=== PATIENT | female | born 1930 | race African-American/Black ===

== ENCOUNTER 2016-06-09 15:23 | Inpatient (IN) | payer MEDICARE, OTHER ==
[~2016-06-09] VITALS: Ht 162.6 cm; Wt 86.2 kg
[~2016-06-09 15:23] MED LIST: ADVAIR 250-501 EACH INH; ALBUTEROL SULF8.5 GM INH; AMITIZA8 MCG PO; ATORVASTATIN CA40 MG; CARAFATE1 G1 ORAL; CEPACOL SORETH1 EACH ORO; CIPRO500 MG PO; CLOPIDOGREL75 MG ORAL; COZAAR50 MG PO; DEXILANT60 MG PO; HYDROCHLOROTHIA25 MG PO; LOSARTAN-HCTZ1 EAC2 ORAL; MELOXICAM15 MG PO; PREDNISONE20 MG ORAL; PROTONIX40 MG ORAL; ROBITUSSIN DM5 ML PO; TYLENOL325 MG ORAL; ULTRAM50 MG PO; VICODIN 5-5001 EACH PO; ZITHROMAX250 MG ORAL
[2016-06-09] MEDS ORDERED: TRAMADOL HCL50 MG ORAL (15:40)
[2016-06-09] MEDS ORDERED: DEXILANT60 MG ORAL (15:40)
[2016-06-09] MEDS ORDERED: VENTOLIN HFA18 GM INH (15:40)
[2016-06-09 16:12] VITALS: BP 103/64
--- NOTE | 2016-06-09 16:29 | Emergency Room Report ---
History of Present Illness General Chief Complaint: Generalized Weakness Source: Patient, Medical Record Present Illness HPI 85YOF walk-in with 2 weeks of "weakness." Endorses chronic pain to bilateral hips, knees, legs. Intermittent sharp shooting/spasm pain to lower extremities. patient states weakness is so bad, she has trouble ambulating with cane. Denies chest pain, SOB, abd pain, febver/chills, urinary complaints. Hasnt been able to see PMD because he is "out of town." Denies recent falls/trauma. EMR indicates history of arthritis, seen on xrays of knees done last year. Allergies: Coded Allergies: No Known Allergies (Unverified , 02/20/12) Patient History Past Medical History: other - see my HPI Past Surgical History: none Pertinent Family History: none Social History: Reports: alcohol use, drug use, smoking Now: No Immunizations: UTD Reviewed Nursing Documentation: PMH: Agreed, PSxH: Agreed Nursing Documentation-PMH Hx Cardiac Problems: No Hx Hypertension: Yes Hx Pacemaker: No Hx Asthma: Yes Hx COPD: No Hx Diabetes: No Hx Cancer: No Hx Gastrointestinal Problems: Yes Hx Dialysis: No Hx Neurological Problems: Yes 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 Hx Seizures: No Hx Tremors: No Hx Dizziness: Yes - after taking Blood Pressure medication Hx Syncope: No Hx Headaches: Yes Hx Neurologic Surgery: No Hx Brain Shunt: No Review of Systems All Other Systems: negative except mentioned in HPI Physical Exam Vital Signs Date Time Temp Pulse Resp B/P Pulse Ox O2 Delivery O2 Flow Rate FiO2 06/09/16 15:32 98.8 94 16 87/59 97 Room Air Sp02 EP Interpretation: reviewed, normal, other - initial triage BP was in error General Appearance: normal inspection, well appearing, no apparent distress, alert, GCS 15, non-toxic Head: normocephalic, atraumatic Eyes: bilateral eye EOMI, bilateral eye PERRL ENT: normal ENT inspection, hearing grossly normal, normal voice Neck: normal inspection, full range of motion, supple, no bony tend Respiratory: normal inspection, lungs clear, normal breath sounds, no respiratory distress, no retraction, no wheezing Cardiovascular #1: regular rate, rhythm, no edema Gastrointestinal: normal inspection, normal bowel sounds, non tender, soft, no guarding, no hernia Genitourinary: no CVA tenderness Musculoskeletal: normal inspection, back normal, no calf tenderness, pelvis stable, Rose Mary's Sign negative, other - Bilateral lower extremities: generalized ttp, especially over bilateral hips, knees, ankles. No obvious sign of infection or trauma. ROM intact. Neurologic: normal inspection, alert, oriented x3, responsive, radiology specialist III-XII nml as tested, motor strength/tone normal, speech normal Psychiatric: normal inspection, judgement/insight normal, mood/affect normal Skin: normal inspection, normal color, no rash, warm/dry, palpation normal Lymphatic: normal inspection Medical Decision Making Medicare Attestation I Erendira Jiang MD hereby attest that the medical record entry for date of service, 02/07/16 accurately reflects signatures/notations that I made in my capacity as MD when I treated/diagnosed the above listed Medicare beneficiary. I attest that this information is true, accurate and complete to the best of my knowledge. I understand that any falsification, omission, or concealment of material fact may subject me to administrative, civil, or criminal liability. This patient warrants hospital admission for extreme of age and has a condition that cannot be treated as outpatient. Diagnostic Impression: Primary Impression: Episode of generalized weakness Additional Impressions: Arthritis Cannot walk ALMA (acute kidney injury) Dehydration CKD (chronic kidney disease) Qualified Codes: N18.9 - Chronic kidney disease, unspecified UTI (urinary tract infection) Qualified Codes: N30.01 - Acute cystitis with hematuria ER Course 85 YOF with generalized weakness for 2 weeks VSS. Afebrile. No focal neuro deficits to suggest CVA Atraumatic No focal joint pain to suggest joint infection or septic joint or cellulitis UA: grossly infected Labs: ALMA on CKD. Weakness - Multifactorial - UTI, ALMA on CKD likely from dehydration/pre-renal. patietn endorses not drinking "any water at all, ever." gentle hydration IV started in ED - Rocephin given. Urine Cx pending. Patient not septic so blood Cx not sent. Improved lower extremity pain with gabapentin/Robaxin. Recommend continuing these meds PRN on floor. Endorsed to Dr Olmos for med/surg admission at 6pm EKG Diagnostic Results Rate: normal Rhythm: NSR ST Segments: other - RBBB Rhythm Strip Diag. Results EP Interpretation: yes Rate: 76 Rhythm: NSR, no PVC's, no ectopy Chest X-Ray Diagnostic Results EP Interpretation: Yes Findings: no consolidation, no effusion, no pneumothorax, no acute cardiopulmonary disease Number of Views: 1 Last Vital Signs Date Time Temp Pulse Resp B/P Pulse Ox O2 Delivery O2 Flow Rate FiO2 06/09/16 16:12 78 16 103/64 98 Room Air 06/09/16 15:32 98.8 Status: improved Disposition: ADMITTED INPATIENT Condition: Serious Referrals: NON PHYSICIAN (PCP) ERENDIRA JIANG M.D. Jun 09, 2016 16:29
[2016-06-09] MEDS ORDERED: Methocarbamol 750mg tab ORAL ONE (17:00)
[2016-06-09 17:24] LABS: BASOPHILS % (AUTO) 1.8 % (0.0-2.0); EOSINOPHILS % (AUTO) 7.5 % (0.0-3.0); LYMPHOCYTES % (AUTO) 36.9 % (20.0-45.0); MEAN CORPUSCULAR HEMOGLOBIN 25.1 PG (27.0-31.0); MEAN CORPUSCULAR HGB CONC 30.6 G/DL (32.0-36.0); MEAN CORPUSCULAR VOLUME 82 FL (80-99); MONOCYTES % (AUTO) 8.2 % (1.0-10.0); NEUTROPHILS % (AUTO) 45.7 % (45.0-75.0); PLATELET COUNT 266 K/UL (150-450); RED CELL DISTRIBUTION WIDTH 14.3 % (11.6-14.8); WHITE BLOOD COUNT 6.8 K/UL (4.8-10.8)
[2016-06-09 17:26] VITALS: BP 113/75
[2016-06-09 17:26] LABS: ALANINE AMINOTRANSFERASE 11 U/L (3-33); ALBUMIN/GLOBULIN RATIO 1.1 (1.0-2.7); ANION GAP 20 (5-15); ASPARTATE AMINO TRANSFERASE 17 U/L (5-40); CALCIUM 9.4 mg/dL (8.6-10.2); CARBON DIOXIDE 24 mEQ/L (20-30); CHLORIDE 97 mEQ/L (98-107); CREATININE 2.4 mg/dL (0.5-0.9); HEMOLYSIS 4; POTASSIUM 3.5 mEQ/L (3.4-4.9); SODIUM 141 mEQ/L (135-145); TOTAL PROTEIN 6.9 g/dL (6.6-8.7); TROPONIN I < 0.30 ng/mL (<=0.30)
[2016-06-09 17:30] LABS: KETONES,URINE NEGATIVE (NEGATIVE); LEUKOCYTE ESTERASE ,URINE 1+ (NEGATIVE); NITRITE,URINE NEGATIVE (NEGATIVE); PH,URINE 6 (4.5-8.0); PROTEIN,URINE NEGATIVE (NEGATIVE); UROBILINOGEN,URINE NORMAL MG/DL (0.0-1.0)
[2016-06-09 17:37] LABS: CKMB 2.1 ng/mL (< 3.8)
[2016-06-09 17:47] LABS: APPEARANCE,URINE SLIGHTLY CLOUDY
[2016-06-09 17:49] LABS: BACTERIA,URINE MANY /HPF; RBC,URINE 15-20 /HPF (0 - 2); SQUAMOUS EPITHELIAL CELL,UR FEW /LPF (NONE/OCC); WBC,URINE 20-30 /HPF (0 - 2)
[2016-06-09] MEDS ORDERED: cefTRIAXone 1 GM in NS 55 ML IVPB ONE (18:00)
[2016-06-09] MEDS ORDERED: Morphine Sulfate 2mg/ml Inj IVP PRN (20:30)
[2016-06-09] MEDS ORDERED: DuoNeb 0.5-3(2.5)mg/3ml neb HHN PRN (20:30)
[2016-06-09] MEDS ORDERED: Nitroglycerin Subl 0.4mg tab (Bottle Of 25) SL PRN (20:30)
[2016-06-09] MEDS: Heparin 5000 units/ml inj SUBQ SCH (21:04)
[2016-06-09] MEDS ORDERED: Cefepime HCl 2 GM in NS 110 ML IVPB ONE (23:00)
[2016-06-09] MEDS ORDERED: Vancomycin 1 GM in D5W 275 ML IVPB SCH (23:30)
[2016-06-10] VITALS: BP 103/61
[2016-06-10 04:00] VITALS: BP 104/52
[2016-06-10 07:12] VITALS: BP 119/48
[2016-06-10 07:39] LABS: BASOPHILS % (AUTO) 1.5 % (0.0-2.0); EOSINOPHILS % (AUTO) 13.4 % (0.0-3.0); LYMPHOCYTES % (AUTO) 14.6 % (20.0-45.0); MEAN CORPUSCULAR HEMOGLOBIN 25.4 PG (27.0-31.0); MEAN CORPUSCULAR HGB CONC 30.5 G/DL (32.0-36.0); MEAN CORPUSCULAR VOLUME 83 FL (80-99); MONOCYTES % (AUTO) 11.1 % (1.0-10.0); NEUTROPHILS % (AUTO) 59.4 % (45.0-75.0); PLATELET COUNT 249 K/UL (150-450); RED BLOOD COUNT 4.36 M/UL (4.20-5.40); RED CELL DISTRIBUTION WIDTH 14.5 % (11.6-14.8); WHITE BLOOD COUNT 5.1 K/UL (4.8-10.8)
[2016-06-10 08:09] LABS: ALANINE AMINOTRANSFERASE 10 U/L (3-33); ALBUMIN/GLOBULIN RATIO 1.1 (1.0-2.7); ANION GAP 14 (5-15); ASPARTATE AMINO TRANSFERASE 15 U/L (5-40); CALCIUM 8.9 mg/dL (8.6-10.2); CARBON DIOXIDE 26 mEQ/L (20-30); CHLORIDE 101 mEQ/L (98-107); CREATININE 2.1 mg/dL (0.5-0.9); HEMOLYSIS 1; POTASSIUM 3.5 mEQ/L (3.4-4.9); SODIUM 141 mEQ/L (135-145); TOTAL PROTEIN 6.3 g/dL (6.6-8.7)
[2016-06-10] MEDS: Miralax 17gm pkt ORAL PRN (08:50)
[2016-06-10] MEDS: Heparin 5000 units/ml inj SUBQ SCH ×2 (08:51→20:44)
--- NOTE | 2016-06-10 10:28 | Diagnostic Imaging Report ---
Indication: Chest pain Technique: XRAY CHEST 1 V Comparison: 09/16/13 Findings: Cardiac silhouette is prominent. There is no consolidation or pleural effusion. Osseous structures demonstrate no acute abnormality. Impression: No acute cardiopulmonary disease. Cardiomegaly.
--- NOTE | 2016-06-10 10:32 | Consultation ---
Consult Note Consult Note ID Dic # [id number] DOMINIK MCBRIDE M.D. Jun 10, 2016 10:32
[2016-06-10 12:00] VITALS: BP 100/48
--- NOTE | 2016-06-10 14:49 | History and Physical ---
History of Present Illness General Date patient seen: Jun 10, 2016 Reason for Hospitalization: Generalized Weakness Present Illness HPI 85 year old with htn, cva?, DVt, walk-in with 2 weeks of weakness and dizziness , chronic pain to bilateral hips, knees, legs. Intermittent sharp shooting/ spasm pain to lower extremities She has trouble ambulating with cane. Denies chest pain, SOB, abd pain, febver/chills, urinary complaints. she was diagnosed to have UTI and possibly sepsis and admitted for further work up. Allergies: Coded Allergies: No Known Allergies (Unverified , 02/20/12) Medication History Scheduled Albuterol Sulfate (Ventolin Hfa), 1 PUFF INH EVERY 6 HOURS, (Reported) Clopidogrel* (Clopidogrel*), 75 MG ORAL DAILY, (Reported) Dexlansoprazole (Dexilant), 60 MG ORAL DAILY, (Reported) Losartan/Hydrochlorothiazide (Losartan-Hctz 50-12.5 Mg Tab), 1 TAB ORAL DAILY, ( Reported) Scheduled PRN Acetaminophen (Tylenol), 650 MG ORAL Q6H PRN for For Pain Tramadol Hcl* (Ultram*), 50 MG ORAL Q6H PRN for For Pain, (Reported) Patient History Healthcare decision maker Resuscitation status Full Code Advanced Directive on File Past Medical/Surgical History Past Medical/Surgical History: (1) Arthritis (2) CKD (chronic kidney disease) (3) Cardiomegaly Review of Systems All Other Systems: negative except mentioned in HPI Physical Exam General Appearance: WD/WN Lines, tubes and drains: peripheral, central line HEENT: normocephalic, atraumatic Neck: non-tender, normal alignment Respiratory/Chest: chest wall non-tender, lungs clear Cardiovascular/Chest: normal peripheral pulses, normal rate Abdomen: normal bowel sounds, non tender Genitourinary/Rectal: normal genital exam, normal rectal exam Last 24 Hour Vital Signs Date Time Temp Pulse Resp B/P Pulse Ox O2 Delivery O2 Flow Rate FiO2 06/10/16 07:12 97.5 69 16 119/48 96 Room Air 06/10/16 04:00 96.1 66 20 104/52 97 Room Air 06/10/16 00:00 97.3 65 20 103/61 93 Room Air 06/09/16 19:41 75 19 125/65 97 Room Air 4/7/17 17:26 79 16 113/75 99 Room Air 06/09/16 16:12 78 16 103/64 98 Room Air 06/09/16 15:32 98.8 94 16 87/59 97 Room Air Intake and Output 06/09/16 06/10/16 19:00 07:00 Intake Total 55 ml 574.57 ml Balance 55 ml 574.57 ml IV Total 55 ml 574.57 ml # Voids 1 1 Laboratory Tests Test 06/09/16 16:52 06/10/16 05:40 White Blood Count 6.8 K/UL (4.8-10.8) 5.1 K/UL (4.8-10.8) Red Blood Count 4.60 M/UL (4.20-5.40) 4.36 M/UL (4.20-5.40) Hemoglobin 11.6 G/DL (12.0-16.0) L 11.1 G/DL (12.0-16.0) L Hematocrit 37.8 % (37.0-47.0) 36.3 % (37.0-47.0) L Mean Corpuscular Volume 82 FL (80-99) 83 FL (80-99) Mean Corpuscular Hemoglobin 25.1 PG (27.0-31.0) L 25.4 PG (27.0-31.0) L Mean Corpuscular Hemoglobin Concent 30.6 G/DL (32.0-36.0) L 30.5 G/DL (32.0-36.0) L Red Cell Distribution Width 14.3 % (11.6-14.8) 14.5 % (11.6-14.8) Platelet Count 266 K/UL (150-450) 249 K/UL (150-450) Mean Platelet Volume 7.0 FL (6.5-10.1) 7.0 FL (6.5-10.1) Neutrophils (%) (Auto) 45.7 % (45.0-75.0) 59.4 % (45.0-75.0) Lymphocytes (%) (Auto) 36.9 % (20.0-45.0) 14.6 % (20.0-45.0) L Monocytes (%) (Auto) 8.2 % (1.0-10.0) 11.1 % (1.0-10.0) H Eosinophils (%) (Auto) 7.5 % (0.0-3.0) H 13.4 % (0.0-3.0) H Basophils (%) (Auto) 1.8 % (0.0-2.0) 1.5 % (0.0-2.0) Urine Color Pale yellow Urine Appearance Slightly cloudy Urine pH 6 (4.5-8.0) Urine Specific [place] 1.005 (1.005-1.035) Urine Protein Negative (NEGATIVE) Urine Glucose (UA) Negative (NEGATIVE) Urine Ketones Negative (NEGATIVE) Urine Occult Blood 2+ (NEGATIVE) H Urine Nitrite Negative (NEGATIVE) Urine Bilirubin Negative (NEGATIVE) Urine Urobilinogen Normal MG/DL (0.0-1.0) Urine Leukocyte Esterase 1+ (NEGATIVE) H Urine RBC 15-20 /HPF (0 - 2) H Urine WBC 20-30 /HPF (0 - 2) H Urine Squamous Epithelial Cells Few /LPF (NONE/OCC) Urine Bacteria Many /HPF (NONE) H Sodium Level 141 mEQ/L (135-145) 141 mEQ/L (135-145) Potassium Level 3.5 mEQ/L (3.4-4.9) 3.5 mEQ/L (3.4-4.9) Chloride Level 97 mEQ/L (98-107) L 101 mEQ/L (98-107) Carbon Dioxide Level 24 mEQ/L (20-30) 26 mEQ/L (20-30) Anion Gap 20 (5-15) H 14 (5-15) Blood Urea Nitrogen 25 mg/dL (7-23) H 26 mg/dL (7-23) H Creatinine 2.4 mg/dL (0.5-0.9) H 2.1 mg/dL (0.5-0.9) H Estimat Glomerular Filtration Rate mL/min (>60) mL/min (>60) Glucose Level 91 mg/dL (74-106) 91 mg/dL (74-106) Calcium Level 9.4 mg/dL (8.6-10.2) 8.9 mg/dL (8.6-10.2) Total Bilirubin 0.3 mg/dL (0.0-1.2) 0.3 mg/dL (0.0-1.2) Aspartate Amino Transf (AST/SGOT) 17 U/L (5-40) 15 U/L (5-40) Alanine Aminotransferase (ALT/SGPT) 11 U/L (3-33) 10 U/L (3-33) Alkaline Phosphatase 57 U/L (35-104) 53 U/L (35-104) Total Creatine Kinase 78 U/L (26-140) Creatine Kinase MB 2.1 ng/mL (< 3.8) Creatine Kinase MB Relative Index 2.6 Troponin I < 0.30 ng/mL (<=0.30) Total Protein 6.9 g/dL (6.6-8.7) 6.3 g/dL (6.6-8.7) L Albumin 3.7 g/dL (3.5-5.2) 3.3 g/dL (3.5-5.2) L Globulin 3.2 g/dL 3.0 g/dL Albumin/Globulin Ratio 1.1 (1.0-2.7) 1.1 (1.0-2.7) Microbiology Date/Time Source Procedure Growth Status 06/09/16 16:52 Urine,Clean Catch Urine Culture - Preliminary NO GROWTH Resulted Height (Feet): 5 Height (Inches): 4.00 Weight (Pounds): 190 Medications Current Medications Medications (Trade) Dose Ordered Sig/Lamonte Route PRN Reason Start Time Stop Time Status Last Admin Dose Admin Acetaminophen (Tylenol) 650 mg Q4H PRN ORAL fever 06/09/16 20:30 07/09/16 20:29 Albuterol/ Ipratropium 3 ml 3 ml Q4H PRN HHN Shortness of Breath 06/09/16 20:30 06/14/16 20:29 Cefepime HCl/ Sodium Chloride (Maxipime/Sodium Chloride) 110 ml @ 220 mls/hr Q24H IVPB 06/10/16 21:00 06/17/16 20:59 Heparin Sodium (Porcine) (Heparin 5000 units/ml) 5,000 units EVERY 12 HOURS SUBQ 06/09/16 21:00 07/09/16 20:59 06/10/16 08:51 Morphine Sulfate (Morphine Sulfate) 2 mg Q4H PRN IVP Moderate Pain (Pain Scale 4-6) 06/09/16 20:30 06/16/16 20:29 Nitroglycerin (Ntg) 0.4 mg Q5MIN X 3 DOSES PRN SL Prn Chest Pain 06/09/16 20:30 07/09/16 20:29 Ondansetron HCl (Zofran) 4 mg Q6H PRN IVP Nausea & Vomiting 06/09/16 20:30 07/09/16 20:29 Polyethylene Glycol (Miralax) 17 gm DAILYPRN PRN ORAL Constipation 06/09/16 20:30 07/09/16 20:29 06/10/16 08:50 Sodium Chloride (Sodium Chloride 1000ml bag) 1,000 ml @ 50 mls/hr Q20H IVLG 06/09/16 21:00 07/09/16 20:59 06/09/16 21:01 Temazepam (Restoril) 15 mg HSPRN PRN ORAL Insomnia 06/09/16 20:30 06/16/16 20:29 Assessment/Plan Problem List: (1) UTI (urinary tract infection) ICD Codes: N39.0 - Urinary tract infection, site not specified SNOMED: 39449991 Qualifiers: (2) Episode of generalized weakness ICD Codes: R53.1 - Weakness SNOMED: 89997450 (3) Cardiomegaly ICD Codes: I51.7 - Cardiomegaly SNOMED: 2409958 (4) Hypertension ICD Codes: I10 - Hypertension SNOMED: 85060287 Assessment/Plan urine cultures IV antibiotics check cultures pt/ot neuro evaluation for dizziness echo to evaluate cardiomegally AMANDA BAH Jun 10, 2016 14:49
[2016-06-10 15:56] VITALS: BP 93/51
[2016-06-10 17:11] LABS: APPEARANCE,URINE CLEAR; KETONES,URINE NEGATIVE (NEGATIVE); LEUKOCYTE ESTERASE ,URINE 2+ (NEGATIVE); NITRITE,URINE NEGATIVE (NEGATIVE); PH,URINE 5 (4.5-8.0); PROTEIN,URINE NEGATIVE (NEGATIVE); UROBILINOGEN,URINE NORMAL MG/DL (0.0-1.0)
--- NOTE | 2016-06-10 17:17 | Consultation ---
DATE OF CONSULTATION: INFECTIOUS DISEASE CONSULT CONSULTING PHYSICIAN: Bert Weller M.D. REQUESTING PHYSICIAN: Saran Olmos M.D. REASON FOR CONSULTATION: Evaluation of the patient for possible sepsis. HISTORY OF PRESENT ILLNESS: The patient is an 85-year-old female with multiple medical problems, who came to the hospital due to general weakness . She is complaining of the weakness in the lower extremity and her back, however, she does not have any back pain or lower extremity pain. Infectious Disease consultation has been requested for evaluation of the patient for possible sepsis. PAST MEDICAL HISTORY: 1. History of CVA. 2. History of DVT of the right lower extremity. 3. History of dizziness. 4. History of headaches. 5. History of cardiomyopathy. 6. Hypertension. 7. . 8. Obesity. 9. History of chronic constipation. 10. Anemia. ALLERGIES: No known drug allergies. SOCIAL HISTORY: The patient lives at home. FAMILY HISTORY: Noncontributory. REVIEW OF SYSTEMS: The patient is a poor historian. Much of the information is gathered as mentioned above.HEENT: No change in vision or hearing. Pulmonary: No cough or shortness of breath. Cardiovascular: No history of palpitations. Gastrointestinal/Abdomen: As mentioned above. Genitourinary: No dysuria. PHYSICAL EXAMINATION: VITAL SIGNS: Temperature 97.4 degrees, blood pressure 119/48, pulse 86, and respiratory rate 18. HEENT: Mild pale conjunctivae. No icterus. NECK: No lymphadenopathy. CHEST: Course breathing sounds. HEART: S1 and S2. ABDOMEN: Soft and nontender. EXTREMITIES: No cyanosis. NEUROLOGIC: Awake. LABORATORY DATA: White blood cells 5.1, hemoglobin 11, and platelets 249,000. UA, 20 to 30 white blood cells and 15 to 20 red blood cells. BUN 26 and creatinine 2.1. Liver function tests are unremarkable. Chest x-ray is pending. ASSESSMENT: The patient is an 85-year-old female, who came to the hospital with generalized weakness. The patient's urinalysis showed pyuria and the urinary tract infection as contributing factor is the possibility. PLAN: 1. We will continue the patient on IV cefepime, discontinue IV vancomycin. 2. Monitor CBC. 3. Monitor BMP. 4. Monitor cultures (blood and urine). 5. Monitor vital signs. 6. Based on the patient's clinical course and laboratories, we will do further recommendations. Thank you, Dr. Olmos, for allowing me to participate in the care of this patient. I will follow the patient with you during this hospitalization. Bert Weller M.D. DR: KHURRAM JOB#: [id number] CC:
[2016-06-10 17:39] LABS: BACTERIA,URINE FEW /HPF; RBC,URINE 0-2 /HPF (0 - 2); SQUAMOUS EPITHELIAL CELL,UR FEW /LPF (NONE/OCC)
[2016-06-10 19:00] VITALS: BP 121/78
[2016-06-10] MEDS: Cefepime HCl 1 GM in NS 110 ML IVPB SCH (20:43)
[2016-06-11 00:16] VITALS: BP 119/60
[2016-06-11 04:00] VITALS: BP 115/61
[2016-06-11 07:46] LABS: ALANINE AMINOTRANSFERASE 12 U/L (3-33); ALBUMIN/GLOBULIN RATIO 1.1 (1.0-2.7); ANION GAP 14 (5-15); ASPARTATE AMINO TRANSFERASE 21 U/L (5-40); CALCIUM 8.9 mg/dL (8.6-10.2); CARBON DIOXIDE 25 mEQ/L (20-30); CHLORIDE 104 mEQ/L (98-107); CREATININE 1.6 mg/dL (0.5-0.9); HEMOLYSIS 2; PHOSPHORUS 2.6 mg/dL (2.5-4.8); POTASSIUM 3.7 mEQ/L (3.4-4.9); SODIUM 143 mEQ/L (135-145); TOTAL PROTEIN 5.9 g/dL (6.6-8.7); URIC ACID 8.2 mg/dL (3.0-7.5)
[2016-06-11 08:08] VITALS: BP 121/72
[2016-06-11] MEDS: Miralax 17gm pkt ORAL PRN (08:12)
[2016-06-11] MEDS: Heparin 5000 units/ml inj SUBQ SCH ×2 (08:13→20:34)
[2016-06-11] MEDS ORDERED: Tubing IV Secondary IV ONE (08:39)
[2016-06-11 09:10] LABS: CORTISOL LC 5.7 ug/dL (.)
--- NOTE | 2016-06-11 09:38 | Infectious Diseases Prog Note ---
Assessment/Plan Assessment/Plan A; Sepsis Osteoarthritis of knees HPN Acute renal failure P; continue Cefepime Subjective ROS Limited/Unobtainable: No Constitutional: Reports: no symptoms HEENT: Reports: no symptoms Respiratory: Reports: dry cough Cardiovascular: Reports: no symptoms Gastrointestinal/Abdominal: Reports: no symptoms Genitourinary: Reports: no symptoms Musculoskeletal: Reports: other - in knees, pain Allergies: Coded Allergies: No Known Allergies (Unverified , 02/20/12) Objective Vital Signs Last 24 Hour Vital Signs Date Time Temp Pulse Resp B/P Pulse Ox O2 Delivery O2 Flow Rate FiO2 06/11/16 08:08 97.9 67 19 121/72 98 Room Air 06/11/16 04:00 97.9 68 18 115/61 95 Room Air 06/11/16 00:16 97.0 70 16 119/60 96 Room Air 06/10/16 19:05 85 18 Room Air 06/10/16 19:00 98.2 76 20 121/78 98 Room Air 06/10/16 15:56 98.2 70 20 93/51 97 Room Air 06/10/16 12:00 98.2 71 15 100/48 96 Room Air Height (Feet): 5 Height (Inches): 4.00 Weight (Pounds): 190 General Appearance: no acute distress HEENT: mucous membranes moist Respiratory/Chest: chest wall non-tender Cardiovascular: normal rate Abdomen: soft, non tender Extremities: no edema, other - arthritic changes of knee, small left knee effusion Microbiology Date/Time Source Procedure Growth Status 06/09/16 16:52 Urine,Clean Catch Urine Culture - Preliminary NO GROWTH Resulted Laboratory Tests Test 06/10/16 11:20 06/10/16 16:00 06/11/16 04:30 Plasma/Serum Osmolality Pending Pending Free Triiodothyronine Pending Pending Cortisol 5.7 ug/dL (.) Pending Urine Color Pale yellow Urine Appearance Clear Urine pH 5 (4.5-8.0) Urine Specific [place] 1.015 (1.005-1.035) Urine Protein Negative (NEGATIVE) Urine Glucose (UA) Negative (NEGATIVE) Urine Ketones Negative (NEGATIVE) Urine Occult Blood Negative (NEGATIVE) Urine Nitrite Negative (NEGATIVE) Urine Bilirubin Negative (NEGATIVE) Urine Urobilinogen Normal MG/DL (0.0-1.0) Urine Leukocyte Esterase 2+ (NEGATIVE) H Urine RBC 0-2 /HPF (0 - 2) Urine WBC 5-10 /HPF (0 - 2) H Urine Squamous Epithelial Cells Few /LPF (NONE/OCC) Urine Bacteria Few /HPF (NONE) Urine Eosinophils None seen Urine Osmolality Pending Urine Random Sodium 116 mmol/L Urine Random Chloride 105 mmol/L Urine Potassium Timed 33 mmol/L Sodium Level 143 mEQ/L (135-145) Potassium Level 3.7 mEQ/L (3.4-4.9) Chloride Level 104 mEQ/L (98-107) Carbon Dioxide Level 25 mEQ/L (20-30) Anion Gap 14 (5-15) Blood Urea Nitrogen 22 mg/dL (7-23) Creatinine 1.6 mg/dL (0.5-0.9) H Estimat Glomerular Filtration Rate mL/min (>60) Glucose Level 94 mg/dL (74-106) Uric Acid 8.2 mg/dL (3.0-7.5) H Calcium Level 8.9 mg/dL (8.6-10.2) Phosphorus Level 2.6 mg/dL (2.5-4.8) Magnesium Level 2.0 mg/dL (1.7-2.5) Total Bilirubin 0.2 mg/dL (0.0-1.2) Aspartate Amino Transf (AST/SGOT) 21 U/L (5-40) Alanine Aminotransferase (ALT/SGPT) 12 U/L (3-33) Alkaline Phosphatase 53 U/L (35-104) Total Creatine Kinase 66 U/L (26-140) Total Protein 5.9 g/dL (6.6-8.7) L Albumin 3.2 g/dL (3.5-5.2) L Globulin 2.7 g/dL Albumin/Globulin Ratio 1.1 (1.0-2.7) Thyroid Stimulating Hormone (TSH) 1.050 uIU/mL (0.300-4.500) Free Thyroxine 0.90 ng/dL (0.86-1.85) Current Medications Medications (Trade) Dose Ordered Sig/Lamonte Route PRN Reason Start Time Stop Time Status Last Admin Dose Admin Acetaminophen (Tylenol) 650 mg Q4H PRN ORAL fever 06/09/16 20:30 07/09/16 20:29 Albuterol/ Ipratropium 3 ml 3 ml Q4H PRN HHN Shortness of Breath 06/09/16 20:30 06/14/16 20:29 Cefepime HCl/ Sodium Chloride (Maxipime/Sodium Chloride) 110 ml @ 220 mls/hr Q24H IVPB 06/10/16 21:00 06/17/16 20:59 06/10/16 20:43 Heparin Sodium (Porcine) (Heparin 5000 units/ml) 5,000 units EVERY 12 HOURS SUBQ 06/09/16 21:00 07/09/16 20:59 06/11/16 08:13 Morphine Sulfate (Morphine Sulfate) 2 mg Q4H PRN IVP Moderate Pain (Pain Scale 4-6) 06/09/16 20:30 06/16/16 20:29 Nitroglycerin (Ntg) 0.4 mg Q5MIN X 3 DOSES PRN SL Prn Chest Pain 06/09/16 20:30 07/09/16 20:29 Ondansetron HCl (Zofran) 4 mg Q6H PRN IVP Nausea & Vomiting 06/09/16 20:30 07/09/16 20:29 Polyethylene Glycol (Miralax) 17 gm DAILYPRN PRN ORAL Constipation 06/09/16 20:30 07/09/16 20:29 06/11/16 08:12 Sodium Chloride (Sodium Chloride 1000ml bag) 1,000 ml @ 50 mls/hr Q20H IVLG 06/09/16 21:00 07/09/16 20:59 06/10/16 17:36 Temazepam (Restoril) 15 mg HSPRN PRN ORAL Insomnia 06/09/16 20:30 06/16/16 20:29 JAUN ECHEVARRIA Jun 11, 2016 09:38
[2016-06-11 11:10] LABS: FREE TRIIODOTHYRONINE 2.5 pg/mL (2.0-4.4)
[2016-06-11 12:18] VITALS: BP 132/68
[2016-06-11] MEDS ORDERED: Promethazine/Codeine 5ml UD ORAL PRN (14:30)
[2016-06-11 16:14] VITALS: BP 135/80
[2016-06-11 19:00] VITALS: BP 113/58
--- NOTE | 2016-06-11 19:10 | Pulmonology Progress Note ---
Assessment/Plan Problems: (1) UTI (urinary tract infection) (2) Episode of generalized weakness (3) Cardiomegaly (4) Hypertension Assessment/Plan improving pt/ot f.u c/s of the urine dc planning in am depending on PT recommendations Subjective ROS Limited/Unobtainable: No Interval Events: doing better Allergies: Coded Allergies: No Known Allergies (Unverified , 02/20/12) Objective Last 24 Hour Vital Signs Date Time Temp Pulse Resp B/P Pulse Ox O2 Delivery O2 Flow Rate FiO2 06/11/16 16:14 97.5 69 19 135/80 98 Room Air 06/11/16 12:18 97.7 67 19 132/68 97 Room Air 06/11/16 08:08 97.9 67 19 121/72 98 Room Air 06/11/16 06:40 73 20 Room Air 06/11/16 04:00 97.9 68 18 115/61 95 Room Air 06/11/16 00:16 97.0 70 16 119/60 96 Room Air Intake and Output 06/10/16 06/11/16 19:00 07:00 Intake Total 1400 ml 880 ml Output Total 400 ml Balance 1000 ml 880 ml Intake Oral 900 ml 240 ml IV Total 500 ml 640 ml Output Urine Total 400 ml # Voids 1 6 # Bowel Movements 2 HEENT: normocephalic, atraumatic Respiratory/Chest: chest wall non-tender, lungs clear Breasts: no masses Cardiovascular: normal rate Abdomen: normal bowel sounds, no organomegaly Skin: no lesions Microbiology Date/Time Source Procedure Growth Status 06/09/16 16:52 Urine,Clean Catch Urine Culture - Preliminary Mixed Urogenital Contaminants Resulted Laboratory Tests 06/11/16 04:30: Sodium Level 143, Potassium Level 3.7, Chloride Level 104, Carbon Dioxide Level 25, Anion Gap 14, Blood Urea Nitrogen 22, Creatinine 1.6H, Estimat Glomerular Filtration Rate , Glucose Level 94, Plasma/Serum Osmolality [Pending], Uric Acid 8.2H, Calcium Level 8.9, Phosphorus Level 2.6, Magnesium Level 2.0, Total Bilirubin 0.2, Aspartate Amino Transf (AST/SGOT) 21, Alanine Aminotransferase ( ALT/SGPT) 12, Alkaline Phosphatase 53, Total Creatine Kinase 66, Total Protein 5.9L, Albumin 3.2L, Globulin 2.7, Albumin/Globulin Ratio 1.1, Thyroid Stimulating Hormone (TSH) 1.050, Free Thyroxine 0.90, Free Triiodothyronine [ Pending], Cortisol [Pending] Current Medications Medications (Trade) Dose Ordered Sig/Lamonte Route PRN Reason Start Time Stop Time Status Last Admin Dose Admin Acetaminophen (Tylenol) 650 mg Q4H PRN ORAL fever 06/09/16 20:30 07/09/16 20:29 06/11/16 14:35 Albuterol/ Ipratropium 3 ml 3 ml Q4H PRN HHN Shortness of Breath 06/09/16 20:30 06/14/16 20:29 Cefepime HCl/ Sodium Chloride (Maxipime/Sodium Chloride) 110 ml @ 220 mls/hr Q24H IVPB 06/10/16 21:00 06/17/16 20:59 06/10/16 20:43 Heparin Sodium (Porcine) (Heparin 5000 units/ml) 5,000 units EVERY 12 HOURS SUBQ 06/09/16 21:00 07/09/16 20:59 06/11/16 08:13 Morphine Sulfate (Morphine Sulfate) 2 mg Q4H PRN IVP Moderate Pain (Pain Scale 4-6) 06/09/16 20:30 06/16/16 20:29 Nitroglycerin (Ntg) 0.4 mg Q5MIN X 3 DOSES PRN SL Prn Chest Pain 06/09/16 20:30 07/09/16 20:29 Ondansetron HCl (Zofran) 4 mg Q6H PRN IVP Nausea & Vomiting 06/09/16 20:30 07/09/16 20:29 Polyethylene Glycol (Miralax) 17 gm DAILYPRN PRN ORAL Constipation 06/09/16 20:30 07/09/16 20:29 06/11/16 08:12 Promethazine HCl/ Codeine (Phenergan with Codeine) 5 ml Q4H PRN ORAL For Cough 06/11/16 14:30 07/11/16 14:29 06/11/16 14:34 Sodium Chloride (Sodium Chloride 1000ml bag) 1,000 ml @ 50 mls/hr Q20H IVLG 06/09/16 21:00 07/09/16 20:59 06/11/16 12:53 Temazepam (Restoril) 15 mg HSPRN PRN ORAL Insomnia 06/09/16 20:30 06/16/16 20:29 AMANDA BAH Jun 11, 2016 19:10
[2016-06-11] MEDS: Cefepime HCl 1 GM in NS 110 ML IVPB SCH (20:33)
[2016-06-12] VITALS: BP 141/82
--- NOTE | 2016-06-12 02:08 | Consultation ---
DATE OF CONSULTATION: CONSULTING PHYSICIAN: Stephanie Garcia M.D. ATTENDING PHYSICIAN: Saran Olmos M.D. REASON FOR CONSULTATION: Bilateral inframammary fold rash. HISTORY OF PRESENT ILLNESS: This is an 85-year-old woman who presented to the emergency room on 06/10/2016, with generalized weakness and was diagnosed to have a urinary tract infection possible sepsis. The patient has been an inpatient and had been undergoing treatment, however, she complains of sweating and irritation in the inframammary fold and also underneath her pannus. PAST MEDICAL HISTORY: Hypertension, history of DVT, chronic pain and urinary tract infections. Other past medical history arthritis, chronic kidney disease, and cardiomegaly. MEDICATIONS: Current medications are Phenergan, cefepime, heparin, albuterol, Zestril, Zosyn, MiraLax, and nitroglycerine p.r.n. ALLERGIES: No known drug allergies. PERSONAL HISTORY/SOCIAL HISTORY: The patient does not smoke or drink or use drugs. REVIEW OF SYSTEMS: No other active medical issues than reported above PHYSICAL EXAMINATION: GENERAL: The patient is alert and oriented, in no acute distress. LUNGS: Clear to auscultation bilaterally. CARDIOVASCULAR: Regular rate and rhythm. HEENT: PERRL. EOMI. NECK: No lymphadenopathy. ABDOMEN: Her abdomen is slightly distended by the soft and nontender. Her bilateral inframammary fold, she does have some redness, but no open wound. She does not appear to have any active fungal infection. In her pannus she also had some sweating and moisture, but no rash in the pannus. ASSESSMENT AND PLAN: The patient with a history of multiple chronic medical problems with excess skin and with bilateral proptosis and excess pannus, which creates sweating and increased moisture. The patient currently places powder in these areas for any irritation. Recommend using anticungal l powder or zinc oxide antifungal TID and PRN instead of of regular dessicating powder. Please keep the area clean and dry. Stephanie Garcia M.D. DR: Ricky JOB#: [id number] CC: KAMERON
[2016-06-12 04:00] VITALS: BP 128/80
[2016-06-12 08:13] VITALS: BP 120/70
[2016-06-12] MEDS ORDERED: NS 550ML IV ONE (08:35)
--- NOTE | 2016-06-12 09:11 | Infectious Diseases Prog Note ---
Assessment/Plan Assessment/Plan A: The patient is an 85-year-old female Doubt UTI or sepsis , at this time UCx : mixed GNR : contaminant hx of weakness in the lower extremity and her back History of CVA History of DVT of the right lower extremity History of dizziness History of headaches Cardiomyopathy HTN Obesity History of chronic constipation Anemia PLAN: DC IV cefepime d# 3 and monitor pt off of AB Rx Monitor CBC Monitor BMP. Monitor cultures (blood). Monitor vital signs Subjective Constitutional: Denies: anorexia, chills, drenching sweats, fatigue, fever, no symptoms, other Allergies: Coded Allergies: No Known Allergies (Unverified , 02/20/12) Objective Vital Signs Last 24 Hour Vital Signs Date Time Temp Pulse Resp B/P Pulse Ox O2 Delivery O2 Flow Rate FiO2 06/12/16 08:13 98.1 72 18 120/70 100 06/12/16 04:00 96.3 69 18 128/80 96 Room Air 06/12/16 00:00 97.5 67 18 141/82 97 06/11/16 20:12 63 20 Room Air 06/11/16 19:00 97.3 73 18 113/58 Room Air 06/11/16 16:14 97.5 69 19 135/80 98 Room Air 06/11/16 12:18 97.7 67 19 132/68 97 Room Air Height (Feet): 5 Height (Inches): 4.00 Weight (Pounds): 190 HEENT: atraumatic Respiratory/Chest: normal breath sounds Cardiovascular: normal peripheral pulses Abdomen: no organomegaly Microbiology Date/Time Source Procedure Growth Status 06/10/16 11:15 Blood Blood Culture - Preliminary NO GROWTH AFTER 24 HOURS Resulted 06/10/16 11:15 Blood Blood Culture - Preliminary NO GROWTH AFTER 24 HOURS Resulted 06/09/16 16:52 Urine,Clean Catch Urine Culture - Preliminary Mixed Urogenital Contaminants Resulted Current Medications Medications (Trade) Dose Ordered Sig/Lamonte Route PRN Reason Start Time Stop Time Status Last Admin Dose Admin Acetaminophen (Tylenol) 650 mg Q4H PRN ORAL fever 06/09/16 20:30 07/09/16 20:29 06/11/16 14:35 Albuterol/ Ipratropium 3 ml 3 ml Q4H PRN HHN Shortness of Breath 06/09/16 20:30 06/14/16 20:29 Cefepime HCl/ Sodium Chloride (Maxipime/Sodium Chloride) 110 ml @ 220 mls/hr Q24H IVPB 06/10/16 21:00 06/17/16 20:59 06/11/16 20:33 Heparin Sodium (Porcine) (Heparin 5000 units/ml) 5,000 units EVERY 12 HOURS SUBQ 06/09/16 21:00 07/09/16 20:59 06/11/16 20:34 Morphine Sulfate (Morphine Sulfate) 2 mg Q4H PRN IVP Moderate Pain (Pain Scale 4-6) 06/09/16 20:30 06/16/16 20:29 Nitroglycerin (Ntg) 0.4 mg Q5MIN X 3 DOSES PRN SL Prn Chest Pain 06/09/16 20:30 07/09/16 20:29 Ondansetron HCl (Zofran) 4 mg Q6H PRN IVP Nausea & Vomiting 06/09/16 20:30 07/09/16 20:29 Polyethylene Glycol (Miralax) 17 gm DAILYPRN PRN ORAL Constipation 06/09/16 20:30 07/09/16 20:29 06/11/16 08:12 Promethazine HCl/ Codeine (Phenergan with Codeine) 5 ml Q4H PRN ORAL For Cough 06/11/16 14:30 07/11/16 14:29 06/11/16 14:34 Sodium Chloride (Sodium Chloride 1000ml bag) 1,000 ml @ 50 mls/hr Q20H IVLG 06/09/16 21:00 07/09/16 20:59 06/11/16 12:53 Temazepam (Restoril) 15 mg HSPRN PRN ORAL Insomnia 06/09/16 20:30 06/16/16 20:29 DOMINIK MCBRIDE M.D. Jun 12, 2016 09:11
[2016-06-12] MEDS: Heparin 5000 units/ml inj SUBQ SCH (10:52)
[2016-06-12 12:15] VITALS: BP 139/64
--- NOTE | 2016-06-12 15:27 | Pulmonology Progress Note ---
Assessment/Plan Problems: (1) UTI (urinary tract infection) (2) Episode of generalized weakness (3) Cardiomegaly (4) Hypertension Assessment/Plan improving pt/ot f.u c/s of the urine dc planning home with home health finished abx course Subjective ROS Limited/Unobtainable: No Interval Events: doing better Allergies: Coded Allergies: No Known Allergies (Unverified , 02/20/12) Objective Last 24 Hour Vital Signs Date Time Temp Pulse Resp B/P Pulse Ox O2 Delivery O2 Flow Rate FiO2 06/12/16 12:15 99.3 66 18 139/64 98 Room Air 06/12/16 08:13 98.1 72 18 120/70 100 06/12/16 06:30 65 16 Room Air 21 06/12/16 04:00 96.3 69 18 128/80 96 Room Air 06/12/16 00:00 97.5 67 18 141/82 97 06/11/16 20:12 63 20 Room Air 06/11/16 19:00 97.3 73 18 113/58 Room Air 06/11/16 16:14 97.5 69 19 135/80 98 Room Air Intake and Output 06/11/16 06/12/16 19:00 07:00 Intake Total 1315 ml 1165 ml Balance 1315 ml 1165 ml Intake Oral 690 ml 480 ml IV Total 625 ml 685 ml # Voids 4 2 # Bowel Movements 2 1 General Appearance: WD/WN HEENT: normocephalic, atraumatic Respiratory/Chest: chest wall non-tender, lungs clear Breasts: no masses Cardiovascular: normal peripheral pulses, normal rate, regular rhythm Abdomen: normal bowel sounds, soft, non tender Genitourinary: normal external genitalia Neurologic/Psychiatric: 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 manager II-XII grossly normal, no motor/sensory deficits Lymphatic: no neck adenopathy Musculoskeletal: normal muscle bulk Microbiology Date/Time Source Procedure Growth Status 06/10/16 11:15 Blood Blood Culture - Preliminary NO GROWTH AFTER 24 HOURS Resulted 06/10/16 11:15 Blood Blood Culture - Preliminary NO GROWTH AFTER 24 HOURS Resulted 06/09/16 16:52 Urine,Clean Catch Urine Culture - Final Mixed Urogenital Contaminants Complete Current Medications Medications (Trade) Dose Ordered Sig/Lamonte Route PRN Reason Start Time Stop Time Status Last Admin Dose Admin Acetaminophen (Tylenol) 650 mg Q4H PRN ORAL fever 06/09/16 20:30 07/09/16 20:29 06/11/16 14:35 Albuterol/ Ipratropium (DuoNeb 0.5-3(2.5)mg/3ml) 3 ml Q4H PRN HHN Shortness of Breath 06/09/16 20:30 06/14/16 20:29 Heparin Sodium (Porcine) (Heparin 5000 units/ml) 5,000 units EVERY 12 HOURS SUBQ 06/09/16 21:00 07/09/16 20:59 06/12/16 10:52 Morphine Sulfate (Morphine Sulfate) 2 mg Q4H PRN IVP Moderate Pain (Pain Scale 4-6) 06/09/16 20:30 06/16/16 20:29 Nitroglycerin (Ntg) 0.4 mg Q5MIN X 3 DOSES PRN SL Prn Chest Pain 06/09/16 20:30 07/09/16 20:29 Ondansetron HCl (Zofran) 4 mg Q6H PRN IVP Nausea & Vomiting 06/09/16 20:30 07/09/16 20:29 Polyethylene Glycol (Miralax) 17 gm DAILYPRN PRN ORAL Constipation 06/09/16 20:30 07/09/16 20:29 06/11/16 08:12 Promethazine HCl/ Codeine (Phenergan with Codeine) 5 ml Q4H PRN ORAL For Cough 06/11/16 14:30 07/11/16 14:29 06/11/16 14:34 Sodium Chloride (Sodium Chloride 1000ml bag) 1,000 ml @ 50 mls/hr Q20H IVLG 06/09/16 21:00 07/09/16 20:59 06/12/16 10:50 Temazepam (Restoril) 15 mg HSPRN PRN ORAL Insomnia 06/09/16 20:30 06/16/16 20:29 AMANDA BAH Jun 12, 2016 15:27
[2016-06-12 16:01] VITALS: BP 133/82
[2016-06-13 02:14] LABS: FREE TRIIODOTHYRONINE 2.6 pg/mL (2.0-4.4)
[2016-06-13 06:10] LABS: CORTISOL LC 10.3 ug/dL (.)
--- NOTE | 2016-06-13 12:47 | Discharge Summary ---
Discharge Summary Hospital Course Date of Admission Jun 09, 2016 at 16:38 Date of Discharge Jun 12, 2016 at 18:05 Admitting Diagnosis WEAKNESS HPI Aura Castro is a 85 year old female who was admitted on Jun 09, 2016 at 16:38 for Weakness Hospital Course dc summary #[id number] Discharge Medications Continued Medications: Acetaminophen (Tylenol) 325 Mg Tablet 650 MG ORAL Q6H PRN for For Pain, #30 TAB 0 Refills Albuterol Sulfate (Ventolin Hfa) 18 Gm Hfa.aer.ad 1 PUFF INH EVERY 6 HOURS, #18 GM 0 Refills Dexlansoprazole (Dexilant) 60 Mg Cap.drTeresitabp 60 MG ORAL DAILY, CAP Losartan/Hydrochlorothiazide (Losartan-Hctz 50-12.5 Mg Tab) 1 Each Tablet 1 TAB ORAL DAILY, TAB 0 Refills Tramadol Hcl* (Ultram*) 50 Mg Tablet 50 MG ORAL Q6H PRN for For Pain, #30 TAB 0 Refills Discharge Condition Upon Discharge: stable Discharge Disposition Patient was discharged to Home with Home Health Services Discharge Diagnoses: Discharge Instructions Discharge Instructions Special Instructions I have been assigned to complete a D/C Summary on this account. I was not involved in the patient management Angélica Blanc NP (Vanchtein) Jun 13, 2016 12:47
--- NOTE | 2016-06-14 02:08 | Discharge Summary 2 SIG ---
DATE OF ADMISSION: 06/09/2016 DATE OF DISCHARGE: 06/12/2016 HISTORY OF PRESENT ILLNESS: 85-year-old female presented to emergency room with complaint of generalized weakness. She reported chronic pain in bilateral hips, knee, and legs. The patient reported difficulties with ambulating ; at baseline using a cane for ambulation. She denied chest pain, shortness of breath, and palpitations. She denied fevers and chills. She denied abdominal pain or urinary complaints. She was not able to see her primary medical doctor because he was out of town. She denied recent falls or trauma. Workup in the emergency room revealed no fever, no leukocytosis. Urinalysis was positive for urinary tract infection with +1 leukocyte esterase, 20 to 3o WBC and many bacteria. BUN -26 and creatinine - 2.1. The patient stated she was not drinking enough water for some time. While in the emergency room, the patient started on gentle hydration. Urine was sent for culture. The patient started on Rocephin. The patient was also medicated with Neurontin and Robaxin for pain. EKG showed normal sinus rhythm. Heart rate 76. Chest x-ray revealed no acute cardiopulmonary disease. The patient admitted for further management. ADMITTING DIAGNOSES: 1. Episodes of generalized weakness. 2. Urinary tract infection. 3. Acute kidney injury on chronic kidney disease. 4. Dehydration. 5. Hypertension. HOSPITAL STAY: The patient admitted to the hospital. The patient started on gentle hydration and on empiric antibiotics. Urine culture revealed mixed urogenital contaminant. Blood culture were negative. Infectious disease doctor, who was involved in care of this patient recommended to discontinue antibiotics and observe the patient off antibiotics. The patient remained afebrile. No leukocytosis. Renal parameters improved with gentle IV hydration. Creatinine down to 1.6. Pain management provided. Blood pressure was managed with current regimen and was stable. Fall precaution maintained. The patient was working with physical and occupational therapists. Bowel regimen instituted. DVT prophylaxis provided. Thyroid panel was stable. Liver function tests were stable. Hemoglobin and hematocrit remained in the baseline, no trend down. Prior to discharge, hemoglobin- 11.1 and hematocrit -36.3. The patient was stable for discharge home and follow up with home health for PT/OT. DISCHARGE DIAGNOSES: 1. Episodes of generalized weakness likely multifactorial secondary to dehydration, history of chronic arthritis as well as the urinary tract infection. 2. Acute kidney injury on chronic kidney disease. 3. Dehydration. 4. Hypertension. 5. History of deep venous thrombosis right lower extremity. 6. History of cerebrovascular accident. 7. Obesity. 8. Anemia. 19. Chronic constipation. DISCHARGE MEDICATIONS: See medication reconciliation list. The patient status post antibiotic treatment. Currently off antibiotics. DISCHARGE INSTRUCTIONS: Follow up with the primary medical doctor next week. Home health to follow up for PT and OT services. Saran Olmos M.D. I have been assigned to dictate discharge summary on this account and I was not involved in the patient's management. Angélica LeesInterfaith Medical CenterRuth N.PTeresita DR: Iker JOB#: [id number] CC: KAMERON
--- NOTE | 2016-06-14 08:42 | Cardiology Report ---
APPROVED REPORT EXAM: Two-dimensional and M-mode echocardiogram with Doppler and color Doppler. INDICATION Left ventricular function M-Mode DIMENSIONS IVSd1.0 (0.7-1.1cm)Left Atrium (MM)5.8 (1.6-4.0cm) LVDd4.5 (3.5-5.6cm)Aortic Root3.0 (2.0-3.7cm) PWd1.1 (0.7-1.1cm)Aortic Cusp Exc.2.0 (1.5-2.0cm) LVDs2.9 (2.5-4.0cm) PWs1.2 cm Technically difficult study due to poor acoustic windows. Normal left ventricular chamber size, systolic function and wall motion. Left ventricular ejection fraction estimated to be 60-65%. No evidence of left ventricular hypertrophy. Anterior pericardial effusion. Right cardiac chamber sizes are within normal limits. Mild left atrial enlargement by 2D. Focal aortic valve sclerosis with adequate cusp excursion Thickened mitral valve leaflets with normal excursion. Mitral annulus and aortic root calcification. Pulmonic valve not well visualized. Normal tricuspid valve structure. IVC is normal in size with physiologic collapse. A color flow and spectral Doppler study was performed and revealed: No aortic regurgitation. No mitral regurgitation. Left ventricular diastolic dysfunction grade 1. Mild tricuspid regurgitation. Tricuspid systolic velocities suggests peak right ventricular systolic pressure of 31 mmHg
--- NOTE | 2016-06-14 16:18 | Cardiology Report ---
APPROVED REPORT EKG Measurement Heart [id number] Normal sinus rhythm Right bundle branch block Left anterior fascicular block Bifascicular block Cannot rule out Inferior infarct (masked by fascicular block?), age undetermined Abnormal ECG
== END 2016-06-12 18:05 | disposition home health service (06) | DRG 690 ==
LOC: ENRESERVDT → ENRESERVTM → EMR 16:00 → 4E 16:38 → EDBEDREQ 17:06 → 4E 19:12
DX: N39.0 Urinary tract infection, site not specified (principal); N17.9 Acute kidney failure, unspecified; E86.0 Dehydration; M19.90 Unspecified osteoarthritis, unspecified site; I51.7 Cardiomegaly; I12.9 Hypertensive chronic kidney disease with stage 1 through stage 4 chronic kidney disease, or unspecified chronic kidney disease; N18.9 Chronic kidney disease, unspecified; Z86.718 Personal history of other venous thrombosis and embolism; Z86.73 Personal history of transient ischemic attack (TIA), and cerebral infarction without residual deficits; E66.9 Obesity, unspecified; K59.00 Constipation, unspecified
CPT/HCPCS: 36415; 71010; 80053; 81001; 81003; 82436; 82533; 82550; 82553; 83735; 83930; 83935; 84100; 84133; 84300; 84439; 84443; 84481; 84484; 84550; 85025; 87040; 87086; 89050; 93005; 93306; 94664

== ENCOUNTER 2017-04-11 11:42 | Inpatient (IN) | payer MEDICARE, OTHER ==
[~2017-04-11] VITALS: Ht 160 cm; Wt 68.0 kg
[~2017-04-11 11:42] MED LIST changes: +DEXILANT60 MG ORAL; +TRAMADOL HCL50 MG ORAL; +VENTOLIN HFA18 GM INH
[2017-04-11 11:47] VITALS: BP 93/63
[2017-04-11] MEDS ORDERED: NS 250 ML IVPB ONE (12:15)
[2017-04-11 12:31] LABS: BASOPHILS % (AUTO) 1.7 % (0.0-2.0); EOSINOPHILS % (AUTO) 3.4 % (0.0-3.0); HEMATOCRIT 37.3 % (37.0-47.0); HEMOGLOBIN 11.5 G/DL (12.0-16.0); LYMPHOCYTES % (AUTO) 34.4 % (20.0-45.0); MEAN CORPUSCULAR VOLUME 81 FL (80-99); MONOCYTES % (AUTO) 6.7 % (1.0-10.0); NEUTROPHILS % (AUTO) 53.8 % (45.0-75.0); PLATELET COUNT 317 K/UL (150-450); RED BLOOD COUNT 4.59 M/UL (4.20-5.40); RED CELL DISTRIBUTION WIDTH 12.6 % (11.6-14.8)
[2017-04-11 12:52] LABS: ANION GAP 13 mmol/L (5-15); BLOOD UREA NITROGEN 29 mg/dL (7-18); CARBON DIOXIDE 22 MMOL/L (21-32); CHLORIDE 102 MMOL/L (98-107); CREATININE 2.5 MG/DL (0.55-1.30); POTASSIUM 3.4 MMOL/L (3.5-5.1); SODIUM 137 MMOL/L (136-145)
[2017-04-11 13:05] LABS: ALANINE AMINOTRANSFERASE 13 U/L (12-78); ALBUMIN/GLOBULIN RATIO 0.7 (1.0-2.7); ALKALINE PHOSPHATASE 68 U/L (46-116); ASPARTATE AMINO TRANSFERASE 15 U/L (15-37); BILIRUBIN,TOTAL 0.3 MG/DL (0.2-1.0); CREATINE KINASE 53 U/L (26-308)
--- NOTE | 2017-04-11 13:30 | Emergency Room Report ---
History of Present Illness General Chief Complaint: Dizziness Source: Patient, Family Member, EMS Present Illness HPI Patient presents with several days in increased generalized weakness that has been going on for at least 2 weeks. States she has had dizziness with changing positions (not vertigo). No chest pain, palpitations. Possibly with some swelling of extrem. No calf pain, hemoptysis. On hypertensive med with diuretic. No dysuria. Appetite has been good. Some orthopnea. No fevers, nausea, vomiting. No dysuria. No diarrhea. Occasional constipation. Chronic joint pain without change. H/O DVT in past. Allergies: Coded Allergies: No Known Allergies (Unverified , 02/20/12) Patient History Past Medical History: see triage record Social History: Denies: smoking, alcohol use, drug use Social History Narrative SNF Reviewed Nursing Documentation: PMH: Agreed, PSxH: Agreed Nursing Documentation-PMH Hx Cardiac Problems: No Hx Hypertension: Yes Hx Pacemaker: No Hx Asthma: Yes Hx COPD: No Hx Diabetes: No Hx Cancer: No Hx Gastrointestinal Problems: Yes Hx Dialysis: No Hx Neurological Problems: Yes 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 Hx Seizures: No Hx Tremors: No Hx Dizziness: Yes - after taking Blood Pressure medication Hx Syncope: No Hx Headaches: Yes Hx Neurologic Surgery: No Hx Brain Shunt: No Review of Systems All Other Systems: negative except mentioned in HPI Physical Exam Vital Signs Date Time Temp Pulse Resp B/P (MAP) Pulse Ox O2 Delivery O2 Flow Rate FiO2 04/11/17 11:47 98.1 80 20 93/63 99 Room Air Sp02 EP Interpretation: reviewed, normal General Appearance: well appearing, no apparent distress, GCS 15 Head: normocephalic, atraumatic Eyes: bilateral eye normal inspection, bilateral eye PERRL ENT: moist mucus membranes Neck: supple Respiratory: lungs clear, normal breath sounds Cardiovascular #1: regular rate, rhythm, edema Cardiovascular #2: 2+ radial (R) Gastrointestinal: normal inspection, normal bowel sounds, non tender, no mass, non-distended, overweight Musculoskeletal: back normal, gait/station normal, normal range of motion Neurologic: alert, oriented x3, motor strength/tone normal, DTRs symmetric, sensory intact, cerebellar normal Psychiatric: mood/affect normal Skin: normal inspection, warm/dry Medical Decision Making Diagnostic Impression: Primary Impression: Hypotension (arterial) Qualified Codes: I95.9 - Hypotension, unspecified Additional Impression: Renal failure Qualified Codes: N17.9 - Acute kidney failure, unspecified; N18.3 - Chronic kidney disease, stage 3 (moderate) ER Course Patient presents with weakness and dizziness with standing or sitting and hypotension. DDx: AMI, volume depletion, occult infection, medication excess, renal failure, CHF amongst others. Evaluation with EKG, labs, CXR and labs. Treatment with gentle hydration even though some total body sodium excess. EKG without injury. CXR with some increased cor. Labs with renal insufficiency. Improved with treatment. No evidence of infectious source (minimal pyuria). Need to exclude myocardial damage, cardiac evaluation and follow renal function. Admit telemetry Dr. Olmos. Laboratory Tests Test 04/11/17 12:15 04/11/17 16:30 White Blood Count 7.0 K/UL (4.8-10.8) Red Blood Count 4.59 M/UL (4.20-5.40) Hemoglobin 11.5 G/DL (12.0-16.0) L Hematocrit 37.3 % (37.0-47.0) Mean Corpuscular Volume 81 FL (80-99) Mean Corpuscular Hemoglobin 25.1 PG (27.0-31.0) L Mean Corpuscular Hemoglobin Concent 30.9 G/DL (32.0-36.0) L Red Cell Distribution Width 12.6 % (11.6-14.8) Platelet Count 317 K/UL (150-450) Mean Platelet Volume 7.6 FL (6.5-10.1) Neutrophils (%) (Auto) 53.8 % (45.0-75.0) Lymphocytes (%) (Auto) 34.4 % (20.0-45.0) Monocytes (%) (Auto) 6.7 % (1.0-10.0) Eosinophils (%) (Auto) 3.4 % (0.0-3.0) H Basophils (%) (Auto) 1.7 % (0.0-2.0) Prothrombin Time 10.6 SEC (9.30-11.50) Prothrombin Time INR 1.0 (0.9-1.1) PTT 27 SEC (23-33) Sodium Level 137 MMOL/L (136-145) Potassium Level 3.4 MMOL/L (3.5-5.1) L Chloride Level 102 MMOL/L (98-107) Carbon Dioxide Level 22 MMOL/L (21-32) Anion Gap 13 mmol/L (5-15) Blood Urea Nitrogen 29 mg/dL (7-18) H Creatinine 2.5 MG/DL (0.55-1.30) H Estimate Glomerular Filtration Rate mL/min (>60) Glucose Level 106 MG/DL (74-106) Lactic Acid Level 1.90 mmol/L (0.66-2.22) Calcium Level 9.0 MG/DL (8.5-10.1) Magnesium Level 1.8 MG/DL (1.8-2.4) Total Bilirubin 0.3 MG/DL (0.2-1.0) Aspartate Amino Transferase (AST) 15 U/L (15-37) Alanine Aminotransferase (ALT) 13 U/L (12-78) Alkaline Phosphatase 68 U/L (46-116) Total Creatine Kinase 53 U/L (26-308) Troponin I 0.019 ng/mL (0.000-0.056) Pro-B-Type Natriuretic Peptide 486 pg/mL (0-125) H Total Protein 7.1 G/DL (6.4-8.2) Albumin 3.0 G/DL (3.4-5.0) L Globulin 4.1 g/dL Albumin/Globulin Ratio 0.7 (1.0-2.7) L Lipase 142 U/L (73-393) Thyroid Stimulating Hormone (TSH) 2.096 uiU/mL (0.358-3.740) Urine Color Pale yellow Urine Appearance Clear Urine pH 5 (4.5-8.0) Urine Specific [place] 1.015 (1.005-1.035) Urine Protein Negative (NEGATIVE) Urine Glucose (UA) Negative (NEGATIVE) Urine Ketones Negative (NEGATIVE) Urine Occult Blood Negative (NEGATIVE) Urine Nitrite Negative (NEGATIVE) Urine Bilirubin Negative (NEGATIVE) Urine Urobilinogen Normal MG/DL (0.0-1.0) Urine Leukocyte Esterase 3+ (NEGATIVE) H Urine RBC 0-2 /HPF (0 - 2) Urine WBC 5-10 /HPF (0 - 2) H Urine Squamous Epithelial Cells Few /LPF (NONE/OCC) Urine Bacteria Few /HPF (NONE) Urine Opiates Screen Negative (NEGATIVE) Urine Barbiturates Screen Negative (NEGATIVE) Phencyclidine (PCP) Screen Negative (NEGATIVE) Urine Amphetamines Screen Negative (NEGATIVE) Urine Benzodiazepines Screen Negative (NEGATIVE) Urine Cocaine Screen Negative (NEGATIVE) Urine Marijuana (THC) Screen Negative (NEGATIVE) EKG Diagnostic Results Rate: normal Rhythm: NSR ST Segments: no acute changes - RBBB LAD Rhythm Strip Diag. Results EP Interpretation: yes Rhythm: NSR, no PVC's, no ectopy Chest X-Ray Diagnostic Results Chest X-Ray Diagnostic Results : Chest X-Ray Ordered: Yes # of Views/Limited/Complete: 1 View Indication: Other EP Interpretation: Yes Interpretation: no consolidation, no effusion, no pneumothorax Impression: Other Electronically Signed by: Electronically signed by Fausto Combs MD Last Vital Signs Date Time Temp Pulse Resp B/P (MAP) Pulse Ox O2 Delivery O2 Flow Rate FiO2 04/11/17 11:47 98.1 80 20 93/63 99 Room Air Status: improved Disposition: ADMITTED INPATIENT Condition: Serious Referrals: NON PHYSICIAN (PCP) Fausto Combs M.D. Apr 11, 2017 13:30
[2017-04-11] MEDS ORDERED: FAMOTIDINE40 MG ORAL (13:46)
[2017-04-11] MEDS ORDERED: MONTELUKAST SOD10 MG ORAL (13:46)
[2017-04-11 14:19] VITALS: BP 121/61
[2017-04-11 15:00] VITALS: BP 96/54
[2017-04-11] MEDS ORDERED: Miralax 17gm pkt ORAL PRN (15:15)
[2017-04-11] MEDS ORDERED: LORazepam Inj 2mg/ml 1ml IV PRN (15:15)
[2017-04-11] MEDS ORDERED: Morphine Sulfate 2mg/ml Inj IVP PRN (15:15)
[2017-04-11] MEDS ORDERED: Mylanta II UD 30ml ORAL PRN (15:15)
[2017-04-11] MEDS ORDERED: traMADol 50mg tab ORAL PRN (15:15)
--- NOTE | 2017-04-11 15:44 | Diagnostic Imaging Report ---
Indication: Cough Technique: One view of the chest Comparison: June 09, 2016 Findings: The lungs and pleural spaces are clear. The heart is enlarged. The aorta is tortuous and ectatic. Findings are unchanged Impression: Cardiomegaly. No acute process
[2017-04-11 16:00] VITALS: BP 101/58
--- NOTE | 2017-04-11 16:44 | Cardiology Report ---
APPROVED REPORT EXAM: Two-dimensional and M-mode echocardiogram with Doppler and color Doppler. INDICATION Left Ventricular Function M-Mode DIMENSIONS IVSd2.3 (0.7-1.1cm)Left Atrium (MM)4.6 (1.6-4.0cm) LVDd3.7 (3.5-5.6cm)Aortic Root3.4 (2.0-3.7cm) PWd1.4 (0.7-1.1cm)Aortic Cusp Exc.1.8 (1.5-2.0cm) LVDs3.3 (2.5-4.0cm) PWs1.4 cm Technically difficult study due to poor parasternal acoustical windows. Study quality precludes accurate assessment of regional wall motion. Normal left ventricular chamber size, systolic function . Left ventricular ejection fraction estimated to be 55 %. Moderate left ventricular hypertrophy. Small pericardial effusion. Mild left atrial enlargement. Right cardiac chamber sizes are within normal limits. Mild focal aortic valve sclerosis with adequate cusp excursion. Mildly thickened mitral valve leaflets with normal excursion. Mildly mitral annulus and aortic root calcification. Pulmonic valve not well visualized. Normal tricuspid valve structure. IVC is normal in size with physiological collapse. A color flow and spectral Doppler study was performed and revealed: No aortic insufficiency. Trace mitral regurgitation. Mitral diastolic velocities suggest mild left ventricular diastolic dysfunction (Grade I). Mild tricuspid regurgitation. Tricuspid systolic velocities suggests peak right ventricular systolic pressure of 24 mmHg. No pulmonic regurgitation present.
--- NOTE | 2017-04-11 17:42 | History and Physical ---
History of Present Illness General Date patient seen: Apr 11, 2017 Reason for Hospitalization: Dizziness Present Illness HPI 86 year old female with hx of HTN, presented to ER with several days of increased generalized weakness that has been going on for at least 2 weeks. She has had dizziness with changing positions (not vertigo). No chest pain, palpitations. she has been On hypertensive med with diuretics. No dysuria. Appetite has been good. Some orthopnea. No fevers, nausea, vomiting. No dysuria. No diarrhea. Occasional constipation. Pt's systolic BP was in 70s and she is admitted to telemetry for further work up. Allergies: Coded Allergies: No Known Allergies (Unverified , 02/20/12) Medication History Scheduled Albuterol Sulfate (Ventolin Hfa), 1 PUFF INH EVERY 6 HOURS, (Reported) Clopidogrel* (Clopidogrel*), 75 MG ORAL DAILY, (Reported) Dexlansoprazole (Dexilant), 60 MG ORAL DAILY, (Reported) Famotidine (Famotidine), 40 MG ORAL DAILY, (Reported) Losartan/Hydrochlorothiazide (Losartan-Hctz 50-12.5 Mg Tab), 1 TAB ORAL DAILY, ( Reported) Montelukast Sodium* (Montelukast Sodium*), 10 MG ORAL DAILY, (Reported) Scheduled PRN Acetaminophen (Tylenol), 650 MG ORAL Q6H PRN for For Pain Tramadol Hcl* (Ultram*), 50 MG ORAL Q6H PRN for For Pain, (Reported) Patient History Healthcare decision maker Resuscitation status Full Code Advanced Directive on File No Past Medical/Surgical History Past Medical/Surgical History: (1) Cardiomegaly (2) Arthralgia of knee, right Review of Systems Constitutional: Reports: malaise Physical Exam General Appearance: WD/WN Lines, tubes and drains: peripheral HEENT: normocephalic, atraumatic Neck: non-tender, normal alignment Respiratory/Chest: chest wall non-tender, lungs clear Breasts: no masses Cardiovascular/Chest: normal peripheral pulses Abdomen: normal bowel sounds Genitourinary/Rectal: normal genital exam, normal rectal exam Last 24 Hour Vital Signs Date Time Temp Pulse Resp B/P (MAP) Pulse Ox O2 Delivery O2 Flow Rate FiO2 04/11/17 16:00 98.2 78 20 101/58 99 Room Air 04/11/17 15:00 98.2 87 20 96/54 99 Room Air 04/11/17 14:47 68 17 111/76 99 Room Air 04/11/17 14:19 98.3 67 18 121/61 99 Room Air 04/11/17 11:47 98.1 80 20 93/63 99 Room Air 04/11/17 11:47 98.1 80 20 93/63 99 Room Air Laboratory Tests Test 04/11/17 12:15 White Blood Count 7.0 K/UL (4.8-10.8) Red Blood Count 4.59 M/UL (4.20-5.40) Hemoglobin 11.5 G/DL (12.0-16.0) L Hematocrit 37.3 % (37.0-47.0) Mean Corpuscular Volume 81 FL (80-99) Mean Corpuscular Hemoglobin 25.1 PG (27.0-31.0) L Mean Corpuscular Hemoglobin Concent 30.9 G/DL (32.0-36.0) L Red Cell Distribution Width 12.6 % (11.6-14.8) Platelet Count 317 K/UL (150-450) Mean Platelet Volume 7.6 FL (6.5-10.1) Neutrophils (%) (Auto) 53.8 % (45.0-75.0) Lymphocytes (%) (Auto) 34.4 % (20.0-45.0) Monocytes (%) (Auto) 6.7 % (1.0-10.0) Eosinophils (%) (Auto) 3.4 % (0.0-3.0) H Basophils (%) (Auto) 1.7 % (0.0-2.0) Prothrombin Time 10.6 SEC (9.30-11.50) Prothromb Time International Ratio 1.0 (0.9-1.1) Activated Partial Thromboplast Time 27 SEC (23-33) Sodium Level 137 MMOL/L (136-145) Potassium Level 3.4 MMOL/L (3.5-5.1) L Chloride Level 102 MMOL/L (98-107) Carbon Dioxide Level 22 MMOL/L (21-32) Anion Gap 13 mmol/L (5-15) Blood Urea Nitrogen 29 mg/dL (7-18) H Creatinine 2.5 MG/DL (0.55-1.30) H Estimat Glomerular Filtration Rate mL/min (>60) Glucose Level 106 MG/DL (74-106) Lactic Acid Level 1.90 mmol/L (0.66-2.22) Calcium Level 9.0 MG/DL (8.5-10.1) Magnesium Level 1.8 MG/DL (1.8-2.4) Total Bilirubin 0.3 MG/DL (0.2-1.0) Aspartate Amino Transf (AST/SGOT) 15 U/L (15-37) Alanine Aminotransferase (ALT/SGPT) 13 U/L (12-78) Alkaline Phosphatase 68 U/L (46-116) Total Creatine Kinase 53 U/L (26-308) Troponin I 0.019 ng/mL (0.000-0.056) Pro-B-Type Natriuretic Peptide 486 pg/mL (0-125) H Total Protein 7.1 G/DL (6.4-8.2) Albumin 3.0 G/DL (3.4-5.0) L Globulin 4.1 g/dL Albumin/Globulin Ratio 0.7 (1.0-2.7) L Lipase 142 U/L (73-393) Thyroid Stimulating Hormone (TSH) 2.096 uiU/mL (0.358-3.740) Height (Feet): 5 Height (Inches): 3.00 Weight (Pounds): 150 Medications Current Medications Medications (Trade) Dose Ordered Sig/Lamonte Route PRN Reason Start Time Stop Time Status Last Admin Dose Admin Acetaminophen (Tylenol) 650 mg Q4H PRN ORAL Mild Pain/Temp > 100.5 04/11/17 15:15 05/11/17 15:14 Al Hydroxide/Mg Hydroxide (Mylanta II) 30 ml Q6H PRN ORAL dyspepsia 04/11/17 15:15 05/11/17 15:14 Dextrose (Dextrose 50%) STAT PRN IV Hypoglycemia 04/11/17 15:15 05/11/17 15:14 Dextrose/ Electrolytes 1,000 ml @ 50 mls/hr Q20H IV 04/11/17 16:30 05/11/17 16:29 04/11/17 16:42 Lorazepam (Ativan 2mg/ml 1ml) 0.5 mg Q4H PRN IV For Anxiety 04/11/17 15:15 04/18/17 15:14 Morphine Sulfate (Morphine Sulfate) 1 mg Q4H PRN IVP Severe Pain (Pain Scale 7-10) 04/11/17 15:15 04/18/17 15:14 Ondansetron HCl (Zofran) 4 mg Q6H PRN IVP Nausea & Vomiting 04/11/17 15:15 05/11/17 15:14 Polyethylene Glycol (Miralax) 17 gm HSPRN PRN ORAL Constipation 04/11/17 15:15 05/11/17 15:14 Tramadol HCl (Ultram) 50 mg Q6H PRN ORAL Moderate Pain (Pain Scale 4-6) 04/11/17 15:15 04/18/17 15:14 Zolpidem Tartrate (Ambien) 5 mg HSPRN PRN ORAL Insomnia 04/11/17 15:15 04/18/17 15:14 Assessment/Plan Problem List: (1) Hypotension (arterial) ICD Codes: I95.9 - Hypotension, unspecified SNOMED: 95155383 Qualifiers: Qualified Codes: I95.9 - Hypotension, unspecified (2) ATN (acute tubular necrosis) ICD Codes: N17.0 - Acute kidney failure with tubular necrosis SNOMED: 93615957 (3) Renal failure ICD Codes: N19 - Unspecified kidney failure SNOMED: 47239295 Qualifiers: Qualified Codes: N17.9 - Acute kidney failure, unspecified; N18.3 - Chronic kidney disease, stage 3 (moderate) Assessment/Plan telemetry monitoring IV fluids renal w/u echo cariology to see renal US hold all antihypertensive meds. AMANDA BAH Apr 11, 2017 17:42
[2017-04-11 18:15] LABS: APPEARANCE,URINE CLEAR; BILIRUBIN, URINE NEGATIVE (NEGATIVE); COLOR,URINE PALE YELLOW; GLUCOSE, URINE (UA) NEGATIVE (NEGATIVE); KETONES,URINE NEGATIVE (NEGATIVE); LEUKOCYTE ESTERASE ,URINE 3+ (NEGATIVE); NITRITE,URINE NEGATIVE (NEGATIVE); PH,URINE 5 (4.5-8.0); PROTEIN,URINE NEGATIVE (NEGATIVE); UROBILINOGEN,URINE NORMAL MG/DL (0.0-1.0)
[2017-04-11 20:00] VITALS: BP 105/64
--- NOTE | 2017-04-11 20:30 | Cardiology Progress Note ---
Assessment/Plan Assessment/Plan hs of htn recent hypotension renal failure obesity asthma has had poor po intake not take bp med unless lelvateed so p has been low for few month trevin need cortisol level check echo normal lv fucntion trop neg will repeat but no cp ekg sineu rbbb contineu iv hydration Subjective Cardiovascular: Denies: chest pain Respiratory: Reports: shortness of breath - chronci due to astham , Denies: orthopnea, sputum Gastrointestinal/Abdominal: Denies: abdominal pain Genitourinary: Denies: burning Objective Last 24 Hour Vital Signs Date Time Temp Pulse Resp B/P (MAP) Pulse Ox O2 Delivery O2 Flow Rate FiO2 04/11/17 16:00 98.2 78 20 101/58 99 Room Air 04/11/17 16:00 71 04/11/17 15:00 98.2 87 20 96/54 99 Room Air 04/11/17 14:47 68 17 111/76 99 Room Air 04/11/17 14:19 98.3 67 18 121/61 99 Room Air 04/11/17 11:47 98.1 80 20 93/63 99 Room Air 04/11/17 11:47 98.1 80 20 93/63 99 Room Air General Appearance: no apparent distress, alert, obese Cardiovascular: normal rate, regular rhythm Respiratory/Chest: lungs clear, normal breath sounds Abdomen: normal bowel sounds, non tender, soft Extremities: no swelling Laboratory Tests Test 04/11/17 12:15 04/11/17 16:30 White Blood Count 7.0 K/UL (4.8-10.8) Red Blood Count 4.59 M/UL (4.20-5.40) Hemoglobin 11.5 G/DL (12.0-16.0) L Hematocrit 37.3 % (37.0-47.0) Mean Corpuscular Volume 81 FL (80-99) Mean Corpuscular Hemoglobin 25.1 PG (27.0-31.0) L Mean Corpuscular Hemoglobin Concent 30.9 G/DL (32.0-36.0) L Red Cell Distribution Width 12.6 % (11.6-14.8) Platelet Count 317 K/UL (150-450) Mean Platelet Volume 7.6 FL (6.5-10.1) Neutrophils (%) (Auto) 53.8 % (45.0-75.0) Lymphocytes (%) (Auto) 34.4 % (20.0-45.0) Monocytes (%) (Auto) 6.7 % (1.0-10.0) Eosinophils (%) (Auto) 3.4 % (0.0-3.0) H Basophils (%) (Auto) 1.7 % (0.0-2.0) Prothrombin Time 10.6 SEC (9.30-11.50) Prothromb Time International Ratio 1.0 (0.9-1.1) Activated Partial Thromboplast Time 27 SEC (23-33) Sodium Level 137 MMOL/L (136-145) Potassium Level 3.4 MMOL/L (3.5-5.1) L Chloride Level 102 MMOL/L (98-107) Carbon Dioxide Level 22 MMOL/L (21-32) Anion Gap 13 mmol/L (5-15) Blood Urea Nitrogen 29 mg/dL (7-18) H Creatinine 2.5 MG/DL (0.55-1.30) H Estimat Glomerular Filtration Rate mL/min (>60) Glucose Level 106 MG/DL (74-106) Lactic Acid Level 1.90 mmol/L (0.66-2.22) Calcium Level 9.0 MG/DL (8.5-10.1) Magnesium Level 1.8 MG/DL (1.8-2.4) Total Bilirubin 0.3 MG/DL (0.2-1.0) Aspartate Amino Transf (AST/SGOT) 15 U/L (15-37) Alanine Aminotransferase (ALT/SGPT) 13 U/L (12-78) Alkaline Phosphatase 68 U/L (46-116) Total Creatine Kinase 53 U/L (26-308) Troponin I 0.019 ng/mL (0.000-0.056) Pro-B-Type Natriuretic Peptide 486 pg/mL (0-125) H Total Protein 7.1 G/DL (6.4-8.2) Albumin 3.0 G/DL (3.4-5.0) L Globulin 4.1 g/dL Albumin/Globulin Ratio 0.7 (1.0-2.7) L Lipase 142 U/L (73-393) Thyroid Stimulating Hormone (TSH) 2.096 uiU/mL (0.358-3.740) Urine Color Pale yellow Urine Appearance Clear Urine pH 5 (4.5-8.0) Urine Specific [place] 1.015 (1.005-1.035) Urine Protein Negative (NEGATIVE) Urine Glucose (UA) Negative (NEGATIVE) Urine Ketones Negative (NEGATIVE) Urine Occult Blood Negative (NEGATIVE) Urine Nitrite Negative (NEGATIVE) Urine Bilirubin Negative (NEGATIVE) Urine Urobilinogen Normal MG/DL (0.0-1.0) Urine Leukocyte Esterase 3+ (NEGATIVE) H Urine RBC 0-2 /HPF (0 - 2) Urine WBC 5-10 /HPF (0 - 2) H Urine Squamous Epithelial Cells Few /LPF (NONE/OCC) Urine Bacteria Few /HPF (NONE) Urine Opiates Screen Negative (NEGATIVE) Urine Barbiturates Screen Negative (NEGATIVE) Phencyclidine (PCP) Screen Negative (NEGATIVE) Urine Amphetamines Screen Negative (NEGATIVE) Urine Benzodiazepines Screen Negative (NEGATIVE) Urine Cocaine Screen Negative (NEGATIVE) Urine Marijuana (THC) Screen Negative (NEGATIVE) RUKHSANA MCCOY Apr 11, 2017 20:30
[2017-04-11] MEDS: Zolpidem 5mg tab ORAL PRN (23:02)
[2017-04-12] VITALS: BP 138/70
[2017-04-12 04:00] VITALS: BP_SYST 104; BP_SYST 79; BP_SYST 85; BP_DIAS 50; BP_DIAS 55; BP_DIAS 56
[2017-04-12 05:03] LABS: BASOPHILS % (AUTO) 1.4 % (0.0-2.0); EOSINOPHILS % (AUTO) 2.9 % (0.0-3.0); HEMATOCRIT 32.2 % (37.0-47.0); HEMOGLOBIN 10.8 G/DL (12.0-16.0); LYMPHOCYTES % (AUTO) 33.5 % (20.0-45.0); MEAN CORPUSCULAR VOLUME 80 FL (80-99); MONOCYTES % (AUTO) 8.4 % (1.0-10.0); NEUTROPHILS % (AUTO) 53.8 % (45.0-75.0); PLATELET COUNT 273 K/UL (150-450); RED BLOOD COUNT 4.01 M/UL (4.20-5.40); RED CELL DISTRIBUTION WIDTH 12.9 % (11.6-14.8)
[2017-04-12 05:10] LABS: ALANINE AMINOTRANSFERASE 12 U/L (12-78); ALBUMIN 2.7 G/DL (3.4-5.0); ALBUMIN/GLOBULIN RATIO 0.8 (1.0-2.7); ALKALINE PHOSPHATASE 61 U/L (46-116); ANION GAP 9 mmol/L (5-15); ASPARTATE AMINO TRANSFERASE 10 U/L (15-37); BILIRUBIN,TOTAL 0.4 MG/DL (0.2-1.0); BLOOD UREA NITROGEN 33 mg/dL (7-18); CALCIUM 8.9 MG/DL (8.5-10.1); CARBON DIOXIDE 25 MMOL/L (21-32); CHLORIDE 105 MMOL/L (98-107); CHOLESTEROL 169 MG/DL (< 200); CREATININE 2.1 MG/DL (0.55-1.30); HDL CHOLESTEROL 66 MG/DL (40-60); POTASSIUM 3.4 MMOL/L (3.5-5.1); SODIUM 139 MMOL/L (136-145); TRIGLYCERIDES 56 MG/DL (30-150)
[2017-04-12 05:35] LABS: CREATINE KINASE 40 U/L (26-308)
[2017-04-12 08:00] VITALS: BP 94/52
[2017-04-12 12:00] VITALS: BP 126/54
--- NOTE | 2017-04-12 12:20 | Diagnostic Imaging Report ---
Indication: Abnormal kidney function Technique: Multiplanar grayscale and color Doppler imaging of the kidneys Comparison: 09/17/2013 Findings: Limited evaluation due to patient's body habitus. Right kidney measures 8.2 cm in length. Normal parenchymal thickness and echogenicity is noted. A simple appearing left renal cyst measures up to 6.4 cm in diameter (previously 5.2 cm. No evidence of hydronephrosis bilaterally. Simple appearing cystic lesions are noted within the liver. Bladder is grossly unremarkable in appearance. Post void residual bladder volume of 135 mL. Impression: Limited exam due to patient's body habitus. Simple appearing left renal cyst, slightly increased in size compared to the prior exam. No definite evidence of hydronephrosis bilaterally. Simple appearing hepatic cysts. Post void residual bladder volume of the 135 mL.
[2017-04-12 15:58] VITALS: BP 94/55
--- NOTE | 2017-04-12 16:15 | Pulmonology Progress Note ---
Assessment/Plan Problems: (1) Hypotension (arterial) (2) ATN (acute tubular necrosis) (3) Renal failure Assessment/Plan all noted renal US and Echo reviewed Cortisol level pending renal parameters are stable Renal and endo evaluation for hypotension Subjective ROS Limited/Unobtainable: No Interval Events: feeling better Constitutional: Reports: no symptoms HEENT: Repors: no symptoms Respiratory: Reports: no symptoms Allergies: Coded Allergies: No Known Allergies (Unverified , 02/20/12) Objective Last 24 Hour Vital Signs Date Time Temp Pulse Resp B/P (MAP) Pulse Ox O2 Delivery O2 Flow Rate FiO2 04/12/17 12:00 77 04/12/17 12:00 98.1 66 18 126/54 99 Room Air 04/12/17 09:00 66 73 76 04/12/17 08:00 70 04/12/17 08:00 98.2 70 18 94/52 98 Room Air 04/12/17 04:00 98.0 76 23 79/56 98 Room Air 04/12/17 04:00 67 04/12/17 04:00 98.0 76 23 85/50 98 Room Air 04/12/17 04:00 98.0 76 23 104/55 98 Room Air 04/12/17 00:00 70 04/12/17 00:00 97.9 72 20 138/70 95 Room Air 04/12/17 00:00 72 04/11/17 20:00 97.7 74 20 105/64 97 Room Air Intake and Output 04/11/17 04/12/17 19:00 07:00 Intake Total 667 ml 600 ml Balance 667 ml 600 ml Intake Oral 300 ml IV Total 367 ml 600 ml # Voids 1 1 Objective General Appearance: WD/WN Lines, tubes and drains: peripheral HEENT: normocephalic, atraumatic Neck: non-tender, normal alignment Respiratory/Chest: chest wall non-tender, lungs clear Breasts: no masses Cardiovascular/Chest: normal peripheral pulses Abdomen: normal bowel sounds Genitourinary/Rectal: normal genital exam, normal rectal exam Laboratory Tests 04/11/17 16:30: Urine Color Pale yellow, Urine Appearance Clear, Urine pH 5, Urine Specific [place] 1.015, Urine Protein Negative, Urine Glucose (UA) Negative, Urine Ketones Negative, Urine Occult Blood Negative, Urine Nitrite Negative, Urine Bilirubin Negative, Urine Urobilinogen Normal, Urine Leukocyte Esterase 3+H, Urine RBC 0-2, Urine WBC 5-10H, Urine Squamous Epithelial Cells Few, Urine Bacteria Few, Urine Opiates Screen Negative, Urine Barbiturates Screen Negative , Phencyclidine (PCP) Screen Negative, Urine Amphetamines Screen Negative, Urine Benzodiazepines Screen Negative, Urine Cocaine Screen Negative, Urine Marijuana (THC) Screen Negative 04/12/17 03:35: White Blood Count 7.0, Red Blood Count 4.01L, Hemoglobin 10.8L, Hematocrit 32.2L , Mean Corpuscular Volume 80, Mean Corpuscular Hemoglobin 26.9L, Mean Corpuscular Hemoglobin Concent 33.5, Red Cell Distribution Width 12.9, Platelet Count 273, Mean Platelet Volume 7.4, Neutrophils (%) (Auto) 53.8, Lymphocytes (% ) (Auto) 33.5, Monocytes (%) (Auto) 8.4, Eosinophils (%) (Auto) 2.9, Basophils ( %) (Auto) 1.4, Sodium Level 139, Potassium Level 3.4L, Chloride Level 105, Carbon Dioxide Level 25, Anion Gap 9, Blood Urea Nitrogen 33H, Creatinine 2.1H, Estimat Glomerular Filtration Rate , Glucose Level 92, Calcium Level 8.9, Total Bilirubin 0.4, Aspartate Amino Transf (AST/SGOT) 10L, Alanine Aminotransferase ( ALT/SGPT) 12, Alkaline Phosphatase 61, Troponin I 0.020, Total Protein 6.3L, Albumin 2.7L, Globulin 3.6, Albumin/Globulin Ratio 0.8L, Triglycerides Level 56 , Cholesterol Level 169, LDL Cholesterol 101H, HDL Cholesterol 66H, Cholesterol/ HDL Ratio 2.6L, Thyroid Stimulating Hormone (TSH) 1.532, Cortisol AM Sample [ Pending] 04/12/17 05:12: Uric Acid 8.3H, Total Creatine Kinase 40 Current Medications Medications (Trade) Dose Ordered Sig/Lamonte Route PRN Reason Start Time Stop Time Status Last Admin Dose Admin Acetaminophen (Tylenol) 650 mg Q4H PRN ORAL Mild Pain/Temp > 100.5 04/11/17 15:15 05/11/17 15:14 04/12/17 08:05 Al Hydroxide/Mg Hydroxide (Mylanta II) 30 ml Q6H PRN ORAL dyspepsia 04/11/17 15:15 05/11/17 15:14 Dextrose (Dextrose 50%) STAT PRN IV Hypoglycemia 04/11/17 15:15 05/11/17 15:14 Dextrose/ Electrolytes 1,000 ml @ 50 mls/hr Q20H IV 04/11/17 16:30 05/11/17 16:29 04/12/17 11:49 Lorazepam (Ativan 2mg/ml 1ml) 0.5 mg Q4H PRN IV For Anxiety 04/11/17 15:15 04/18/17 15:14 Morphine Sulfate (Morphine Sulfate) 1 mg Q4H PRN IVP Severe Pain (Pain Scale 7-10) 04/11/17 15:15 04/18/17 15:14 Ondansetron HCl (Zofran) 4 mg Q6H PRN IVP Nausea & Vomiting 04/11/17 15:15 05/11/17 15:14 Polyethylene Glycol (Miralax) 17 gm HSPRN PRN ORAL Constipation 04/11/17 15:15 05/11/17 15:14 04/11/17 21:08 Tramadol HCl (Ultram) 50 mg Q6H PRN ORAL Moderate Pain (Pain Scale 4-6) 04/11/17 15:15 04/18/17 15:14 04/11/17 21:08 Zolpidem Tartrate (Ambien) 5 mg HSPRN PRN ORAL Insomnia 04/11/17 15:15 04/18/17 15:14 04/11/17 23:02 AAMNDA BAH Apr 12, 2017 16:15
--- NOTE | 2017-04-12 18:01 | Cardiology Report ---
APPROVED REPORT EKG Measurement Heart [id number] DC 160P [id number] Normal sinus rhythm Left axis deviation Right bundle branch block Abnormal ECG
--- NOTE | 2017-04-12 19:50 | Cardiology Progress Note ---
Assessment/Plan Assessment/Plan hs of htn recent hypotension renal failure obesity asthma remain orthostatic despite ivf ? volume related vs autonomic dysfunction cortisol pending ivf , anette alonzo midodrine if not better by tomorrow [id number] Objective Last 24 Hour Vital Signs Date Time Temp Pulse Resp B/P (MAP) Pulse Ox O2 Delivery O2 Flow Rate FiO2 04/12/17 16:32 71 88 89 04/12/17 15:58 98.1 62 18 94/55 98 Room Air 04/12/17 12:00 77 04/12/17 12:00 98.1 66 18 126/54 99 Room Air 04/12/17 09:00 66 73 76 04/12/17 08:00 70 04/12/17 08:00 98.2 70 18 94/52 98 Room Air 04/12/17 04:00 98.0 76 23 79/56 98 Room Air 04/12/17 04:00 67 04/12/17 04:00 98.0 76 23 85/50 98 Room Air 04/12/17 04:00 98.0 76 23 104/55 98 Room Air 04/12/17 00:00 70 04/12/17 00:00 97.9 72 20 138/70 95 Room Air 04/12/17 00:00 72 04/11/17 20:00 97.7 74 20 105/64 97 Room Air Intake and Output 04/11/17 04/12/17 19:00 07:00 Intake Total 667 ml 600 ml Balance 667 ml 600 ml Intake Oral 300 ml IV Total 367 ml 600 ml # Voids 1 1 Laboratory Tests Test 04/12/17 03:35 04/12/17 05:12 White Blood Count 7.0 K/UL (4.8-10.8) Red Blood Count 4.01 M/UL (4.20-5.40) L Hemoglobin 10.8 G/DL (12.0-16.0) L Hematocrit 32.2 % (37.0-47.0) L Mean Corpuscular Volume 80 FL (80-99) Mean Corpuscular Hemoglobin 26.9 PG (27.0-31.0) L Mean Corpuscular Hemoglobin Concent 33.5 G/DL (32.0-36.0) Red Cell Distribution Width 12.9 % (11.6-14.8) Platelet Count 273 K/UL (150-450) Mean Platelet Volume 7.4 FL (6.5-10.1) Neutrophils (%) (Auto) 53.8 % (45.0-75.0) Lymphocytes (%) (Auto) 33.5 % (20.0-45.0) Monocytes (%) (Auto) 8.4 % (1.0-10.0) Eosinophils (%) (Auto) 2.9 % (0.0-3.0) Basophils (%) (Auto) 1.4 % (0.0-2.0) Sodium Level 139 MMOL/L (136-145) Potassium Level 3.4 MMOL/L (3.5-5.1) L Chloride Level 105 MMOL/L (98-107) Carbon Dioxide Level 25 MMOL/L (21-32) Anion Gap 9 mmol/L (5-15) Blood Urea Nitrogen 33 mg/dL (7-18) H Creatinine 2.1 MG/DL (0.55-1.30) H Estimat Glomerular Filtration Rate mL/min (>60) Glucose Level 92 MG/DL (74-106) Calcium Level 8.9 MG/DL (8.5-10.1) Total Bilirubin 0.4 MG/DL (0.2-1.0) Aspartate Amino Transf (AST/SGOT) 10 U/L (15-37) L Alanine Aminotransferase (ALT/SGPT) 12 U/L (12-78) Alkaline Phosphatase 61 U/L (46-116) Troponin I 0.020 ng/mL (0.000-0.056) Total Protein 6.3 G/DL (6.4-8.2) L Albumin 2.7 G/DL (3.4-5.0) L Globulin 3.6 g/dL Albumin/Globulin Ratio 0.8 (1.0-2.7) L Triglycerides Level 56 MG/DL (30-150) Cholesterol Level 169 MG/DL (< 200) LDL Cholesterol 101 mg/dL (<100) H HDL Cholesterol 66 MG/DL (40-60) H Cholesterol/HDL Ratio 2.6 (3.3-4.4) L Thyroid Stimulating Hormone (TSH) 1.532 uiU/mL (0.358-3.740) Cortisol AM Sample Pending Uric Acid 8.3 MG/DL (2.6-7.2) H Total Creatine Kinase 40 U/L (26-308) RUKHSANA MCCOY Apr 12, 2017 19:50
[2017-04-12 20:00] VITALS: BP 125/71
[2017-04-12] MEDS: Zolpidem 5mg tab ORAL PRN (21:32)
--- NOTE | 2017-04-12 23:00 | Consultation ---
DATE OF CONSULTATION: 04/12/2017 CARDIOLOGY CONSULTATION CONSULTING PHYSICIAN: Srinivas Masterson M.D. REFERRING PHYSICIAN: Saran Olmos M.D. REASON FOR EVALUATION: Hypertension. HISTORY OF PRESENT ILLNESS: This is an 86-year-old female with history of hypertension although she indicates that for the past few months, her blood pressure has been low and she has been hesitant to take the medications and she takes them only as-needed basis. Nevertheless, she presented to the hospital emergency room at [facility] because of feeling generalized weakness, bruising, and dizzy, but she has hard time describing the sensation. She was admitted to the hospital and therefore this consultation was requested because of low blood pressure. The patient denies any chest pain or pressure. No palpitations. No PND. No orthopnea. She does have a history of shortness of breath because of her asthma she says. No palpitations. PAST MEDICAL HISTORY: Positive for history of generalized weakness previously. No heart attack. No diabetes. She does have high blood pressure as mentioned. She has had history of stroke previously. She has had a history of peptic ulcer disease. No kidney problems, liver problems, thyroid problems, anemia, or arthritis. Her chart indicates that she has had prior admissions here and she was previously discharged with a diagnosis of generalized weakness, urinary tract infection, kidney problems, acute on chronic dehydration, and history of hypertension. She has a history of deep venous thrombosis according to the chart. The patient herself denies it and she has a history of obesity, chronic constipation, and anemia. ALLERGIES: She denies any allergies to medications. SOCIAL HISTORY: She does not smoke. Does not drink. She lives at home. Her son lives with her. REVIEW OF SYSTEMS: GASTROINTESTINAL: She denies. GENITOURINARY: She denies. PULMONARY: She has occasional wheezing. CONSTITUTIONAL: She denies. NEUROLOGIC: Possibly spinning sensation. No paralysis or weakness. PHYSICAL EXAMINATION: GENERAL: Shows to be obese female, in no respiratory distress. VITAL SIGNS: Her orthostatic vitals that were performed today blood pressure in laying position reportedly 126/54 and in standing position 91/51, and most recently her blood pressure is 94/55. HEENT: Unremarkable. NECK: Supple. No jugular venous distention. No abdominojugular reflux noted. LUNGS: Appear to be clear to auscultation and percussion. CARDIAC: Regular rate and rhythm. No heaves, thrills, gallops, or rubs are noted. ABDOMEN: Soft and nontender. Positive bowel sounds. EXTREMITIES: There is no clubbing or cyanosis nor is there any edema. NEUROLOGICAL: She is awake, alert, and responsive and does not appear to be in any kind of distress. LABORATORY DATA: White count of 7, hemoglobin 10.8, and a platelet count of 273,000. Sodium is 139, potassium 3.4, chloride 105, bicarb 25, BUN of 32, creatinine 2.1, and creatinine is down from 2.5. Uric acid of 8. Calcium is 8.9. Troponin normal. AST and ALT are normal. Albumin of 2.7. Total cholesterol 169 with a LDL of 101 and HDL of 66. TSH of 1.52. Coags, INR 1.0 and a PTT of 27. Urinalysis shows 5 to 10 wbc's. Tox screen was negative. Chest x-ray was read as cardiomegaly. No acute processes. She had an echocardiogram that was interpreted with ejection fraction of 55%, technically difficult study. IVC was normal in size. Venous duplex shows no evidence of deep venous thrombosis and renal ultrasound shows a simple appearing left renal cyst and no hydronephrosis. Telemetry shows normal sinus rhythm. Right bundle-branch conduction defect noted on the EKG and secondary ST-segment changes. ASSESSMENT AND PLAN: Dizziness. The patient has a hard time describing the dizziness, but she is somewhat orthostatic. She is getting intravenous fluids. I have ordered a serum cortisol level, which is still pending at this time. She is receiving intravenous fluids. Despite the fact that she has orthostatic hypotension despite the intravenous fluid, it may be possible that she does have autonomic dysfunction. She will be continued on intravenous fluids. Albumin would be administered. She will be monitored and AGUSTIN hose stockings will be applied. Srinivas Masterson M.D. DR: MARITZA JOB#: [id number] CC:
[2017-04-13] VITALS: BP 119/64
[2017-04-13 04:00] VITALS: BP 110/68
[2017-04-13 08:00] VITALS: BP 141/71
[2017-04-13 12:00] VITALS: BP 153/93
--- NOTE | 2017-04-13 12:38 | Consultation ---
Consult Note Consult Note asked to eval for renal failure- Patient presents with several days in increased generalized weakness that has been going on for at least 2 weeks. States she has had dizziness with changing positions (not vertigo). No chest pain, palpitations. Possibly with some swelling of extrem. No calf pain, hemoptysis. On hypertensive med with diuretic. No dysuria. Appetite has been good. Some orthopnea. No fevers, nausea, vomiting. No dysuria. No diarrhea. Occasional constipation. Chronic joint pain without change. H/O DVT in past. Hx Hypertension: Yes Hx Asthma: Yes Hx Neurological Problems: Yes 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 Hx Dizziness: Yes - after taking Blood Pressure medication Hx Headaches: Yes patient interviewed , examined- data reviewed- discussed with service trainer/Plan Renal failure likely acute on chronic factors involved: Low BP and Dehydration other: Asthma HTN Anemia Plan: Slow Hydrate- Avoid Nephrotoxics- Keep BP over 100-110 syst Anemia dao monitor renal parameters KEEGAN BUTCHER Apr 13, 2017 12:38
--- NOTE | 2017-04-13 14:44 | Pulmonology Progress Note ---
Assessment/Plan Problems: (1) Hypotension (arterial) (2) ATN (acute tubular necrosis) (3) Renal failure Assessment/Plan all noted renal US and Echo reviewed Cortisol level pending renal parameters are stable BP better dc home avoid diuretics Subjective ROS Limited/Unobtainable: No Constitutional: Reports: no symptoms HEENT: Repors: no symptoms Allergies: Coded Allergies: No Known Allergies (Unverified , 02/20/12) Objective Last 24 Hour Vital Signs Date Time Temp Pulse Resp B/P (MAP) Pulse Ox O2 Delivery O2 Flow Rate FiO2 04/13/17 12:00 69 04/13/17 12:00 97.2 68 19 153/93 97 Room Air 04/13/17 08:00 63 04/13/17 08:00 97.6 70 20 141/71 98 Room Air 04/13/17 04:00 67 04/13/17 04:00 96.6 20 110/68 97 Room Air 04/13/17 00:00 73 04/13/17 00:00 97.7 18 119/64 96 Room Air 04/12/17 20:00 98.1 71 18 125/71 95 Room Air 04/12/17 20:00 77 04/12/17 16:32 71 88 89 04/12/17 16:00 70 04/12/17 15:58 98.1 62 18 94/55 98 Room Air Intake and Output 04/12/17 04/13/17 19:00 07:00 Intake Total 1313 ml 640 ml Output Total 400 ml Balance 1313 ml 240 ml Intake Oral 730 ml IV Total 583 ml 640 ml Output Urine Total 400 ml # Voids 3 1 Objective General Appearance: WD/WN Lines, tubes and drains: peripheral HEENT: normocephalic, atraumatic Neck: non-tender, normal alignment Respiratory/Chest: chest wall non-tender, lungs clear Breasts: no masses Cardiovascular/Chest: normal peripheral pulses Abdomen: normal bowel sounds Genitourinary/Rectal: normal genital exam, normal rectal exam Laboratory Tests 04/13/17 13:20: C-Reactive Protein, Quantitative 1.6H Current Medications Medications (Trade) Dose Ordered Sig/Lamonte Route PRN Reason Start Time Stop Time Status Last Admin Dose Admin Acetaminophen (Tylenol) 650 mg Q4H PRN ORAL Mild Pain/Temp > 100.5 04/11/17 15:15 3/9/18 15:14 04/12/17 20:07 Clopidogrel Bisulfate (Plavix) 75 mg DAILY ORAL 04/13/17 13:45 05/13/17 13:44 04/13/17 14:02 Dextrose (Dextrose 50%) STAT PRN IV Hypoglycemia 04/11/17 15:15 05/11/17 15:14 Dextrose/ Electrolytes 1,000 ml @ 50 mls/hr Q20H IV 04/11/17 16:30 05/11/17 16:29 04/13/17 04:12 Lansoprazole (Prevacid) 30 mg DAILY ORAL 04/13/17 13:45 05/13/17 13:44 04/13/17 14:02 Lorazepam (Ativan 2mg/ml 1ml) 0.5 mg Q4H PRN IV For Anxiety 04/11/17 15:15 04/18/17 15:14 Morphine Sulfate (Morphine Sulfate) 1 mg Q4H PRN IVP Severe Pain (Pain Scale 7-10) 04/11/17 15:15 04/18/17 15:14 Ondansetron HCl (Zofran) 4 mg Q6H PRN IVP Nausea & Vomiting 04/11/17 15:15 05/11/17 15:14 Polyethylene Glycol (Miralax) 17 gm HSPRN PRN ORAL Constipation 04/11/17 15:15 05/11/17 15:14 04/11/17 21:08 Tramadol HCl (Ultram) 50 mg Q6H PRN ORAL Moderate Pain (Pain Scale 4-6) 04/11/17 15:15 04/18/17 15:14 04/11/17 21:08 Zolpidem Tartrate (Ambien) 5 mg HSPRN PRN ORAL Insomnia 04/11/17 15:15 04/18/17 15:14 04/12/17 21:32 AMANDA BAH Apr 13, 2017 14:44
--- NOTE | 2017-04-16 10:47 | Discharge Summary ---
Discharge Summary Hospital Course Date of Admission Apr 11, 2017 at 12:47 Date of Discharge Apr 13, 2017 at 16:10 Admitting Diagnosis hypotension HPI Aura Castro is a 86 year old female who was admitted on Apr 11, 2017 at 12:47 for Hypotension Hospital Course dc summary #[id number] Discharge Medications Continued Medications: Acetaminophen (Tylenol) 325 Mg Tablet 650 MG ORAL Q6H PRN for For Pain, #30 TAB 0 Refills Clopidogrel* (Clopidogrel*) 75 Mg Tablet 75 MG ORAL DAILY, TAB Famotidine (Famotidine) 40 Mg Tablet 40 MG ORAL DAILY, #60 TAB 0 Refills Tramadol Hcl* (Ultram*) 50 Mg Tablet 50 MG ORAL Q6H PRN for For Pain, #30 TAB 0 Refills Discharge Condition Upon Discharge: stable Discharge Disposition Patient was discharged home with services Discharge Diagnoses: Discharge Instructions Discharge Instructions Special Instructions I have been assigned to complete a D/C Summary on this account. I was not involved in the patient management Angélica Blanc NP ([facility]) Apr 16, 2017 10:47
--- NOTE | 2017-04-17 00:30 | Discharge Summary 2 SIG ---
DATE OF ADMISSION: 04/11/2017 DATE OF DISCHARGE: 04/13/2017 REASON FOR ADMISSION: 86 years old female presented to emergency room with several days of increased generalized weakness and dizziness with changing position, but not vertigo. She denied chest pain or palpitations. No cough pain. No hemoptysis. The patient had a past medical history significant of hypertension, asthma, and DVT right lower extremity. No dysuria. Fair appetite. Workup in the emergency room revealed stable vital signs except blood pressure, which was 93/63. On laboratory workup, the patient had evidence of renal failure with BUN of 29 and creatinine of 2.5. Urine toxicology screen was negative. Lactic acid was within normal limits -1.9. Glucose -106. EKG showed right bundle-branch block with left axis deviation. No acute ischemic changes. Urinalysis with no evidence of UTI. Troponin negative. Chest x-ray revealed cardiomegaly, but no acute process otherwise. The patient was admitted to telemetry floor with diagnoses of hypotension and acute renal failure, possible acute tubular necrosis. HOSPITAL COURSE: The patient was admitted. Cardiology and Nephrology consults were requested. The patient was slowly hydrated. Renal parameters and electrolytes were closely monitored. Electrolytes replaced as needed. Nephrotoxics were avoided. Blood pressure was kept in the range of 100 to 120. Hemoglobin and hematocrit were closely monitored, remained on the baseline. Creatinine down from 2.5 to 2.1. Renal ultrasound revealed no evidence of hydronephrosis and showed normal echogenicity of bilateral kidneys. Postvoid residual was 135. According to switch house operator, the patient likely had acute on chronic renal failure, which slowly improved with hydration. Dining Service Inspector closely followed the patient. No evidence of arrhythmia on telemetry. Troponin x2 were negative. Echocardiogram revealed preserved ejection fraction of 55%, right ventricular systolic pressure of 24, and evidence of moderate left ventricular hypertrophy. The patient was positive for orthostatic vital signs changes. The patient was on IV fluids as mentioned above. The patient continued to be positive for few days. Blood pressure initially continued not to be responding well to IV fluids, and the patient showed orthostatic vital signs changes concerning with volume related versus autonomic dysfunction. Venous duplex of bilateral lower extremities was negative. All antihypertensive medications were held. Dining Service Inspector was considering midodrine if blood pressure not improved. However, blood pressure subsequently improved. No changes in orthostatic vital signs. IV fluids were discontinued. Pulse oximetry was stable on room air. Pulmonary toilet was on the board as needed. Respiratory status remained stable. Hemoglobin and hematocrit were closely monitored. The patient apparently remained on the baseline. Recommend anemia workup as outpatient. The patient was stable for discharge home. Blood pressure was stable. The patient to follow up with the primary care provider for further antihypertensive regimen setup, at this point hold all antihypertensive medications with close monitoring of renal parameters. FINAL DIAGNOSES: 1. Hypotension (with positive orthostatic vital signs likely secondary to dehydration), resolved. 2. Acute on chronic renal failure. 3. Possible acute tubular necrosis. 4. Asthma. 5. Anemia. DISCHARGE MEDICATIONS: See medication reconciliation list. DISCHARGE INSTRUCTIONS: The patient discharged home. Follow up with the primary care provider in a couple of days to check blood pressure and and need to restart antihypertensive medication regimen. At this time, hold all antihypertensive medications. Saran Olmos M.D. I have been assigned to dictate discharge summary on this account and I was not involved in the patient's management. Angélica Blanc ([facility]) N.PTeresita DR: Yvan JOB#: [id number] CC: KAMERON
--- NOTE | 2017-04-17 13:15 | Diagnostic Imaging Report ---
APPROVED REPORT CPT Code: 77918 Present Symptoms Comments: R/O DVT BILATERAL: Imaging reveals a patent deep venous system bilaterally. There is no evidence of thrombus within the femoral, popliteal or tibial segments. The greater saphenous veins are also within normal limits. Doppler indicates normal spontaneous flow within these segments.
== END 2017-04-13 16:10 | disposition home or self-care (01) | DRG 314 ==
LOC: EMR 12:15 → 2E 12:47 → EDBEDREQ 13:13
DX: I95.9 Hypotension, unspecified (principal); N17.0 Acute kidney failure with tubular necrosis; Z86.718 Personal history of other venous thrombosis and embolism; J45.909 Unspecified asthma, uncomplicated; E66.9 Obesity, unspecified; I12.9 Hypertensive chronic kidney disease with stage 1 through stage 4 chronic kidney disease, or unspecified chronic kidney disease; N18.3 Chronic kidney disease, stage 3 (moderate); I45.10 Unspecified right bundle-branch block; E86.0 Dehydration; D64.9 Anemia, unspecified
CPT/HCPCS: 36415; 71045; 76775; 80053; 80061; 80307; 81003; 82533; 82550; 83605; 83690; 83735; 83880; 84443; 84484; 84550; 85025; 85610; 85730; 86140; 86850; 86900; 86901; 93005; 93306; 93970; 99284

== ENCOUNTER 2017-07-12 11:49 | Emergency (ER) | payer MEDICARE, OTHER ==
[~2017-07-12] VITALS: Ht 162.6 cm; Wt 88.5 kg
[~2017-07-12 11:49] MED LIST changes: +FAMOTIDINE40 MG ORAL; +MONTELUKAST SOD10 MG ORAL
[2017-07-12] MEDS: Aspirin Baby 81mg ORAL ONE ×2 (12:15→12:35)
[2017-07-12 12:40] VITALS: BP 108/55
[2017-07-12 12:45] LABS: BASOPHILS % (AUTO) 1.6 % (0.0-2.0); EOSINOPHILS % (AUTO) 6.6 % (0.0-3.0); HEMOGLOBIN 10.4 G/DL (12.0-16.0); LYMPHOCYTES % (AUTO) 27.7 % (20.0-45.0); MEAN CORPUSCULAR VOLUME 81 FL (80-99); MONOCYTES % (AUTO) 5.9 % (1.0-10.0); NEUTROPHILS % (AUTO) 58.2 % (45.0-75.0); PLATELET COUNT 238 K/UL (150-450); RED BLOOD COUNT 4.19 M/UL (4.20-5.40); RED CELL DISTRIBUTION WIDTH 13.7 % (11.6-14.8); WHITE BLOOD COUNT 5.9 K/UL (4.8-10.8)
[2017-07-12] MEDS ORDERED: Lidocaine 2% Visc 15ml soln ORAL ONE (12:45)
[2017-07-12 12:54] LABS: ANION GAP 8 mmol/L (5-15); BLOOD UREA NITROGEN 24 mg/dL (7-18); CALCIUM 8.9 MG/DL (8.5-10.1); CARBON DIOXIDE 30 MMOL/L (21-32); CHLORIDE 107 MMOL/L (98-107); CREATININE 1.9 MG/DL (0.55-1.30); POTASSIUM 3.8 MMOL/L (3.5-5.1); SODIUM 144 MMOL/L (136-145)
--- NOTE | 2017-07-12 13:03 | Diagnostic Imaging Report ---
Indication: Dyspnea Comparison: 04/11/2017 A single view chest radiograph was obtained. Findings: Cardiac size is increased. The aorta is ectatic. Lungs are clear and hypoinflated. Bones are osteopenic. IMPRESSION: No acute disease.
[2017-07-12 13:08] LABS: ALANINE AMINOTRANSFERASE 16 U/L (12-78); ALBUMIN 3.1 G/DL (3.4-5.0); ALBUMIN/GLOBULIN RATIO 0.7 (1.0-2.7); ALKALINE PHOSPHATASE 81 U/L (46-116); ASPARTATE AMINO TRANSFERASE 19 U/L (15-37); BILIRUBIN,TOTAL 0.3 MG/DL (0.2-1.0); CKMB 0.5 NG/ML (0.0-3.6); CREATINE KINASE 56 U/L (26-308)
[2017-07-12 13:31] VITALS: BP 126/56
--- NOTE | 2017-07-12 14:42 | Emergency Room Report ---
History of Present Illness General Chief Complaint: Chest Pain Source: Patient Present Illness HPI This patient complains of epigastric pain and right upper quadrant pain. She states that at times it radiates into her middle chest. She states she first noticed symptoms yesterday evening. She states that the symptoms have been ongoing overnight more worse when she laid down in bed. She denies trauma or recent illness. She denies cough or congestion. She has fever or chills. She denies nausea or vomiting. She denies dysuria or hematuria. She has no other complaints. Allergies: Coded Allergies: No Known Allergies (Unverified , 02/20/12) Patient History Past Medical History: see triage record, HTN, asthma Social History: Denies: smoking, alcohol use, drug use Reviewed Nursing Documentation: PMH: Agreed; PSxH: Agreed Nursing Documentation-PMH Past Medical History: No History, Except For Hx Cardiac Problems: No Hx Hypertension: Yes Hx Pacemaker: No Hx Asthma: Yes Hx COPD: No Hx Diabetes: No Hx Cancer: No Hx Gastrointestinal Problems: Yes Hx Dialysis: No Hx Neurological Problems: Yes 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 Hx Seizures: No Hx Tremors: No Hx Dizziness: Yes - after taking Blood Pressure medication Hx Syncope: No Hx Headaches: Yes Hx Neurologic Surgery: No Hx Brain Shunt: No Review of Systems All Other Systems: negative except mentioned in HPI Physical Exam Vital Signs Date Time Temp Pulse Resp B/P (MAP) Pulse Ox O2 Delivery O2 Flow Rate FiO2 07/12/17 11:55 98.1 74 22 108/69 95 Room Air 98.1 Sp02 EP Interpretation: reviewed, normal General Appearance: no apparent distress, alert, GCS 15, non-toxic Head: normocephalic, atraumatic Eyes: bilateral eye normal inspection, bilateral eye PERRL ENT: hearing grossly normal, normal pharynx, no angioedema, normal voice Neck: full range of motion, supple/symm/no masses Respiratory: chest non-tender, lungs clear, normal breath sounds, no respiratory distress, no retraction, no accessory muscle use, speaking full sentences Cardiovascular #1: regular rate, rhythm, no edema Gastrointestinal: normal bowel sounds, soft, non-distended, no guarding, no rebound, tenderness - TTP in Epigastrium and RUQ. Rectal: deferred Musculoskeletal: back normal, gait/station normal, normal range of motion, non- tender Neurologic: alert, oriented x3, responsive, motor strength/tone normal, sensory intact, speech normal Psychiatric: judgement/insight normal, memory normal, mood/affect normal, no suicidal/homicidal ideation Skin: normal color, no rash, warm/dry, well hydrated Medical Decision Making Diagnostic Impression: Primary Impression: Cholelithiasis Additional Impressions: Gastritis Pancreatic mass ER Course This patient presents with epigastric pain and right upper quadrant abdominal pain. The patient has a history of gastritis and underwent upper endoscopy recently was found to have peptic ulcer disease. She states that she is not on any proton pump inhibitor or any other type of gastritis treatment. I am unsure whether this is because she is out of this medication wasn't prescribed to her. Regardless, the patient has significant improvement in symptoms with GI cocktail. She was given IV Pepcid. She also underwent right upper quadrant ultrasound and was found to have cholelithiasis without evidence of cholecystitis. She has chronic anemia that is baseline for her. The patient underwent CT of the abdomen and pelvis and there was no acute findings, however she was found to have a pancreatic cyst versus mass. This could be inflammatory versus neoplastic according to the radiologist. I educated the patient that she should be admitted for further evaluation and she declined adamantly stating that she is going home. I did print out the report of the CT scan so that she can take it to her primary care physician for further follow- up. The patient is 86 years old and I am unsure whether she would be willing or a candidate for further workup/treatment of this. Regardless, the patient adamantly declines admission to the hospital this time.. The patient significant relief in her symptoms. I did offer admission for this patient, however she declined, stating that she would like to try treatment as an outpatient as she would like to be home for Mother's Day this weekend. I did educate the patient that she may have to return for recurrence of symptoms. I also educated her that she should comply with Gastritis treatment for concern that she could develop bleeding ulcers and UGI bleed or perforation. She was educated on the S/S of cholecystitis. She is given very close return precautions and f/u instructions. Laboratory Tests Test 07/12/17 12:30 White Blood Count 5.9 K/UL (4.8-10.8) Red Blood Count 4.19 M/UL (4.20-5.40) L Hemoglobin 10.4 G/DL (12.0-16.0) L Hematocrit 34.0 % (37.0-47.0) L Mean Corpuscular Volume 81 FL (80-99) Mean Corpuscular Hemoglobin 24.7 PG (27.0-31.0) L Mean Corpuscular Hemoglobin Concent 30.5 G/DL (32.0-36.0) L Red Cell Distribution Width 13.7 % (11.6-14.8) Platelet Count 238 K/UL (150-450) Mean Platelet Volume 8.6 FL (6.5-10.1) Neutrophils (%) (Auto) 58.2 % (45.0-75.0) Lymphocytes (%) (Auto) 27.7 % (20.0-45.0) Monocytes (%) (Auto) 5.9 % (1.0-10.0) Eosinophils (%) (Auto) 6.6 % (0.0-3.0) H Basophils (%) (Auto) 1.6 % (0.0-2.0) Sodium Level 144 MMOL/L (136-145) Potassium Level 3.8 MMOL/L (3.5-5.1) Chloride Level 107 MMOL/L (98-107) Carbon Dioxide Level 30 MMOL/L (21-32) Anion Gap 8 mmol/L (5-15) Blood Urea Nitrogen 24 mg/dL (7-18) H Creatinine 1.9 MG/DL (0.55-1.30) H Estimate Glomerular Filtration Rate mL/min (>60) Glucose Level 98 MG/DL (74-106) Calcium Level 8.9 MG/DL (8.5-10.1) Total Bilirubin 0.3 MG/DL (0.2-1.0) Aspartate Amino Transferase (AST) 19 U/L (15-37) Alanine Aminotransferase (ALT) 16 U/L (12-78) Alkaline Phosphatase 81 U/L (46-116) Total Creatine Kinase 56 U/L (26-308) Creatine Kinase MB 0.5 NG/ML (0.0-3.6) Creatine Kinase MB Relative Index 0.8 Troponin I 0.000 ng/mL (0.000-0.056) Total Protein 7.3 G/DL (6.4-8.2) Albumin 3.1 G/DL (3.4-5.0) L Globulin 4.2 g/dL Albumin/Globulin Ratio 0.7 (1.0-2.7) L EKG Diagnostic Results Rate: normal Rhythm: NSR ST Segments: no acute changes Other Impression First degree AV block. Left axis deviation. Right bundle branch. Chest X-Ray Diagnostic Results Chest X-Ray Diagnostic Results : Chest X-Ray Ordered: Yes # of Views/Limited/Complete: 1 View Indication: Other EP Interpretation: No Interpretation: no consolidation, no effusion, no pneumothorax, no acute cardiopulmonary disease Impression: No acute disease Electronically Signed by: Ryan CT/MRI/US Diagnostic Results CT/MRI/US Diagnostic Results : Imaging Test Ordered: CT abd/pelvis Impression Multiple incidental findings. See official report. Last Vital Signs Date Time Temp Pulse Resp B/P (MAP) Pulse Ox O2 Delivery O2 Flow Rate FiO2 07/12/17 13:31 98.1 60 14 126/56 99 Room Air 98.1 Status: improved Disposition: HOME, SELF-CARE Condition: Improved Referrals: NON PHYSICIAN (PCP) DARIUS NOYOLA D.O. July 12, 2017 14:42
--- NOTE | 2017-07-12 15:13 | Diagnostic Imaging Report ---
Indication: Abdominal pain Technique: Continuous helical transaxial imaging of the abdomen and pelvis was obtained from the lung bases to the pubic symphysis. No intravenous contrast was administered. Coronal 2-D reformats were also obtained. Automatic Exposure Control was utilized. Total Dose length Product (DLP): 956.[address] Dose Index Volume (CTDIvol): 19.28 mGy Comparison: none Findings: There are multiple liver cysts of varying size. The heart is enlarged. There is trace pericardial fluid present. The aorta is calcified and tortuous. There is a small hiatal hernia. Gallstones are present. There is a 7 cm left renal cyst. There is a prominent cystic appearing mass 3 cm in the area of the head of the pancreas. No adrenal mass seen. No hydronephrosis or renal stones seen. Appendix is normal. Uterus is absent. No evidence of free fluid, free air or bowel obstruction. There is narrowing of vacuum intervertebral discs and accompanying endplate osteophyte formation within the visualized lower thoracic spine and to some extent the lumbar spine. Hypertrophied facet joints also demonstrated. IMPRESSION: Cholelithiasis. Small pericardial effusion. 3 cm cyst in the area of the pancreatic head. Inflammatory versus neoplastic. Probably incidental, possibly IPMN and requires further evaluation with nonemergent gadolinium-enhanced MRI. Atherosclerotic disease Innumerable liver cysts. Left renal cyst. Hiatal hernia. Degenerative changes of the lower thoracic spine. Status post hysterectomy. Normal appendix. The CT scanner at [facility] is accredited by the [employer] and the scans are performed using dose optimization techniques as appropriate to a performed exam including Automatic Exposure control.
--- NOTE | 2017-07-12 15:37 | Diagnostic Imaging Report ---
Indication:Abdominal pain Technique: Grayscale and duplex Doppler imaging of the abdomen performed. Comparison: CT today Findings: Multiple hepatic cysts and a left renal cysts are noted on the examination. Multiple gallstones are present. Sonographic Malhotra's is negative. No biliary ductal dilatation is appreciated. Portal vein is patent by Doppler examination. No ascites appreciated. Spleen is normal size. CBD measures 6 mm. IMPRESSION: Multiple hepatic cysts. Left renal cysts. Cholelithiasis. Please refer to the CT report
[2017-07-12 17:05] VITALS: BP 140/83
== END 2017-07-12 17:02 | disposition home or self-care (01) ==
LOC: EMR 12:31
DX: K80.20 Calculus of gallbladder without cholecystitis without obstruction (principal); K29.70 Gastritis, unspecified, without bleeding; K86.2 Cyst of pancreas; I10 Essential (primary) hypertension; J45.909 Unspecified asthma, uncomplicated; K76.89 Other specified diseases of liver; N28.1 Cyst of kidney, acquired; K44.9 Diaphragmatic hernia without obstruction or gangrene; Z90.710 Acquired absence of both cervix and uterus
CPT/HCPCS: 36415; 71045; 74176; 76700; 80053; 82550; 82553; 84484; 85025; 93005; 99284; S0028

== ENCOUNTER 2017-08-08 18:44 | Emergency (ER) | payer MEDICARE, OTHER ==
[~2017-08-08] VITALS: Ht 162.6 cm; Wt 88.5 kg
[2017-08-08] MEDS ORDERED: Norco 5mg/325mg tab ORAL ONE (19:30)
--- NOTE | 2017-08-08 19:39 | Emergency Room Report ---
History of Present Illness General Chief Complaint: Pain Source: Patient, Medical Record Present Illness HPI Patient presents emergency department today complaining of knee pain. Patient has had knee pain for the last 3 weeks. It's worse with movement. She denies any recent trauma neck pain chest pain shortness breath or any other injuries. Symptoms noted to be moderate. Patient denies any hip pain. She walks with a cane. I mentioned to the patient the possibility of having knee surgery. Patient states that she is too old for any surgical intervention. Symptoms noted to be moderate.No other modifying factors. No other associated signs and symptoms. No other complaints were noted. Allergies: Coded Allergies: No Known Allergies (Unverified , 02/20/12) Patient History Past Medical History: HTN, asthma, other - DVT Social History: Denies: smoking, alcohol use, drug use Reviewed Nursing Documentation: PMH: Agreed; PSxH: Agreed Nursing Documentation-PM Past Medical History: No History, Except For Hx Cardiac Problems: No Hx Hypertension: Yes Hx Pacemaker: No Hx Asthma: Yes Hx COPD: No Hx Diabetes: No Hx Cancer: No Hx Gastrointestinal Problems: Yes Hx Dialysis: No Hx Neurological Problems: Yes 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 Hx Seizures: No Hx Tremors: No Hx Dizziness: Yes - after taking Blood Pressure medication Hx Syncope: No Hx Headaches: Yes Hx Neurologic Surgery: No Hx Brain Shunt: No Review of Systems All Other Systems: negative except mentioned in HPI Physical Exam Vital Signs Date Time Temp Pulse Resp B/P (MAP) Pulse Ox O2 Delivery O2 Flow Rate FiO2 08/08/17 18:50 98.5 73 18 152/101 95 Room Air 98.4 Sp02 EP Interpretation: reviewed, normal General Appearance: normal inspection, well appearing, no apparent distress, alert Head: atraumatic Eyes: bilateral eye normal inspection ENT: normal ENT inspection, hearing grossly normal, normal voice Neck: normal inspection, full range of motion, supple, no bony tend Respiratory: normal inspection, lungs clear, normal breath sounds, no respiratory distress, no retraction, no wheezing Cardiovascular #1: regular rate, rhythm, no edema Gastrointestinal: normal inspection, normal bowel sounds, non tender, soft, no guarding, no hernia Genitourinary: no CVA tenderness Musculoskeletal: tender - Mild tenderness, bilateral knee Neurologic: normal inspection, alert, responsive, speech normal Psychiatric: normal inspection, judgement/insight normal, mood/affect normal Skin: normal inspection, normal color, no rash Medical Decision Making Diagnostic Impression: Primary Impression: Osteoarthritis Additional Impression: Knee joint pain ER Course Patient presents emergency department today complaining pain. Differential considerations include fracture dislocation versus strain. Given patient's presentation I felt x-rays were indicated. X-rays were negative for fracture but significant osteoarthritis. Given patient's presentation and her advanced age I felt that conservative management is best. Patient's vies follow primary care physician and return the ER for any worsening symptoms and as needed.Patient is advised to follow up with primary doctor in 2-3 days and return the emergency room for any worsening symptoms and as needed. Other X-Ray Diagnostic Results Other X-Ray Diagnostic Results #1: X-Ray ordered: Left knee x-ray # of Views/Limited Vs Complete: 3 View Indication: Pain EP Interpretation: Yes Interpretation: no dislocation, no soft tissue swelling, no fractures Impression: No acute disease Electronically Signed by: Electronically signed by Rigo Goldsmith MD Other X-Ray Diagnostic Results #2: X-Ray ordered: Right knee ray # of Views/Limited Vs Complete: 3 View Indication: Pain EP Interpretation: Yes Interpretation: no dislocation, no soft tissue swelling, no fractures Impression: No acute disease Electronically Signed by: Electronically signed by Rigo Goldsmith MD Last Vital Signs Date Time Temp Pulse Resp B/P (MAP) Pulse Ox O2 Delivery O2 Flow Rate FiO2 08/08/17 18:50 98.5 73 18 152/101 95 Room Air 98.4 Status: improved Disposition: HOME, SELF-CARE Condition: Stable Scripts Hydrocodone Bit/Acetaminophen 5-325* (NORCO 5-325*) 1 Each Tablet 1 TAB ORAL Q6H PRN for For Pain, #10 TAB 0 Refills Prov: Rigo Goldsmith MD 08/08/17 Referrals: NOT CHOSEN IPA/,REFERRING (PCP) Rigo Goldsmith MD Aug 08, 2017 19:39
[2017-08-08] MEDS ORDERED: NORCO 5-325 TA1 EACH ORAL (20:19)
[2017-08-08 20:34] VITALS: BP 152/101
--- NOTE | 2017-08-09 10:54 | Diagnostic Imaging Report ---
Indication: Pain, status post fall Technique: 3 views of the right knee Comparison: None Findings: There is mild degenerative narrowing of the medial joint compartment as well as medial osteophytes. There is suggestion of chondrocalcinosis of the medial and lateral menisci. There is questionably a small suprapatellar effusion. No acute fractures. No dislocations. Bones appear demineralized. Small peripheral opacity in the medial mid shaft femur most likely represents an old ossified fibrous cortical defect Impression: Possible small effusion. No acute bony trauma Degenerative changes, as described Questionable small joint effusion
--- NOTE | 2017-08-09 10:54 | Diagnostic Imaging Report ---
Indication: Pain, status post fall Technique: 3 views of the left knee Comparison: None Findings: There is degenerative joint space narrowing and proliferative changes of the medial and lateral joint compartments. There is also evidence of patellofemoral degenerative change. No definite suprapatellar effusion. No acute fractures. No dislocations. The bones appear demineralized Impression: Degenerative changes, as described. No acute bony trauma
== END 2017-08-08 20:35 | disposition home or self-care (01) ==
LOC: EMR 19:34
DX: M17.0 Bilateral primary osteoarthritis of knee (principal); I10 Essential (primary) hypertension; J45.909 Unspecified asthma, uncomplicated; Z86.718 Personal history of other venous thrombosis and embolism
CPT/HCPCS: 99284

== ENCOUNTER 2017-10-22 17:59 | Inpatient (IN) | payer MEDICARE, OTHER ==
[~2017-10-22] VITALS: Ht 160 cm; Wt 88.0 kg
[~2017-10-22 17:59] MED LIST changes: +NORCO 5-325 TA1 EACH ORAL
[2017-10-22 18:40] VITALS: BP 126/80
--- NOTE | 2017-10-22 18:42 | Emergency Room Report ---
History of Present Illness General Chief Complaint: General Complaint Source: Patient, Medical Record Present Illness HPI Patient is 86-year-old female presented after increased central chest pain. Patient was having bilateral pain which had been present for approximately 3 days. The patient reports having generalized pain. She denies recent trauma. She reports having worsening of pain with movements. She denies any fever. She reports an additional itchiness. She denies any shortness of breath. Patient states she normally ambulatory with a walker.Patient reports having prior history of hypertension. She denies any prior cardiac history. 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 Hx Seizures: No Hx Tremors: No Hx Dizziness: Yes - after taking Blood Pressure medication Hx Syncope: No Hx Headaches: Yes Hx Neurologic Surgery: No Hx Brain Shunt: No Review of Systems All Other Systems: negative except mentioned in HPI Physical Exam Vital Signs Date Time Temp Pulse Resp B/P (MAP) Pulse Ox O2 Delivery O2 Flow Rate FiO2 10/22/17 18:00 98.6 74 18 126/80 97 Room Air 98.6 Sp02 EP Interpretation: reviewed, normal General Appearance: normal inspection, well appearing, no apparent distress, alert, non-toxic Head: normocephalic, atraumatic ENT: normal ENT inspection, hearing grossly normal, normal voice Neck: normal inspection, full range of motion, supple, no bony tend Respiratory: normal inspection, lungs clear, normal breath sounds, no respiratory distress, no retraction, no wheezing Cardiovascular #1: regular rate, rhythm, no edema Gastrointestinal: normal inspection, normal bowel sounds, non tender, soft, no guarding, no hernia Genitourinary: no CVA tenderness Musculoskeletal: normal inspection, back normal, normal range of motion Neurologic: normal inspection, alert, responsive, speech normal Psychiatric: normal inspection, judgement/insight normal, mood/affect normal Skin: normal inspection, normal color, no rash Medical Decision Making Diagnostic Impression: Primary Impression: Chest pain Additional Impression: Chest pain of uncertain etiology ER Course Patient presented for chest pain. Differential diagnosis included but was not limited to acute coronary syndrome, pulmonary embolism, pneumonia, aortic dissection, shingles, pneumothorax, aortic dissection, esophageal rupture, pericarditis. Because of complexity of patient's case laboratory testing and imaging studies were ordered.Patient was given IV fluids as well as pain medications. Chest x-ray one view interpreted by me showed cardiomegaly without evident infiltrate or pneumothorax.Dr. Olmos was contacted for inpatient management due to complexity of medical condition. Labs Test 10/22/17 18:50 White Blood Count 6.3 K/UL (4.8-10.8) Red Blood Count 4.27 M/UL (4.20-5.40) Hemoglobin 10.8 G/DL (12.0-16.0) Hematocrit 35.1 % (37.0-47.0) Mean Corpuscular Volume 82 FL (80-99) Mean Corpuscular Hemoglobin 25.4 PG (27.0-31.0) Mean Corpuscular Hemoglobin Concent 30.9 G/DL (32.0-36.0) Red Cell Distribution Width 13.4 % (11.6-14.8) Platelet Count 227 K/UL (150-450) Mean Platelet Volume 7.0 FL (6.5-10.1) Neutrophils (%) (Auto) 50.3 % (45.0-75.0) Lymphocytes (%) (Auto) 30.2 % (20.0-45.0) Monocytes (%) (Auto) 8.6 % (1.0-10.0) Eosinophils (%) (Auto) 9.2 % (0.0-3.0) Basophils (%) (Auto) 1.7 % (0.0-2.0) Prothrombin Time 10.5 SEC (9.30-11.50) Prothromb Time International Ratio 1.0 (0.9-1.1) Activated Partial Thromboplast Time 26 SEC (23-33) Sodium Level 143 MMOL/L (136-145) Potassium Level 3.6 MMOL/L (3.5-5.1) Chloride Level 108 MMOL/L (98-107) Carbon Dioxide Level 24 MMOL/L (21-32) Anion Gap 11 mmol/L (5-15) Blood Urea Nitrogen 29 mg/dL (7-18) Creatinine 2.1 MG/DL (0.55-1.30) Estimat Glomerular Filtration Rate mL/min (>60) Glucose Level 96 MG/DL (74-106) Calcium Level 9.4 MG/DL (8.5-10.1) Total Bilirubin 0.3 MG/DL (0.2-1.0) Aspartate Amino Transf (AST/SGOT) 16 U/L (15-37) Alanine Aminotransferase (ALT/SGPT) 16 U/L (12-78) Alkaline Phosphatase 69 U/L (46-116) Total Creatine Kinase 79 U/L (26-308) Creatine Kinase MB 1.5 NG/ML (0.0-3.6) Creatine Kinase MB Relative Index 1.8 Troponin I 0.000 ng/mL (0.000-0.056) Pro-B-Type Natriuretic Peptide 293 pg/mL (0-125) Total Protein 7.5 G/DL (6.4-8.2) Albumin 3.1 G/DL (3.4-5.0) Globulin 4.4 g/dL Albumin/Globulin Ratio 0.7 (1.0-2.7) Lipase 135 U/L (73-393) EKG Diagnostic Results Rate: normal - 72 Rhythm: NSR ST Segments: other - Rbbb Last Vital Signs Date Time Temp Pulse Resp B/P (MAP) Pulse Ox O2 Delivery O2 Flow Rate FiO2 10/22/17 18:00 98.6 74 18 126/80 97 Room Air 98.6 Status: unchanged Disposition: ADMITTED INPATIENT Condition: Serious Travis Valencia MD Oct 22, 2017 18:42
[2017-10-22 19:40] LABS: BASOPHILS % (AUTO) 1.7 % (0.0-2.0); EOSINOPHILS % (AUTO) 9.2 % (0.0-3.0); HEMATOCRIT 35.1 % (37.0-47.0); HEMOGLOBIN 10.8 G/DL (12.0-16.0); LYMPHOCYTES % (AUTO) 30.2 % (20.0-45.0); MEAN CORPUSCULAR VOLUME 82 FL (80-99); MONOCYTES % (AUTO) 8.6 % (1.0-10.0); NEUTROPHILS % (AUTO) 50.3 % (45.0-75.0); PLATELET COUNT 227 K/UL (150-450); RED BLOOD COUNT 4.27 M/UL (4.20-5.40); RED CELL DISTRIBUTION WIDTH 13.4 % (11.6-14.8); WHITE BLOOD COUNT 6.3 K/UL (4.8-10.8)
[2017-10-22] MEDS ORDERED: Sodium Chloride 500ML 500 ML IV ONE (19:45)
[2017-10-22 20:04] LABS: ANION GAP 11 mmol/L (5-15); BLOOD UREA NITROGEN 29 mg/dL (7-18); CALCIUM 9.4 MG/DL (8.5-10.1); CARBON DIOXIDE 24 MMOL/L (21-32); CHLORIDE 108 MMOL/L (98-107); CREATININE 2.1 MG/DL (0.55-1.30); POTASSIUM 3.6 MMOL/L (3.5-5.1); SODIUM 143 MMOL/L (136-145)
[2017-10-22 20:20] LABS: ALANINE AMINOTRANSFERASE 16 U/L (12-78); ALBUMIN 3.1 G/DL (3.4-5.0); ALBUMIN/GLOBULIN RATIO 0.7 (1.0-2.7); ALKALINE PHOSPHATASE 69 U/L (46-116); ASPARTATE AMINO TRANSFERASE 16 U/L (15-37); BILIRUBIN,TOTAL 0.3 MG/DL (0.2-1.0); CKMB 1.5 NG/ML (0.0-3.6); CREATINE KINASE 79 U/L (26-308)
[2017-10-22] MEDS ORDERED: PROAIR HFA8.5 GM INH (20:32)
[2017-10-22] MEDS ORDERED: SYMBICORT 1601 PUFFS INH (20:35)
[2017-10-22] MEDS ORDERED: ADVAIR 250-501 EACH INH (20:35)
[2017-10-22] MEDS ORDERED: SYMBICORT2 PUFF1 INH (20:35)
[2017-10-22] MEDS ORDERED: TRUSOPT10 ML BOTH EYES (20:38)
[2017-10-22] MEDS ORDERED: LUMIGAN2.5 ML BOTH EYES (20:38)
[2017-10-22] MEDS ORDERED: COMBIGAN EYE DRO5 ML OP (20:38)
[2017-10-22 21:25] VITALS: BP 136/66
[2017-10-22 21:30] VITALS: BP 159/86
[2017-10-23] VITALS (7 sets, daily range): BP systolic 121–162; BP diastolic 70–84
[2017-10-23] MEDS ORDERED: Miralax 17gm pkt ORAL PRN (06:45)
[2017-10-23] MEDS ORDERED: Morphine Sulfate 2mg/ml Inj(IV/IM USE ONLY) IVP PRN (06:45)
[2017-10-23] MEDS ORDERED: Nitroglycerin Subl 0.4mg tab SL PRN (06:45)
[2017-10-23] MEDS ORDERED: Albuterol/Ipratropium 3ml neb HHN PRN (06:45)
[2017-10-23] MEDS ORDERED: dilTIAZem HCl 25mg/5ml Inj IV PRN (06:45)
[2017-10-23] MEDS ORDERED: Ketorolac 30mg Inj IV PRN (06:45)
[2017-10-23] MEDS ORDERED: Enalaprilat 2.5mg/2ml Inj IV PRN (06:45)
[2017-10-23] MEDS ORDERED: Aspirin Baby 81mg ORAL SCH (09:00)
[2017-10-23] MEDS: Dorzolamide 2% 10ml Btl BOTH EYES SCH ×2 (09:14→17:47)
[2017-10-23] MEDS: Heparin 5000 units/ml inj SUBQ SCH ×2 (09:16→21:13)
--- NOTE | 2017-10-23 09:52 | Diagnostic Imaging Report ---
Indication: Shortness of breath Technique: One view of the chest Comparison: 07/12/2017 Findings: The heart is enlarged. Lungs pleural spaces are clear. The aorta is tortuous and ectatic. No significant interim change Impression: Cardiomegaly. No acute process
--- NOTE | 2017-10-23 11:20 | History and Physical ---
History of Present Illness General Date patient seen: Oct 23, 2017 Reason for Hospitalization: General Complaint Present Illness HPI 86-year-old female with hx of HTN, Asthma, renal insufficiency presented to ER with CC of chest pain, present for approximately 3 days. The patient reports having generalized pain. She denies recent trauma. She reports having worsening of pain with movements. She reports an additional itchiness. Pt had a recent hospitalization because of hypotension. Pt is admitted to telemetry for further management. Allergies: Coded Allergies: No Known Allergies (Unverified , 02/20/12) Medication History Scheduled Bimatoprost (Lumigan), 1 DROP BOTH EYES DAILY, (Reported) Brimonidine Tartrate/Timolol (Combigan Eye Drops), 5 ML OP BID, (Reported) Budesonide/Formoterol Fumarate (Symbicort 160-4.5 Mcg Inhaler), 2 PUFFS INH BID, (Reported) Dorzolamide Hcl* (Trusopt*), 1 DROP BOTH EYES BID, (Reported) Fluticasone/Salmeterol (Advair 250-50 Diskus), 1 PUFF INH EVERY 12 HOURS, ( Reported) Losartan/Hydrochlorothiazide (Losartan-Hctz 50-12.5 Mg Tab), 1 TAB ORAL DAILY, ( Reported) Scheduled PRN Acetaminophen (Tylenol), 650 MG ORAL Q6H PRN for For Pain Albuterol Sulfate* (Proair Hfa*), 2 PUFFS INH BID PRN for Shortness of Breath, ( Reported) Tramadol Hcl* (Ultram*), 50 MG ORAL Q6H PRN for For Pain, (Reported) Discontinued Medications Clopidogrel* (Clopidogrel*), 75 MG ORAL DAILY, (Reported) Discontinued Reason: Therapy completed Dexlansoprazole (Dexilant), 60 MG ORAL DAILY, (Reported) Discontinued Reason: Therapy completed Famotidine (Famotidine), 40 MG ORAL DAILY, (Reported) Discontinued Reason: Therapy completed Hydrocodone Bit/Acetaminophen 5-325* ([place] 5-325*), 1 TAB ORAL Q6H PRN for For Pain Discontinued Reason: Pt stopped taking med Montelukast Sodium* (Montelukast Sodium*), 10 MG ORAL DAILY, (Reported) Discontinued Reason: Pt stopped taking med Patient History Healthcare decision maker Resuscitation status Full Code Advanced Directive on File Past Medical/Surgical History Past Medical/Surgical History: (1) Osteoarthritis (2) Hypertension (3) Cardiomegaly Review of Systems All Other Systems: negative except mentioned in HPI Physical Exam General Appearance: WD/WN Lines, tubes and drains: peripheral HEENT: normocephalic Neck: non-tender, normal alignment Respiratory/Chest: chest wall non-tender, lungs clear Cardiovascular/Chest: normal peripheral pulses, normal rate Abdomen: normal bowel sounds, non tender Genitourinary/Rectal: normal genital exam Extremities: normal range of motion Skin Exam: normal pigmentation 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 Last 24 Hour Vital Signs Date Time Temp Pulse Resp B/P (MAP) Pulse Ox O2 Delivery O2 Flow Rate FiO2 10/23/17 09:00 Room Air 10/23/17 08:00 97.9 68 18 138/81 (100) 100 97.9 10/23/17 08:00 74 10/23/17 04:00 64 10/23/17 04:00 97.9 65 16 121/76 (91) 98 97.9 10/23/17 00:00 98.1 68 16 162/79 (106) 98 98.1 10/23/17 00:00 71 10/22/17 21:30 Room Air 10/22/17 21:30 97.6 68 16 159/86 (110) 98 97.6 10/22/17 21:25 98.6 64 16 136/66 99 Room Air 98.6 10/22/17 21:25 98.6 64 16 136/66 99 Room Air 209.5 10/22/17 18:40 98.6 74 18 126/80 97 Room Air 98.6 10/22/17 18:00 98.6 74 18 126/80 97 Room Air 98.6 Intake and Output 10/22/17 10/23/17 19:00 07:00 Intake Total 0 ml 150 ml Balance 0 ml 150 ml Intake Oral 0 ml 150 ml # Voids 1 Laboratory Tests Test 10/22/17 18:50 10/23/17 06:50 White Blood Count 6.3 K/UL (4.8-10.8) Red Blood Count 4.27 M/UL (4.20-5.40) Hemoglobin 10.8 G/DL (12.0-16.0) L Hematocrit 35.1 % (37.0-47.0) L Mean Corpuscular Volume 82 FL (80-99) Mean Corpuscular Hemoglobin 25.4 PG (27.0-31.0) L Mean Corpuscular Hemoglobin Concent 30.9 G/DL (32.0-36.0) L Red Cell Distribution Width 13.4 % (11.6-14.8) Platelet Count 227 K/UL (150-450) Mean Platelet Volume 7.0 FL (6.5-10.1) Neutrophils (%) (Auto) 50.3 % (45.0-75.0) Lymphocytes (%) (Auto) 30.2 % (20.0-45.0) Monocytes (%) (Auto) 8.6 % (1.0-10.0) Eosinophils (%) (Auto) 9.2 % (0.0-3.0) H Basophils (%) (Auto) 1.7 % (0.0-2.0) Prothrombin Time 10.5 SEC (9.30-11.50) Prothromb Time International Ratio 1.0 (0.9-1.1) Activated Partial Thromboplast Time 26 SEC (23-33) Sodium Level 143 MMOL/L (136-145) Potassium Level 3.6 MMOL/L (3.5-5.1) Chloride Level 108 MMOL/L (98-107) H Carbon Dioxide Level 24 MMOL/L (21-32) Anion Gap 11 mmol/L (5-15) Blood Urea Nitrogen 29 mg/dL (7-18) H Creatinine 2.1 MG/DL (0.55-1.30) H Estimat Glomerular Filtration Rate mL/min (>60) Glucose Level 96 MG/DL (74-106) Calcium Level 9.4 MG/DL (8.5-10.1) Total Bilirubin 0.3 MG/DL (0.2-1.0) Aspartate Amino Transf (AST/SGOT) 16 U/L (15-37) Alanine Aminotransferase (ALT/SGPT) 16 U/L (12-78) Alkaline Phosphatase 69 U/L (46-116) Total Creatine Kinase 79 U/L (26-308) Creatine Kinase MB 1.5 NG/ML (0.0-3.6) Creatine Kinase MB Relative Index 1.8 Troponin I 0.000 ng/mL (0.000-0.056) 0.004 ng/mL (0.000-0.056) Pro-B-Type Natriuretic Peptide 293 pg/mL (0-125) H Total Protein 7.5 G/DL (6.4-8.2) Albumin 3.1 G/DL (3.4-5.0) L Globulin 4.4 g/dL Albumin/Globulin Ratio 0.7 (1.0-2.7) L Lipase 135 U/L (73-393) Height (Feet): 5 Height (Inches): 3.00 Weight (Pounds): 185 Medications Current Medications Medications (Trade) Dose Ordered Sig/Lamonte Route PRN Reason Start Time Stop Time Status Last Admin Dose Admin Acetaminophen (Tylenol) 650 mg Q4H PRN ORAL T>100.5 10/23/17 06:45 11/22/17 06:44 Albuterol/ Ipratropium (Albuterol/ Ipratropium) 3 ml Q4H PRN HHN Shortness of Breath 10/23/17 06:45 10/28/17 06:44 Aspirin (ASA) 162 mg DAILY ORAL 10/23/17 09:00 11/22/17 08:59 10/23/17 09:14 Diltiazem HCl (Cardizem) 10 mg EVERY HOUR PRN IV heart rate more than 120 BPM 10/23/17 06:45 11/22/17 06:44 Docusate Sodium (Colace) 100 mg THREE TIMES A DAY ORAL 10/23/17 13:00 11/22/17 12:59 Dorzolamide HCl (Trusopt) 1 drop BID BOTH EYES 10/23/17 09:00 11/22/17 08:59 10/23/17 09:14 Enalaprilat (Vasotec) 2.5 mg Q4H PRN IV sbp more than 160mmHg 10/23/17 06:45 11/22/17 06:44 Heparin Sodium (Porcine) (Heparin 5000 units/ml) 5,000 units EVERY 12 HOURS SUBQ 10/23/17 09:00 11/22/17 08:59 10/23/17 09:16 Mineral Oil (Fleet's Mineral Oil Enema) 133 ml EVERY OTHER DAY RECTAL 10/25/17 09:00 11/24/17 08:59 UNV Morphine Sulfate (Morphine Sulfate) 2 mg Q4H PRN IVP severe Pain (Pain Scale 7-10) 10/23/17 06:45 10/30/17 06:44 Nitroglycerin (Ntg) 0.4 mg Q5MIN X 3 DOSES PRN SL Prn Chest Pain 10/23/17 06:45 11/22/17 06:44 Ondansetron HCl (Zofran) 4 mg Q6H PRN IVP Nausea & Vomiting 10/23/17 06:45 11/22/17 06:44 Polyethylene Glycol (Miralax) 17 gm BEDTIME ORAL 10/23/17 21:00 11/22/17 20:59 UNV Polyethylene Glycol (Miralax) 17 gm DAILYPRN PRN ORAL Constipation 10/23/17 06:45 11/22/17 06:44 Sennosides (Senokot) 8.6 tab DAILY ORAL 10/24/17 09:00 11/23/17 08:59 UNV Temazepam (Restoril) 15 mg HSPRN PRN ORAL Insomnia 10/23/17 21:00 10/30/17 20:59 Assessment/Plan Problem List: (1) ACS (acute coronary syndrome) ICD Codes: I24.9 - Acute ischemic heart disease, unspecified SNOMED: 854047150 (2) ATN (acute tubular necrosis) ICD Codes: N17.0 - Acute kidney failure with tubular necrosis SNOMED: 16174048 (3) Hypertension ICD Codes: I10 - Hypertension SNOMED: 86153028 (4) Anemia ICD Codes: D64.9 - Anemia SNOMED: 798783651 Assessment/Plan serial ekg, troponin echo cardiology evaluation symptomatic treatment anemia w/u including OB, ferritin etc renal studies avoid nephrotoxic agents monitor BP avoid polypharmacy. Saran Olmos MD Oct 23, 2017 11:20
[2017-10-23 11:43] LABS: CREATINE KINASE 59 U/L (26-308)
[2017-10-23] MEDS: Docusate 100mg cap ORAL SCH ×2 (12:39→17:46)
--- NOTE | 2017-10-23 13:40 | Consultation ---
History of Present Illness General Date patient seen: Oct 23, 2017 Time patient seen: 13:35 Chief Complaint: General Complaint Present Illness HPI 86 year old female presents to ED c/o chest pain 2x days ago. Patient states when pain is occurring it radiates back and forth from right to left side. Troponin negative x3, chest x ray clear with cardiomegaly. BP elevated on admission 150s. Creatinine elevated. She has a history of HTN, asthma, CKD, anemia. Currently denies pain. Allergies: Coded Allergies: No Known Allergies (Unverified , 02/20/12) Medication History Scheduled Bimatoprost (Lumigan), 1 DROP BOTH EYES DAILY, (Reported) Brimonidine Tartrate/Timolol (Combigan Eye Drops), 5 ML OP BID, (Reported) Budesonide/Formoterol Fumarate (Symbicort 160-4.5 Mcg Inhaler), 2 PUFFS INH BID, (Reported) Dorzolamide Hcl* (Trusopt*), 1 DROP BOTH EYES BID, (Reported) Fluticasone/Salmeterol (Advair 250-50 Diskus), 1 PUFF INH EVERY 12 HOURS, ( Reported) Losartan/Hydrochlorothiazide (Losartan-Hctz 50-12.5 Mg Tab), 1 TAB ORAL DAILY, ( Reported) Scheduled PRN Acetaminophen (Tylenol), 650 MG ORAL Q6H PRN for For Pain Albuterol Sulfate* (Proair Hfa*), 2 PUFFS INH BID PRN for Shortness of Breath, ( Reported) Tramadol Hcl* (Ultram*), 50 MG ORAL Q6H PRN for For Pain, (Reported) Discontinued Medications Clopidogrel* (Clopidogrel*), 75 MG ORAL DAILY, (Reported) Discontinued Reason: Therapy completed Dexlansoprazole (Dexilant), 60 MG ORAL DAILY, (Reported) Discontinued Reason: Therapy completed Famotidine (Famotidine), 40 MG ORAL DAILY, (Reported) Discontinued Reason: Therapy completed Hydrocodone Bit/Acetaminophen 5-325* ([place] 5-325*), 1 TAB ORAL Q6H PRN for For Pain Discontinued Reason: Pt stopped taking med Montelukast Sodium* (Montelukast Sodium*), 10 MG ORAL DAILY, (Reported) Discontinued Reason: Pt stopped taking med Patient History Healthcare decision maker Resuscitation status Full Code Advanced Directive on File Review of Systems Constitutional: Reports: no symptoms ENT: Reports: no symptoms Respiratory: Reports: no symptoms, shortness of breath Cardiovascular: Reports: chest pain Gastrointestinal: Reports: no symptoms Genitourinary: Reports: no symptoms Musculoskeletal: Reports: no symptoms Skin: Reports: no symptoms Psychiatric: Reports: no symptoms Neurological: Reports: no symptoms Endocrine: Reports: no symptoms Hematologic/Lymphatic: Reports: no symptoms Physical Exam General Appearance: no apparent distress, alert Lines, tubes and drains: peripheral HEENT: normocephalic, atraumatic Neck: non-tender, normal alignment Respiratory/Chest: chest wall non-tender, lungs clear Cardiovascular/Chest: normal peripheral pulses, normal rate, regular rhythm Abdomen: normal bowel sounds, non tender Extremities: normal range of motion, non-tender Skin Exam: normal pigmentation 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 Last 24 Hour Vital Signs Date Time Temp Pulse Resp B/P (MAP) Pulse Ox O2 Delivery O2 Flow Rate FiO2 10/23/17 11:25 65 10/23/17 09:00 Room Air 10/23/17 08:00 97.9 68 18 138/81 (100) 100 97.9 10/23/17 08:00 74 10/23/17 04:00 64 10/23/17 04:00 97.9 65 16 121/76 (91) 98 97.9 10/23/17 00:00 98.1 68 16 162/79 (106) 98 98.1 10/23/17 00:00 71 10/22/17 21:30 Room Air 10/22/17 21:30 97.6 68 16 159/86 (110) 98 97.6 10/22/17 21:25 98.6 64 16 136/66 99 Room Air 98.6 10/22/17 21:25 98.6 64 16 136/66 99 Room Air 209.5 10/22/17 18:40 98.6 74 18 126/80 97 Room Air 98.6 10/22/17 18:00 98.6 74 18 126/80 97 Room Air 98.6 Intake and Output 10/22/17 10/23/17 18:59 06:59 Intake Total 0 ml 150 ml Balance 0 ml 150 ml Intake Oral 0 ml 150 ml # Voids 1 Laboratory Tests Test 10/22/17 18:50 10/23/17 06:50 10/23/17 11:55 White Blood Count 6.3 K/UL (4.8-10.8) Red Blood Count 4.27 M/UL (4.20-5.40) Hemoglobin 10.8 G/DL (12.0-16.0) L Hematocrit 35.1 % (37.0-47.0) L Mean Corpuscular Volume 82 FL (80-99) Mean Corpuscular Hemoglobin 25.4 PG (27.0-31.0) L Mean Corpuscular Hemoglobin Concent 30.9 G/DL (32.0-36.0) L Red Cell Distribution Width 13.4 % (11.6-14.8) Platelet Count 227 K/UL (150-450) Mean Platelet Volume 7.0 FL (6.5-10.1) Neutrophils (%) (Auto) 50.3 % (45.0-75.0) Lymphocytes (%) (Auto) 30.2 % (20.0-45.0) Monocytes (%) (Auto) 8.6 % (1.0-10.0) Eosinophils (%) (Auto) 9.2 % (0.0-3.0) H Basophils (%) (Auto) 1.7 % (0.0-2.0) Prothrombin Time 10.5 SEC (9.30-11.50) Prothromb Time International Ratio 1.0 (0.9-1.1) Activated Partial Thromboplast Time 26 SEC (23-33) Sodium Level 143 MMOL/L (136-145) Potassium Level 3.6 MMOL/L (3.5-5.1) Chloride Level 108 MMOL/L (98-107) H Carbon Dioxide Level 24 MMOL/L (21-32) Anion Gap 11 mmol/L (5-15) Blood Urea Nitrogen 29 mg/dL (7-18) H Creatinine 2.1 MG/DL (0.55-1.30) H Estimat Glomerular Filtration Rate mL/min (>60) Glucose Level 96 MG/DL (74-106) Calcium Level 9.4 MG/DL (8.5-10.1) Total Bilirubin 0.3 MG/DL (0.2-1.0) Aspartate Amino Transf (AST/SGOT) 16 U/L (15-37) Alanine Aminotransferase (ALT/SGPT) 16 U/L (12-78) Alkaline Phosphatase 69 U/L (46-116) Total Creatine Kinase 79 U/L (26-308) 59 U/L (26-308) Creatine Kinase MB 1.5 NG/ML (0.0-3.6) Creatine Kinase MB Relative Index 1.8 Troponin I 0.000 ng/mL (0.000-0.056) 0.004 ng/mL (0.000-0.056) 0.004 ng/mL (0.000-0.056) Pro-B-Type Natriuretic Peptide 293 pg/mL (0-125) H Total Protein 7.5 G/DL (6.4-8.2) Albumin 3.1 G/DL (3.4-5.0) L Globulin 4.4 g/dL Albumin/Globulin Ratio 0.7 (1.0-2.7) L Lipase 135 U/L (73-393) Uric Acid 8.2 MG/DL (2.6-7.2) H Height (Feet): 5 Height (Inches): 3.00 Weight (Pounds): 185 Medications Current Medications Medications (Trade) Dose Ordered Sig/Lamonte Route PRN Reason Start Time Stop Time Status Last Admin Dose Admin Acetaminophen (Tylenol) 650 mg Q4H PRN ORAL T>100.5 10/23/17 06:45 11/22/17 06:44 Albuterol/ Ipratropium (Albuterol/ Ipratropium) 3 ml Q4H PRN HHN Shortness of Breath 10/23/17 06:45 10/28/17 06:44 Aspirin (ASA) 162 mg DAILY ORAL 10/23/17 09:00 11/22/17 08:59 10/23/17 09:14 Diltiazem HCl (Cardizem) 10 mg EVERY HOUR PRN IV heart rate more than 120 BPM 10/23/17 06:45 11/22/17 06:44 Docusate Sodium (Colace) 100 mg THREE TIMES A DAY ORAL 10/23/17 13:00 11/22/17 12:59 10/23/17 12:39 Dorzolamide HCl (Trusopt) 1 drop BID BOTH EYES 10/23/17 09:00 11/22/17 08:59 10/23/17 09:14 Enalaprilat (Vasotec) 2.5 mg Q4H PRN IV sbp more than 160mmHg 10/23/17 06:45 11/22/17 06:44 Heparin Sodium (Porcine) (Heparin 5000 units/ml) 5,000 units EVERY 12 HOURS SUBQ 10/23/17 09:00 11/22/17 08:59 10/23/17 09:16 Mineral Oil (Fleet's Mineral Oil Enema) 133 ml EVERY OTHER DAY RECTAL 10/25/17 09:00 11/24/17 08:59 Morphine Sulfate (Morphine Sulfate) 2 mg Q4H PRN IVP severe Pain (Pain Scale 7-10) 10/23/17 06:45 10/30/17 06:44 Nitroglycerin (Ntg) 0.4 mg Q5MIN X 3 DOSES PRN SL Prn Chest Pain 10/23/17 06:45 11/22/17 06:44 Ondansetron HCl (Zofran) 4 mg Q6H PRN IVP Nausea & Vomiting 10/23/17 06:45 11/22/17 06:44 Polyethylene Glycol (Miralax) 17 gm BEDTIME ORAL 10/23/17 21:00 11/22/17 20:59 Sennosides (Senokot) 1 tab DAILY ORAL 10/24/17 09:00 11/23/17 08:59 Temazepam (Restoril) 15 mg HSPRN PRN ORAL Insomnia 10/23/17 21:00 10/30/17 20:59 Assessment/Plan Status: stable Assessment/Plan Assessment (1) ACS (acute coronary syndrome) (2) ATN (acute tubular necrosis) (3) Hypertension (4) Anemia (5) Asthma Plan: EKG: NSR, Troponin negative x3 Check ESR/CRP to evaluate for pericarditis/costochondritis TTE to evaluate wall motion Defer cardiac cath at this time due to ALMA/CKD Aspirin Continue blood pressure medications Check lipid panel Physical therapy Nitro prn chest pain Iron studies/B12/Folate NO indication for transfusion Fausto Rubi M.D. Oct 23, 2017 13:40
--- NOTE | 2017-10-23 15:40 | Cardiology Report ---
APPROVED REPORT EXAM: Two-dimensional and M-mode echocardiogram with Doppler and color Doppler. INDICATION Chest Pain M-Mode DIMENSIONS IVSd2.2 (0.7-1.1cm)Left Atrium (MM)4.9 (1.6-4.0cm) LVDd4.3 (3.5-5.6cm)Aortic Root3.3 (2.0-3.7cm) PWd1.2 (0.7-1.1cm)Aortic Cusp Exc.2.2 (1.5-2.0cm) LVDs3.0 (2.5-4.0cm) PWs1.2 cm Technically difficult study due to poor acoustical windows. Normal left ventricular chamber size, systolic function and wall motion to extent visualized. Left ventricular ejection fraction estimated to be 55-60 %. Study quality precludes accurate assessment of regional wall motion. Moderate left ventricular hypertrophy by 2-D. Moderate circumferential pericardial effusion. Mild bi-atrial enlargement.The right atrium is not well seen, however there is no diastolic RV collapse to suggest tamponad physiology Right ventricular chamber size is within normal limits. Focal aortic valve sclerosis with adequate cusp excursion. Thickened mitral valve leaflets with normal excursion. Mitral annulus and aortic root calcification. Pulmonic valve not well visualized. Normal tricuspid valve structure. IVC is not well seen on provided images A color flow and spectral Doppler study was performed and revealed: Trace aortic regurgitation. Trace mitral regurgitation. Mitral diastolic velocities suggest reduced left ventricular relaxation c/w mild LV diastolic dysfunction (Grade I). Trace to mild tricuspid regurgitation. Tricuspid systolic velocities suggests peak right ventricular systolic pressure of 31 mmHg. There is no respiratory variation more than 25% across MV. There is respiratory variation more than 50% across TV.
[2017-10-23 16:41] LABS: APPEARANCE,URINE CLEAR; BILIRUBIN, URINE NEGATIVE (NEGATIVE); COLOR,URINE PALE YELLOW; GLUCOSE, URINE (UA) NEGATIVE (NEGATIVE); KETONES,URINE NEGATIVE (NEGATIVE); LEUKOCYTE ESTERASE ,URINE 3+ (NEGATIVE); NITRITE,URINE NEGATIVE (NEGATIVE); PH,URINE 5 (4.5-8.0); PROTEIN,URINE 1+ (NEGATIVE); UROBILINOGEN,URINE NORMAL MG/DL (0.0-1.0)
--- NOTE | 2017-10-23 18:40 | Consultation ---
History of Present Illness General Chief Complaint: General Complaint Present Illness HPI 86-year-old female presented after increased central chest pain. Patient was having bilateral pain which had been present for approximately 3 days. the pt has poor appetite and low energy. the pt has some anxiety. Allergies: Coded Allergies: No Known Allergies (Unverified , 02/20/12) Medication History Scheduled Bimatoprost (Lumigan), 1 DROP BOTH EYES DAILY, (Reported) Brimonidine Tartrate/Timolol (Combigan Eye Drops), 5 ML OP BID, (Reported) Budesonide/Formoterol Fumarate (Symbicort 160-4.5 Mcg Inhaler), 2 PUFFS INH BID, (Reported) Dorzolamide Hcl* (Trusopt*), 1 DROP BOTH EYES BID, (Reported) Fluticasone/Salmeterol (Advair 250-50 Diskus), 1 PUFF INH EVERY 12 HOURS, ( Reported) Losartan/Hydrochlorothiazide (Losartan-Hctz 50-12.5 Mg Tab), 1 TAB ORAL DAILY, ( Reported) Scheduled PRN Acetaminophen (Tylenol), 650 MG ORAL Q6H PRN for For Pain Albuterol Sulfate* (Proair Hfa*), 2 PUFFS INH BID PRN for Shortness of Breath, ( Reported) Tramadol Hcl* (Ultram*), 50 MG ORAL Q6H PRN for For Pain, (Reported) Discontinued Medications Clopidogrel* (Clopidogrel*), 75 MG ORAL DAILY, (Reported) Discontinued Reason: Therapy completed Dexlansoprazole (Dexilant), 60 MG ORAL DAILY, (Reported) Discontinued Reason: Therapy completed Famotidine (Famotidine), 40 MG ORAL DAILY, (Reported) Discontinued Reason: Therapy completed Hydrocodone Bit/Acetaminophen 5-325* ([place] 5-325*), 1 TAB ORAL Q6H PRN for For Pain Discontinued Reason: Pt stopped taking med Montelukast Sodium* (Montelukast Sodium*), 10 MG ORAL DAILY, (Reported) Discontinued Reason: Pt stopped taking med Patient History Limited by: medical condition History Provided By: Patient, Medical Record, PMD Healthcare decision maker Resuscitation status Full Code Advanced Directive on File Past Medical/Surgical History Past Medical/Surgical History: (1) Dysphagia (2) Colon polyp (3) bronchitis (4) Arthralgia of knee, right (5) Knee joint pain (6) Chest pain (7) Chest pain of uncertain etiology (8) Cardiomegaly (9) Osteoarthritis (10) Hypertension (11) ATN (acute tubular necrosis) (12) ACS (acute coronary syndrome) (13) Anemia Review of Systems Psychiatric: Reports: see HPI, prior hx, anxiety, emotional problems Physical Exam General Appearance: no apparent distress, alert Neurologic: oriented x 3, responsive, depressed affect Last 24 Hour Vital Signs Date Time Temp Pulse Resp B/P (MAP) Pulse Ox O2 Delivery O2 Flow Rate FiO2 10/23/17 17:36 98.0 68 18 138/82 (100) 100 98.0 10/23/17 16:00 64 10/23/17 16:00 98.0 68 18 138/82 (100) 100 98.0 10/23/17 12:00 97.3 68 20 132/70 (90) 100 97.3 10/23/17 11:25 65 10/23/17 09:00 Room Air 10/23/17 08:00 97.9 68 18 138/81 (100) 100 97.9 10/23/17 08:00 74 10/23/17 04:00 64 10/23/17 04:00 97.9 65 16 121/76 (91) 98 97.9 10/23/17 00:00 98.1 68 16 162/79 (106) 98 98.1 10/23/17 00:00 71 10/22/17 21:30 Room Air 10/22/17 21:30 97.6 68 16 159/86 (110) 98 97.6 10/22/17 21:25 98.6 64 16 136/66 99 Room Air 98.6 10/22/17 21:25 98.6 64 16 136/66 99 Room Air 209.5 Intake and Output 10/22/17 10/23/17 19:00 07:00 Intake Total 0 ml 150 ml Balance 0 ml 150 ml Intake Oral 0 ml 150 ml # Voids 1 Laboratory Tests Test 10/22/17 18:50 10/23/17 06:50 10/23/17 11:55 10/23/17 14:00 White Blood Count 6.3 K/UL (4.8-10.8) Red Blood Count 4.27 M/UL (4.20-5.40) Hemoglobin 10.8 G/DL (12.0-16.0) L Hematocrit 35.1 % (37.0-47.0) L Mean Corpuscular Volume 82 FL (80-99) Mean Corpuscular Hemoglobin 25.4 PG (27.0-31.0) L Mean Corpuscular Hemoglobin Concent 30.9 G/DL (32.0-36.0) L Red Cell Distribution Width 13.4 % (11.6-14.8) Platelet Count 227 K/UL (150-450) Mean Platelet Volume 7.0 FL (6.5-10.1) Neutrophils (%) (Auto) 50.3 % (45.0-75.0) Lymphocytes (%) (Auto) 30.2 % (20.0-45.0) Monocytes (%) (Auto) 8.6 % (1.0-10.0) Eosinophils (%) (Auto) 9.2 % (0.0-3.0) H Basophils (%) (Auto) 1.7 % (0.0-2.0) Prothrombin Time 10.5 SEC (9.30-11.50) Prothromb Time International Ratio 1.0 (0.9-1.1) Activated Partial Thromboplast Time 26 SEC (23-33) Sodium Level 143 MMOL/L (136-145) Potassium Level 3.6 MMOL/L (3.5-5.1) Chloride Level 108 MMOL/L (98-107) H Carbon Dioxide Level 24 MMOL/L (21-32) Anion Gap 11 mmol/L (5-15) Blood Urea Nitrogen 29 mg/dL (7-18) H Creatinine 2.1 MG/DL (0.55-1.30) H Estimat Glomerular Filtration Rate mL/min (>60) Glucose Level 96 MG/DL (74-106) Calcium Level 9.4 MG/DL (8.5-10.1) Total Bilirubin 0.3 MG/DL (0.2-1.0) Aspartate Amino Transf (AST/SGOT) 16 U/L (15-37) Alanine Aminotransferase (ALT/SGPT) 16 U/L (12-78) Alkaline Phosphatase 69 U/L (46-116) Total Creatine Kinase 79 U/L (26-308) 59 U/L (26-308) Creatine Kinase MB 1.5 NG/ML (0.0-3.6) Creatine Kinase MB Relative Index 1.8 Troponin I 0.000 ng/mL (0.000-0.056) 0.004 ng/mL (0.000-0.056) 0.004 ng/mL (0.000-0.056) Pro-B-Type Natriuretic Peptide 293 pg/mL (0-125) H Total Protein 7.5 G/DL (6.4-8.2) Albumin 3.1 G/DL (3.4-5.0) L Globulin 4.4 g/dL Albumin/Globulin Ratio 0.7 (1.0-2.7) L Lipase 135 U/L (73-393) Uric Acid 8.2 MG/DL (2.6-7.2) H Urine Color Pale yellow Urine Appearance Clear Urine pH 5 (4.5-8.0) Urine Specific [place] 1.020 (1.005-1.035) Urine Protein 1+ (NEGATIVE) H Urine Glucose (UA) Negative (NEGATIVE) Urine Ketones Negative (NEGATIVE) Urine Occult Blood Negative (NEGATIVE) Urine Nitrite Negative (NEGATIVE) Urine Bilirubin Negative (NEGATIVE) Urine Urobilinogen Normal MG/DL (0.0-1.0) Urine Leukocyte Esterase 3+ (NEGATIVE) H Urine RBC 0-2 /HPF (0 - 2) Urine WBC 5-10 /HPF (0 - 2) H Urine Squamous Epithelial Cells Few /LPF (NONE/OCC) Urine Bacteria Few /HPF (NONE) Urine Eosinophils None seen (NONE SEEN) Urine Potassium Timed 40 mmol/L (12-62) Test 10/23/17 18:05 Troponin I Pending Height (Feet): 5 Height (Inches): 3.00 Weight (Pounds): 185 Medications Current Medications Medications (Trade) Dose Ordered Sig/Lamonte Route PRN Reason Start Time Stop Time Status Last Admin Dose Admin Acetaminophen (Tylenol) 650 mg Q4H PRN ORAL T>100.5 10/23/17 06:45 11/22/17 06:44 10/23/17 17:47 Albuterol/ Ipratropium (Albuterol/ Ipratropium) 3 ml Q4H PRN HHN Shortness of Breath 10/23/17 06:45 10/28/17 06:44 Aspirin (ASA) 162 mg DAILY ORAL 10/23/17 09:00 11/22/17 08:59 10/23/17 09:14 Diltiazem HCl (Cardizem) 10 mg EVERY HOUR PRN IV heart rate more than 120 BPM 10/23/17 06:45 11/22/17 06:44 Docusate Sodium (Colace) 100 mg THREE TIMES A DAY ORAL 10/23/17 13:00 11/22/17 12:59 10/23/17 17:46 Dorzolamide HCl (Trusopt) 1 drop BID BOTH EYES 10/23/17 09:00 11/22/17 08:59 10/23/17 17:47 Enalaprilat (Vasotec) 2.5 mg Q4H PRN IV sbp more than 160mmHg 10/23/17 06:45 11/22/17 06:44 Heparin Sodium (Porcine) (Heparin 5000 units/ml) 5,000 units EVERY 12 HOURS SUBQ 10/23/17 09:00 11/22/17 08:59 10/23/17 09:16 Mineral Oil (Fleet's Mineral Oil Enema) 133 ml EVERY OTHER DAY RECTAL 10/25/17 09:00 11/24/17 08:59 Morphine Sulfate (Morphine Sulfate) 2 mg Q4H PRN IVP severe Pain (Pain Scale 7-10) 10/23/17 06:45 10/30/17 06:44 Nitroglycerin (Ntg) 0.4 mg Q5MIN X 3 DOSES PRN SL Prn Chest Pain 10/23/17 06:45 11/22/17 06:44 Ondansetron HCl (Zofran) 4 mg Q6H PRN IVP Nausea & Vomiting 10/23/17 06:45 11/22/17 06:44 Polyethylene Glycol (Miralax) 17 gm BEDTIME ORAL 10/23/17 21:00 11/22/17 20:59 Sennosides (Senokot) 1 tab DAILY ORAL 10/24/17 09:00 11/23/17 08:59 Temazepam (Restoril) 15 mg HSPRN PRN ORAL Insomnia 10/23/17 21:00 10/30/17 20:59 Assessment/Plan Status: stable Assessment/Plan Anxiety d/o failure to thrive -Ativan 1mg po qhs -provided ro/st -the pt has capacity to make decisions Farhadi,Pantea MD Oct 23, 2017 18:40
[2017-10-23] MEDS ORDERED: Miralax 17gm pkt ORAL SCH (21:00)
[2017-10-24] VITALS: BP 131/83
[2017-10-24 04:00] VITALS: BP 111/65
[2017-10-24] MEDS ORDERED: Morphine Sulfate 2mg/ml Inj(IV/IM USE ONLY) IVP PRN (05:41)
[2017-10-24] MEDS ORDERED: Enalaprilat 2.5mg/2ml Inj IV PRN (05:45)
[2017-10-24] MEDS ORDERED: Albuterol/Ipratropium 3ml neb HHN PRN (05:45)
[2017-10-24] MEDS ORDERED: Nitroglycerin Subl 0.4mg tab SL PRN (05:46)
[2017-10-24] MEDS ORDERED: dilTIAZem HCl 25mg/5ml Inj IV PRN (06:00)
[2017-10-24 06:45] LABS: BASOPHILS % (AUTO) 1.5 % (0.0-2.0); EOSINOPHILS % (AUTO) 12.1 % (0.0-3.0); HEMATOCRIT 31.1 % (37.0-47.0); HEMOGLOBIN 9.7 G/DL (12.0-16.0); LYMPHOCYTES % (AUTO) 30.5 % (20.0-45.0); MEAN CORPUSCULAR VOLUME 80 FL (80-99); MONOCYTES % (AUTO) 9.1 % (1.0-10.0); NEUTROPHILS % (AUTO) 46.8 % (45.0-75.0); PLATELET COUNT 210 K/UL (150-450); RED BLOOD COUNT 3.87 M/UL (4.20-5.40); RED CELL DISTRIBUTION WIDTH 13.4 % (11.6-14.8); WHITE BLOOD COUNT 4.9 K/UL (4.8-10.8)
[2017-10-24 07:20] LABS: CHOLESTEROL 152 MG/DL (< 200); HDL CHOLESTEROL 68 MG/DL (40-60); TRIGLYCERIDES 32 MG/DL (30-150)
[2017-10-24 08:04] LABS: % IRON SATURATION 19 % (15-50); IRON 36 ug/dL (50-175); TOTAL IRON BINDING CAPACITY 187 ug/dL (250-450)
[2017-10-24 08:11] VITALS: BP 143/77
[2017-10-24 08:16] LABS: LACTATE DEHYDROGENASE 210 U/L (81-234)
[2017-10-24] MEDS ORDERED: Dorzolamide 2% 10ml Btl BOTH EYES SCH (09:00)
[2017-10-24] MEDS ORDERED: Heparin 5000 units/ml inj SUBQ SCH (09:00)
[2017-10-24] MEDS ORDERED: Sennosides 8.6mg ORAL SCH ×2 (09:00)
[2017-10-24] MEDS ORDERED: Aspirin Baby 81mg ORAL SCH (09:00)
[2017-10-24] MEDS: Docusate 100mg cap ORAL SCH ×2 (09:04→13:00)
[2017-10-24] MEDS ORDERED: LORazepam 1mg tab ORAL PRN (10:30)
--- NOTE | 2017-10-24 10:36 | General Progress Note ---
Assessment/Plan Status: stable, progressing Assessment/Plan Anxiety d/o failure to thrive -Ativan 1mg po qhs -provided ro/st Subjective Date patient seen: Oct 24, 2017 Neurologic/Psychiatric: Reports: anxiety, emotional problems Allergies: Coded Allergies: No Known Allergies (Unverified , 02/20/12) Subjective the pt is not endorsing Objective Last 24 Hour Vital Signs Date Time Temp Pulse Resp B/P (MAP) Pulse Ox O2 Delivery O2 Flow Rate FiO2 10/24/17 09:55 87 18 Room Air 21 10/24/17 08:11 98.2 63 20 143/77 (99) 98 98.2 10/24/17 08:00 67 10/24/17 04:00 98.2 70 20 111/65 (80) 98 98.2 10/24/17 04:00 Room Air 10/24/17 04:00 66 10/24/17 00:00 97.6 66 19 131/83 (99) 100 97.6 10/24/17 00:00 Room Air 10/24/17 00:00 64 10/23/17 21:11 160/84 10/23/17 21:00 Room Air 10/23/17 20:00 97.9 73 20 160/84 (109) 99 97.9 10/23/17 20:00 70 10/23/17 17:36 98.0 68 18 138/82 (100) 100 98.0 10/23/17 16:00 64 10/23/17 16:00 98.0 68 18 138/82 (100) 100 98.0 10/23/17 12:00 97.3 68 20 132/70 (90) 100 97.3 10/23/17 11:25 65 Intake and Output 10/23/17 10/24/17 19:00 07:00 Intake Total 480 ml 150 ml Balance 480 ml 150 ml Intake Oral 480 ml 150 ml # Voids 2 2 Laboratory Tests 10/23/17 11:55: Troponin I 0.004 10/23/17 14:00: Urine Color Pale yellow, Urine Appearance Clear, Urine pH 5, Urine Specific [place] 1.020, Urine Protein 1+H, Urine Glucose (UA) Negative, Urine Ketones Negative, Urine Occult Blood Negative, Urine Nitrite Negative, Urine Bilirubin Negative, Urine Urobilinogen Normal, Urine Leukocyte Esterase 3+H, Urine RBC 0-2 , Urine WBC 5-10H, Urine Squamous Epithelial Cells Few, Urine Bacteria Few, Urine Eosinophils None seen, Urine Potassium Timed 40 10/23/17 18:05: Troponin I 0.001 10/24/17 01:30: Troponin I 0.000 10/24/17 06:15: White Blood Count 4.9, Red Blood Count 3.87L, Hemoglobin 9.7L, Hematocrit 31.1L , Mean Corpuscular Volume 80, Mean Corpuscular Hemoglobin 25.1L, Mean Corpuscular Hemoglobin Concent 31.3L, Red Cell Distribution Width 13.4, Platelet Count 210, Mean Platelet Volume 6.6, Neutrophils (%) (Auto) 46.8, Lymphocytes (%) (Auto) 30.5, Monocytes (%) (Auto) 9.1, Eosinophils (%) (Auto) 12.1H, Basophils (%) (Auto) 1.5, Differential Total Cells Counted 100, Neutrophils % (Manual) 45, Lymphocytes % (Manual) 33, Monocytes % (Manual) 9, Eosinophils % (Manual) 12H, Basophils % (Manual) 1, Band Neutrophils 0, Platelet Estimate Adequate, Platelet Morphology Normal, Hypochromasia 2+, Anisocytosis 1+, Erythrocyte Sedimentation Rate 49H, Reticulocyte Count 1.6, Prothrombin Time 10.1, Prothromb Time International Ratio 1.0, Activated Partial Thromboplast Time 27, Iron Level 36L, Total Iron Binding Capacity 187L, Percent Iron Saturation 19, Unsaturated Iron Binding 151, Lactate Dehydrogenase 210, Troponin I 0.004, C-Reactive Protein, Quantitative 2.0H, Triglycerides Level 32, Cholesterol Level 152, LDL Cholesterol 82, HDL Cholesterol 68H, Cholesterol/HDL Ratio 2.2L, Carcinoembryonic Antigen [Pending], Vitamin B12 Level 1355H, Folate 15.5, Thyroid Stimulating Hormone (TSH) 0.828 Height (Feet): 5 Height (Inches): 3.00 Weight (Pounds): 194 Nemesio Segal MD Oct 24, 2017 10:36
--- NOTE | 2017-10-24 11:16 | Pulmonology Progress Note ---
Assessment/Plan Problems: (1) ACS (acute coronary syndrome) (2) ATN (acute tubular necrosis) (3) Hypertension (4) Anemia Assessment/Plan f/u cardiology recommendations BP is controlled renal function stable symptomatic treatment. pt/ot dc planning Subjective ROS Limited/Unobtainable: No Constitutional: Reports: no symptoms HEENT: Repors: no symptoms Respiratory: Reports: no symptoms Allergies: Coded Allergies: No Known Allergies (Unverified , 02/20/12) Objective Last 24 Hour Vital Signs Date Time Temp Pulse Resp B/P (MAP) Pulse Ox O2 Delivery O2 Flow Rate FiO2 10/24/17 09:55 87 18 Room Air 21 10/24/17 09:00 Room Air 10/24/17 08:11 98.2 63 20 143/77 (99) 98 98.2 10/24/17 08:00 67 10/24/17 04:00 98.2 70 20 111/65 (80) 98 98.2 10/24/17 04:00 Room Air 10/24/17 04:00 66 10/24/17 00:00 97.6 66 19 131/83 (99) 100 97.6 10/24/17 00:00 Room Air 10/24/17 00:00 64 10/23/17 21:11 160/84 10/23/17 21:00 Room Air 10/23/17 20:00 97.9 73 20 160/84 (109) 99 97.9 10/23/17 20:00 70 10/23/17 17:36 98.0 68 18 138/82 (100) 100 98.0 10/23/17 16:00 64 10/23/17 16:00 98.0 68 18 138/82 (100) 100 98.0 10/23/17 12:00 97.3 68 20 132/70 (90) 100 97.3 10/23/17 11:25 65 Intake and Output 10/23/17 10/24/17 19:00 07:00 Intake Total 480 ml 150 ml Balance 480 ml 150 ml Intake Oral 480 ml 150 ml # Voids 2 2 General Appearance: WD/WN HEENT: normocephalic, atraumatic Respiratory/Chest: chest wall non-tender, lungs clear Breasts: no masses Cardiovascular: normal peripheral pulses Abdomen: normal bowel sounds, soft, non tender Genitourinary: normal external genitalia Extremities: no cyanosis Skin: no rash Neurologic/Psychiatric: community nurse II-XII grossly normal Lymphatic: no neck adenopathy Microbiology Date/Time Source Procedure Growth Status 10/22/17 18:45 Blood Blood Culture - Preliminary NO GROWTH AFTER 24 HOURS Resulted 10/22/17 18:35 Blood Blood Culture - Preliminary NO GROWTH AFTER 24 HOURS Resulted Laboratory Tests 10/23/17 11:55: Troponin I 0.004 10/23/17 14:00: Urine Color Pale yellow, Urine Appearance Clear, Urine pH 5, Urine Specific [place] 1.020, Urine Protein 1+H, Urine Glucose (UA) Negative, Urine Ketones Negative, Urine Occult Blood Negative, Urine Nitrite Negative, Urine Bilirubin Negative, Urine Urobilinogen Normal, Urine Leukocyte Esterase 3+H, Urine RBC 0-2 , Urine WBC 5-10H, Urine Squamous Epithelial Cells Few, Urine Bacteria Few, Urine Eosinophils None seen, Urine Potassium Timed 40 10/23/17 18:05: Troponin I 0.001 10/24/17 01:30: Troponin I 0.000 10/24/17 06:15: White Blood Count 4.9, Red Blood Count 3.87L, Hemoglobin 9.7L, Hematocrit 31.1L , Mean Corpuscular Volume 80, Mean Corpuscular Hemoglobin 25.1L, Mean Corpuscular Hemoglobin Concent 31.3L, Red Cell Distribution Width 13.4, Platelet Count 210, Mean Platelet Volume 6.6, Neutrophils (%) (Auto) 46.8, Lymphocytes (%) (Auto) 30.5, Monocytes (%) (Auto) 9.1, Eosinophils (%) (Auto) 12.1H, Basophils (%) (Auto) 1.5, Differential Total Cells Counted 100, Neutrophils % (Manual) 45, Lymphocytes % (Manual) 33, Monocytes % (Manual) 9, Eosinophils % (Manual) 12H, Basophils % (Manual) 1, Band Neutrophils 0, Platelet Estimate Adequate, Platelet Morphology Normal, Hypochromasia 2+, Anisocytosis 1+, Erythrocyte Sedimentation Rate 49H, Reticulocyte Count 1.6, Prothrombin Time 10.1, Prothromb Time International Ratio 1.0, Activated Partial Thromboplast Time 27, Iron Level 36L, Total Iron Binding Capacity 187L, Percent Iron Saturation 19, Unsaturated Iron Binding 151, Lactate Dehydrogenase 210, Troponin I 0.004, C-Reactive Protein, Quantitative 2.0H, Triglycerides Level 32, Cholesterol Level 152, LDL Cholesterol 82, HDL Cholesterol 68H, Cholesterol/HDL Ratio 2.2L, Carcinoembryonic Antigen [Pending], Vitamin B12 Level 1355H, Folate 15.5, Thyroid Stimulating Hormone (TSH) 0.828 Current Medications Medications (Trade) Dose Ordered Sig/Lamonte Route PRN Reason Start Time Stop Time Status Last Admin Dose Admin Acetaminophen (Tylenol) 650 mg Q4H PRN ORAL T>100.5 10/24/17 05:41 11/22/17 05:40 10/24/17 09:04 Albuterol/ Ipratropium (Albuterol/ Ipratropium) 3 ml Q4H PRN HHN Shortness of Breath 10/24/17 05:45 10/28/17 05:44 Aspirin (ASA) 162 mg DAILY ORAL 10/24/17 09:00 11/22/17 08:59 10/24/17 09:03 Diltiazem HCl (Cardizem) 10 mg Q1H PRN IV heart rate more than 120 BPM 10/24/17 06:00 11/23/17 05:59 Docusate Sodium (Colace) 100 mg THREE TIMES A DAY ORAL 10/24/17 09:00 11/22/17 12:59 10/24/17 09:04 Dorzolamide HCl (Trusopt) 1 drop BID BOTH EYES 10/24/17 09:00 11/22/17 08:59 10/24/17 09:05 Enalaprilat (Vasotec) 2.5 mg Q4H PRN IV sbp more than 160mmHg 10/24/17 05:45 11/22/17 05:44 Heparin Sodium (Porcine) (Heparin 5000 units/ml) 5,000 units EVERY 12 HOURS SUBQ 10/24/17 09:00 11/22/17 08:59 10/24/17 09:06 Lorazepam (Ativan) 1 mg Q6H PRN ORAL For Anxiety 10/24/17 10:30 10/31/17 10:29 Mineral Oil (Fleet's Mineral Oil Enema) 133 ml EVERY OTHER DAY RECTAL 10/25/17 09:00 11/24/17 08:59 Morphine Sulfate (Morphine Sulfate) 2 mg Q4H PRN IVP severe Pain (Pain Scale 7-10) 10/24/17 05:41 10/30/17 05:40 Nitroglycerin (Ntg) 0.4 mg Q5MIN X 3 DOSES PRN SL Prn Chest Pain 10/24/17 05:46 11/22/17 05:45 Ondansetron HCl (Zofran) 4 mg Q6H PRN IVP Nausea & Vomiting 10/24/17 05:47 11/22/17 05:46 Polyethylene Glycol (Miralax) 17 gm BEDTIME ORAL 10/24/17 21:00 11/22/17 20:59 Sennosides (Senokot) 1 tab DAILY ORAL 10/24/17 09:00 11/23/17 08:59 10/24/17 09:04 Temazepam (Restoril) 15 mg HSPRN PRN ORAL Insomnia 10/24/17 05:40 10/30/17 05:39 Saran Olmos MD Oct 24, 2017 11:16
[2017-10-24 12:03] VITALS: BP 124/75
[2017-10-24] MEDS ORDERED: Miralax 17gm pkt ORAL SCH (21:00)
[2017-10-25] MEDS ORDERED: Fleet's Mineral Oil Enema RECTAL SCH ×2 (09:00)
--- NOTE | 2017-10-25 12:34 | Discharge Summary ---
Discharge Summary Discharge Summary _ DATE OF ADMISSION: 10/22/2017 DATE OF DISCHARGE: 10/24/2017 CONSULTANTS: Dr. Nemesio Rubi BRIEF HOSPITAL COURSE: Patient is an 86-year-old female, with history of hypertension, asthma, renal insufficiency, presented to ER with complaints of chest pain, present for approximately 3 days. She also reported having generalized pain. She denied any recent trauma. She complained of pain that is worsened with movement. She also reported generalized itchiness. She denied shortness of breath, denied fever. On evaluation at ED, vital signs were stable. Blood work showed elevated creatinine to 2.1, BUN 29. Hemoglobin was 10 and hematocrit was 35. Initial troponin was negative. EKG was in normal sinus rhythm with right bundle branch block. Chest x-ray showed cardiomegaly without any evident pneumothorax or infiltrate. Due to her underlying risk factors, patient was admitted to telemetry for evaluation of acute coronary syndrome and ATN. She underwent cardiac evaluation. Cardiac enzymes were monitored. She was given aspirin and nitroglycerin prn chest pain. She underwent echocardiogram that showed ejection fraction of 55-60%. She was noted to have anemia. Hemoglobin was stable, no indication for transfusion. Patient has poor appetite and low energy. She has anxiety disorder and was given Ativan 1 mg daily at bedtime. Patient was assessed to lack the capacity to make medical decisions. Troponins were negative. Blood pressure controlled. She was eventually cleared for discharge home. FINAL DIAGNOSES: Acute coronary syndrome Acute tubular necrosis Hypertension Anemia Asthma Anxiety disorder DISPOSITION: Patient was discharged home. DISCHARGE MEDICATIONS: Refer to Discharge Medication List. DISCHARGE INSTRUCTIONS: Follow up with PCP in a week. I have been assigned to dictate discharge summary on this account, and I was not involved in the patient's management. Leyda Houston NP Oct 25, 2017 12:34
== END 2017-10-24 15:30 | disposition home or self-care (01) | DRG 311 ==
LOC: EMR 18:45 → 2W 20:00 → EDBEDREQ 20:33 → 2E 10-24 05:16
DX: I24.9 Acute ischemic heart disease, unspecified (principal); N17.0 Acute kidney failure with tubular necrosis; I10 Essential (primary) hypertension; D64.9 Anemia, unspecified; J45.909 Unspecified asthma, uncomplicated; F41.9 Anxiety disorder, unspecified; M19.90 Unspecified osteoarthritis, unspecified site; I45.10 Unspecified right bundle-branch block
CPT/HCPCS: 36415; 71045; 80053; 80061; 81001; 82378; 82550; 82553; 82607; 82746; 82962; 83540; 83550; 83615; 83690; 83880; 84133; 84443; 84484; 84550; 85007; 85025; 85044; 85060; 85610; 85651; 85730; 86140; 87040; 89050; 93005; 93306; 94664; 99285

== ENCOUNTER 2018-03-17 12:47 | Inpatient (IN) | payer MEDICARE, OTHER ==
[~2018-03-17] VITALS: Ht 157.5 cm; Wt 82.6 kg
[~2018-03-17 12:47] MED LIST changes: +COMBIGAN EYE DRO5 ML OP; +LUMIGAN2.5 ML BOTH EYES; +PROAIR HFA8.5 GM INH; +SYMBICORT 1601 PUFFS INH; +SYMBICORT2 PUFF1 INH; +TRUSOPT10 ML BOTH EYES
--- NOTE | 2018-03-17 13:01 | NUR ---
ED Nurse Note: Pt came from home w/ complaints of SOB x 1 month. It was exacerbated today. Hx of asthma. A + O x4. Ambulatory, Skin warm to touch. Wheezing heard upon inspiratory. No edema noted. No complaints of pain.
--- NOTE | 2018-03-17 13:11 | Emergency Room Report ---
History of Present Illness General Chief Complaint: Dyspnea/Respdistress Source: Patient Present Illness HPI Patient presents with complaints of shortness of breath worsening over the past several days patient reports that for the past 4 weeks she has started to feel More short of breath with any exertion now also laying down she feels worse Patient has a complex medical history including Asthma hypertension and heart disease denies any fevers denies any Chest pain denies any pleurisy denies any recent travel Denies any swelling in her legs Allergies: Coded Allergies: No Known Allergies (Unverified , 02/20/12) Patient History Past Medical History: see triage record Pertinent Family History: none Reviewed Nursing Documentation: PMH: Agreed; PSxH: Agreed Nursing Documentation-PMH Hx Cardiac Problems: No Hx Hypertension: Yes Hx Pacemaker: No Hx Asthma: Yes Hx COPD: No Hx Diabetes: No Hx Cancer: No Hx Gastrointestinal Problems: Yes Hx Dialysis: No Hx Neurological Problems: Yes 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 Hx Seizures: No Hx Tremors: No Hx Dizziness: Yes - after taking Blood Pressure medication Hx Syncope: No Hx Headaches: Yes Hx Neurologic Surgery: No Hx Brain Shunt: No Review of Systems All Other Systems: negative except mentioned in HPI Physical Exam Vital Signs Date Time Temp Pulse Resp B/P (MAP) Pulse Ox O2 Delivery O2 Flow Rate FiO2 03/17/18 13:01 98.2 79 23 128/71 96 Room Air Sp02 EP Interpretation: reviewed, normal General Appearance: mild distress - Tachypneic Head: normocephalic, atraumatic Eyes: bilateral eye PERRL, bilateral eye EOMI ENT: hearing grossly normal, other - A dentureless Neck: supple Respiratory: no retraction, no accessory muscle use, crackles - Laterally Cardiovascular #1: regular rate, rhythm, no edema Gastrointestinal: non tender, soft Musculoskeletal: normal inspection Neurologic: alert, oriented x3 Skin: normal color Lymphatic: no adenopathy Medical Decision Making Diagnostic Impression: Primary Impression: Dyspnea ER Course Patient is a fairly complex patient with multiple differential to consideration including but not limited to cardiac cardiopulmonary and vascular emergencies Breathing treatment is also initiated given the patient's history and exam Patient appears tachypneic otherwise saturating well And improving with acute intervention Initial troponin negative patient continues to improve and admitted for further care Labs Test 03/17/18 13:10 White Blood Count 8.3 K/UL (4.8-10.8) Red Blood Count 4.37 M/UL (4.20-5.40) Hemoglobin 11.1 G/DL (12.0-16.0) Hematocrit 35.8 % (37.0-47.0) Mean Corpuscular Volume 82 FL (80-99) Mean Corpuscular Hemoglobin 25.4 PG (27.0-31.0) Mean Corpuscular Hemoglobin Concent 31.1 G/DL (32.0-36.0) Red Cell Distribution Width 13.7 % (11.6-14.8) Platelet Count 248 K/UL (150-450) Mean Platelet Volume 6.5 FL (6.5-10.1) Neutrophils (%) (Auto) 58.9 % (45.0-75.0) Lymphocytes (%) (Auto) 29.7 % (20.0-45.0) Monocytes (%) (Auto) 7.5 % (1.0-10.0) Eosinophils (%) (Auto) 2.6 % (0.0-3.0) Basophils (%) (Auto) 1.3 % (0.0-2.0) Sodium Level 141 MMOL/L (136-145) Potassium Level 3.5 MMOL/L (3.5-5.1) Chloride Level 106 MMOL/L (98-107) Carbon Dioxide Level 23 MMOL/L (21-32) Anion Gap 12 mmol/L (5-15) Blood Urea Nitrogen 31 mg/dL (7-18) Creatinine 2.3 MG/DL (0.55-1.30) Estimat Glomerular Filtration Rate mL/min (>60) Glucose Level 88 MG/DL (74-106) Calcium Level 9.1 MG/DL (8.5-10.1) Rhythm Strip Diag. Results EP Interpretation: yes Rate: 88 Rhythm: NSR, no PVC's, no ectopy Chest X-Ray Diagnostic Results Chest X-Ray Diagnostic Results : Chest X-Ray Ordered: Yes # of Views/Limited/Complete: 1 View Indication: Chest Pain EP Interpretation: Yes Interpretation: no consolidation, no effusion, no pneumothorax Impression: No acute disease Electronically Signed by: Krista Christie DO Last Vital Signs Date Time Temp Pulse Resp B/P (MAP) Pulse Ox O2 Delivery O2 Flow Rate FiO2 03/17/18 13:01 98.2 79 23 128/71 96 Room Air Status: improved Disposition: ADMITTED INPATIENT Condition: Serious Krista Christie DO Mar 17, 2018 13:11
[2018-03-17] MEDS ORDERED: Albuterol ud Inhalation HHN ONE (13:15)
[2018-03-17 13:18] VITALS: BP 128/71
--- NOTE | 2018-03-17 13:18 | NUR ---
ED Nurse Note: RT at the bedside to give breathing tx.
[2018-03-17 13:40] LABS: ANION GAP 12 mmol/L (5-15); BLOOD UREA NITROGEN 31 mg/dL (7-18); CALCIUM 9.1 MG/DL (8.5-10.1); CARBON DIOXIDE 23 MMOL/L (21-32); CHLORIDE 106 MMOL/L (98-107); CREATININE 2.3 MG/DL (0.55-1.30); POTASSIUM 3.5 MMOL/L (3.5-5.1); SODIUM 141 MMOL/L (136-145)
--- NOTE | 2018-03-17 13:42 | NUR ---
ED Nurse Note: Spoke to Ishmael from radiology to notify him of Xray order for pt. Awaiting arrival.
[2018-03-17 13:47] LABS: BASOPHILS % (AUTO) 1.3 % (0.0-2.0); EOSINOPHILS % (AUTO) 2.6 % (0.0-3.0); HEMATOCRIT 35.8 % (37.0-47.0); HEMOGLOBIN 11.1 G/DL (12.0-16.0); LYMPHOCYTES % (AUTO) 29.7 % (20.0-45.0); MEAN CORPUSCULAR VOLUME 82 FL (80-99); MONOCYTES % (AUTO) 7.5 % (1.0-10.0); NEUTROPHILS % (AUTO) 58.9 % (45.0-75.0); PLATELET COUNT 248 K/UL (150-450); RED BLOOD COUNT 4.37 M/UL (4.20-5.40); RED CELL DISTRIBUTION WIDTH 13.7 % (11.6-14.8); WHITE BLOOD COUNT 8.3 K/UL (4.8-10.8)
--- NOTE | 2018-03-17 13:48 | NUR ---
ED Nurse Note: Xray at the bedside.
--- NOTE | 2018-03-17 13:50 | NUR ---
ED Nurse Note: Pt tried going to the restroom once, unable to provide urine at the time.
[2018-03-17 14:03] LABS: ALBUMIN 3.2 G/DL (3.4-5.0); ALBUMIN/GLOBULIN RATIO 0.8 (1.0-2.7); ALKALINE PHOSPHATASE 95 U/L (46-116); ASPARTATE AMINO TRANSFERASE 13 U/L (15-37); BILIRUBIN,TOTAL 0.3 MG/DL (0.2-1.0); CKMB 0.8 NG/ML (0.0-3.6); CREATINE KINASE 48 U/L (26-308)
[2018-03-17 14:12] LABS: ALANINE AMINOTRANSFERASE 15 U/L (12-78)
--- NOTE | 2018-03-17 14:48 | NUR ---
ED Nurse Note: Urine has been collected and sent to lab.
[2018-03-17 14:55] LABS: APPEARANCE,URINE CLEAR; BILIRUBIN, URINE NEGATIVE (NEGATIVE); COLOR,URINE PALE YELLOW; GLUCOSE, URINE (UA) NEGATIVE (NEGATIVE); KETONES,URINE NEGATIVE (NEGATIVE); LEUKOCYTE ESTERASE ,URINE 3+ (NEGATIVE); NITRITE,URINE NEGATIVE (NEGATIVE); PH,URINE 6 (4.5-8.0); PROTEIN,URINE NEGATIVE (NEGATIVE); UROBILINOGEN,URINE NORMAL MG/DL (0.0-1.0)
[2018-03-17 15:08] VITALS: BP 123/67
--- NOTE | 2018-03-17 15:53 | NUR ---
ED Nurse Note: Gave telephone report to GABRIELA Guadalupe. Bed unavailable and waiting for admission packet.
--- NOTE | 2018-03-17 16:15 | NUR ---
ED Nurse Note: Admission packet received. RN unavailable.
--- NOTE | 2018-03-17 16:52 | NUR ---
ED Nurse Note: Pt transferred up to unit. No acute distress or pain noted. Was received by CHRISSY.
[2018-03-17] MEDS ORDERED: Albuterol/Ipratropium 3ml neb HHN PRN (17:15)
[2018-03-17] MEDS ORDERED: Miralax 17gm pkt ORAL PRN (17:15)
--- NOTE | 2018-03-17 19:40 | NUR ---
HAND-OFF: Report given to Carol Mathew RN. Patient in supine position, talking on cell phone, in no apparent distress, headache treated with tylenol, no 0/10, patient asking for breathing treatment, on room air, saturating at 100 percent, bed in lowest position, call light within reach, cane in bed, bedside commode at bedside.
--- NOTE | 2018-03-17 19:45 | NUR ---
NURSE NOTES: Received pt from GABRIELA Guadalupe. Pt awake, alert, and talkative.Bed in lowest position. Call light within reach. Will continue to monitor.
[2018-03-17 20:00] VITALS: BP 141/68
[2018-03-17] MEDS: Heparin 5000 units/ml inj SUBQ SCH (22:16)
[2018-03-18] VITALS: BP 109/74
[2018-03-18 04:00] VITALS: BP 120/74
--- NOTE | 2018-03-18 07:08 | NUR ---
NURSE NOTES: Patient in supine position, awake and alert x 4, no c/o pain, no SOB, cane at bedside, bed in lowest position, call light within reach, bedside commode at bedside.
[2018-03-18 08:00] VITALS: BP 134/70
[2018-03-18 08:14] LABS: BASOPHILS % (AUTO) 0.9 % (0.0-2.0); HEMATOCRIT 32.5 % (37.0-47.0); HEMOGLOBIN 10.3 G/DL (12.0-16.0); LYMPHOCYTES % (AUTO) 28.8 % (20.0-45.0); MEAN CORPUSCULAR VOLUME 81 FL (80-99); MONOCYTES % (AUTO) 8.5 % (1.0-10.0); NEUTROPHILS % (AUTO) 58.9 % (45.0-75.0); PLATELET COUNT 246 K/UL (150-450); RED BLOOD COUNT 4.04 M/UL (4.20-5.40); RED CELL DISTRIBUTION WIDTH 13.6 % (11.6-14.8); WHITE BLOOD COUNT 7.1 K/UL (4.8-10.8)
[2018-03-18] MEDS: Heparin 5000 units/ml inj SUBQ SCH ×2 (08:38→20:19)
[2018-03-18 09:09] LABS: ALBUMIN 2.8 G/DL (3.4-5.0); ANION GAP 11 mmol/L (5-15); BLOOD UREA NITROGEN 33 mg/dL (7-18); CALCIUM 9.1 MG/DL (8.5-10.1); CARBON DIOXIDE 25 MMOL/L (21-32); CHLORIDE 105 MMOL/L (98-107); CREATININE 2.1 MG/DL (0.55-1.30); PHOSPHORUS 3.5 MG/DL (2.5-4.9); POTASSIUM 3.2 MMOL/L (3.5-5.1); SODIUM 141 MMOL/L (136-145)
--- NOTE | 2018-03-18 10:53 | NUR ---
RADIOLOGY DEPT CHEST X-RAY DONE.-P.DYE
--- NOTE | 2018-03-18 12:39 | Diagnostic Imaging Report ---
Indication: Dyspnea Comparison: 10/22/2017 A single view chest radiograph was obtained. Findings: No definite infiltrate or pulmonary vascular congestion identified. The heart is enlarged. The aorta is mildly enlarged consistent with atherosclerotic vascular disease. The bones are osteopenic. Impression: No acute disease
[2018-03-18 12:41] VITALS: BP 119/72
--- NOTE | 2018-03-18 12:47 | Diagnostic Imaging Report ---
Indication: Dyspnea Comparison: 03/17/2018 A single view chest radiograph was obtained. Findings: No definite infiltrate or pulmonary vascular congestion identified. The heart is enlarged. The aorta is mildly enlarged consistent with atherosclerotic vascular disease. The bones are osteopenic. Impression: No acute disease
--- NOTE | 2018-03-18 14:58 | History and Physical ---
History of Present Illness General Date patient seen: Mar 17, 2018 Reason for Hospitalization: Dyspnea/Respdistress Present Illness HPI 87 year old female with hx of HTN, cardiomyopathy, COOPDpresented to ER with complaints of shortness of breath worsening over the past several days patient reports that for the past 4 weeks she has started to feel More short of breath with any exertion now also laying down she feels worse. She is admitted to telemetry for further work up. Allergies: Coded Allergies: No Known Allergies (Unverified , 02/20/12) Medication History Scheduled Bimatoprost (Lumigan), 1 DROP BOTH EYES DAILY, (Reported) Brimonidine Tartrate/Timolol (Combigan Eye Drops), 5 ML OP BID, (Reported) Budesonide/Formoterol Fumarate (Symbicort 160-4.5 Mcg Inhaler), 2 PUFFS INH BID, (Reported) Dorzolamide Hcl* (Trusopt*), 1 DROP BOTH EYES BID, (Reported) Fluticasone/Salmeterol (Advair 250-50 Diskus), 1 PUFF INH EVERY 12 HOURS, ( Reported) Losartan/Hydrochlorothiazide (Losartan-Hctz 50-12.5 Mg Tab), 1 TAB ORAL DAILY, ( Reported) Scheduled PRN Acetaminophen (Tylenol), 650 MG ORAL Q6H PRN for For Pain Albuterol Sulfate* (Proair Hfa*), 2 PUFFS INH BID PRN for Shortness of Breath, ( Reported) Tramadol Hcl* (Ultram*), 50 MG ORAL Q6H PRN for For Pain, (Reported) Patient History Healthcare decision maker Resuscitation status Full Code Advanced Directive on File Past Medical/Surgical History Past Medical/Surgical History: (1) Hypertension (2) Cardiomegaly Review of Systems All Other Systems: negative except mentioned in HPI Physical Exam General Appearance: WD/WN, no apparent distress Lines, tubes and drains: peripheral HEENT: normocephalic, atraumatic Neck: non-tender, normal inspection Respiratory/Chest: chest wall non-tender, normal breath sounds Breasts: no masses Cardiovascular/Chest: normal peripheral pulses Abdomen: normal bowel sounds Genitourinary/Rectal: normal genital exam Extremities: normal range of motion Last 24 Hour Vital Signs Date Time Temp Pulse Resp B/P (MAP) Pulse Ox O2 Delivery O2 Flow Rate FiO2 03/18/18 12:41 97.4 79 18 119/72 (88) 100 03/18/18 12:00 78 03/18/18 09:00 Room Air 03/18/18 08:00 76 03/18/18 08:00 97.9 77 18 134/70 (91) 99 03/18/18 07:40 77 18 Room Air 21 03/18/18 04:00 97.4 82 18 120/74 (89) 98 03/18/18 04:00 76 03/18/18 00:00 76 03/18/18 00:00 98.1 74 17 109/74 (86) 98 03/17/18 21:00 Room Air 03/17/18 20:00 74 03/17/18 20:00 98.3 75 17 141/68 (92) 99 03/17/18 19:52 21 03/17/18 19:52 79 18 98 Room Air 21 03/17/18 19:37 73 16 97 Room Air 21 03/17/18 18:43 80 03/17/18 17:55 Room Air 03/17/18 16:51 97.5 81 22 118/93 100 Room Air 03/17/18 15:08 97.7 76 20 123/67 100 Room Air Intake and Output 03/17/18 03/18/18 19:00 07:00 Intake Total 240 ml Output Total 0 ml Balance 0 ml 240 ml Other 240 ml Output Urine Total 0 ml # Voids 5 2 # Bowel Movements 1 Laboratory Tests Test 03/18/18 07:08 White Blood Count 7.1 K/UL (4.8-10.8) Red Blood Count 4.04 M/UL (4.20-5.40) L Hemoglobin 10.3 G/DL (12.0-16.0) L Hematocrit 32.5 % (37.0-47.0) L Mean Corpuscular Volume 81 FL (80-99) Mean Corpuscular Hemoglobin 25.6 PG (27.0-31.0) L Mean Corpuscular Hemoglobin Concent 31.8 G/DL (32.0-36.0) L Red Cell Distribution Width 13.6 % (11.6-14.8) Platelet Count 246 K/UL (150-450) Mean Platelet Volume 7.2 FL (6.5-10.1) Neutrophils (%) (Auto) 58.9 % (45.0-75.0) Lymphocytes (%) (Auto) 28.8 % (20.0-45.0) Monocytes (%) (Auto) 8.5 % (1.0-10.0) Eosinophils (%) (Auto) 3.0 % (0.0-3.0) Basophils (%) (Auto) 0.9 % (0.0-2.0) Sodium Level 141 MMOL/L (136-145) Potassium Level 3.2 MMOL/L (3.5-5.1) L Chloride Level 105 MMOL/L (98-107) Carbon Dioxide Level 25 MMOL/L (21-32) Anion Gap 11 mmol/L (5-15) Blood Urea Nitrogen 33 mg/dL (7-18) H Creatinine 2.1 MG/DL (0.55-1.30) H Estimat Glomerular Filtration Rate mL/min (>60) Glucose Level 86 MG/DL (74-106) Calcium Level 9.1 MG/DL (8.5-10.1) Phosphorus Level 3.5 MG/DL (2.5-4.9) Troponin I 0.012 ng/mL (0.000-0.056) Albumin 2.8 G/DL (3.4-5.0) L Height (Feet): 5 Height (Inches): 2.00 Weight (Pounds): 182 Medications Current Medications Medications (Trade) Dose Ordered Sig/Lamonte Route PRN Reason Start Time Stop Time Status Last Admin Dose Admin Acetaminophen (Tylenol) 650 mg Q4H PRN ORAL Mild Pain/Temp > 100.5 03/17/18 17:35 04/16/18 17:34 Albuterol/ Ipratropium (Albuterol/ Ipratropium) 3 ml Q4H PRN HHN Shortness of Breath 03/17/18 17:15 03/22/18 17:14 03/17/18 19:37 Dextrose (Dextrose 50%) 25 ml Q30M PRN IV Hypoglycemia 03/17/18 17:15 04/16/18 17:14 Dextrose (Dextrose 50%) 50 ml Q30MIN PRN IV Hypoglycemia 03/17/18 17:15 04/16/18 17:14 Furosemide (Lasix) 40 mg EVERY 8 HOURS IV 03/17/18 22:00 04/16/18 21:59 03/18/18 14:44 Heparin Sodium (Porcine) (Heparin 5000 units/ml) 5,000 units EVERY 12 HOURS SUBQ 03/17/18 21:00 04/16/18 20:59 03/18/18 08:38 Ondansetron HCl (Zofran) 4 mg Q6H PRN IVP Nausea & Vomiting 03/17/18 17:15 04/16/18 17:14 Polyethylene Glycol (Miralax) 17 gm DAILYPRN PRN ORAL Constipation 03/17/18 17:15 04/16/18 17:14 03/18/18 08:43 Temazepam (Restoril) 15 mg HSPRN PRN ORAL Insomnia 03/17/18 17:15 03/24/18 17:14 Assessment/Plan Problem List: (1) Acute respiratory failure ICD Codes: J96.00 - Acute respiratory failure, unspecified whether with hypoxia or hypercapnia SNOMED: 35973729 (2) COPD (chronic obstructive pulmonary disease) ICD Codes: J44.9 - Chronic obstructive pulmonary disease, unspecified SNOMED: 04769868 (3) Morbid obesity ICD Codes: E66.01 - Morbid (severe) obesity due to excess calories SNOMED: 031873503 (4) Cardiomegaly ICD Codes: I51.7 - Cardiomegaly SNOMED: 2392757 (5) Hypertension ICD Codes: I10 - Hypertension SNOMED: 53897143 Assessment/Plan respiratory treatment CXR is clear antitussives echo venous doppler of legs as screening for PE. symptomatic treatment Saran Olmos MD Mar 18, 2018 14:58
--- NOTE | 2018-03-18 15:01 | Pulmonology Progress Note ---
Assessment/Plan Problems: (1) Acute respiratory failure (2) COPD (chronic obstructive pulmonary disease) (3) Morbid obesity (4) Cardiomegaly (5) Hypertension Assessment/Plan much better dc lasix cariology consult pending Dyspnea is most likely multifactorial cxr reviewed dvt prophylaxis Subjective ROS Limited/Unobtainable: No Constitutional: Reports: no symptoms HEENT: Repors: no symptoms Respiratory: Reports: no symptoms Allergies: Coded Allergies: No Known Allergies (Unverified , 02/20/12) Objective Last 24 Hour Vital Signs Date Time Temp Pulse Resp B/P (MAP) Pulse Ox O2 Delivery O2 Flow Rate FiO2 03/18/18 12:41 97.4 79 18 119/72 (88) 100 03/18/18 12:00 78 03/18/18 09:00 Room Air 03/18/18 08:00 76 03/18/18 08:00 97.9 77 18 134/70 (91) 99 03/18/18 07:40 77 18 Room Air 21 03/18/18 04:00 97.4 82 18 120/74 (89) 98 03/18/18 04:00 76 03/18/18 00:00 76 03/18/18 00:00 98.1 74 17 109/74 (86) 98 03/17/18 21:00 Room Air 03/17/18 20:00 74 03/17/18 20:00 98.3 75 17 141/68 (92) 99 03/17/18 19:52 21 03/17/18 19:52 79 18 98 Room Air 21 03/17/18 19:37 73 16 97 Room Air 21 03/17/18 18:43 80 03/17/18 17:55 Room Air 03/17/18 16:51 97.5 81 22 118/93 100 Room Air 03/17/18 15:08 97.7 76 20 123/67 100 Room Air Intake and Output 03/17/18 03/18/18 19:00 07:00 Intake Total 240 ml Output Total 0 ml Balance 0 ml 240 ml Other 240 ml Output Urine Total 0 ml # Voids 5 2 # Bowel Movements 1 General Appearance: WD/WN HEENT: normocephalic, atraumatic Respiratory/Chest: chest wall non-tender, lungs clear, normal breath sounds Cardiovascular: normal peripheral pulses, normal rate Abdomen: normal bowel sounds, no organomegaly Genitourinary: normal external genitalia Extremities: no cyanosis Skin: no rash Microbiology Date/Time Source Procedure Growth Status 03/17/18 13:10 Nasal Nares Influenza Types A,B Antigen (ASHLEE) - Final Complete Laboratory Tests 03/18/18 07:08: White Blood Count 7.1, Red Blood Count 4.04L, Hemoglobin 10.3L, Hematocrit 32.5L , Mean Corpuscular Volume 81, Mean Corpuscular Hemoglobin 25.6L, Mean Corpuscular Hemoglobin Concent 31.8L, Red Cell Distribution Width 13.6, Platelet Count 246, Mean Platelet Volume 7.2, Neutrophils (%) (Auto) 58.9, Lymphocytes (%) (Auto) 28.8, Monocytes (%) (Auto) 8.5, Eosinophils (%) (Auto) 3.0, Basophils (%) (Auto) 0.9, Sodium Level 141, Potassium Level 3.2L, Chloride Level 105, Carbon Dioxide Level 25, Anion Gap 11, Blood Urea Nitrogen 33H, Creatinine 2.1H, Estimat Glomerular Filtration Rate , Glucose Level 86, Calcium Level 9.1, Phosphorus Level 3.5, Troponin I 0.012, Albumin 2.8L Current Medications Medications (Trade) Dose Ordered Sig/Lamonte Route PRN Reason Start Time Stop Time Status Last Admin Dose Admin Acetaminophen (Tylenol) 650 mg Q4H PRN ORAL Mild Pain/Temp > 100.5 03/17/18 17:35 04/16/18 17:34 Albuterol/ Ipratropium (Albuterol/ Ipratropium) 3 ml Q4H PRN HHN Shortness of Breath 03/17/18 17:15 03/22/18 17:14 03/17/18 19:37 Dextrose (Dextrose 50%) 25 ml Q30M PRN IV Hypoglycemia 03/17/18 17:15 04/16/18 17:14 Dextrose (Dextrose 50%) 50 ml Q30MIN PRN IV Hypoglycemia 03/17/18 17:15 04/16/18 17:14 Furosemide (Lasix) 40 mg EVERY 8 HOURS IV 03/17/18 22:00 04/16/18 21:59 03/18/18 14:44 Heparin Sodium (Porcine) (Heparin 5000 units/ml) 5,000 units EVERY 12 HOURS SUBQ 03/17/18 21:00 04/16/18 20:59 03/18/18 08:38 Ondansetron HCl (Zofran) 4 mg Q6H PRN IVP Nausea & Vomiting 03/17/18 17:15 04/16/18 17:14 Polyethylene Glycol (Miralax) 17 gm DAILYPRN PRN ORAL Constipation 03/17/18 17:15 04/16/18 17:14 03/18/18 08:43 Temazepam (Restoril) 15 mg HSPRN PRN ORAL Insomnia 03/17/18 17:15 03/24/18 17:14 Saran Olmos MD Mar 18, 2018 15:01
[2018-03-18 16:00] VITALS: BP 112/66
--- NOTE | 2018-03-18 17:15 | NUR ---
CASE MANAGEMENT:REVIEW FROM HOME CC: SOB X4 WEEKS. NOW WORSE...WHEEZING NOTED IN ER PMH: ASTHMA. RT LEG DVT SI:ACUTE RESPIRATORY FAILURE. COPD CMPY. HTN 98.3 79 23 128/71 96% ON RA BUN+31 CR+2.3 IS: IV LASIX ASA PO ALBUTEROL HHN : TO TELEMETRY IS: DUONEB HHN Q4HRS PRN TYLENOL PO Q4 PRN HEPARIN SQ Q12 IV LASIX Q8HR
--- NOTE | 2018-03-18 17:30 | NUR ---
INTERQUAL CRITERIA NOT MET MD NOTIFIED....REQUESTED DISCHARGE
[2018-03-18] MEDS: Dorzolamide 2% 10ml Btl BOTH EYES SCH (18:36)
--- NOTE | 2018-03-18 19:54 | NUR ---
HAND-OFF: Report given to Jakob White RN. Patient in supine position, watching television, awake and alert, bed in lowest position, call light within reach, no cl/o pain, no SOB, in no apparent distress, cane in bed, bedside commode at bedside.
--- NOTE | 2018-03-18 19:55 | NUR ---
NURSE NOTES: Received report from GABRIELA Guadalupe. Patient is in bed resting with no signs of acute distress. Respiration even and non labored on room air. No SOB noted. Vitals signs stable. Bed in lowest position. Call light within reach. Will continue to monitor.
[2018-03-18 20:00] VITALS: BP 116/76
[2018-03-19] VITALS: BP 121/64
[2018-03-19 04:00] VITALS: BP 108/62
[2018-03-19 08:35] VITALS: BP 110/77
[2018-03-19] MEDS ORDERED: Hyzaar 12.5mg/50mg tab ORAL SCH (09:00)
[2018-03-19] MEDS: Dorzolamide 2% 10ml Btl BOTH EYES SCH (09:19)
[2018-03-19] MEDS: Heparin 5000 units/ml inj SUBQ SCH (09:20)
--- NOTE | 2018-03-19 11:42 | Pulmonology Progress Note ---
Assessment/Plan Problems: (1) Acute respiratory failure (2) COPD (chronic obstructive pulmonary disease) (3) Morbid obesity (4) Cardiomegaly (5) Hypertension Assessment/Plan much better dc lasix cariology consult pending Dyspnea is most likely multifactorial cxr reviewed dvt prophylaxis Subjective ROS Limited/Unobtainable: No Interval Events: wants to go home, no complains, no SOB Allergies: Coded Allergies: No Known Allergies (Unverified , 02/20/12) Objective Last 24 Hour Vital Signs Date Time Temp Pulse Resp B/P (MAP) Pulse Ox O2 Delivery O2 Flow Rate FiO2 03/19/18 09:00 110/77 03/19/18 08:35 98.6 85 18 110/77 (88) 95 03/19/18 08:35 75 03/19/18 04:00 71 03/19/18 04:00 98.2 72 18 108/62 (77) 97 03/19/18 00:00 79 03/19/18 00:00 97.9 74 17 121/64 (83) 99 03/18/18 22:39 70 18 Room Air 21 03/18/18 21:00 Room Air 03/18/18 20:00 98.9 80 17 116/76 (89) 100 03/18/18 20:00 81 03/18/18 16:00 98.6 81 18 112/66 (81) 100 03/18/18 16:00 79 03/18/18 12:41 97.4 79 18 119/72 (88) 100 03/18/18 12:00 78 Intake and Output 03/18/18 03/19/18 19:00 07:00 Intake Total 680 ml Output Total 800 ml Balance -120 ml Intake Oral 680 ml Output Urine Total 800 ml # Voids 2 # Bowel Movements 1 1 General Appearance: WD/WN HEENT: normocephalic, atraumatic Respiratory/Chest: chest wall non-tender, lungs clear Breasts: no masses Cardiovascular: normal rate Abdomen: normal bowel sounds, soft, non tender Genitourinary: normal external genitalia Skin: no rash, no lesions Microbiology Date/Time Source Procedure Growth Status 03/17/18 13:10 Blood Blood Culture - Preliminary NO GROWTH AFTER 24 HOURS Resulted 03/17/18 12:50 Blood Blood Culture - Preliminary NO GROWTH AFTER 24 HOURS Resulted 03/17/18 13:10 Nasal Nares Influenza Types A,B Antigen (ASHLEE) - Final Complete Laboratory Tests 03/19/18 06:15: Troponin I 0.018 Current Medications Medications (Trade) Dose Ordered Sig/Lamonte Route PRN Reason Start Time Stop Time Status Last Admin Dose Admin Acetaminophen (Tylenol) 650 mg Q4H PRN ORAL Mild Pain/Temp > 100.5 03/17/18 17:35 04/16/18 17:34 03/18/18 19:57 Albuterol/ Ipratropium (Albuterol/ Ipratropium) 3 ml Q4H PRN HHN Shortness of Breath 03/17/18 17:15 03/22/18 17:14 03/17/18 19:37 Dextrose (Dextrose 50%) 25 ml Q30M PRN IV Hypoglycemia 03/17/18 17:15 04/16/18 17:14 Dextrose (Dextrose 50%) 50 ml Q30MIN PRN IV Hypoglycemia 03/17/18 17:15 04/16/18 17:14 Dorzolamide HCl (Trusopt) 1 drop BID BOTH EYES 03/18/18 18:00 04/17/18 17:59 03/19/18 09:19 HCTZ/Losartan Potassium (Hyzaar 50-12.5) 1 tab DAILY ORAL 03/19/18 09:00 04/18/18 08:59 Heparin Sodium (Porcine) (Heparin 5000 units/ml) 5,000 units EVERY 12 HOURS SUBQ 03/17/18 21:00 04/16/18 20:59 03/19/18 09:20 Ondansetron HCl (Zofran) 4 mg Q6H PRN IVP Nausea & Vomiting 03/17/18 17:15 04/16/18 17:14 Polyethylene Glycol (Miralax) 17 gm DAILYPRN PRN ORAL Constipation 03/17/18 17:15 04/16/18 17:14 03/18/18 08:43 Temazepam (Restoril) 15 mg HSPRN PRN ORAL Insomnia 03/17/18 17:15 03/24/18 17:14 03/18/18 20:18 Saran Olmos MD Mar 19, 2018 11:42
[2018-03-19 12:00] VITALS: BP 124/66
--- NOTE | 2018-03-19 14:08 | Cardiology Progress Note ---
Assessment/Plan Assessment/Plan [id number] will check echo and bnpno sx to suggest acs nor chf will follow thank you Objective Last 24 Hour Vital Signs Date Time Temp Pulse Resp B/P (MAP) Pulse Ox O2 Delivery O2 Flow Rate FiO2 03/19/18 12:00 98.5 79 18 124/66 (85) 96 03/19/18 11:43 Room Air 03/19/18 09:00 110/77 03/19/18 08:35 98.6 85 18 110/77 (88) 95 03/19/18 08:35 75 03/19/18 04:00 71 03/19/18 04:00 98.2 72 18 108/62 (77) 97 03/19/18 00:00 79 03/19/18 00:00 97.9 74 17 121/64 (83) 99 03/18/18 22:39 70 18 Room Air 21 03/18/18 21:00 Room Air 03/18/18 20:00 98.9 80 17 116/76 (89) 100 03/18/18 20:00 81 03/18/18 16:00 98.6 81 18 112/66 (81) 100 03/18/18 16:00 79 Intake and Output 03/18/18 03/19/18 19:00 07:00 Intake Total 680 ml Output Total 800 ml Balance -120 ml Intake Oral 680 ml Output Urine Total 800 ml # Voids 2 # Bowel Movements 1 1 Laboratory Tests Test 03/19/18 06:15 Troponin I 0.018 ng/mL (0.000-0.056) Microbiology Date/Time Source Procedure Growth Status 03/17/18 13:10 Blood Blood Culture - Preliminary NO GROWTH AFTER 24 HOURS Resulted 03/17/18 12:50 Blood Blood Culture - Preliminary NO GROWTH AFTER 24 HOURS Resulted 03/17/18 13:10 Nasal Nares Influenza Types A,B Antigen (ASHLEE) - Final Complete Srinivas Masterson MD Mar 19, 2018 14:08
[2018-03-19 16:00] VITALS: BP 113/68
--- NOTE | 2018-03-19 16:30 | NUR ---
NURSE NOTES: patient is being discharged, escorted by her son. patient was on a wheelchair, ID band removed, IV removed without complication, telebox removed returned to nursing station, patient in her own clothes, all belongings given to the patient, patient signed the belonging list. discharge instructions/papers given , patient verbalized understanding.
--- NOTE | 2018-03-19 21:00 | Consultation ---
DATE OF CONSULTATION: 03/19/2018 CARDIOLOGY CONSULTATION: CONSULTING PHYSICIAN: Srinivas Masterson M.D. REFERRING PHYSICIAN: Saran Olmos M.D. REASON FOR REFERRAL: Shortness of breath. HISTORY OF PRESENT ILLNESS: This is an elderly female who presented to the hospital from convalescent facility because of shortness of breath. The patient apparently has had shortness of breath for a long time, but it has been really got worse for the past few weeks and worsened yesterday. She does not really have any PND although she uses two pillows. She has exertional dyspnea. She does not have any pain, pressure, tightness, or heaviness in her chest when she is active. There is dizziness and lightheadedness at times when she stands up. There are no palpitations. 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 She has a history of irritable bowel syndrome, hypertension, constipation, gastroesophageal reflux disease. The patient was told that she has a history of renal insufficiency as well. ALLERGIES: She has no known drug allergies. SOCIAL HISTORY: She does not smoke or drink alcoholic beverages. No drug use. REVIEW OF SYSTEMS: GASTROINTESTINAL: She denies. GENITOURINARY: She denies. PULMONARY: She has shortness of breath and she not completely wheezing. CONSTITUTIONAL: No fevers, chills, or night sweats. NEUROLOGIC: She has some problems with balance occasionally. PHYSICAL EXAMINATION: GENERAL: Shows to be an elderly female, overweight in no apparent respiratory distress. NECK: Supple. No jugular venous distention. LUNGS: Clear to auscultation and percussion. CARDIAC: S1 is normal. S2 is normal. Regular rate and rhythm. No heaves, thrills, gallops, or rubs noted. ABDOMEN: Soft, nontender. Positive bowel sounds. EXTREMITIES: There is no clubbing, cyanosis, nor is there any edema. NEUROLOGIC: She is awake, alert, and responsive. LABORATORY AND DIAGNOSTIC DATA: White count 7.1, hemoglobin 10.3, and platelet count 246. Sodium is 141, potassium 3.2, chloride 105, bicarb 25, BUN 32, creatinine 2.1, and glucose 86. Two sets of cardiac enzymes of yesterday and today are both negative. Her albumin is down to 2.8. Urinalysis is fairly unremarkable except for 3+ leukocyte esterase, 2 to 4 WBC. Her influenza A and B were negative. Blood cultures were negative after 24 hours so far. She does have an x-ray of her chest that was performed 03/17/2018 and 03/18/2018 that showed no significant issues. No vascular congestion being documented. Her blood tests did not include a BNP. EKG sinus rhythm, right bundle-branch conduction defect, and no real acute ST-T wave abnormalities of any significant degree. ASSESSMENT AND PLAN: 1. Dyspnea with history of wheezing possibly asthma. 2. History of irritable bowel syndrome. 3. History of hypertension, the patient indicates she has not been taking medication because her blood pressure has been. 4. History of gastroesophageal reflux disease, as mentioned. Dr. Olmos, this patient was seen in cardiac consultation. She does not show any signs or symptoms of congestive heart failure. Chest x-ray is fairly unremarkable. She believes that the shortness of breath may be related to her "asthma." I will order a natriuretic peptide assay and an echocardiogram to evaluate left ventricular systolic function although I suspect if those are negative, I will probably not pursue any further. Srinivas Masterson M.D. DR: RITA JOB#: [id number] CC:
--- NOTE | 2018-03-19 21:02 | Consultation ---
History of Present Illness General Date patient seen: Mar 17, 2018 Chief Complaint: Dyspnea/Respdistress Present Illness HPI 87 year old female with hx of HTN, cardiomyopathy, COPD, and anxiety do presented to ER with complaints of shortness of breath. the pt pw weakness and anxiety, insomnia. the pt is not endorsing depressive or manic sxs. no si/hi Allergies: Coded Allergies: No Known Allergies (Unverified , 02/20/12) Medication History Scheduled Bimatoprost (Lumigan), 1 DROP BOTH EYES DAILY, (Reported) Brimonidine Tartrate/Timolol (Combigan Eye Drops), 5 ML OP BID, (Reported) Budesonide/Formoterol Fumarate (Symbicort 160-4.5 Mcg Inhaler), 2 PUFFS INH BID, (Reported) Dorzolamide Hcl* (Trusopt*), 1 DROP BOTH EYES BID, (Reported) Fluticasone/Salmeterol (Advair 250-50 Diskus), 1 PUFF INH EVERY 12 HOURS, ( Reported) Losartan/Hydrochlorothiazide (Losartan-Hctz 50-12.5 Mg Tab), 1 TAB ORAL DAILY, ( Reported) Scheduled PRN Acetaminophen (Tylenol), 650 MG ORAL Q6H PRN for For Pain Albuterol Sulfate* (Proair Hfa*), 2 PUFFS INH BID PRN for Shortness of Breath, ( Reported) Tramadol Hcl* (Ultram*), 50 MG ORAL Q6H PRN for For Pain, (Reported) Patient History History Provided By: Patient, Medical Record, PMD Healthcare decision maker Resuscitation status Full Code Advanced Directive on File Past Medical/Surgical History Past Medical/Surgical History: (1) COPD (chronic obstructive pulmonary disease) (2) Acute respiratory failure (3) Morbid obesity (4) Cardiomegaly (5) Osteoarthritis (6) Hypertension (7) ATN (acute tubular necrosis) (8) ACS (acute coronary syndrome) (9) Anemia (10) Colon polyp (11) Knee joint pain Review of Systems Psychiatric: Reports: prior hx, anxiety, emotional problems Physical Exam General Appearance: alert, moderate distress Neurologic: depressed affect Last 24 Hour Vital Signs Date Time Temp Pulse Resp B/P (MAP) Pulse Ox O2 Delivery O2 Flow Rate FiO2 03/19/18 16:00 98.4 86 18 113/68 (83) 96 03/19/18 16:00 84 03/19/18 12:00 76 03/19/18 12:00 98.5 79 18 124/66 (85) 96 03/19/18 11:43 Room Air 03/19/18 09:00 110/77 03/19/18 08:35 98.6 85 18 110/77 (88) 95 03/19/18 08:35 75 03/19/18 04:00 71 03/19/18 04:00 98.2 72 18 108/62 (77) 97 03/19/18 00:00 79 03/19/18 00:00 97.9 74 17 121/64 (83) 99 03/18/18 22:39 70 18 Room Air 21 03/18/18 21:00 Room Air Intake and Output 03/18/18 03/19/18 19:00 07:00 Intake Total 680 ml Output Total 800 ml Balance -120 ml Intake Oral 680 ml Output Urine Total 800 ml # Voids 2 # Bowel Movements 1 1 Laboratory Tests Test 03/19/18 06:15 Troponin I 0.018 ng/mL (0.000-0.056) Height (Feet): 5 Height (Inches): 2.00 Weight (Pounds): 182 Assessment/Plan Problem List: (1) anxiety disorder Assessment/Plan Ativan prn provided ro/Nemesio Lang MD Mar 19, 2018 21:02
--- NOTE | 2018-03-19 21:02 | General Progress Note ---
Assessment/Plan Problem List: (1) anxiety disorder Status: stable, progressing Assessment/Plan Ativan prn provided ro/st Subjective Neurologic/Psychiatric: Reports: anxiety, emotional problems Allergies: Coded Allergies: No Known Allergies (Unverified , 02/20/12) Objective Last 24 Hour Vital Signs Date Time Temp Pulse Resp B/P (MAP) Pulse Ox O2 Delivery O2 Flow Rate FiO2 03/19/18 16:00 98.4 86 18 113/68 (83) 96 03/19/18 16:00 84 03/19/18 12:00 76 03/19/18 12:00 98.5 79 18 124/66 (85) 96 03/19/18 11:43 Room Air 03/19/18 09:00 110/77 03/19/18 08:35 98.6 85 18 110/77 (88) 95 03/19/18 08:35 75 03/19/18 04:00 71 03/19/18 04:00 98.2 72 18 108/62 (77) 97 03/19/18 00:00 79 03/19/18 00:00 97.9 74 17 121/64 (83) 99 03/18/18 22:39 70 18 Room Air 21 Intake and Output 03/18/18 03/19/18 19:00 07:00 Intake Total 680 ml Output Total 800 ml Balance -120 ml Intake Oral 680 ml Output Urine Total 800 ml # Voids 2 # Bowel Movements 1 1 Laboratory Tests 03/19/18 06:15: Troponin I 0.018 Height (Feet): 5 Height (Inches): 2.00 Weight (Pounds): 182 General Appearance: alert, moderate distress Nemesio Segal MD Mar 19, 2018 21:02
--- NOTE | 2018-03-19 21:02 | Cardiology Report ---
APPROVED REPORT EXAM: Two-dimensional and M-mode echocardiogram with Doppler and color Doppler. INDICATION LV FUNCTION M-Mode DIMENSIONS IVSd1.2 (0.7-1.1cm)Left Atrium (MM)4.4 (1.6-4.0cm) LVDd4.4 (3.5-5.6cm)Aortic Root3.9 (2.0-3.7cm) PWd0.9 (0.7-1.1cm)Aortic Cusp Exc.1.6 (1.5-2.0cm) IVSs1.3 cm LVDs3.1 (2.5-4.0cm) PWs2.1 cm Technically difficult study due to poor acoustical windows . Normal left ventricular chamber size, systolic function and wall motion to extent visualized. Left ventricular ejection fraction estimated to be 60-65%. Mild left ventricular hypertrophy by2-D. Anterior Echo-free space, may be due to pericardial fat or effusion. All other cardiac chamber sizes are within normal limits. Mild aortic valve sclerosis with adequate cusp excursion. Mildly thickened mitral valve leaflets with normal excursion. Mild mitral annulus and aortic root calcification. Valvular study not well visualized . Pulmonic valve not well visualized. IVC at normal size with physiologic collapse. A color flow and spectral Doppler study was performed and revealed: No aortic regurgitation. Mitral diastolic velocities suggest reduced left ventricular relaxation c/w mild LV diastolic dysfunction (Grade I ). Mild mitral regurgitation. Trace tricuspid regurgitation. Tricuspid systolic velocities suggests peak right ventricular systolic pressure of 22 mmHg
--- NOTE | 2018-03-20 11:35 | Discharge Summary ---
Discharge Summary Discharge Summary _ DATE OF ADMISSION: 03/17/2018 DATE OF DISCHARGE: 03/19/2018 DISCHARGED BY: Dr. Olmos REASON FOR ADMISSION: 87 years old female with past medical history of hypertension, asthma/COPD, presented to emergency department with complaints of shortness of breath , worsening over the past several days. Laboratory workup revealed no leukocytosis, hemoglobin 11.1 hematocrit 35.8. Stable electrolytes. BUN 21 creatinine 2.3. Troponin negative. EKG revealed normal sinus rhythm , right bundle branch block , no acute ischemic changes. Chest x-ray revealed no acute cardiopulmonary pathology. Urinalysis revealed +3 leukocyte esterase , but no pyuria and bacteria. Patient was admitted for further management. CONSULTANTS: electrician elevator maintenance Dr. Masterson psychiatrist [facility] COURSE: Patient admitted to telemetry floor. Serial troponin negative. EKG with right bundle branch, but no acute ischemic changes. Patient was ruled out for acute OR. Cardiology closely followed. Echocardiogram revealed preserved ejection fraction 60-65% with mild left ventricular hypertrophy. No evidence of wall motion abnormality. Grade 1 diastolic dysfunction. Right ventricular systolic pressure of 22. Venous of bilateral lower extremity was negative for evidence of acute DVT. DVT prophylaxis provided. Per electrician elevator maintenance , dyspnea with wheezing probably due to asthma. No need for diuresis in this setting, no evidence of heart failure exacerbation. Patient provided with bronchodilator treatment . Supplemental oxygen provided as needed to keep pulse oximetry above 92%. Blood pressure was managed with combination of hydrochlorothiazide and losartan. Antiplatelet therapy with aspirin continued. GI prophylaxis provided. Bowel regimen instituted. Patient clinically stabilized. Prior to discharge pulse oximetry stable on room air , patient afebrile ,no leukocytosis. Influenza screen test and blood cultures were negative. Auto Mechanic Supervisor recommended no further cardiac workup. Psychiatrist evaluated patient and diagnosed her with anxiety disorder. Reality orientation supportive therapy provided. Anxiolytics provided as needed. Patient clinically stabilized and was ready for discharge home. FINAL DIAGNOSES: Acute respiratory failure -resolved Dyspnea with wheezing, probably due to asthma COPD/asthma Morbid obesity Hypertension Cardiomegaly Anxiety disorder GERD DISCHARGE MEDICATIONS: See Medication Reconciliation list. DISCHARGE INSTRUCTIONS: Patient was discharged home Follow up with primary care provider in one week. I have been assigned to dictate discharge summary for this account. I was not involved in the patient's management. Angélica Blanc NP Mar 20, 2018 11:35
--- NOTE | 2018-03-21 19:56 | Cardiology Report ---
APPROVED REPORT EKG Measurement Heart [id number] Normal sinus rhythm Left axis deviation Right bundle branch block Abnormal ECG
== END 2018-03-19 16:30 | disposition home or self-care (01) | DRG 189 ==
LOC: EMR 13:41 → 2E 13:50 → EDBEDREQ 15:49
DX: J96.00 Acute respiratory failure, unspecified whether with hypoxia or hypercapnia (principal); J44.9 Chronic obstructive pulmonary disease, unspecified; I10 Essential (primary) hypertension; I51.7 Cardiomegaly; E66.01 Morbid (severe) obesity due to excess calories; Z68.33 Body mass index [BMI] 33.0-33.9, adult; I45.10 Unspecified right bundle-branch block; F41.9 Anxiety disorder, unspecified; K21.9 Gastro-esophageal reflux disease without esophagitis; G47.00 Insomnia, unspecified
CPT/HCPCS: 36415; 71045; 80048; 80053; 80069; 81003; 82550; 82553; 83605; 83690; 84484; 85025; 86710; 87040; 93005; 93306; 93970; 94640; 94664; 96374; 99285; J7620

== ENCOUNTER 2018-05-08 13:03 | Inpatient (IN) | payer MEDICARE, OTHER ==
[~2018-05-08] VITALS: Ht 157.5 cm; Wt 68.6 kg
[2018-05-08 13:10] VITALS: BP 157/73
[2018-05-08] MEDS: Albuterol ud Inhalation HHN SCH ×3 (13:30→14:00)
[2018-05-08] MEDS: Ipratropium 0.02% Inh Soln 2.5ml UD HHN SCH ×3 (13:30→14:00)
--- NOTE | 2018-05-08 13:30 | NUR ---
ED Nurse Note: PAtient walked into ED c/o bilateral leg swelling, patient rates her pain a 10/10. patient has no idea when this started, patient is alert and oriented x4, ambulatory with a steady gait, VSS
--- NOTE | 2018-05-08 14:02 | Diagnostic Imaging Report ---
Indication: Shortness of breath Technique: One view of the chest Comparison: 03/18/2018 Findings: Patient is rotated to the right. The heart is enlarged. The aorta is tortuous and ectatic. No significant interim change. Impression: Cardiomegaly. No acute process
[2018-05-08 14:06] LABS: ANION GAP 12 mmol/L (5-15); BLOOD UREA NITROGEN 17 mg/dL (7-18); CALCIUM 9.3 MG/DL (8.5-10.1); CARBON DIOXIDE 24 MMOL/L (21-32); CHLORIDE 107 MMOL/L (98-107); CREATININE 1.7 MG/DL (0.55-1.30); POTASSIUM 3.3 MMOL/L (3.5-5.1); SODIUM 143 MMOL/L (136-145)
[2018-05-08 14:11] LABS: BASOPHILS % (AUTO) 1.1 % (0.0-2.0); EOSINOPHILS % (AUTO) 2.8 % (0.0-3.0); HEMATOCRIT 30.8 % (37.0-47.0); HEMOGLOBIN 9.7 G/DL (12.0-16.0); LYMPHOCYTES % (AUTO) 18.8 % (20.0-45.0); MEAN CORPUSCULAR VOLUME 80 FL (80-99); MONOCYTES % (AUTO) 6.5 % (1.0-10.0); NEUTROPHILS % (AUTO) 70.7 % (45.0-75.0); PLATELET COUNT 246 K/UL (150-450); RED BLOOD COUNT 3.88 M/UL (4.20-5.40); RED CELL DISTRIBUTION WIDTH 13.3 % (11.6-14.8); WHITE BLOOD COUNT 7.4 K/UL (4.8-10.8)
[2018-05-08 14:19] LABS: ALANINE AMINOTRANSFERASE 14 U/L (12-78); ALBUMIN 2.8 G/DL (3.4-5.0); ALBUMIN/GLOBULIN RATIO 0.6 (1.0-2.7); ALKALINE PHOSPHATASE 68 U/L (46-116); ASPARTATE AMINO TRANSFERASE 15 U/L (15-37); BILIRUBIN,TOTAL 0.3 MG/DL (0.2-1.0); CKMB 1.1 NG/ML (0.0-3.6); CREATINE KINASE 80 U/L (26-308)
--- NOTE | 2018-05-08 14:30 | NUR ---
Vanessa clements in [facility] - 05/08/18 at 2015 by REJI ED Note: Gave report to Ali
--- NOTE | 2018-05-08 14:35 | Diagnostic Imaging Report ---
Indication: Left leg edema and pain Technique: Grayscale and duplex images of the bilateral lower extremity veins Comparison: none Findings: On the left, grayscale duplex images demonstrate thrombus within the popliteal vein and upstream femoral vein. There is also involvement of the calf veins, including the anterior tibial and posterior tibial veins. This results in diminished or absent Doppler flow and noncompressibility. Thrombus is hypoechoic, indicating acuity On the right, grayscale duplex images demonstrate no evidence of intraluminal thrombus. Normal phasic Doppler waveforms, normal augmentation response. No evidence of valvular insufficiency. Normal compressibility. Impression: Positive for left lower extremity acute deep venous thrombosis, involving the popliteal vein, calf veins, and upstream femoral vein Dr. Valencia notified at the time of interpretation
--- NOTE | 2018-05-08 15:02 | Emergency Room Report ---
History of Present Illness General Chief Complaint: Edema Source: Patient, Medical Record Present Illness HPI 87-year-old female presents ED for evaluation. Complaining of pain and swelling to the both legs for the last few days. Left worse than right. Denies chest pain or shortness of breath. Notes cough and congestion. States she has history of asthma. Denies fevers or chills. Denies sick contacts or recent travel. No other aggravating relieving factors. Denies any other associated symptoms Allergies: Coded Allergies: No Known Allergies (Unverified , 02/20/12) Patient History Past Medical History: HTN, asthma, CVA/TIA Past Surgical History: none Pertinent Family History: none Social History: Denies: smoking, alcohol use, drug use Now: No Immunizations: UTD Reviewed Nursing Documentation: PMH: Agreed; PSxH: Agreed Nursing Documentation-PMH Past Medical History: No History, Except For Hx Cardiac Problems: No Hx Hypertension: Yes Hx Pacemaker: No Hx Asthma: Yes Hx COPD: No Hx Diabetes: No Hx Cancer: No Hx Gastrointestinal Problems: Yes Hx Dialysis: No Hx Neurological Problems: Yes Hx Cerebrovascular Accident: Yes - Stroke without residual Hx Seizures: No Hx Tremors: No Hx Dizziness: Yes - after taking Blood Pressure medication Hx Syncope: No Hx Headaches: Yes Hx Neurologic Surgery: No Hx Brain Shunt: No Review of Systems All Other Systems: negative except mentioned in HPI Physical Exam Vital Signs Date Time Temp Pulse Resp B/P (MAP) Pulse Ox O2 Delivery O2 Flow Rate FiO2 05/08/18 13:08 99.3 81 18 188/85 98 Room Air 05/08/18 13:30 21 Sp02 EP Interpretation: reviewed, normal General Appearance: no apparent distress, alert, GCS 15, non-toxic Head: normocephalic, atraumatic Eyes: bilateral eye normal inspection, bilateral eye PERRL ENT: hearing grossly normal, normal pharynx, no angioedema, normal voice Neck: full range of motion, supple/symm/no masses Respiratory: chest non-tender, speaking full sentences, wheezing Cardiovascular #1: regular rate, rhythm, no edema Cardiovascular #2: 2+ carotid (R), 2+ carotid (L), 2+ radial (R), 2+ radial (L) , 2+ dorsalis pedis (R), 2+ dorsalis pedis (L) Gastrointestinal: normal bowel sounds, non tender, soft, non-distended, no guarding, no rebound Rectal: deferred Genitourinary: normal inspection, no CVA tenderness Musculoskeletal: back normal, gait/station normal, normal range of motion, swelling - LLE Neurologic: alert, oriented x3, responsive, motor strength/tone normal, sensory intact, speech normal Psychiatric: judgement/insight normal, memory normal, mood/affect normal, no suicidal/homicidal ideation Reflexes: 3+ bicep (R), 3+ bicep (L), 3+ tricep (R), 3+ tricep (L), 3+ knee (R) , 3+ knee (L) Skin: normal color, no rash, warm/dry, well hydrated Lymphatic: no adenopathy Medical Decision Making Diagnostic Impression: Primary Impression: COPD (chronic obstructive pulmonary disease) Qualified Codes: J44.9 - Chronic obstructive pulmonary disease, unspecified Additional Impression: DVT (deep venous thrombosis) Qualified Codes: I82.402 - Acute embolism and thrombosis of unspecified deep veins of left lower extremity ER Course Hospital Course 87-year-old male presents ED with left leg pain and swelling. also complaining of cough and congestion Differential diagnoses include: DVT, cellulitis, COPD, asthma Clinical course Patient placed on stretcher after initial history and physical I ordered labs, EKG, CXR, nebs and DVT ultrasound. Labs reviewed- no leukocytosis, hb/hct stable, Cr 1.7, coags ok EKG - NSR, no acute ischemic changes interpreted by me CXR - no acute consolidation given antibiotics. coags ordered. heparin started. patient denies chest pain. given elevated creatinine unable to order CTA at this time. vitals stable. no respiratory distress patient will be admitted to Dr Olmos's service I. I feel this is a highly complex case requiring extensive working including EKG/Rhythm strip, Xray/CT/US, Blood/urine lab work, repeat exams while in ED, and administration of strong opiates/narcotics for pain control, admission to hospital or close patient follow up. Diagnosis - DVT, COPD admitted to telemetry in serious condition Labs Test 05/08/18 13:25 White Blood Count 7.4 K/UL (4.8-10.8) Red Blood Count 3.88 M/UL (4.20-5.40) Hemoglobin 9.7 G/DL (12.0-16.0) Hematocrit 30.8 % (37.0-47.0) Mean Corpuscular Volume 80 FL (80-99) Mean Corpuscular Hemoglobin 25.1 PG (27.0-31.0) Mean Corpuscular Hemoglobin Concent 31.5 G/DL (32.0-36.0) Red Cell Distribution Width 13.3 % (11.6-14.8) Platelet Count 246 K/UL (150-450) Mean Platelet Volume 7.2 FL (6.5-10.1) Neutrophils (%) (Auto) 70.7 % (45.0-75.0) Lymphocytes (%) (Auto) 18.8 % (20.0-45.0) Monocytes (%) (Auto) 6.5 % (1.0-10.0) Eosinophils (%) (Auto) 2.8 % (0.0-3.0) Basophils (%) (Auto) 1.1 % (0.0-2.0) Prothrombin Time 10.9 SEC (9.30-11.50) Prothromb Time International Ratio 1.0 (0.9-1.1) Activated Partial Thromboplast Time 31 SEC (23-33) Sodium Level 143 MMOL/L (136-145) Potassium Level 3.3 MMOL/L (3.5-5.1) Chloride Level 107 MMOL/L (98-107) Carbon Dioxide Level 24 MMOL/L (21-32) Anion Gap 12 mmol/L (5-15) Blood Urea Nitrogen 17 mg/dL (7-18) Creatinine 1.7 MG/DL (0.55-1.30) Estimat Glomerular Filtration Rate mL/min (>60) Glucose Level 111 MG/DL (74-106) Calcium Level 9.3 MG/DL (8.5-10.1) Total Bilirubin 0.3 MG/DL (0.2-1.0) Aspartate Amino Transf (AST/SGOT) 15 U/L (15-37) Alanine Aminotransferase (ALT/SGPT) 14 U/L (12-78) Alkaline Phosphatase 68 U/L (46-116) Total Creatine Kinase 80 U/L (26-308) Creatine Kinase MB 1.1 NG/ML (0.0-3.6) Creatine Kinase MB Relative Index 1.3 Troponin I 0.009 ng/mL (0.000-0.056) Pro-B-Type Natriuretic Peptide 1376 pg/mL (0-125) Total Protein 7.3 G/DL (6.4-8.2) Albumin 2.8 G/DL (3.4-5.0) Globulin 4.5 g/dL Albumin/Globulin Ratio 0.6 (1.0-2.7) EKG Diagnostic Results Rate: normal Rhythm: NSR ST Segments: no acute changes ASA given to the pt in ED: No Rhythm Strip Diag. Results EP Interpretation: yes Rhythm: NSR, no PVC's, no ectopy Chest X-Ray Diagnostic Results Chest X-Ray Diagnostic Results : Chest X-Ray Ordered: Yes # of Views/Limited/Complete: 1 View Indication: Shortness of Breath EP Interpretation: Yes Interpretation: no consolidation, no effusion, no pneumothorax, no acute cardiopulmonary disease, other - cardiomegaly Impression: No acute disease Electronically Signed by: Electronically signed by Isaiah Fernandes MD CT/MRI/US Diagnostic Results CT/MRI/US Diagnostic Results : Imaging Test Ordered: Venous Duplex Impression DVT popliteal, calf, upstream femoral veins on left. Last Vital Signs Date Time Temp Pulse Resp B/P (MAP) Pulse Ox O2 Delivery O2 Flow Rate FiO2 05/08/18 13:50 21 05/08/18 13:30 79 18 99 Room Air 05/08/18 13:10 99.3 157/73 Status: improved Disposition: ADMITTED INPATIENT Condition: Serious Referrals: NON PHYSICIAN (PCP) Isaiah Fernandes MD May 08, 2018 15:02
[2018-05-08] MEDS ORDERED: Heparin 25,000u/D5W 500ml 500 ML IV SCH ×4 (15:15→23:15)
[2018-05-08 15:44] VITALS: BP 149/78
[2018-05-08] MEDS ORDERED: Mylanta II UD 30ml ORAL PRN (16:30)
[2018-05-08] MEDS ORDERED: Morphine Sulfate 2mg/ml Inj(IV/IM USE ONLY) IVP PRN (16:30)
[2018-05-08] MEDS ORDERED: LORazepam Inj 2mg/ml 1ml IV PRN (16:30)
--- NOTE | 2018-05-08 16:30 | NUR ---
ED Nurse Note: Gave report to Krista
[2018-05-08 16:55] VITALS: BP 162/92
--- NOTE | 2018-05-08 16:55 | NUR ---
NURSE NOTES:RECEIVED PT VIA GURNEY ESCORTED BY JUAN F CELIS DISTILLING DEPARTMENT SUPERVISOR OF ED.PT ADMITTED WITH DX OF COPD AND DVT OF LT LOWER LEG.LT CALF 2+ EDEMA ELEVATED WITH A PILLOW TO PROVIDE COMFORT AND TO DECRESE SWELLING.PT CAME WITH HEPARIN DRIP FROM ED INFUSING WELL 24.494 CC/HRS CONNECTED TO H.L ON RT AC.H.L G# 18 ON LT AC INTACT.FULL ASSESSED SKIN INTACT.DR BAH PLACED ADMISSION ORDERS.ALL NEW ORDERS NOTED AND CARRIED OUT.WILL CONT TO MONITOR.
--- NOTE | 2018-05-08 18:49 | History & Physical ---
History and Physical History & Physicial Dictated for Int Med-Dr Chan no. [id number] Fred Lyman MD May 08, 2018 18:49
[2018-05-08] MEDS ORDERED: Xarelto 10mg tab ORAL SCH (19:00)
--- NOTE | 2018-05-08 19:05 | NUR ---
HAND-OFF: Report given to .JOÃO OCHOA.
--- NOTE | 2018-05-08 19:10 | NUR ---
NURSE NOTES: Received report from Kasie Magallon RN. Patient in bed AAO X4 with HOB elevated at semi fowlers. Kept clean, dry, and comfortable in bed with no complaints of acute pain at this time. IV line intact and patent. Continent and is able to ask for bedpan. Placed on continuos cardiac monitoring per protocol. Safety precaution in place; siderails x3 up, call light within reach, bed in lowest position, breaks and alarm on at all times. 02 sat at 96-97% on RA with no S/S of respiratory distress. Will continue plan of care and monitor for any changes noted.
[2018-05-08 20:00] VITALS: BP 165/99
--- NOTE | 2018-05-08 20:10 | NUR ---
NURSE NOTES: Received call from Pharmacy ([facility]), regarding clarification order for Xarelto for DVT, to clarify order with MD Esmer. d/t creatinine clearance. Will call and await further orders
--- NOTE | 2018-05-08 20:12 | Cardiology Progress Note ---
Assessment/Plan Assessment/Plan dvt hs of htn renal failure obesity asthma Subjective Subjective AST MEDICAL HISTORY: Positive for history of generalized weakness previously. No heart attack. No diabetes. She does have high blood pressure as mentioned. She has had history of stroke previously. She has had a history of peptic ulcer disease. No kidney problems, liver problems, thyroid problems, anemia, or arthritis. Her chart indicates that she has had prior admissions here and she was previously discharged with a diagnosis of generalized weakness, urinary tract infection, kidney problems, acute on chronic dehydration, and history of hypertension. She has a history of deep venous thrombosis according to the chart. The patient herself denies it and she has a history of obesity, chronic constipation, and anemia. ALLERGIES: She denies any allergies to medications. SOCIAL HISTORY: She does not smoke. Does not drink. She lives at home. Her son lives with her. REVIEW OF SYSTEMS: GASTROINTESTINAL: She denies. GENITOURINARY: She denies. PULMONARY: She has occasional wheezing. CONSTITUTIONAL: She denies. NEUROLOGIC: Possibly spinning sensation. No paralysis or weakness. Objective Last 24 Hour Vital Signs Date Time Temp Pulse Resp B/P (MAP) Pulse Ox O2 Delivery O2 Flow Rate FiO2 05/08/18 16:55 78 05/08/18 16:55 100.4 85 20 162/92 (115) 98 05/08/18 16:55 Room Air 05/08/18 15:44 99.5 78 18 149/78 99 Room Air 05/08/18 13:50 21 05/08/18 13:30 21 05/08/18 13:30 79 18 99 Room Air 21 05/08/18 13:30 79 18 Room Air 21 05/08/18 13:10 81 18 Room Air 05/08/18 13:10 99.3 78 18 157/73 98 Room Air 05/08/18 13:08 99.3 81 18 188/85 98 Room Air Laboratory Tests Test 05/08/18 13:25 White Blood Count 7.4 K/UL (4.8-10.8) Red Blood Count 3.88 M/UL (4.20-5.40) L Hemoglobin 9.7 G/DL (12.0-16.0) L Hematocrit 30.8 % (37.0-47.0) L Mean Corpuscular Volume 80 FL (80-99) Mean Corpuscular Hemoglobin 25.1 PG (27.0-31.0) L Mean Corpuscular Hemoglobin Concent 31.5 G/DL (32.0-36.0) L Red Cell Distribution Width 13.3 % (11.6-14.8) Platelet Count 246 K/UL (150-450) Mean Platelet Volume 7.2 FL (6.5-10.1) Neutrophils (%) (Auto) 70.7 % (45.0-75.0) Lymphocytes (%) (Auto) 18.8 % (20.0-45.0) L Monocytes (%) (Auto) 6.5 % (1.0-10.0) Eosinophils (%) (Auto) 2.8 % (0.0-3.0) Basophils (%) (Auto) 1.1 % (0.0-2.0) Prothrombin Time 10.9 SEC (9.30-11.50) Prothromb Time International Ratio 1.0 (0.9-1.1) Activated Partial Thromboplast Time 31 SEC (23-33) Sodium Level 143 MMOL/L (136-145) Potassium Level 3.3 MMOL/L (3.5-5.1) L Chloride Level 107 MMOL/L (98-107) Carbon Dioxide Level 24 MMOL/L (21-32) Anion Gap 12 mmol/L (5-15) Blood Urea Nitrogen 17 mg/dL (7-18) Creatinine 1.7 MG/DL (0.55-1.30) H Estimat Glomerular Filtration Rate mL/min (>60) Glucose Level 111 MG/DL (74-106) H Calcium Level 9.3 MG/DL (8.5-10.1) Total Bilirubin 0.3 MG/DL (0.2-1.0) Aspartate Amino Transf (AST/SGOT) 15 U/L (15-37) Alanine Aminotransferase (ALT/SGPT) 14 U/L (12-78) Alkaline Phosphatase 68 U/L (46-116) Total Creatine Kinase 80 U/L (26-308) Creatine Kinase MB 1.1 NG/ML (0.0-3.6) Creatine Kinase MB Relative Index 1.3 Troponin I 0.009 ng/mL (0.000-0.056) Pro-B-Type Natriuretic Peptide 1376 pg/mL (0-125) H Total Protein 7.3 G/DL (6.4-8.2) Albumin 2.8 G/DL (3.4-5.0) L Globulin 4.5 g/dL Albumin/Globulin Ratio 0.6 (1.0-2.7) L Microbiology Date/Time Source Procedure Growth Status 05/08/18 13:25 Nasal Nares Influenza Types A,B Antigen ([facility]) - Final Complete Objective AST MEDICAL HISTORY: Positive for history of generalized weakness PHYSICAL EXAMINATION: GENERAL: Shows to be obese female, in no respiratory distress. VITAL SIGNS: Her orthostatic vitals that were performed today blood pressure in laying position reportedly 126/54 and in standing position 91/51, and most recently her blood pressure is 94/55. HEENT: Unremarkable. NECK: Supple. No jugular venous distention. No abdominojugular reflux noted. LUNGS: Appear to be clear to auscultation and percussion. CARDIAC: Regular rate and rhythm. No heaves, thrills, gallops, or rubs are noted. ABDOMEN: Soft and nontender. Positive bowel sounds. EXTREMITIES: There is no clubbing or cyanosis nor is there any edema. NEUROLOGICAL: She is awake, alert, and responsive and does not appear to Srinivas Masterson MD May 08, 2018 20:12
--- NOTE | 2018-05-08 20:30 | NUR ---
NURSE NOTES: Received call-back from MD Esmer. New orders received and carried out
[2018-05-08] MEDS ORDERED: Warfarin Sodium 5mg ORAL SCH (21:00)
[2018-05-08] MEDS ORDERED: Zolpidem 5mg tab ORAL PRN (21:00)
[2018-05-08] MEDS ORDERED: Miralax 17gm pkt ORAL PRN (21:00)
--- NOTE | 2018-05-08 21:50 | NUR ---
NURSE NOTES: Patient complaints of persistent cough and bouts of insomnia. MD Nickolas. made aware. New orders received and carried out
[2018-05-08] MEDS: Promethazine/Codeine 5ml UD ORAL PRN (22:20)
--- NOTE | 2018-05-08 23:00 | NUR ---
NURSE NOTES: Spoke with [facility] ([facility]). regarding aPTT results. Dosing adjusted and new orders received and carried out per protocol.
[2018-05-08] MEDS ORDERED: Heparin 5000 units/ml inj IV SCH (23:15)
--- NOTE | 2018-05-08 23:31 | History and Physical Report ---
DATE OF ADMISSION: 05/08/2018 NOTE: INCOMPLETE DICTATION: CHIEF COMPLAINT: The patient is an 87-year-old female, who presents with a chief complaint of swelling of the bilateral legs for 1 week. HISTORY OF PRESENT ILLNESS: Began 1 week prior to admission. The patient began to notice swelling of the bilateral lower extremities. Left was swollen greater than the right. There was also pain in the bilateral lower extremities. The patient was admitted to [facility] from 03/17/2018 to 03/19/2018. Please see History and Physical and discharge summary dictated at that time. The patient presented to [place] emergency room. The patient was found to have acute deep venous thrombosis of the left lower extremity. The patient is admitted for deep venous thrombosis left lower extremity. REVIEW OF SYSTEMS: CONSTITUTIONAL: The patient denies weight loss or gain. The patient denies fevers or chills. HEENT: The patient denies ear or throat pain. The patient denies headache. CARDIOVASCULAR: The patient denies palpitations or chest pain. CHEST: The patient denies wheeze or shortness of breath. ABDOMINAL: The patient denies nausea, vomiting, diarrhea, or constipation. GENITOURINARY: The patient denies dysuria or increased frequency of urination. NEUROMUSCULAR: The patient denies seizures or generalized weakness. The patient complains of bilateral lower extremity swelling as above. PAST MEDICAL HISTORY: Significant for: 1. Asthma. 2. Hypertension. 3. Cardiomyopathy. 4. Anxiety disorder. 5. Gastroesophageal reflux disease. PAST SURGICAL HISTORY: The patient denies. CURRENT MEDICATIONS: 1. Tylenol 650 mg p.o. q.4 hours. 2. Albuterol metered-dose inhaler 2 puffs p.o. q.i.d. p.r.n. 3. Lumigan 1 drop to both eyes daily. 4. Combigan 1 drop to both eyes twice daily. 5. Trusopt 1 drop to both eyes twice daily. 6. Advair 250/50 one puff p.o. twice daily. 7. Losartan/hydrochlorothiazide 50/12.5 one tablet p.o. daily. ALLERGIES: No known drug allergies. SOCIAL HISTORY: The patient is a and lives with her adult son. The patient denies tobacco or alcohol use. PHYSICAL EXAMINATION: VITAL SIGNS: Temperature 99.3, respirations 18, pulse 81, blood pressure 182/85. GENERAL: The patient is well-developed, well-nourished female, in no apparent distress. HEENT: Eyes, pupils are equal and responsive to light and accommodation. Extraocular movements are intact. NECK: Supple without lymphadenopathy. CHEST: Lungs are clear to auscultation bilaterally without wheezes or rales. CARDIOVASCULAR: Regular rate. S1 and S2 are normal without murmurs, rubs, gallops. ABDOMEN: Soft, nontender, nondistended. Positive bowel sounds. No evidence of hepatosplenomegaly. Currently, no rebound or guarding. EXTREMITIES: Trace edema in the left greater than the right, otherwise without clubbing or cyanosis. RECTAL/GENITAL: Refused. NEUROLOGIC: Cranial nerves II through XII are grossly intact without focal deficits. Motor strength is 5/5 bilaterally. Deep tendon reflexes are 2+ plantar. LABORATORY STUDIES: WBC 7.4, hemoglobin 9.7, hematocrit 30.8, platelets 246,000. Sodium 143, potassium 3.3, chloride 107, CO2 25, BUN 17, creatinine 1.7, glucose 111. BNP elevated at 1376. Troponin normal at 0.009. A venous duplex Doppler of the bilateral lower extremities demonstrated acute left lower popliteal and femoral vein thrombosis. ASSESSMENT: This is an 87-year-old female. 1. Deep venous thrombosis of the left lower extremity. 2. Swelling of the bilateral lower extremities. 3. Cough. 4. Asthma. 5. Hypertension. 6. Glaucoma. TREATMENT: 1. Deep venous thrombosis of the left lower extremity. A Cardiology consultation has been obtained with Dr. Srinivas Masterson. The patient has been started empirically on a heparin drip. This will be discontinued. The patient will be started on Xarelto. 2. Asthma. A Pulmonary consultation has jenny obtained with Dr. Saran Olmos. 3. Hypertension. Continue. Fred Lyman M.D. DR: ROHAN JOB#: [id number] CC:
[2018-05-09] VITALS: BP 138/77
--- NOTE | 2018-05-09 00:01 | History and Physical Report ---
DATE OF ADMISSION: 05/08/2018 CHIEF COMPLAINT: The patient is an 87-year-old female, who presents with chief complaint of leg swelling. HISTORY OF PRESENT ILLNESS: Began one week prior to admission. The patient began to experience bilateral lower extremity swelling. The left leg seems to be swollen more than the right. The patient also had some cough. The patient was admitted to [facility] in March 2018. Please see history and physical and discharge summary dictated at that time. The patient presented to [place] emergency room. The patient was found to have acute deep venous thrombosis of the left lower extremity. The patient is admitted for deep venous thrombosis of the left lower extremity. REVIEW OF SYSTEMS: CONSTITUTIONAL: The patient denies weight loss or weight gain. The patient denies fevers or chills. HEENT: The patient denies ear or throat pain. The patient denies headache. CARDIOVASCULAR: The patient denies palpitations or chest pain. CHEST: The patient denies wheeze or shortness of breath. ABDOMEN: The patient denies nausea, vomiting, diarrhea, or constipation. GENITOURINARY: The patient denies dysuria or increased frequency of urination. NEUROMUSCULAR: The patient complains of leg swelling. The patient denies seizures or generalized weakness. PAST MEDICAL HISTORY: Significant for: 1. Asthma. 2. Hypertension. 3. Cardiomyopathy. 4. Anxiety disorder. 5. Gastroesophageal reflux disease. PAST SURGICAL HISTORY: The patient denies. CURRENT MEDICATIONS: 1. Tylenol 650 mg one tablet p.o. q.4 hours p.r.n. 2. Albuterol metered-dose inhaler two puffs p.o. q.i.d. p.r.n. 3. Lumigan one drop to both eyes daily. 4. Combigan one drop to both eyes twice daily. 5. Symbicort 160/4.5 two puffs p.o. twice daily. 6. Trusopt one drop to both eyes twice daily. 7. Advair 250/50 one puff p.o. twice daily. 8. Losartan/hydrochlorothiazide 50/12.5 one tablet p.o. daily. 9. Tramadol 50 mg p.o. q.6 hours p.r.n. ALLERGIES: No known drug allergies. SOCIAL HISTORY: The patient is a . The patient lives with her adult son. The patient denies tobacco or alcohol use. PHYSICAL EXAMINATION: VITAL SIGNS: Temperature 99.3, respirations 18, pulse 81, and blood pressure 188/85. GENERAL: The patient is well-developed and well-nourished female, in no apparent distress. HEENT: Eyes, pupils equal and responsive to light and accommodation. Extraocular movements are intact. NECK: Supple without lymphadenopathy. CHEST: Lungs are clear to auscultation bilaterally without wheezes or rales. CARDIOVASCULAR: Regular rate. S1 and S2 are normal without murmurs, rubs, or gallops. ABDOMEN: Soft, nontender, and nondistended. Positive bowel sounds. No evidence of hepatosplenomegaly. Currently, no rebound or guarding. EXTREMITIES: Trace edema on the left and trace edema on the right. Otherwise, without cyanosis or clubbing. RECTAL: Refused. GENITAL: Refused. NEUROLOGIC: Cranial nerves II through XII grossly intact without focal deficits. Motor strength is 5/5 bilaterally. Deep tendon reflexes are 2+ plantar. LABORATORY STUDIES: WBC 7.4, hemoglobin 9.7, hematocrit 30.8, and platelets 246,000. Sodium 143, potassium 3.3, chloride 107, CO2 24, BUN 17, creatinine 1.7, glucose 111. Troponin 0.009. BNP elevated at 1376. Venous duplex Doppler of bilateral lower extremities revealed acute thrombosis from the left popliteal to the left femoral vein. ASSESSMENT: This is an 87-year-old female. 1. Deep venous thrombosis of the left lower extremity, acute. 2. Edema of bilateral lower extremities. 3. Asthma. 4. Hypertension. 5. Glaucoma. TREATMENT: 1. Deep venous thrombosis of the left lower extremity. The patient was started on heparin drip in the emergency room. The patient will be started on Xarelto. Heparin will be discontinued. 2. Asthma. A Pulmonary consultation has been obtained with Dr. Saran Olmos. We will follow recommendations of Pulmonary. 3. Congestive heart failure. Cardiology consultation has been obtained with Dr. Srinivas Masterson. 4. Hypertension. Continue losartan/hydrochlorothiazide as above. 5. Glaucoma. Continue eye drops as above. Fred Lyman M.D. DR: PING JOB#: [id number] CC:
--- NOTE | 2018-05-09 02:41 | NUR ---
NURSE NOTES: Patient in bed asleep with no S/S of acute pain or discomfort at this time. Will continue to monitor
[2018-05-09 04:00] VITALS: BP 179/99
[2018-05-09 04:58] LABS: EOSINOPHILS % (AUTO) 4.2 % (0.0-3.0); HEMATOCRIT 27.7 % (37.0-47.0); HEMOGLOBIN 8.7 G/DL (12.0-16.0); LYMPHOCYTES % (AUTO) 19.7 % (20.0-45.0); MEAN CORPUSCULAR VOLUME 79 FL (80-99); MONOCYTES % (AUTO) 9.5 % (1.0-10.0); NEUTROPHILS % (AUTO) 65.7 % (45.0-75.0); PLATELET COUNT 235 K/UL (150-450); RED CELL DISTRIBUTION WIDTH 13.1 % (11.6-14.8); WHITE BLOOD COUNT 8.6 K/UL (4.8-10.8)
[2018-05-09 05:18] LABS: ALANINE AMINOTRANSFERASE 16 U/L (12-78); ALBUMIN 2.4 G/DL (3.4-5.0); ALBUMIN/GLOBULIN RATIO 0.6 (1.0-2.7); ALKALINE PHOSPHATASE 55 U/L (46-116); ANION GAP 9 mmol/L (5-15); ASPARTATE AMINO TRANSFERASE 18 U/L (15-37); BILIRUBIN,TOTAL 0.3 MG/DL (0.2-1.0); BLOOD UREA NITROGEN 15 mg/dL (7-18); CALCIUM 8.7 MG/DL (8.5-10.1); CARBON DIOXIDE 25 MMOL/L (21-32); CHLORIDE 107 MMOL/L (98-107); CHOLESTEROL 144 MG/DL (< 200); CREATININE 1.5 MG/DL (0.55-1.30); HDL CHOLESTEROL 61 MG/DL (40-60); POTASSIUM 3.6 MMOL/L (3.5-5.1); SODIUM 141 MMOL/L (136-145); TRIGLYCERIDES 28 MG/DL (30-150)
--- NOTE | 2018-05-09 05:55 | NUR ---
NURSE NOTES: Received current aPTT results (above 150). Called pharmacy regarding results and spoke with Pretty. Dose adjusted and held for an hour and resume with adjusted dose. Next aPTT scheduled at 1300. Will continue to monitor
[2018-05-09] MEDS: Heparin 25,000u/D5W 500ml 500 ML IV SCH ×3 (07:18→14:37)
--- NOTE | 2018-05-09 07:35 | NUR ---
HAND-OFF: Report given to Cristi Pedraza RN. Pt is resting in bed in stable condition. No acute distress noted. Endorsed plan of care.
--- NOTE | 2018-05-09 07:39 | NUR ---
NURSE NOTES: received patient report from sherif perkins. patient is awake on bed. not in pain. not in acute distress. bed is low and locked for safety. on hep drip @ prescribed rate.next ptt is ordered @ 1300 today. will continue plan of care.
[2018-05-09 07:46] LABS: INR 1.2 (0.9-1.1)
[2018-05-09 08:00] VITALS: BP 156/86
--- NOTE | 2018-05-09 09:21 | NUR ---
NURSE NOTES: left a message to dr love regarding patients home meds.awaits callback and new order as of this time.
[2018-05-09] MEDS ORDERED: Hyzaar 12.5mg/50mg tab ORAL SCH (10:00)
[2018-05-09] MEDS: Promethazine/Codeine 5ml UD ORAL PRN (10:11)
[2018-05-09] MEDS: Wixela 250/50 Inhaler - 60 dose INH SCH ×2 (10:25→20:59)
[2018-05-09 12:00] VITALS: BP 160/85
--- NOTE | 2018-05-09 12:06 | NUR ---
CASE MANAGEMENT:REVIEW 87 YR OLD FEMALE TO ER CC: BLE SWELLING AND PAIN. COUGH AND CONGESTION SI: COPD. DVT 99.5 81 18 188/85 98% ON RA H/H-9.7/30.8 K-3.3 IS: HEPARIN GTT DUONEB HHN X3 IV LEVAQUIN CHEST XRAY VENOUS DUPLEX : telemetry status INTERQUAL CRITERIA MET
--- NOTE | 2018-05-09 13:08 | Consultation ---
History of Present Illness General Date patient seen: May 09, 2018 Chief Complaint: Edema Present Illness HPI 87-year-old female with hx of HTN, asthma, CVA/TIA presents ED for evaluation of pain and swelling to the both legs for the last few days. Left worse than right. She had some cough and congestion as well. Denied fevers or chills. Denies sick contacts or recent travel. She had positive US for DVT of femoral vein and popliteal vein. Allergies: Coded Allergies: No Known Allergies (Unverified , 02/20/12) Medication History Scheduled Bimatoprost (Lumigan), 1 DROP BOTH EYES DAILY, (Reported) Brimonidine Tartrate/Timolol (Combigan Eye Drops), 5 ML OP BID, (Reported) Budesonide/Formoterol Fumarate (Symbicort 160-4.5 Mcg Inhaler), 2 PUFFS INH BID, (Reported) Dorzolamide Hcl* (Trusopt*), 1 DROP BOTH EYES BID, (Reported) Fluticasone/Salmeterol (Advair 250-50 Diskus), 1 PUFF INH EVERY 12 HOURS, ( Reported) Losartan/Hydrochlorothiazide (Losartan-Hctz 50-12.5 Mg Tab), 1 TAB ORAL DAILY, ( Reported) Scheduled PRN Acetaminophen (Tylenol), 650 MG ORAL Q6H PRN for For Pain Albuterol Sulfate* (Proair Hfa*), 2 PUFFS INH BID PRN for Shortness of Breath, ( Reported) Tramadol Hcl* (Ultram*), 50 MG ORAL Q6H PRN for For Pain, (Reported) Patient History Healthcare decision maker N Resuscitation status Full Code Advanced Directive on File No Past Medical/Surgical History Past Medical/Surgical History: (1) Morbid obesity (2) anxiety disorder (3) COPD (chronic obstructive pulmonary disease) (4) Cardiomegaly (5) Osteoarthritis (6) Anemia Review of Systems All Other Systems: negative except mentioned in HPI Physical Exam General Appearance: WD/WN Lines, tubes and drains: peripheral, central line HEENT: normocephalic, atraumatic Neck: non-tender, normal alignment Respiratory/Chest: chest wall non-tender, lungs clear Cardiovascular/Chest: normal peripheral pulses, normal rate Abdomen: normal bowel sounds Genitourinary/Rectal: normal genital exam Extremities: normal range of motion Last 24 Hour Vital Signs Date Time Temp Pulse Resp B/P (MAP) Pulse Ox O2 Delivery O2 Flow Rate FiO2 05/09/18 10:06 156/86 05/09/18 09:00 Room Air 05/09/18 08:00 73 05/09/18 08:00 97.5 69 18 156/86 (109) 97 05/09/18 05:34 177/99 05/09/18 04:00 99.0 77 20 179/99 (125) 96 05/09/18 04:00 74 05/09/18 00:00 98.0 79 20 138/77 (97) 95 05/09/18 00:00 74 05/08/18 21:00 Room Air 05/08/18 20:00 78 05/08/18 20:00 98.4 74 20 165/99 (121) 96 05/08/18 16:55 78 05/08/18 16:55 100.4 85 20 162/92 (115) 98 05/08/18 16:55 Room Air 05/08/18 16:24 99.3 78 18 149/78 99 Room Air 21 05/08/18 15:44 99.5 78 18 149/78 99 Room Air 21 05/08/18 13:50 21 05/08/18 13:30 21 05/08/18 13:30 79 18 99 Room Air 21 05/08/18 13:30 79 18 Room Air 21 05/08/18 13:10 81 18 Room Air 05/08/18 13:10 99.3 78 18 157/73 98 Room Air 05/08/18 13:08 99.3 81 18 188/85 98 Room Air Intake and Output 05/08/18 05/09/18 19:00 07:00 Intake Total 598.988 ml 320 ml Balance 598.988 ml 320 ml Intake Oral 550 ml 320 ml IV Total 48.988 ml # Voids 1 # Bowel Movements 1 1 Laboratory Tests Test 05/08/18 13:25 05/08/18 21:45 05/09/18 04:53 White Blood Count 7.4 K/UL (4.8-10.8) 8.6 K/UL (4.8-10.8) Red Blood Count 3.88 M/UL (4.20-5.40) L 3.50 M/UL (4.20-5.40) L Hemoglobin 9.7 G/DL (12.0-16.0) L 8.7 G/DL (12.0-16.0) L Hematocrit 30.8 % (37.0-47.0) L 27.7 % (37.0-47.0) L Mean Corpuscular Volume 80 FL (80-99) 79 FL (80-99) L Mean Corpuscular Hemoglobin 25.1 PG (27.0-31.0) L 25.0 PG (27.0-31.0) L Mean Corpuscular Hemoglobin Concent 31.5 G/DL (32.0-36.0) L 31.6 G/DL (32.0-36.0) L Red Cell Distribution Width 13.3 % (11.6-14.8) 13.1 % (11.6-14.8) Platelet Count 246 K/UL (150-450) 235 K/UL (150-450) Mean Platelet Volume 7.2 FL (6.5-10.1) 6.9 FL (6.5-10.1) Neutrophils (%) (Auto) 70.7 % (45.0-75.0) 65.7 % (45.0-75.0) Lymphocytes (%) (Auto) 18.8 % (20.0-45.0) L 19.7 % (20.0-45.0) L Monocytes (%) (Auto) 6.5 % (1.0-10.0) 9.5 % (1.0-10.0) Eosinophils (%) (Auto) 2.8 % (0.0-3.0) 4.2 % (0.0-3.0) H Basophils (%) (Auto) 1.1 % (0.0-2.0) 1.0 % (0.0-2.0) Prothrombin Time 10.9 SEC (9.30-11.50) 12.5 SEC (9.30-11.50) H Prothromb Time International Ratio 1.0 (0.9-1.1) 1.2 (0.9-1.1) H Activated Partial Thromboplast Time 31 SEC (23-33) 58 SEC (23-33) H > 150 SEC (23-33) *H Sodium Level 143 MMOL/L (136-145) 141 MMOL/L (136-145) Potassium Level 3.3 MMOL/L (3.5-5.1) L 3.6 MMOL/L (3.5-5.1) Chloride Level 107 MMOL/L (98-107) 107 MMOL/L (98-107) Carbon Dioxide Level 24 MMOL/L (21-32) 25 MMOL/L (21-32) Anion Gap 12 mmol/L (5-15) 9 mmol/L (5-15) Blood Urea Nitrogen 17 mg/dL (7-18) 15 mg/dL (7-18) Creatinine 1.7 MG/DL (0.55-1.30) H 1.5 MG/DL (0.55-1.30) H Estimat Glomerular Filtration Rate mL/min (>60) mL/min (>60) Glucose Level 111 MG/DL (74-106) H 96 MG/DL (74-106) Calcium Level 9.3 MG/DL (8.5-10.1) 8.7 MG/DL (8.5-10.1) Total Bilirubin 0.3 MG/DL (0.2-1.0) 0.3 MG/DL (0.2-1.0) Aspartate Amino Transf (AST/SGOT) 15 U/L (15-37) 18 U/L (15-37) Alanine Aminotransferase (ALT/SGPT) 14 U/L (12-78) 16 U/L (12-78) Alkaline Phosphatase 68 U/L (46-116) 55 U/L (46-116) Total Creatine Kinase 80 U/L (26-308) Creatine Kinase MB 1.1 NG/ML (0.0-3.6) Creatine Kinase MB Relative Index 1.3 Troponin I 0.009 ng/mL (0.000-0.056) Pro-B-Type Natriuretic Peptide 1376 pg/mL (0-125) H Total Protein 7.3 G/DL (6.4-8.2) 6.5 G/DL (6.4-8.2) Albumin 2.8 G/DL (3.4-5.0) L 2.4 G/DL (3.4-5.0) L Globulin 4.5 g/dL 4.1 g/dL Albumin/Globulin Ratio 0.6 (1.0-2.7) L 0.6 (1.0-2.7) L Triglycerides Level 28 MG/DL (30-150) L Cholesterol Level 144 MG/DL (< 200) LDL Cholesterol 79 mg/dL (<100) HDL Cholesterol 61 MG/DL (40-60) H Cholesterol/HDL Ratio 2.4 (3.3-4.4) L Microbiology Date/Time Source Procedure Growth Status 05/08/18 13:25 Nasal Nares Influenza Types A,B Antigen (ASHLEE) - Final Complete Height (Feet): 5 Height (Inches): 2.00 Weight (Pounds): 150 Medications Current Medications Medications (Trade) Dose Ordered Sig/Lamonte Route PRN Reason Start Time Stop Time Status Last Admin Dose Admin Brimonidine Tartrate (Alphagan) 1 drop BID BOTH EYES 05/09/18 18:00 06/08/18 17:59 Clonidine HCl (Catapres Tab) 0.1 mg Q6H PRN ORAL For High Blood Pressure 05/09/18 00:30 06/08/18 00:29 05/09/18 05:34 Dorzolamide HCl (Trusopt) 1 drop BID BOTH EYES 05/09/18 18:00 06/08/18 17:59 HCTZ/Losartan Potassium (Hyzaar 50-12.5) 1 tab DAILY ORAL 05/10/18 09:00 06/09/18 08:59 Heparin Sodium/ Dextrose 500 ml @ 21.772 mls/ hr ADJUST PER PROTOCOL IV 05/09/18 07:00 06/07/18 20:44 05/09/18 10:45 Promethazine HCl/ Codeine (Phenergan with Codeine) 5 ml Q6H PRN ORAL For Cough 05/08/18 22:00 06/07/18 21:59 05/09/18 10:11 Salmeterol Xinafoate/ Fluticasone (Advair 250/50 Diskus) 1 puffs BIDRT INH 05/09/18 11:00 06/08/18 10:59 Temazepam (Restoril) 15 mg HSPRN PRN ORAL Insomnia 05/08/18 22:00 05/15/18 21:59 05/08/18 22:20 Warfarin Sodium (Coumadin per pharmacy) 1 ea DAILY PRN MISC Per rx protocol 05/08/18 20:45 06/07/18 20:44 Warfarin Sodium (Coumadin) 2.5 mg ONCE ORAL 05/09/18 17:00 05/09/18 19:00 Assessment/Plan Problem List: (1) DVT (deep venous thrombosis) ICD Codes: I82.409 - Acute embolism and thrombosis of unspecified deep veins of unspecified lower extremity SNOMED: 306791451 Qualifiers: Qualified Codes: I82.402 - Acute embolism and thrombosis of unspecified deep veins of left lower extremity (2) COPD (chronic obstructive pulmonary disease) ICD Codes: J44.9 - Chronic obstructive pulmonary disease, unspecified SNOMED: 72954744 Qualifiers: Qualified Codes: J44.9 - Chronic obstructive pulmonary disease, unspecified (3) ATN (acute tubular necrosis) ICD Codes: N17.0 - Acute kidney failure with tubular necrosis SNOMED: 59955641 (4) Hypertension ICD Codes: I10 - Hypertension SNOMED: 28979339 (5) Morbid obesity ICD Codes: E66.01 - Morbid (severe) obesity due to excess calories SNOMED: 058691837 Assessment/Plan heparin drip symptomatic treatment monitor BP respiratory treatment echocardiogram check electrolytes Renal w/u. avoid nephrotoxic agents. labs in am. Saran Olmos MD May 09, 2018 13:08
[2018-05-09 13:18] LABS: CREATINE KINASE 129 U/L (26-308)
--- NOTE | 2018-05-09 14:08 | Consultation ---
Consult Note Consult Note asked to eval at the request of Dr Olmos for elevated Cr 87-year-old female presents ED for evaluation. Complaining of pain and swelling to the both legs for the last few days. Left worse than right. Denies chest pain or shortness of breath. Notes cough and congestion. States she has history of asthma. Denies fevers or chills. Denies sick contacts or recent travel. No other aggravating relieving factors. Denies any other associated symptoms No Known Allergies (Unverified , 02/20/12) Past Medical History: HTN, asthma, CVA/TIA Past Medical History: No History, Except For Hx Cardiac Problems: No Hx Hypertension: Yes Hx Asthma: Yes Hx Gastrointestinal Problems: Yes Hx Neurological Problems: Yes Hx Cerebrovascular Accident: Yes - Stroke without residual Hx Dizziness: Yes - after taking Blood Pressure medication Hx Headaches: Yes Hx Brain Shunt: No Assessment/Plan ATN COPD DVT HTN Obesity UA U Na U Eosinophils DC HCTZ Adjust BP meds Monitor renal parameters Avoid Nephrotoxics Mukul Denise MD May 09, 2018 14:08
--- NOTE | 2018-05-09 14:36 | Consultation ---
History of Present Illness General Date patient seen: May 09, 2018 Chief Complaint: Edema Present Illness HPI 87 y/o F with hx of obesity, CVA/TIA, PUD, GERD, anxiety, asthma, HTN, DVT presents to ED on 05/08 with b/l leg pain and swelling (L>R), cough and congestion. V. duplex + for DVT of femoral and popliteal vein. Denied CP, SOB, f/c, sick contacts/recent travel. Allergies: Coded Allergies: No Known Allergies (Unverified , 02/20/12) Medication History Scheduled Bimatoprost (Lumigan), 1 DROP BOTH EYES DAILY, (Reported) Brimonidine Tartrate/Timolol (Combigan Eye Drops), 5 ML OP BID, (Reported) Budesonide/Formoterol Fumarate (Symbicort 160-4.5 Mcg Inhaler), 2 PUFFS INH BID, (Reported) Dorzolamide Hcl* (Trusopt*), 1 DROP BOTH EYES BID, (Reported) Fluticasone/Salmeterol (Advair 250-50 Diskus), 1 PUFF INH EVERY 12 HOURS, ( Reported) Losartan/Hydrochlorothiazide (Losartan-Hctz 50-12.5 Mg Tab), 1 TAB ORAL DAILY, ( Reported) Scheduled PRN Acetaminophen (Tylenol), 650 MG ORAL Q6H PRN for For Pain Albuterol Sulfate* (Proair Hfa*), 2 PUFFS INH BID PRN for Shortness of Breath, ( Reported) Tramadol Hcl* (Ultram*), 50 MG ORAL Q6H PRN for For Pain, (Reported) Patient History Healthcare decision maker N Resuscitation status Full Code Advanced Directive on File No Patient History Narrative Pmhx: as above Shx: She does not smoke. Does not drink. She lives at home. Her son lives with her. Fhx: non contributory Review of Systems All Other Systems: negative except mentioned in HPI Physical Exam Physical Exam Narrative GENERAL: The patient is well-developed and well-nourished female, in no apparent distress. HEENT: Eyes, pupils equal and responsive to light and accommodation. Extraocular movements are intact. NECK: Supple without lymphadenopathy. CHEST: Lungs are clear to auscultation bilaterally without wheezes or rales. CARDIOVASCULAR: Regular rate. S1 and S2 are normal without murmurs, rubs, or gallops. ABDOMEN: Soft, nontender, and nondistended. Positive bowel sounds. No evidence of hepatosplenomegaly. Currently, no rebound or guarding. EXTREMITIES: Trace edema on the left and trace edema on the right. Otherwise, without cyanosis or clubbing. NEUROLOGIC: Cranial nerves II through XII grossly intact without focal deficits. Motor strength is 5/5 bilaterally. Deep tendon reflexes are 2+ plantar. Last 24 Hour Vital Signs Date Time Temp Pulse Resp B/P (MAP) Pulse Ox O2 Delivery O2 Flow Rate FiO2 05/09/18 12:00 97.3 68 20 160/85 (110) 98 05/09/18 12:00 66 05/09/18 10:06 156/86 05/09/18 09:00 Room Air 05/09/18 08:00 73 05/09/18 08:00 97.5 69 18 156/86 (109) 97 05/09/18 05:34 177/99 05/09/18 04:00 99.0 77 20 179/99 (125) 96 05/09/18 04:00 74 05/09/18 00:00 98.0 79 20 138/77 (97) 95 05/09/18 00:00 74 05/08/18 21:00 Room Air 05/08/18 20:00 78 05/08/18 20:00 98.4 74 20 165/99 (121) 96 05/08/18 16:55 78 05/08/18 16:55 100.4 85 20 162/92 (115) 98 05/08/18 16:55 Room Air 05/08/18 16:24 99.3 78 18 149/78 99 Room Air 21 05/08/18 15:44 99.5 78 18 149/78 99 Room Air 21 Intake and Output 05/08/18 05/09/18 19:00 07:00 Intake Total 598.988 ml 320 ml Balance 598.988 ml 320 ml Intake Oral 550 ml 320 ml IV Total 48.988 ml # Voids 1 # Bowel Movements 1 1 Laboratory Tests Test 05/08/18 21:45 05/09/18 04:53 05/09/18 13:00 Activated Partial Thromboplast Time 58 SEC (23-33) H > 150 SEC (23-33) *H 83 SEC (23-33) H White Blood Count 8.6 K/UL (4.8-10.8) Red Blood Count 3.50 M/UL (4.20-5.40) L Hemoglobin 8.7 G/DL (12.0-16.0) L Hematocrit 27.7 % (37.0-47.0) L Mean Corpuscular Volume 79 FL (80-99) L Mean Corpuscular Hemoglobin 25.0 PG (27.0-31.0) L Mean Corpuscular Hemoglobin Concent 31.6 G/DL (32.0-36.0) L Red Cell Distribution Width 13.1 % (11.6-14.8) Platelet Count 235 K/UL (150-450) Mean Platelet Volume 6.9 FL (6.5-10.1) Neutrophils (%) (Auto) 65.7 % (45.0-75.0) Lymphocytes (%) (Auto) 19.7 % (20.0-45.0) L Monocytes (%) (Auto) 9.5 % (1.0-10.0) Eosinophils (%) (Auto) 4.2 % (0.0-3.0) H Basophils (%) (Auto) 1.0 % (0.0-2.0) Prothrombin Time 12.5 SEC (9.30-11.50) H Prothromb Time International Ratio 1.2 (0.9-1.1) H Sodium Level 141 MMOL/L (136-145) Potassium Level 3.6 MMOL/L (3.5-5.1) Chloride Level 107 MMOL/L (98-107) Carbon Dioxide Level 25 MMOL/L (21-32) Anion Gap 9 mmol/L (5-15) Blood Urea Nitrogen 15 mg/dL (7-18) Creatinine 1.5 MG/DL (0.55-1.30) H Estimat Glomerular Filtration Rate mL/min (>60) Glucose Level 96 MG/DL (74-106) Uric Acid 6.1 MG/DL (2.6-7.2) Calcium Level 8.7 MG/DL (8.5-10.1) Total Bilirubin 0.3 MG/DL (0.2-1.0) Aspartate Amino Transf (AST/SGOT) 18 U/L (15-37) Alanine Aminotransferase (ALT/SGPT) 16 U/L (12-78) Alkaline Phosphatase 55 U/L (46-116) Total Creatine Kinase 129 U/L (26-308) Total Protein 6.5 G/DL (6.4-8.2) Albumin 2.4 G/DL (3.4-5.0) L Globulin 4.1 g/dL Albumin/Globulin Ratio 0.6 (1.0-2.7) L Triglycerides Level 28 MG/DL (30-150) L Cholesterol Level 144 MG/DL (< 200) LDL Cholesterol 79 mg/dL (<100) HDL Cholesterol 61 MG/DL (40-60) H Cholesterol/HDL Ratio 2.4 (3.3-4.4) L Height (Feet): 5 Height (Inches): 2.00 Weight (Pounds): 150 Medications Current Medications Medications (Trade) Dose Ordered Sig/Lamonte Route PRN Reason Start Time Stop Time Status Last Admin Dose Admin Brimonidine Tartrate (Alphagan) 1 drop BID BOTH EYES 05/09/18 18:00 06/08/18 17:59 Ceftriaxone Sodium 1 gm/ Dextrose 55 ml @ 110 mls/hr Q24H IVPB 05/09/18 15:00 05/16/18 14:59 05/09/18 14:19 Clonidine HCl (Catapres Tab) 0.1 mg Q6H PRN ORAL For High Blood Pressure 05/09/18 00:30 06/08/18 00:29 05/09/18 05:34 Docusate Sodium (Colace) 100 mg THREE TIMES A DAY ORAL 05/09/18 18:00 06/08/18 17:59 Dorzolamide HCl (Trusopt) 1 drop BID BOTH EYES 05/09/18 18:00 06/08/18 17:59 Heparin Sodium/ Dextrose 500 ml @ 21.772 mls/ hr ADJUST PER PROTOCOL IV 05/09/18 07:00 06/07/18 20:44 05/09/18 10:45 Losartan Potassium (Cozaar) 50 mg EVERY 12 HOURS ORAL 05/09/18 21:00 06/08/18 20:59 Pantoprazole (Protonix) 40 mg EVERY 12 HOURS ORAL 05/09/18 21:00 06/08/18 20:59 Promethazine HCl/ Codeine (Phenergan with Codeine) 5 ml Q4H PRN ORAL For Cough 05/09/18 13:15 06/08/18 13:14 Salmeterol Xinafoate/ Fluticasone (Advair 250/50 Diskus) 1 puffs BIDRT INH 05/09/18 11:00 06/08/18 10:59 Temazepam (Restoril) 15 mg HSPRN PRN ORAL Insomnia 05/08/18 22:00 05/15/18 21:59 05/08/18 22:20 Theophylline (Jorge-Dur) 100 mg EVERY 12 HOURS ORAL 05/09/18 21:00 06/08/18 20:59 Warfarin Sodium (Coumadin per pharmacy) 1 ea DAILY PRN MISC Per rx protocol 05/08/18 20:45 06/07/18 20:44 Warfarin Sodium (Coumadin) 2.5 mg ONCE ORAL 05/09/18 17:00 05/09/18 19:00 Assessment/Plan Assessment/Plan Abx: Ceftriaxone 05/09- LEvaquin x1 05/08 Assessment: Asthma exacerbation -CXR: Cardiomegaly. No acute process -influenza sc neg Low grade fever- No leukocytosis Acute L DVT -v.duplex: Positive for left lower extremity acute deep venous thrombosis, involving the popliteal vein, calf veins, and upstream femoral vein ALMA, improving obesity CVA/TIA PUD GERD anxiety asthma HTN hx of DVT Plan: -Switch Ceftriaxone #1 (abx d#2/5) to Azithromycin for asthma exacerbation -f/u cx -Monitor CBC/CMP, temperatures Thank you for this consultation. Will continue to follow along with you. Discussed with Dolores Junior M.D. May 09, 2018 14:36
[2018-05-09] MEDS ORDERED: cefTRIAXone 1 GM in D5W 55 ML IVPB SCH (15:00)
[2018-05-09 15:08] LABS: APPEARANCE,URINE CLEAR; BILIRUBIN, URINE NEGATIVE (NEGATIVE); COLOR,URINE PALE YELLOW; GLUCOSE, URINE (UA) NEGATIVE (NEGATIVE); KETONES,URINE NEGATIVE (NEGATIVE); LEUKOCYTE ESTERASE ,URINE 1+ (NEGATIVE); NITRITE,URINE NEGATIVE (NEGATIVE); PH,URINE 7 (4.5-8.0); PROTEIN,URINE NEGATIVE (NEGATIVE); UROBILINOGEN,URINE NORMAL MG/DL (0.0-1.0)
[2018-05-09 16:00] VITALS: BP 159/97
[2018-05-09] MEDS ORDERED: Warfarin Sodium 5mg ORAL SCH (17:00)
[2018-05-09] MEDS ORDERED: Warfarin Sodium 1mg ORAL SCH (17:00)
[2018-05-09] MEDS: Dorzolamide 2% 10ml Btl BOTH EYES SCH (17:20)
[2018-05-09] MEDS: Brimonidine 0.2% Opth Sol BOTH EYES SCH (17:20)
[2018-05-09] MEDS: Docusate 100mg cap ORAL SCH (17:27)
--- NOTE | 2018-05-09 18:00 | Internal Med Progress Note ---
Subjective Date of Service: May 09, 2018 Physician Name Lyman,Fred Attending Physician Saran Olmos MD Current Medications Medications (Trade) Dose Ordered Sig/Lamonte Route PRN Reason Start Time Stop Time Status Last Admin Dose Admin Azithromycin (Zithromax) 250 mg DAILY ORAL 05/10/18 14:00 05/12/18 23:59 Brimonidine Tartrate (Alphagan) 1 drop BID BOTH EYES 05/09/18 18:00 06/08/18 17:59 05/09/18 17:20 Clonidine HCl (Catapres Tab) 0.1 mg Q6H PRN ORAL For High Blood Pressure 05/09/18 00:30 06/08/18 00:29 05/09/18 05:34 Docusate Sodium (Colace) 100 mg THREE TIMES A DAY ORAL 05/09/18 18:00 06/08/18 17:59 Dorzolamide HCl (Trusopt) 1 drop BID BOTH EYES 05/09/18 18:00 06/08/18 17:59 05/09/18 17:20 Heparin Sodium/ Dextrose 500 ml @ 21.772 mls/ hr ADJUST PER PROTOCOL IV 05/09/18 07:00 06/07/18 20:44 05/09/18 14:37 Losartan Potassium (Cozaar) 50 mg EVERY 12 HOURS ORAL 05/09/18 21:00 06/08/18 20:59 Pantoprazole (Protonix) 40 mg EVERY 12 HOURS ORAL 05/09/18 21:00 06/08/18 20:59 Promethazine HCl/ Codeine (Phenergan with Codeine) 5 ml Q4H PRN ORAL For Cough 05/09/18 13:15 06/08/18 13:14 Salmeterol Xinafoate/ Fluticasone (Advair 250/50 Diskus) 1 puffs BIDRT INH 05/09/18 11:00 06/08/18 10:59 Temazepam (Restoril) 15 mg HSPRN PRN ORAL Insomnia 05/08/18 22:00 05/15/18 21:59 05/08/18 22:20 Theophylline (Jorge-Dur) 100 mg EVERY 12 HOURS ORAL 05/09/18 21:00 06/08/18 20:59 Warfarin Sodium (Coumadin per pharmacy) 1 ea DAILY PRN MISC Per rx protocol 05/08/18 20:45 06/07/18 20:44 Warfarin Sodium (Coumadin) 2.5 mg ONCE ORAL 05/09/18 17:00 05/09/18 19:00 05/09/18 17:20 Allergies: Coded Allergies: No Known Allergies (Unverified , 02/20/12) ROS Limited/Unobtainable: No Constitutional: Reports: no symptoms HEENT: Reports: no symptoms Cardiovascular: Reports: no symptoms Respiratory: Reports: no symptoms Gastrointestinal/Abdominal: Reports: no symptoms Genitourinary: Reports: no symptoms Neurologic/Psychiatric: Reports: no symptoms Subjective 87 YO F admitted with leg swelling. Now acute deep venous thrombosis left lower extremity and acute asthma exacerbation. Cover for Int [facility]-Dr Chan Objective Last Vital Signs Date Time Temp Pulse Resp B/P (MAP) Pulse Ox O2 Delivery O2 Flow Rate FiO2 05/09/18 16:00 80 05/09/18 16:00 97.2 18 159/97 (117) 96 05/09/18 15:15 Room Air 21 Laboratory Tests Test 05/08/18 21:45 05/09/18 04:53 05/09/18 13:00 05/09/18 14:43 Activated Partial Thromboplast Time 58 SEC (23-33) H > 150 SEC (23-33) *H 83 SEC (23-33) H White Blood Count 8.6 K/UL (4.8-10.8) Red Blood Count 3.50 M/UL (4.20-5.40) L Hemoglobin 8.7 G/DL (12.0-16.0) L Hematocrit 27.7 % (37.0-47.0) L Mean Corpuscular Volume 79 FL (80-99) L Mean Corpuscular Hemoglobin 25.0 PG (27.0-31.0) L Mean Corpuscular Hemoglobin Concent 31.6 G/DL (32.0-36.0) L Red Cell Distribution Width 13.1 % (11.6-14.8) Platelet Count 235 K/UL (150-450) Mean Platelet Volume 6.9 FL (6.5-10.1) Neutrophils (%) (Auto) 65.7 % (45.0-75.0) Lymphocytes (%) (Auto) 19.7 % (20.0-45.0) L Monocytes (%) (Auto) 9.5 % (1.0-10.0) Eosinophils (%) (Auto) 4.2 % (0.0-3.0) H Basophils (%) (Auto) 1.0 % (0.0-2.0) Prothrombin Time 12.5 SEC (9.30-11.50) H Prothromb Time International Ratio 1.2 (0.9-1.1) H Sodium Level 141 MMOL/L (136-145) Potassium Level 3.6 MMOL/L (3.5-5.1) Chloride Level 107 MMOL/L (98-107) Carbon Dioxide Level 25 MMOL/L (21-32) Anion Gap 9 mmol/L (5-15) Blood Urea Nitrogen 15 mg/dL (7-18) Creatinine 1.5 MG/DL (0.55-1.30) H Estimat Glomerular Filtration Rate mL/min (>60) Glucose Level 96 MG/DL (74-106) Uric Acid 6.1 MG/DL (2.6-7.2) Calcium Level 8.7 MG/DL (8.5-10.1) Total Bilirubin 0.3 MG/DL (0.2-1.0) Aspartate Amino Transf (AST/SGOT) 18 U/L (15-37) Alanine Aminotransferase (ALT/SGPT) 16 U/L (12-78) Alkaline Phosphatase 55 U/L (46-116) Total Creatine Kinase 129 U/L (26-308) Total Protein 6.5 G/DL (6.4-8.2) Albumin 2.4 G/DL (3.4-5.0) L Globulin 4.1 g/dL Albumin/Globulin Ratio 0.6 (1.0-2.7) L Triglycerides Level 28 MG/DL (30-150) L Cholesterol Level 144 MG/DL (< 200) LDL Cholesterol 79 mg/dL (<100) HDL Cholesterol 61 MG/DL (40-60) H Cholesterol/HDL Ratio 2.4 (3.3-4.4) L Urine Color Pale yellow Urine Appearance Clear Urine pH 7 (4.5-8.0) Urine Specific [place] 1.005 (1.005-1.035) Urine Protein Negative (NEGATIVE) Urine Glucose (UA) Negative (NEGATIVE) Urine Ketones Negative (NEGATIVE) Urine Blood Negative (NEGATIVE) Urine Nitrite Negative (NEGATIVE) Urine Bilirubin Negative (NEGATIVE) Urine Urobilinogen Normal MG/DL (0.0-1.0) Urine Leukocyte Esterase 1+ (NEGATIVE) H Urine RBC 0 /HPF (0 - 2) Urine WBC 0-2 /HPF (0 - 2) Urine Squamous Epithelial Cells Occasional /LPF Urine Bacteria Occasional /HPF (NONE) Urine Eosinophils None seen (NONE SEEN) Urine Random Creatinine Pending Urine Random Microalbumin Pending Urine Random Sodium 176 mmol/L (20-110) H Urine Microalbumin/Creatinine Ratio Pending Microbiology Date/Time Source Procedure Growth Status 05/08/18 13:25 Nasal Nares Influenza Types A,B Antigen (ASHLEE) - Final Complete Intake and Output 05/08/18 05/09/18 18:59 06:59 Intake Total 598.988 ml 320 ml Balance 598.988 ml 320 ml Intake Oral 550 ml 320 ml IV Total 48.988 ml # Voids 1 # Bowel Movements 1 1 Objective PHYSICAL EXAMINATION: GENERAL: The patient is well-developed and well-nourished female, in no apparent distress. HEENT: Eyes, pupils equal and responsive to light and accommodation. Extraocular movements are intact. NECK: Supple without lymphadenopathy. CHEST: Lungs are clear to auscultation bilaterally without wheezes or rales. CARDIOVASCULAR: Regular rate. S1 and S2 are normal without murmurs, rubs, or gallops. ABDOMEN: Soft, nontender, and nondistended. Positive bowel sounds. No evidence of hepatosplenomegaly. Currently, no rebound or guarding. EXTREMITIES: Trace edema on the left and trace edema on the right. Otherwise, without cyanosis or clubbing. RECTAL: Refused. GENITAL: Refused. NEUROLOGIC: Cranial nerves II through XII grossly intact without focal deficits. Motor strength is 5/5 bilaterally. Deep tendon reflexes are 2+ Assessment/Plan Assessment/Plan ASSESSMENT: This is an 87-year-old female. 1. Deep venous thrombosis of the left lower extremity, acute. 2. Edema of bilateral lower extremities. 3. Asthma. 4. Hypertension. 5. Glaucoma. TREATMENT: 1. Deep venous thrombosis of the left lower extremity. The patient was started on heparin drip in the emergency room. The patient was not started on Xarelto due to renal insufficiency. Start Coumadin. Heparin will be continued until coumadin therapeutic 2. Asthma exacerbation. A Pulmonary consultation has been obtained with Dr. Saran Olmos. We will follow recommendations of Pulmonary. Continue Azithromycin per ID 3. Congestive heart failure. Cardiology consultation has been obtained with Dr. Srinivas aMsterson. 4. Hypertension. Continue losartan/hydrochlorothiazide as above. 5. Glaucoma. Continue eye drops as above. Fred Lyman MD May 09, 2018 18:00
--- NOTE | 2018-05-09 19:10 | NUR ---
NURSE NOTES: Received report from Cristi Pedraza RN. Pt is in the bed is assisted to use bedpan w/o respiratory distress in RA. Pt was instructed to use bottle to spit and use bedpan to urinate for staff to collect urine and sputum. Call light is w/in reach. Will follow plans of care.
--- NOTE | 2018-05-09 19:20 | NUR ---
HAND-OFF: Report given to david perkins.
[2018-05-09 20:00] VITALS: BP 160/88
[2018-05-09] MEDS: traMADol 50mg tab ORAL PRN (20:19)
[2018-05-09] MEDS: Losartan 50mg tab ORAL SCH (20:22)
[2018-05-09] MEDS: Theophylline ER 100mg ORAL SCH (20:22)
[2018-05-10] VITALS: BP 148/79
[2018-05-10] MEDS: traMADol 50mg tab ORAL PRN (02:21)
[2018-05-10] MEDS: Promethazine/Codeine 5ml UD ORAL PRN (02:30)
--- NOTE | 2018-05-10 02:54 | NUR ---
NURSE NOTES: Pure wick is applied to pt. Urine culture and sputum culture were collected and turned to the lab. Cough med and pain med were given previously. Pt stated that Tramadol is not working well for her pain, and requested IV pain med except morphine. Will contact Doctor for it. Addendum: 05/10/18 at 0541 by ELLEN FERRER RN Called and left message to Dr. Olmos at , #3 regarding pain med that tramadol 50mg PO Q6HR was not working for her pain control, pt requested IV pain med except morphine or another pain med. awaiting call back.
[2018-05-10 03:17] LABS: APPEARANCE,URINE CLEAR; BILIRUBIN, URINE NEGATIVE (NEGATIVE); COLOR,URINE PALE YELLOW; GLUCOSE, URINE (UA) NEGATIVE (NEGATIVE); KETONES,URINE NEGATIVE (NEGATIVE); LEUKOCYTE ESTERASE ,URINE 1+ (NEGATIVE); NITRITE,URINE NEGATIVE (NEGATIVE); PH,URINE 6.5 (4.5-8.0); PROTEIN,URINE NEGATIVE (NEGATIVE); UROBILINOGEN,URINE NORMAL MG/DL (0.0-1.0)
[2018-05-10 04:00] VITALS: BP 144/80
[2018-05-10 04:19] LABS: ANION GAP 14 mmol/L (5-15); BLOOD UREA NITROGEN 18 mg/dL (7-18); CALCIUM 9.3 MG/DL (8.5-10.1); CARBON DIOXIDE 23 MMOL/L (21-32); CHLORIDE 107 MMOL/L (98-107); CREATININE 1.8 MG/DL (0.55-1.30); POTASSIUM 3.6 MMOL/L (3.5-5.1); SODIUM 143 MMOL/L (136-145)
[2018-05-10 04:25] LABS: INR 1.1 (0.9-1.1)
[2018-05-10 04:27] LABS: BASOPHILS % (AUTO) 1.8 % (0.0-2.0); HEMATOCRIT 27.4 % (37.0-47.0); HEMOGLOBIN 8.7 G/DL (12.0-16.0); LYMPHOCYTES % (AUTO) 18.6 % (20.0-45.0); MEAN CORPUSCULAR VOLUME 79 FL (80-99); MONOCYTES % (AUTO) 9.8 % (1.0-10.0); NEUTROPHILS % (AUTO) 65.9 % (45.0-75.0); PLATELET COUNT 228 K/UL (150-450); RED BLOOD COUNT 3.47 M/UL (4.20-5.40); RED CELL DISTRIBUTION WIDTH 12.9 % (11.6-14.8); WHITE BLOOD COUNT 8.6 K/UL (4.8-10.8)
--- NOTE | 2018-05-10 05:04 | NUR ---
NURSE NOTES: Ptt 82 for today, keep hepatin drip rate of 21.772/has now. New PTT timed order at 0400 05-11-2018 was placed.
--- NOTE | 2018-05-10 07:27 | NUR ---
HAND-OFF: Report given to Faiza Naik RN.
[2018-05-10 08:00] VITALS: BP 174/96
[2018-05-10] MEDS ORDERED: Hyzaar 12.5mg/50mg tab ORAL SCH (09:00)
[2018-05-10] MEDS: Brimonidine 0.2% Opth Sol BOTH EYES SCH ×2 (09:11→18:12)
[2018-05-10] MEDS: Losartan 50mg tab ORAL SCH ×2 (09:12→20:24)
[2018-05-10] MEDS: Docusate 100mg cap ORAL SCH ×3 (09:12→18:12)
[2018-05-10] MEDS: Theophylline ER 100mg ORAL SCH ×2 (09:12→20:25)
[2018-05-10] MEDS: Dorzolamide 2% 10ml Btl BOTH EYES SCH ×2 (09:12→18:12)
[2018-05-10] MEDS: Heparin 25,000u/D5W 500ml 500 ML IV SCH (09:23)
[2018-05-10] MEDS ORDERED: Hydromorphone 0.5mg/0.5ml inj IVP PRN (09:45)
[2018-05-10] MEDS: Wixela 250/50 Inhaler - 60 dose INH SCH ×2 (10:14→23:36)
--- NOTE | 2018-05-10 11:19 | Pulmonology Progress Note ---
Assessment/Plan Problems: (1) DVT (deep venous thrombosis) (2) COPD (chronic obstructive pulmonary disease) (3) ATN (acute tubular necrosis) (4) Hypertension (5) Morbid obesity Assessment/Plan iv heparin coumadin po monitor BP renal studies anemia w/u respiratory treatment symptomatic treatment Subjective Interval Events: has some leg cramps Allergies: Coded Allergies: No Known Allergies (Unverified , 02/20/12) Objective Last 24 Hour Vital Signs Date Time Temp Pulse Resp B/P (MAP) Pulse Ox O2 Delivery O2 Flow Rate FiO2 05/10/18 10:15 86 20 99 Room Air 21 05/10/18 10:14 86 20 99 Room Air 21 05/10/18 09:12 174/96 05/10/18 09:00 Room Air 05/10/18 08:00 97.2 86 18 174/96 (122) 94 05/10/18 04:00 97.7 73 18 144/80 (101) 97 05/10/18 03:49 89 05/10/18 00:00 97.9 66 18 148/79 (102) 96 05/09/18 23:47 89 05/09/18 21:01 88 18 97 Room Air 21 05/09/18 21:00 Room Air 05/09/18 20:59 88 18 97 Room Air 21 05/09/18 20:22 160/88 05/09/18 20:13 81 18 Room Air 21 05/09/18 20:00 97.5 73 18 160/88 (112) 97 05/09/18 19:03 72 05/09/18 16:00 80 05/09/18 16:00 97.2 80 18 159/97 (117) 96 05/09/18 15:15 86 18 Room Air 21 05/09/18 12:00 97.3 68 20 160/85 (110) 98 05/09/18 12:00 66 Intake and Output 05/09/18 05/10/18 19:00 07:00 Intake Total 709.492 ml 152.404 ml Output Total 450 ml 400 ml Balance 259.492 ml -247.596 ml Intake Oral 360 ml IV Total 349.492 ml 152.404 ml Output Urine Total 450 ml 400 ml # Bowel Movements 1 HEENT: atraumatic Respiratory/Chest: chest wall non-tender, lungs clear Cardiovascular: normal peripheral pulses Abdomen: normal bowel sounds, soft, non tender Extremities: no cyanosis, no clubbing Microbiology Date/Time Source Procedure Growth Status 05/08/18 13:25 Nasal Nares Influenza Types A,B Antigen (ASHLEE) - Final Complete Laboratory Tests 05/09/18 13:00: Activated Partial Thromboplast Time 83H 05/09/18 14:43: Urine Color Pale yellow, Urine Appearance Clear, Urine pH 7, Urine Specific [place] 1.005, Urine Protein Negative, Urine Glucose (UA) Negative, Urine Ketones Negative, Urine Blood Negative, Urine Nitrite Negative, Urine Bilirubin Negative, Urine Urobilinogen Normal, Urine Leukocyte Esterase 1+H, Urine RBC 0, Urine WBC 0-2, Urine Squamous Epithelial Cells Occasional, Urine Bacteria Occasional, Urine Eosinophils None seen, Urine Random Creatinine [Pending], Urine Random Microalbumin [Pending], Urine Random Sodium 176H, Urine Microalbumin/Creatinine Ratio [Pending] 05/10/18 03:00: Urine Color Pale yellow, Urine Appearance Clear, Urine pH 6.5, Urine Specific [place] 1.005, Urine Protein Negative, Urine Glucose (UA) Negative, Urine Ketones Negative, Urine Blood Negative, Urine Nitrite Negative, Urine Bilirubin Negative, Urine Urobilinogen Normal, Urine Leukocyte Esterase 1+H, Urine RBC 0-2 , Urine WBC 0-2, Urine Squamous Epithelial Cells Occasional, Urine Bacteria Occasional, Urine Eosinophils None seen, Urine Random Sodium 108 05/10/18 04:00: Activated Partial Thromboplast Time 82H, White Blood Count 8.6, Red Blood Count 3.47L, Hemoglobin 8.7L, Hematocrit 27.4L, Mean Corpuscular Volume 79L, Mean Corpuscular Hemoglobin 25.0L, Mean Corpuscular Hemoglobin Concent 31.5L, Red Cell Distribution Width 12.9, Platelet Count 228, Mean Platelet Volume 4.7L, Neutrophils (%) (Auto) 65.9, Lymphocytes (%) (Auto) 18.6L, Monocytes (%) (Auto) 9.8, Eosinophils (%) (Auto) 4.0H, Basophils (%) (Auto) 1.8, Prothrombin Time 12.0H, Prothromb Time International Ratio 1.1, Sodium Level 143, Potassium Level 3.6, Chloride Level 107, Carbon Dioxide Level 23, Anion Gap 14, Blood Urea Nitrogen 18, Creatinine 1.8H, Estimat Glomerular Filtration Rate , Glucose Level 103, Calcium Level 9.3 Current Medications Medications (Trade) Dose Ordered Sig/Lamonte Route PRN Reason Start Time Stop Time Status Last Admin Dose Admin Azithromycin (Zithromax) 250 mg DAILY ORAL 05/10/18 14:00 05/12/18 23:59 Brimonidine Tartrate (Alphagan) 1 drop BID BOTH EYES 05/09/18 18:00 06/08/18 17:59 05/10/18 09:11 Clonidine HCl (Catapres Tab) 0.1 mg Q6H PRN ORAL For High Blood Pressure 05/09/18 00:30 06/08/18 00:29 05/09/18 05:34 Docusate Sodium (Colace) 100 mg THREE TIMES A DAY ORAL 05/09/18 18:00 06/08/18 17:59 05/10/18 09:12 Dorzolamide HCl (Trusopt) 1 drop BID BOTH EYES 05/09/18 18:00 06/08/18 17:59 05/10/18 09:12 Heparin Sodium/ Dextrose 500 ml @ 21.772 mls/ hr ADJUST PER PROTOCOL IV 05/09/18 07:00 06/07/18 20:44 05/10/18 09:23 Hydromorphone HCl (Dilaudid) 0.5 mg Q3H PRN IVP Severe Pain (Pain Scale 7-10) 05/10/18 09:45 05/17/18 09:44 Losartan Potassium (Cozaar) 50 mg EVERY 12 HOURS ORAL 05/09/18 21:00 06/08/18 20:59 05/10/18 09:12 Pantoprazole (Protonix) 40 mg EVERY 12 HOURS ORAL 05/09/18 21:00 06/08/18 20:59 05/10/18 09:12 Promethazine HCl/ Codeine (Phenergan with Codeine) 5 ml Q4H PRN ORAL For Cough 05/09/18 13:15 06/08/18 13:14 05/10/18 02:30 Salmeterol Xinafoate/ Fluticasone (Advair 250/50 Diskus) 1 puffs BIDRT INH 05/09/18 11:00 06/08/18 10:59 05/10/18 10:14 Temazepam (Restoril) 15 mg HSPRN PRN ORAL Insomnia 05/08/18 22:00 05/15/18 21:59 05/09/18 22:38 Theophylline (Jorge-Dur) 100 mg EVERY 12 HOURS ORAL 05/09/18 21:00 06/08/18 20:59 05/10/18 09:12 Tramadol HCl (Ultram) 50 mg Q6H PRN ORAL Moderate Pain (Pain Scale 4-6) 05/10/18 10:00 05/16/18 19:29 Warfarin Sodium (Coumadin per pharmacy) 1 ea DAILY PRN MISC Per rx protocol 05/08/18 20:45 06/07/18 20:44 Warfarin Sodium (Coumadin) 5 mg COUMADIN ONCE ORAL 05/10/18 17:00 05/10/18 17:01 Saran Olmos MD May 10, 2018 11:19
[2018-05-10 12:00] VITALS: BP 148/79
--- NOTE | 2018-05-10 14:07 | Infectious Diseases Prog Note ---
Assessment/Plan Assessment/Plan Abx: Ceftriaxone 05/09- LEvaquin x1 05/08 Assessment: Asthma exacerbation -CXR: Cardiomegaly. No acute process -influenza sc neg Low grade fever;improving No leukocytosis Acute L DVT -v.duplex: Positive for left lower extremity acute deep venous thrombosis, involving the popliteal vein, calf veins, and upstream femoral vein ALMA, improving obesity CVA/TIA PUD GERD anxiety asthma HTN hx of DVT Plan: -Continue Azithromycin #2 (abx d#05/07) for asthma exacerbation -05/09 SP Ceftriaxone #1 -05/08 SP LEvaquin x1 -f/u cx -Monitor CBC/CMP, temperatures Thank you for this consultation. Will continue to follow along with you. Discussed with RN. Subjective Allergies: Coded Allergies: No Known Allergies (Unverified , 02/20/12) Subjective afebrile >36hrs at RA no leukocytosis Objective Vital Signs Last 24 Hour Vital Signs Date Time Temp Pulse Resp B/P (MAP) Pulse Ox O2 Delivery O2 Flow Rate FiO2 05/10/18 10:15 86 20 99 Room Air 21 05/10/18 10:14 86 20 99 Room Air 21 05/10/18 09:12 174/96 05/10/18 09:00 Room Air 05/10/18 08:00 97.2 86 18 174/96 (122) 94 05/10/18 04:00 97.7 73 18 144/80 (101) 97 05/10/18 03:49 89 05/10/18 00:00 97.9 66 18 148/79 (102) 96 05/09/18 23:47 89 05/09/18 21:01 88 18 97 Room Air 21 05/09/18 21:00 Room Air 05/09/18 20:59 88 18 97 Room Air 21 05/09/18 20:22 160/88 05/09/18 20:13 81 18 Room Air 21 05/09/18 20:00 97.5 73 18 160/88 (112) 97 05/09/18 19:03 72 05/09/18 16:00 80 05/09/18 16:00 97.2 80 18 159/97 (117) 96 05/09/18 15:15 86 18 Room Air 21 Height (Feet): 5 Height (Inches): 2.00 Weight (Pounds): 150 Objective GENERAL: The patient is well-developed and well-nourished female, in no apparent distress. HEENT: Eyes, pupils equal and responsive to light and accommodation. Extraocular movements are intact. NECK: Supple without lymphadenopathy. CHEST: Lungs are clear to auscultation bilaterally without wheezes or rales. CARDIOVASCULAR: Regular rate. S1 and S2 are normal without murmurs, rubs, or gallops. ABDOMEN: Soft, nontender, and nondistended. Positive bowel sounds. No evidence of hepatosplenomegaly. Currently, no rebound or guarding. EXTREMITIES: Trace edema on the left and trace edema on the right. Otherwise, without cyanosis or clubbing. NEUROLOGIC: Cranial nerves II through XII grossly intact without focal deficits. Motor strength is 5/5 bilaterally. Deep tendon reflexes are 2+ plantar. Microbiology Date/Time Source Procedure Growth Status 05/08/18 13:25 Nasal Nares Influenza Types A,B Antigen (ASHLEE) - Final Complete Laboratory Tests Test 05/09/18 14:43 05/10/18 03:00 05/10/18 04:00 Urine Color Pale yellow Pale yellow Urine Appearance Clear Clear Urine pH 7 (4.5-8.0) 6.5 (4.5-8.0) Urine Specific [place] 1.005 (1.005-1.035) 1.005 (1.005-1.035) Urine Protein Negative (NEGATIVE) Negative (NEGATIVE) Urine Glucose (UA) Negative (NEGATIVE) Negative (NEGATIVE) Urine Ketones Negative (NEGATIVE) Negative (NEGATIVE) Urine Blood Negative (NEGATIVE) Negative (NEGATIVE) Urine Nitrite Negative (NEGATIVE) Negative (NEGATIVE) Urine Bilirubin Negative (NEGATIVE) Negative (NEGATIVE) Urine Urobilinogen Normal MG/DL (0.0-1.0) Normal MG/DL (0.0-1.0) Urine Leukocyte Esterase 1+ (NEGATIVE) H 1+ (NEGATIVE) H Urine RBC 0 /HPF (0 - 2) 0-2 /HPF (0 - 2) Urine WBC 0-2 /HPF (0 - 2) 0-2 /HPF (0 - 2) Urine Squamous Epithelial Cells Occasional /LPF Occasional /LPF Urine Bacteria Occasional /HPF (NONE) Occasional /HPF (NONE) Urine Eosinophils None seen (NONE SEEN) None seen (NONE SEEN) Urine Random Creatinine Pending Urine Random Microalbumin Pending Urine Random Sodium 176 mmol/L (20-110) H 108 mmol/L (20-110) Urine Microalbumin/Creatinine Ratio Pending White Blood Count 8.6 K/UL (4.8-10.8) Red Blood Count 3.47 M/UL (4.20-5.40) L Hemoglobin 8.7 G/DL (12.0-16.0) L Hematocrit 27.4 % (37.0-47.0) L Mean Corpuscular Volume 79 FL (80-99) L Mean Corpuscular Hemoglobin 25.0 PG (27.0-31.0) L Mean Corpuscular Hemoglobin Concent 31.5 G/DL (32.0-36.0) L Red Cell Distribution Width 12.9 % (11.6-14.8) Platelet Count 228 K/UL (150-450) Mean Platelet Volume 4.7 FL (6.5-10.1) L Neutrophils (%) (Auto) 65.9 % (45.0-75.0) Lymphocytes (%) (Auto) 18.6 % (20.0-45.0) L Monocytes (%) (Auto) 9.8 % (1.0-10.0) Eosinophils (%) (Auto) 4.0 % (0.0-3.0) H Basophils (%) (Auto) 1.8 % (0.0-2.0) Prothrombin Time 12.0 SEC (9.30-11.50) H Prothromb Time International Ratio 1.1 (0.9-1.1) Activated Partial Thromboplast Time 82 SEC (23-33) H Sodium Level 143 MMOL/L (136-145) Potassium Level 3.6 MMOL/L (3.5-5.1) Chloride Level 107 MMOL/L (98-107) Carbon Dioxide Level 23 MMOL/L (21-32) Anion Gap 14 mmol/L (5-15) Blood Urea Nitrogen 18 mg/dL (7-18) Creatinine 1.8 MG/DL (0.55-1.30) H Estimat Glomerular Filtration Rate mL/min (>60) Glucose Level 103 MG/DL (74-106) Calcium Level 9.3 MG/DL (8.5-10.1) Current Medications Medications (Trade) Dose Ordered Sig/Lamonte Route PRN Reason Start Time Stop Time Status Last Admin Dose Admin Azithromycin (Zithromax) 250 mg DAILY ORAL 05/10/18 14:00 05/12/18 23:59 Brimonidine Tartrate (Alphagan) 1 drop BID BOTH EYES 05/09/18 18:00 06/08/18 17:59 05/10/18 09:11 Clonidine HCl (Catapres Tab) 0.1 mg Q6H PRN ORAL For High Blood Pressure 05/09/18 00:30 06/08/18 00:29 05/09/18 05:34 Docusate Sodium (Colace) 100 mg THREE TIMES A DAY ORAL 05/09/18 18:00 06/08/18 17:59 05/10/18 09:12 Dorzolamide HCl (Trusopt) 1 drop BID BOTH EYES 05/09/18 18:00 06/08/18 17:59 05/10/18 09:12 Heparin Sodium/ Dextrose 500 ml @ 21.772 mls/ hr ADJUST PER PROTOCOL IV 05/09/18 07:00 06/07/18 20:44 05/10/18 09:23 Hydromorphone HCl (Dilaudid) 0.5 mg Q3H PRN IVP Severe Pain (Pain Scale 7-10) 05/10/18 09:45 05/17/18 09:44 Losartan Potassium (Cozaar) 50 mg EVERY 12 HOURS ORAL 05/09/18 21:00 06/08/18 20:59 05/10/18 09:12 Pantoprazole (Protonix) 40 mg EVERY 12 HOURS ORAL 05/09/18 21:00 06/08/18 20:59 05/10/18 09:12 Promethazine HCl/ Codeine (Phenergan with Codeine) 5 ml Q4H PRN ORAL For Cough 05/09/18 13:15 06/08/18 13:14 05/10/18 02:30 Salmeterol Xinafoate/ Fluticasone (Advair 250/50 Diskus) 1 puffs BIDRT INH 05/09/18 11:00 06/08/18 10:59 05/10/18 10:14 Temazepam (Restoril) 15 mg HSPRN PRN ORAL Insomnia 05/08/18 22:00 05/15/18 21:59 05/09/18 22:38 Theophylline (Jorge-Dur) 100 mg EVERY 12 HOURS ORAL 05/09/18 21:00 06/08/18 20:59 05/10/18 09:12 Tramadol HCl (Ultram) 50 mg Q6H PRN ORAL Moderate Pain (Pain Scale 4-6) 05/10/18 10:00 05/16/18 19:29 Warfarin Sodium (Coumadin per pharmacy) 1 ea DAILY PRN MISC Per rx protocol 05/08/18 20:45 06/07/18 20:44 Warfarin Sodium (Coumadin) 5 mg COUMADIN ONCE ORAL 05/10/18 17:00 05/10/18 17:01 Dolores Laws M.D. May 10, 2018 14:07
[2018-05-10] MEDS: Azithromycin 250mg tab ORAL SCH (14:57)
--- NOTE | 2018-05-10 15:43 | Nephrology Progress Note ---
Assessment/Plan Problem List: (1) Renal failure (ARF), acute on chronic (2) COPD (chronic obstructive pulmonary disease) (3) DVT (deep venous thrombosis) (4) Morbid obesity (5) Anemia Assessment ATN- COPD- DVT- HTN- Obesity- Plan UA U Na U Eosinophils DC HCTZ Adjust BP meds anemia dao Monitor renal parameters Avoid Nephrotoxics Subjective ROS Limited/Unobtainable: No Constitutional: Reports: malaise, weakness Objective Objective Last 24 Hour Vital Signs Date Time Temp Pulse Resp B/P (MAP) Pulse Ox O2 Delivery O2 Flow Rate FiO2 05/10/18 12:00 97.9 66 18 148/79 (102) 96 05/10/18 10:15 86 20 99 Room Air 21 05/10/18 10:14 86 20 99 Room Air 21 05/10/18 09:12 174/96 05/10/18 09:00 Room Air 05/10/18 08:00 97.2 86 18 174/96 (122) 94 05/10/18 04:00 97.7 73 18 144/80 (101) 97 05/10/18 03:49 89 05/10/18 00:00 97.9 66 18 148/79 (102) 96 05/09/18 23:47 89 05/09/18 21:01 88 18 97 Room Air 21 05/09/18 21:00 Room Air 05/09/18 20:59 88 18 97 Room Air 21 05/09/18 20:22 160/88 05/09/18 20:13 81 18 Room Air 21 05/09/18 20:00 97.5 73 18 160/88 (112) 97 05/09/18 19:03 72 05/09/18 16:00 80 05/09/18 16:00 97.2 80 18 159/97 (117) 96 Intake and Output 05/09/18 05/10/18 19:00 07:00 Intake Total 709.492 ml 152.404 ml Output Total 450 ml 400 ml Balance 259.492 ml -247.596 ml Intake Oral 360 ml IV Total 349.492 ml 152.404 ml Output Urine Total 450 ml 400 ml # Bowel Movements 1 Laboratory Tests 05/10/18 03:00: Urine Color Pale yellow, Urine Appearance Clear, Urine pH 6.5, Urine Specific [place] 1.005, Urine Protein Negative, Urine Glucose (UA) Negative, Urine Ketones Negative, Urine Blood Negative, Urine Nitrite Negative, Urine Bilirubin Negative, Urine Urobilinogen Normal, Urine Leukocyte Esterase 1+H, Urine RBC 0-2 , Urine WBC 0-2, Urine Squamous Epithelial Cells Occasional, Urine Bacteria Occasional, Urine Eosinophils None seen, Urine Random Sodium 108 05/10/18 04:00: White Blood Count 8.6, Red Blood Count 3.47L, Hemoglobin 8.7L, Hematocrit 27.4L , Mean Corpuscular Volume 79L, Mean Corpuscular Hemoglobin 25.0L, Mean Corpuscular Hemoglobin Concent 31.5L, Red Cell Distribution Width 12.9, Platelet Count 228, Mean Platelet Volume 4.7L, Neutrophils (%) (Auto) 65.9, Lymphocytes (%) (Auto) 18.6L, Monocytes (%) (Auto) 9.8, Eosinophils (%) (Auto) 4.0H, Basophils (%) (Auto) 1.8, Prothrombin Time 12.0H, Prothromb Time International Ratio 1.1, Activated Partial Thromboplast Time 82H, Sodium Level 143, Potassium Level 3.6, Chloride Level 107, Carbon Dioxide Level 23, Anion Gap 14, Blood Urea Nitrogen 18, Creatinine 1.8H, Estimat Glomerular Filtration Rate , Glucose Level 103, Calcium Level 9.3 Height (Feet): 5 Height (Inches): 2.00 Weight (Pounds): 150 General Appearance: no apparent distress, lethargic Cardiovascular: normal rate, arrhythmia Respiratory/Chest: decreased breath sounds Abdomen: other - obese Objective no change Mukul Denise MD May 10, 2018 15:43
[2018-05-10 16:00] VITALS: BP 140/81
[2018-05-10] MEDS ORDERED: Warfarin Sodium 5mg ORAL ONE (17:00)
--- NOTE | 2018-05-10 17:33 | Internal Med Progress Note ---
Subjective Physician Name DustinDeshawn Attending Physician Saran Olmos MD Current Medications Medications (Trade) Dose Ordered Sig/Lamonte Route PRN Reason Start Time Stop Time Status Last Admin Dose Admin Azithromycin (Zithromax) 250 mg DAILY ORAL 05/10/18 14:00 05/12/18 23:59 05/10/18 14:57 Brimonidine Tartrate (Alphagan) 1 drop BID BOTH EYES 05/09/18 18:00 06/08/18 17:59 05/10/18 09:11 Clonidine HCl (Catapres Tab) 0.1 mg Q6H PRN ORAL For High Blood Pressure 05/09/18 00:30 06/08/18 00:29 05/09/18 05:34 Docusate Sodium (Colace) 100 mg THREE TIMES A DAY ORAL 05/09/18 18:00 06/08/18 17:59 05/10/18 14:57 Dorzolamide HCl (Trusopt) 1 drop BID BOTH EYES 05/09/18 18:00 06/08/18 17:59 05/10/18 09:12 Heparin Sodium/ Dextrose 500 ml @ 21.772 mls/ hr ADJUST PER PROTOCOL IV 05/09/18 07:00 06/07/18 20:44 05/10/18 09:23 Hydromorphone HCl (Dilaudid) 0.5 mg Q3H PRN IVP Severe Pain (Pain Scale 7-10) 05/10/18 09:45 05/17/18 09:44 Losartan Potassium (Cozaar) 50 mg EVERY 12 HOURS ORAL 05/09/18 21:00 06/08/18 20:59 05/10/18 09:12 Pantoprazole (Protonix) 40 mg EVERY 12 HOURS ORAL 05/09/18 21:00 06/08/18 20:59 05/10/18 09:12 Promethazine HCl/ Codeine (Phenergan with Codeine) 5 ml Q4H PRN ORAL For Cough 05/09/18 13:15 06/08/18 13:14 05/10/18 02:30 Salmeterol Xinafoate/ Fluticasone (Advair 250/50 Diskus) 1 puffs BIDRT INH 05/09/18 11:00 06/08/18 10:59 05/10/18 10:14 Temazepam (Restoril) 15 mg HSPRN PRN ORAL Insomnia 05/08/18 22:00 05/15/18 21:59 05/09/18 22:38 Theophylline (Jorge-Dur) 100 mg EVERY 12 HOURS ORAL 05/09/18 21:00 06/08/18 20:59 05/10/18 09:12 Tramadol HCl (Ultram) 50 mg Q6H PRN ORAL Moderate Pain (Pain Scale 4-6) 05/10/18 10:00 05/16/18 19:29 Warfarin Sodium (Coumadin per pharmacy) 1 ea DAILY PRN MISC Per rx protocol 05/08/18 20:45 06/07/18 20:44 Allergies: Coded Allergies: No Known Allergies (Unverified , 02/20/12) Subjective Awake, alert, responsive, complaining of lower extremity pain. Denies any chest pain, denies any shortness of breath. Objective Last Vital Signs Date Time Temp Pulse Resp B/P (MAP) Pulse Ox O2 Delivery O2 Flow Rate FiO2 05/10/18 16:00 97.0 97 18 140/81 (100) 96 05/10/18 10:15 Room Air 21 Laboratory Tests Test 05/10/18 03:00 05/10/18 04:00 Urine Color Pale yellow Urine Appearance Clear Urine pH 6.5 (4.5-8.0) Urine Specific [employer] 1.005 (1.005-1.035) Urine Protein Negative (NEGATIVE) Urine Glucose (UA) Negative (NEGATIVE) Urine Ketones Negative (NEGATIVE) Urine Blood Negative (NEGATIVE) Urine Nitrite Negative (NEGATIVE) Urine Bilirubin Negative (NEGATIVE) Urine Urobilinogen Normal MG/DL (0.0-1.0) Urine Leukocyte Esterase 1+ (NEGATIVE) H Urine RBC 0-2 /HPF (0 - 2) Urine WBC 0-2 /HPF (0 - 2) Urine Squamous Epithelial Cells Occasional /LPF Urine Bacteria Occasional /HPF (NONE) Urine Eosinophils None seen (NONE SEEN) Urine Random Sodium 108 mmol/L (20-110) White Blood Count 8.6 K/UL (4.8-10.8) Red Blood Count 3.47 M/UL (4.20-5.40) L Hemoglobin 8.7 G/DL (12.0-16.0) L Hematocrit 27.4 % (37.0-47.0) L Mean Corpuscular Volume 79 FL (80-99) L Mean Corpuscular Hemoglobin 25.0 PG (27.0-31.0) L Mean Corpuscular Hemoglobin Concent 31.5 G/DL (32.0-36.0) L Red Cell Distribution Width 12.9 % (11.6-14.8) Platelet Count 228 K/UL (150-450) Mean Platelet Volume 4.7 FL (6.5-10.1) L Neutrophils (%) (Auto) 65.9 % (45.0-75.0) Lymphocytes (%) (Auto) 18.6 % (20.0-45.0) L Monocytes (%) (Auto) 9.8 % (1.0-10.0) Eosinophils (%) (Auto) 4.0 % (0.0-3.0) H Basophils (%) (Auto) 1.8 % (0.0-2.0) Prothrombin Time 12.0 SEC (9.30-11.50) H Prothromb Time International Ratio 1.1 (0.9-1.1) Activated Partial Thromboplast Time 82 SEC (23-33) H Sodium Level 143 MMOL/L (136-145) Potassium Level 3.6 MMOL/L (3.5-5.1) Chloride Level 107 MMOL/L (98-107) Carbon Dioxide Level 23 MMOL/L (21-32) Anion Gap 14 mmol/L (5-15) Blood Urea Nitrogen 18 mg/dL (7-18) Creatinine 1.8 MG/DL (0.55-1.30) H Estimat Glomerular Filtration Rate mL/min (>60) Glucose Level 103 MG/DL (74-106) Calcium Level 9.3 MG/DL (8.5-10.1) Microbiology Date/Time Source Procedure Growth Status 05/08/18 13:25 Nasal Nares Influenza Types A,B Antigen (ASHLEE) - Final Complete Intake and Output 05/09/18 05/10/18 19:00 07:00 Intake Total 709.492 ml 152.404 ml Output Total 450 ml 400 ml Balance 259.492 ml -247.596 ml Intake Oral 360 ml IV Total 349.492 ml 152.404 ml Output Urine Total 450 ml 400 ml # Bowel Movements 1 Objective General: No acute distress, awake and alert HEENT: NCAT, sclera anicteric, PERRL, EOMI. Neck: Supple, no significant jugular venous distention, Lungs: Fair inspiratory effort, no accessory muscle use, clear to auscultation bilaterally, no Wheeze or Rales. Heart: Regular rate and rhythm, normal S1/S2, no murmur. Abdomen: soft, nontender, nondistended. Normoactive bowel sounds. / Rectal: Refused and deferred. Extremities: No Cyanosis , clubbing or edema. Neuro: A&O x 3, Able to move all extremities Skin: warm, no rashes or lesions Psych: Normal mood and affect Assessment/Plan Assessment/Plan (1) Renal failure (ARF), acute on chronic (2) COPD (chronic obstructive pulmonary disease) (3) Acute left lower extremity DVT (deep venous thrombosis) (4) Morbid obesity (5) Anemia (6) asthma Plan: Continue on a heparin drip and Coumadin. Follow-up with the cardiology recommendation, Monitor laboratory, PT mobility. CODE STATUS: Full code. Deshawn Chan MD May 10, 2018 17:33
--- NOTE | 2018-05-10 17:38 | Cardiology Progress Note ---
Assessment/Plan Assessment/Plan dvt hs of htn renal failure obesity asthma renal fuxn seem miltonalbe melita d/w dr medley bp still elelvated will add norvasc has some halluciantin ? Subjective Cardiovascular: Denies: chest pain, irregular heart rate, lightheadedness Respiratory: Denies: shortness of breath Genitourinary: Denies: burning Subjective PAST MEDICAL HISTORY: Positive for history of generalized weakness previously. No heart attack. No diabetes. She does have high blood pressure as mentioned. She has had history of stroke previously. She has had a history of peptic ulcer disease. No kidney problems, liver problems, thyroid problems, anemia, or arthritis. Her chart indicates that she has had prior admissions here and she was previously discharged with a diagnosis of generalized weakness, urinary tract infection, kidney problems, acute on chronic dehydration, and history of hypertension. She has a history of deep venous thrombosis according to the chart. The patient herself denies it and she has a history of obesity, chronic constipation, and anemia. ALLERGIES: She denies any allergies to medications. SOCIAL HISTORY: She does not smoke. Does not drink. She lives at home. Her son lives with her. Objective Last 24 Hour Vital Signs Date Time Temp Pulse Resp B/P (MAP) Pulse Ox O2 Delivery O2 Flow Rate FiO2 05/10/18 16:00 97.0 97 18 140/81 (100) 96 05/10/18 12:00 97.9 66 18 148/79 (102) 96 05/10/18 10:15 86 20 99 Room Air 21 05/10/18 10:14 86 20 99 Room Air 21 05/10/18 09:12 174/96 05/10/18 09:00 Room Air 05/10/18 08:00 97.2 86 18 174/96 (122) 94 05/10/18 04:00 97.7 73 18 144/80 (101) 97 05/10/18 03:49 89 05/10/18 00:00 97.9 66 18 148/79 (102) 96 05/09/18 23:47 89 05/09/18 21:01 88 18 97 Room Air 21 05/09/18 21:00 Room Air 05/09/18 20:59 88 18 97 Room Air 21 05/09/18 20:22 160/88 05/09/18 20:13 81 18 Room Air 21 05/09/18 20:00 97.5 73 18 160/88 (112) 97 05/09/18 19:03 72 General Appearance: no apparent distress, alert Neck: supple Cardiovascular: normal rate, regular rhythm Respiratory/Chest: lungs clear, normal breath sounds Abdomen: normal bowel sounds, non tender, soft Extremities: trace edema Intake and Output 05/09/18 05/10/18 19:00 07:00 Intake Total 709.492 ml 152.404 ml Output Total 450 ml 400 ml Balance 259.492 ml -247.596 ml Intake Oral 360 ml IV Total 349.492 ml 152.404 ml Output Urine Total 450 ml 400 ml # Bowel Movements 1 Laboratory Tests Test 05/10/18 03:00 05/10/18 04:00 Urine Color Pale yellow Urine Appearance Clear Urine pH 6.5 (4.5-8.0) Urine Specific [place] 1.005 (1.005-1.035) Urine Protein Negative (NEGATIVE) Urine Glucose (UA) Negative (NEGATIVE) Urine Ketones Negative (NEGATIVE) Urine Blood Negative (NEGATIVE) Urine Nitrite Negative (NEGATIVE) Urine Bilirubin Negative (NEGATIVE) Urine Urobilinogen Normal MG/DL (0.0-1.0) Urine Leukocyte Esterase 1+ (NEGATIVE) H Urine RBC 0-2 /HPF (0 - 2) Urine WBC 0-2 /HPF (0 - 2) Urine Squamous Epithelial Cells Occasional /LPF Urine Bacteria Occasional /HPF (NONE) Urine Eosinophils None seen (NONE SEEN) Urine Random Sodium 108 mmol/L (20-110) White Blood Count 8.6 K/UL (4.8-10.8) Red Blood Count 3.47 M/UL (4.20-5.40) L Hemoglobin 8.7 G/DL (12.0-16.0) L Hematocrit 27.4 % (37.0-47.0) L Mean Corpuscular Volume 79 FL (80-99) L Mean Corpuscular Hemoglobin 25.0 PG (27.0-31.0) L Mean Corpuscular Hemoglobin Concent 31.5 G/DL (32.0-36.0) L Red Cell Distribution Width 12.9 % (11.6-14.8) Platelet Count 228 K/UL (150-450) Mean Platelet Volume 4.7 FL (6.5-10.1) L Neutrophils (%) (Auto) 65.9 % (45.0-75.0) Lymphocytes (%) (Auto) 18.6 % (20.0-45.0) L Monocytes (%) (Auto) 9.8 % (1.0-10.0) Eosinophils (%) (Auto) 4.0 % (0.0-3.0) H Basophils (%) (Auto) 1.8 % (0.0-2.0) Prothrombin Time 12.0 SEC (9.30-11.50) H Prothromb Time International Ratio 1.1 (0.9-1.1) Activated Partial Thromboplast Time 82 SEC (23-33) H Sodium Level 143 MMOL/L (136-145) Potassium Level 3.6 MMOL/L (3.5-5.1) Chloride Level 107 MMOL/L (98-107) Carbon Dioxide Level 23 MMOL/L (21-32) Anion Gap 14 mmol/L (5-15) Blood Urea Nitrogen 18 mg/dL (7-18) Creatinine 1.8 MG/DL (0.55-1.30) H Estimat Glomerular Filtration Rate mL/min (>60) Glucose Level 103 MG/DL (74-106) Calcium Level 9.3 MG/DL (8.5-10.1) Microbiology Date/Time Source Procedure Growth Status 05/08/18 13:25 Nasal Nares Influenza Types A,B Antigen (ASHLEE) - Final Complete Objective AST MEDICAL HISTORY: Positive for history of generalized weakness PHYSICAL EXAMINATION: GENERAL: Shows to be obese female, in no respiratory distress. VITAL SIGNS: Her orthostatic vitals that were performed today blood pressure in laying position reportedly 126/54 and in standing position 91/51, and most recently her blood pressure is 94/55. HEENT: Unremarkable. NECK: Supple. No jugular venous distention. No abdominojugular reflux noted. LUNGS: Appear to be clear to auscultation and percussion. CARDIAC: Regular rate and rhythm. No heaves, thrills, gallops, or rubs are noted. ABDOMEN: Soft and nontender. Positive bowel sounds. EXTREMITIES: There is no clubbing or cyanosis nor is there any edema. NEUROLOGICAL: She is awake, alert, and responsive and does not appear to Srinivas Masterson MD May 10, 2018 17:38
--- NOTE | 2018-05-10 19:11 | NUR ---
CASE MANAGEMENT: REVIEW SI: LEFT LOWER EXTREMITY ACUTE DVT T 97.0 HR 97 RR 18 BP 174/96 SAT 99% ROOM AIR H/H 8.7/27.4 IS: HEPARIN GTT TELEMETRY UNIT STATUS DCP: PATIENT IS FROM HOME
--- NOTE | 2018-05-10 19:15 | NUR ---
NURSE NOTES: Received report from GABRIELA Sethi. Patient is awake in bed, A/O x3. No s/s of acute distress noted. 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 Purewick catheter in place and suctioning well. Right AC 20g IV, intact and patent. Bed locked in lowest position with side rails up x3. Call light left within reach. Will continue to monitor.
[2018-05-10 20:00] VITALS: BP 162/85
[2018-05-11] VITALS: BP 138/72
[2018-05-11 04:00] VITALS: BP 142/94
--- NOTE | 2018-05-11 07:15 | NUR ---
HAND-OFF: Report given to Keshia Robin RN.
[2018-05-11 07:33] LABS: INR 1.4 (0.9-1.1)
--- NOTE | 2018-05-11 07:43 | Pulmonology Progress Note ---
Assessment/Plan Assessment/Plan ASSESSMENT Acute DVT LLE HTN with HTN urgency (on admission) COPD/Asthma exacerbation anemia ALMA on [facility] floor Heparin drip and Coumadin to bridge to therapeutic INR / still subtherapeutic venous duplex with LLE DVT CXR + CN, no acute cardiopulmonary pathology O2 as needed to keep pulse ox above 92%, pulmonary toilet with bronchodilator continue Advair trial of theophylline restarted on antibiotic due to leukocytosis as per ID recs antitussive prn BP management with CCB and ARB lipid panel stable nephro follows off HcTz monitor renal parameters and electrolytes, correct electrolytes as needed, avoid nephrotoxics no change in creatinine , possibly chronic renal insufficiency check renal US will hold off on steroids for now bowel regimen supportive care pain management case discussed and evaluated by supervising physician Subjective Allergies: Coded Allergies: No Known Allergies (Unverified , 02/20/12) Subjective c/o pain LLE no SOB no CP leukocytosis today, afebrile Objective Last 24 Hour Vital Signs Date Time Temp Pulse Resp B/P (MAP) Pulse Ox O2 Delivery O2 Flow Rate FiO2 05/11/18 04:00 98.1 104 20 142/94 (110) 97 05/11/18 03:46 95 05/11/18 00:00 99.1 97 18 138/72 (94) 97 05/10/18 23:41 97 05/10/18 23:39 98 20 99 Room Air 21 05/10/18 23:38 96 20 98 Room Air 21 05/10/18 21:00 Room Air 05/10/18 20:24 162/85 05/10/18 20:00 99.0 106 18 162/85 (110) 96 05/10/18 19:15 105 05/10/18 18:15 98 140/81 05/10/18 16:00 97.0 97 18 140/81 (100) 96 05/10/18 16:00 98 05/10/18 12:00 97.9 66 18 148/79 (102) 96 05/10/18 12:00 87 05/10/18 10:15 86 20 99 Room Air 21 05/10/18 10:14 86 20 99 Room Air 21 05/10/18 09:12 174/96 05/10/18 09:00 Room Air 05/10/18 08:00 97.2 86 18 174/96 (122) 94 05/10/18 08:00 84 Intake and Output 05/10/18 05/11/18 19:00 07:00 Intake Total 21.772 ml 239.442 ml Output Total 550 ml 450 ml Balance -528.228 ml -210.558 ml IV Total 21.772 ml 239.442 ml Output Urine Total 550 ml 450 ml General Appearance: no acute distress, other - awake, alert, oriented elderly AA female in NAD HEENT: normocephalic, atraumatic, anicteric, mucous membranes moist Respiratory/Chest: lungs clear, no respiratory distress, no accessory muscle use Cardiovascular: normal rate - SR occas mild tachy 100-108 Abdomen: normal bowel sounds, soft, non tender, non distended Extremities: pedal pulses normal, other - edema LLE, Neurologic/Psychiatric: abnormal gait, alert, oriented x 3, responsive Musculoskeletal: normal muscle bulk Microbiology Date/Time Source Procedure Growth Status 05/10/18 00:30 Sputum Gram Stain - Final Resulted 05/10/18 00:30 Sputum Culture - Preliminary Usual Upper Respiratory Yue Resulted 05/08/18 13:25 Nasal Nares Influenza Types A,B Antigen (ASHLEE) - Final Complete Laboratory Tests 05/11/18 06:33: White Blood Count [Pending], Red Blood Count [Pending], Hemoglobin [Pending], Hematocrit [Pending], Mean Corpuscular Volume [Pending], Mean Corpuscular Hemoglobin [Pending], Mean Corpuscular Hemoglobin Concent [Pending], Red Cell Distribution Width [Pending], Platelet Count [Pending], Mean Platelet Volume [ Pending], Neutrophils (%) (Auto) [Pending], Lymphocytes (%) (Auto) [Pending], Monocytes (%) (Auto) [Pending], Eosinophils (%) (Auto) [Pending], Basophils (%) (Auto) [Pending], Erythrocyte Sedimentation Rate [Pending], Reticulocyte Count [ Pending], Prothrombin Time 15.0H, Prothromb Time International Ratio 1.4H, Activated Partial Thromboplast Time 79H, Sodium Level [Pending], Potassium Level [Pending], Chloride Level [Pending], Carbon Dioxide Level [Pending], Blood Urea Nitrogen [Pending], Creatinine [Pending], Estimat Glomerular Filtration Rate [Pending], Glucose Level [Pending], Hemoglobin A1c [Pending], Uric Acid [Pending], Calcium Level [Pending], Phosphorus Level [Pending], Magnesium Level [Pending], Iron Level [Pending], Unsaturated Iron Binding [ Pending], Ferritin [Pending], Total Bilirubin [Pending], Gamma Glutamyl Transpeptidase [Pending], Aspartate Amino Transf (AST/SGOT) [Pending], Alanine Aminotransferase (ALT/SGPT) [Pending], Alkaline Phosphatase [Pending], Lactate Dehydrogenase [Pending], C-Reactive Protein, Quantitative [Pending], Pro-B-Type Natriuretic Peptide [Pending], Total Protein [Pending], Albumin [Pending], Globulin [Pending], Carcinoembryonic Antigen [Pending], Vitamin B12 Level [ Pending], Folate [Pending], Thyroid Stimulating Hormone (TSH) [Pending] Current Medications Medications (Trade) Dose Ordered Sig/Lamonte Route PRN Reason Start Time Stop Time Status Last Admin Dose Admin Amlodipine Besylate (Norvasc) 2.5 mg DAILY ORAL 05/11/18 09:00 06/10/18 08:59 Azithromycin (Zithromax) 250 mg DAILY ORAL 05/10/18 14:00 05/12/18 23:59 05/10/18 14:57 Brimonidine Tartrate (Alphagan) 1 drop BID BOTH EYES 05/09/18 18:00 06/08/18 17:59 05/10/18 18:12 Clonidine HCl (Catapres Tab) 0.1 mg Q6H PRN ORAL For High Blood Pressure 05/09/18 00:30 06/08/18 00:29 05/09/18 05:34 Docusate Sodium (Colace) 100 mg THREE TIMES A DAY ORAL 05/09/18 18:00 06/08/18 17:59 05/10/18 18:12 Dorzolamide HCl (Trusopt) 1 drop BID BOTH EYES 05/09/18 18:00 06/08/18 17:59 05/10/18 18:12 Heparin Sodium/ Dextrose 500 ml @ 21.772 mls/ hr ADJUST PER PROTOCOL IV 05/09/18 07:00 06/07/18 20:44 05/10/18 09:23 Hydromorphone HCl (Dilaudid) 0.5 mg Q3H PRN IVP Severe Pain (Pain Scale 7-10) 05/10/18 09:45 05/17/18 09:44 Losartan Potassium (Cozaar) 50 mg EVERY 12 HOURS ORAL 05/09/18 21:00 06/08/18 20:59 05/10/18 20:24 Pantoprazole (Protonix) 40 mg EVERY 12 HOURS ORAL 05/09/18 21:00 06/08/18 20:59 05/10/18 20:24 Promethazine HCl/ Codeine (Phenergan with Codeine) 5 ml Q4H PRN ORAL For Cough 05/09/18 13:15 06/08/18 13:14 05/10/18 02:30 Salmeterol Xinafoate/ Fluticasone (Advair 250/50 Diskus) 1 puffs BIDRT INH 05/09/18 11:00 06/08/18 10:59 05/10/18 23:36 Temazepam (Restoril) 15 mg HSPRN PRN ORAL Insomnia 05/08/18 22:00 05/15/18 21:59 05/09/18 22:38 Theophylline (Jorge-Dur) 100 mg EVERY 12 HOURS ORAL 05/09/18 21:00 06/08/18 20:59 05/10/18 20:25 Tramadol HCl (Ultram) 50 mg Q6H PRN ORAL Moderate Pain (Pain Scale 4-6) 05/10/18 10:00 05/16/18 19:29 Warfarin Sodium (Coumadin per pharmacy) 1 ea DAILY PRN MISC Per rx protocol 05/08/18 20:45 06/07/18 20:44 Angélica Blanc NP May 11, 2018 07:43
[2018-05-11 07:54] LABS: HEMOGLOBIN 10.3 G/DL (12.0-16.0); MEAN CORPUSCULAR VOLUME 79 FL (80-99); PLATELET COUNT 312 K/UL (150-450); RED BLOOD COUNT 4.16 M/UL (4.20-5.40); RED CELL DISTRIBUTION WIDTH 12.7 % (11.6-14.8); WHITE BLOOD COUNT 15.1 K/UL (4.8-10.8)
[2018-05-11] MEDS: traMADol 50mg tab ORAL PRN (07:58)
[2018-05-11 08:00] VITALS: BP 133/79
--- NOTE | 2018-05-11 08:00 | NUR ---
NURSE NOTES: Pt awake/alert in bed, breathing easily on room air, denies SOB but c/o acute aching pain in both legs at this time, pain Rx given per eMAR. Vital signs stable with SR @ 110 on monitor. IV accessright a/c flushed with 10 ml NS and locked. Bed left in low position, side rails up x 2 and call light left near pt's hand.
[2018-05-11 08:15] LABS: ALANINE AMINOTRANSFERASE 18 U/L (12-78); ALBUMIN 2.6 G/DL (3.4-5.0); ALBUMIN/GLOBULIN RATIO 0.5 (1.0-2.7); ALKALINE PHOSPHATASE 73 U/L (46-116); ANION GAP 12 mmol/L (5-15); ASPARTATE AMINO TRANSFERASE 23 U/L (15-37); BILIRUBIN,TOTAL 0.5 MG/DL (0.2-1.0); BLOOD UREA NITROGEN 15 mg/dL (7-18); CALCIUM 9.7 MG/DL (8.5-10.1); CARBON DIOXIDE 24 MMOL/L (21-32); CHLORIDE 99 MMOL/L (98-107); CREATININE 1.6 MG/DL (0.55-1.30); FERRITIN 157 NG/ML (8-388); LACTATE DEHYDROGENASE 239 U/L (81-234); POTASSIUM 3.4 MMOL/L (3.5-5.1); SODIUM 135 MMOL/L (136-145)
--- NOTE | 2018-05-11 08:20 | Infectious Diseases Prog Note ---
Assessment/Plan Assessment/Plan Abx: Ceftriaxone 05/09- LEvaquin x1 05/08 Assessment: Asthma exacerbation -CXR: Cardiomegaly. No acute process -influenza sc neg -SCx - NF Low grade fever;improving No leukocytosis Acute L DVT -v.duplex: Positive for left lower extremity acute deep venous thrombosis, involving the popliteal vein, calf veins, and upstream femoral vein ALMA, improving obesity CVA/TIA PUD GERD anxiety asthma HTN hx of DVT Plan: - Restart ceftriaxone given increased WBCs -Continue Azithromycin #3 (abx d#4/5) for asthma exacerbation -05/09 SP Ceftriaxone #1 -05/08 SP Levaquin x1 -Monitor CBC/CMP, temperatures Will continue to follow along with you. Subjective Allergies: Coded Allergies: No Known Allergies (Unverified , 02/20/12) Subjective WBCs increased to 15. Patient still afebrile Satting well on RA with SARAVANAN Objective Vital Signs Last 24 Hour Vital Signs Date Time Temp Pulse Resp B/P (MAP) Pulse Ox O2 Delivery O2 Flow Rate FiO2 05/11/18 04:00 98.1 104 20 142/94 (110) 97 05/11/18 03:46 95 05/11/18 00:00 99.1 97 18 138/72 (94) 97 05/10/18 23:41 97 05/10/18 23:39 98 20 99 Room Air 21 05/10/18 23:38 96 20 98 Room Air 21 05/10/18 21:00 Room Air 05/10/18 20:24 162/85 05/10/18 20:00 99.0 106 18 162/85 (110) 96 05/10/18 19:15 105 05/10/18 18:15 98 140/81 05/10/18 16:00 97.0 97 18 140/81 (100) 96 05/10/18 16:00 98 05/10/18 12:00 97.9 66 18 148/79 (102) 96 05/10/18 12:00 87 05/10/18 10:15 86 20 99 Room Air 21 05/10/18 10:14 86 20 99 Room Air 21 05/10/18 09:12 174/96 05/10/18 09:00 Room Air Height (Feet): 5 Height (Inches): 2.00 Weight (Pounds): 150 Objective GENERAL: NAD HEENT: NCAT, MMM, EOMI CHEST: Lungs are clear to auscultation bilaterally without wheezes or rales. CARDIOVASCULAR: Regular rate. S1 and S2 are normal without murmurs, rubs, or gallops. ABDOMEN: Soft, nontender, and nondistended. Positive bowel sounds. Microbiology Date/Time Source Procedure Growth Status 05/10/18 00:30 Sputum Gram Stain - Final Resulted 05/10/18 00:30 Sputum Culture - Preliminary Usual Upper Respiratory Yue Resulted 05/08/18 13:25 Nasal Nares Influenza Types A,B Antigen (ASHLEE) - Final Complete Laboratory Tests Test 05/11/18 06:33 White Blood Count 15.1 K/UL (4.8-10.8) #H Red Blood Count 4.16 M/UL (4.20-5.40) L Hemoglobin 10.3 G/DL (12.0-16.0) L Hematocrit 33.0 % (37.0-47.0) L Mean Corpuscular Volume 79 FL (80-99) L Mean Corpuscular Hemoglobin 24.8 PG (27.0-31.0) L Mean Corpuscular Hemoglobin Concent 31.2 G/DL (32.0-36.0) L Red Cell Distribution Width 12.7 % (11.6-14.8) Platelet Count 312 K/UL (150-450) Mean Platelet Volume 6.1 FL (6.5-10.1) L Neutrophils (%) (Auto) % (45.0-75.0) Lymphocytes (%) (Auto) % (20.0-45.0) Monocytes (%) (Auto) % (1.0-10.0) Eosinophils (%) (Auto) % (0.0-3.0) Basophils (%) (Auto) % (0.0-2.0) Neutrophils % (Manual) Pending Lymphocytes % (Manual) Pending Platelet Estimate Pending Platelet Morphology Pending Erythrocyte Sedimentation Rate Pending Reticulocyte Count Pending Prothrombin Time 15.0 SEC (9.30-11.50) H Prothromb Time International Ratio 1.4 (0.9-1.1) H Activated Partial Thromboplast Time 79 SEC (23-33) H Sodium Level Pending Potassium Level Pending Chloride Level Pending Carbon Dioxide Level Pending Blood Urea Nitrogen Pending Creatinine Pending Estimat Glomerular Filtration Rate Pending Glucose Level Pending Hemoglobin A1c Pending Uric Acid Pending Calcium Level Pending Phosphorus Level Pending Magnesium Level Pending Iron Level Pending Unsaturated Iron Binding Pending Ferritin Pending Total Bilirubin Pending Gamma Glutamyl Transpeptidase Pending Aspartate Amino Transf (AST/SGOT) Pending Alanine Aminotransferase (ALT/SGPT) Pending Alkaline Phosphatase Pending Lactate Dehydrogenase Pending C-Reactive Protein, Quantitative Pending Pro-B-Type Natriuretic Peptide Pending Total Protein Pending Albumin Pending Globulin Pending Carcinoembryonic Antigen Pending Vitamin B12 Level Pending Folate Pending Thyroid Stimulating Hormone (TSH) Pending Current Medications Medications (Trade) Dose Ordered Sig/Lamonte Route PRN Reason Start Time Stop Time Status Last Admin Dose Admin Amlodipine Besylate (Norvasc) 2.5 mg DAILY ORAL 05/11/18 09:00 06/10/18 08:59 Azithromycin (Zithromax) 250 mg DAILY ORAL 05/10/18 14:00 05/12/18 23:59 05/10/18 14:57 Brimonidine Tartrate (Alphagan) 1 drop BID BOTH EYES 05/09/18 18:00 06/08/18 17:59 05/10/18 18:12 Clonidine HCl (Catapres Tab) 0.1 mg Q6H PRN ORAL For High Blood Pressure 05/09/18 00:30 06/08/18 00:29 05/09/18 05:34 Docusate Sodium (Colace) 100 mg THREE TIMES A DAY ORAL 05/09/18 18:00 06/08/18 17:59 05/10/18 18:12 Dorzolamide HCl (Trusopt) 1 drop BID BOTH EYES 05/09/18 18:00 06/08/18 17:59 05/10/18 18:12 Heparin Sodium/ Dextrose 500 ml @ 21.772 mls/ hr ADJUST PER PROTOCOL IV 05/09/18 07:00 06/07/18 20:44 05/10/18 09:23 Hydromorphone HCl (Dilaudid) 0.5 mg Q3H PRN IVP Severe Pain (Pain Scale 7-10) 05/10/18 09:45 05/17/18 09:44 Losartan Potassium (Cozaar) 50 mg EVERY 12 HOURS ORAL 05/09/18 21:00 06/08/18 20:59 05/10/18 20:24 Pantoprazole (Protonix) 40 mg EVERY 12 HOURS ORAL 05/09/18 21:00 06/08/18 20:59 05/10/18 20:24 Promethazine HCl/ Codeine (Phenergan with Codeine) 5 ml Q4H PRN ORAL For Cough 05/09/18 13:15 06/08/18 13:14 05/10/18 02:30 Salmeterol Xinafoate/ Fluticasone (Advair 250/50 Diskus) 1 puffs BIDRT INH 05/09/18 11:00 06/08/18 10:59 05/10/18 23:36 Temazepam (Restoril) 15 mg HSPRN PRN ORAL Insomnia 05/08/18 22:00 05/15/18 21:59 05/09/18 22:38 Theophylline (Jorge-Dur) 100 mg EVERY 12 HOURS ORAL 05/09/18 21:00 06/08/18 20:59 05/10/18 20:25 Tramadol HCl (Ultram) 50 mg Q6H PRN ORAL Moderate Pain (Pain Scale 4-6) 05/10/18 10:00 05/16/18 19:29 05/11/18 07:58 Warfarin Sodium (Coumadin per pharmacy) 1 ea DAILY PRN MISC Per rx protocol 05/08/18 20:45 06/07/18 20:44 Fausto Quintana MD May 11, 2018 08:20
[2018-05-11 08:35] LABS: % IRON SATURATION 6 % (15-50); IRON 12 ug/dL (50-175); TOTAL IRON BINDING CAPACITY 188 ug/dL (250-450)
[2018-05-11] MEDS: Brimonidine 0.2% Opth Sol BOTH EYES SCH ×2 (08:45→17:24)
[2018-05-11] MEDS: Dorzolamide 2% 10ml Btl BOTH EYES SCH ×2 (08:45→17:24)
[2018-05-11] MEDS: Docusate 100mg cap ORAL SCH ×3 (08:45→17:23)
[2018-05-11] MEDS: Losartan 50mg tab ORAL SCH ×2 (08:46→22:59)
[2018-05-11] MEDS: Azithromycin 250mg tab ORAL SCH (08:46)
[2018-05-11] MEDS: Theophylline ER 100mg ORAL SCH ×2 (08:46→22:59)
[2018-05-11] MEDS: Heparin 25,000u/D5W 500ml 500 ML IV SCH (08:48)
[2018-05-11 08:56] LABS: PHOSPHORUS 3.3 MG/DL (2.5-4.9)
[2018-05-11] MEDS: Wixela 250/50 Inhaler - 60 dose INH SCH ×2 (09:25→22:18)
[2018-05-11] MEDS: cefTRIAXone 1 GM in D5W 55 ML IVPB SCH (09:56)
[2018-05-11 12:00] VITALS: BP 141/80
--- NOTE | 2018-05-11 13:19 | Nephrology Progress Note ---
Assessment/Plan Problem List: (1) Renal failure (ARF), acute on chronic (2) COPD (chronic obstructive pulmonary disease) (3) DVT (deep venous thrombosis) (4) Morbid obesity (5) Anemia Assessment ATN- COPD- DVT- HTN- Obesity- Plan one liter saline UA U Na U Eosinophils DC HCTZ Adjust BP meds anemia dao Monitor renal parameters Avoid Nephrotoxics Subjective ROS Limited/Unobtainable: No Constitutional: Reports: malaise Objective Objective Last 24 Hour Vital Signs Date Time Temp Pulse Resp B/P (MAP) Pulse Ox O2 Delivery O2 Flow Rate FiO2 05/11/18 12:00 97.7 82 17 141/80 (100) 97 05/11/18 12:00 92 05/11/18 09:26 98 16 100 Room Air 21 05/11/18 09:26 98 16 100 Room Air 21 05/11/18 09:00 Room Air 05/11/18 08:46 104 142/94 05/11/18 08:46 142/94 05/11/18 08:00 93 05/11/18 08:00 97.9 88 16 133/79 (97) 96 05/11/18 04:00 98.1 104 20 142/94 (110) 97 05/11/18 03:46 95 05/11/18 00:00 99.1 97 18 138/72 (94) 97 05/10/18 23:41 97 05/10/18 23:39 98 20 99 Room Air 21 05/10/18 23:38 96 20 98 Room Air 21 05/10/18 21:00 Room Air 05/10/18 20:24 162/85 05/10/18 20:00 99.0 106 18 162/85 (110) 96 05/10/18 19:15 105 05/10/18 18:15 98 140/81 05/10/18 16:00 97.0 97 18 140/81 (100) 96 05/10/18 16:00 98 Intake and Output 05/10/18 05/11/18 19:00 07:00 Intake Total 21.772 ml 239.442 ml Output Total 550 ml 450 ml Balance -528.228 ml -210.558 ml IV Total 21.772 ml 239.442 ml Output Urine Total 550 ml 450 ml Laboratory Tests 05/11/18 06:33: White Blood Count 15.1#H, Red Blood Count 4.16L, Hemoglobin 10.3L, Hematocrit 33.0L, Mean Corpuscular Volume 79L, Mean Corpuscular Hemoglobin 24.8L, Mean Corpuscular Hemoglobin Concent 31.2L, Red Cell Distribution Width 12.7, Platelet Count 312, Mean Platelet Volume 6.1L, Neutrophils (%) (Auto) , Lymphocytes (%) (Auto) , Monocytes (%) (Auto) , Eosinophils (%) (Auto) , Basophils (%) (Auto) , Differential Total Cells Counted 100, Neutrophils % ( Manual) 86H, Lymphocytes % (Manual) 7L, Monocytes % (Manual) 6, Eosinophils % ( Manual) 0, Basophils % (Manual) 0, Band Neutrophils 1, Platelet Estimate Adequate, Platelet Morphology Normal, Hypochromasia 1+, Microcytosis 1+, Erythrocyte Sedimentation Rate 100H, Reticulocyte Count 0.5, Prothrombin Time 15.0H, Prothromb Time International Ratio 1.4H, Activated Partial Thromboplast Time 79H, Sodium Level 135L, Potassium Level 3.4L, Chloride Level 99, Carbon Dioxide Level 24, Anion Gap 12, Blood Urea Nitrogen 15, Creatinine 1.6H, Estimat Glomerular Filtration Rate , Glucose Level 110H, Hemoglobin A1c 5.6, Uric Acid 5.1, Calcium Level 9.7, Phosphorus Level 3.3, Magnesium Level 1.6L, Iron Level 12L, Total Iron Binding Capacity 188L, Percent Iron Saturation 6L, Unsaturated Iron Binding 176, Ferritin 157, Total Bilirubin 0.5, Gamma Glutamyl Transpeptidase 16, Aspartate Amino Transf (AST/SGOT) 23, Alanine Aminotransferase (ALT/SGPT) 18, Alkaline Phosphatase 73, Lactate Dehydrogenase 239H, C-Reactive Protein, Quantitative 32.3H, Pro-B-Type Natriuretic Peptide 2245H, Total Protein 7.7, Albumin 2.6L, Globulin 5.1, Albumin/Globulin Ratio 0.5L, Carcinoembryonic Antigen [Pending], Vitamin B12 Level > 2000H, Folate 16.2 , Thyroid Stimulating Hormone (TSH) 1.109 Height (Feet): 5 Height (Inches): 2.00 Weight (Pounds): 150 General Appearance: no apparent distress Neck: limited range of motion Cardiovascular: other - variable Respiratory/Chest: decreased breath sounds Abdomen: soft Objective no change Fouladian,Mukul MD May 11, 2018 13:19
[2018-05-11 16:00] VITALS: BP 137/83
--- NOTE | 2018-05-11 16:30 | Cardiology Progress Note ---
Assessment/Plan Assessment/Plan dvt hs of htn renal failure obesity asthma renal fuxn seem miltonalbe melita d/w dr medley bp still elelvated will add norvasc dose of nrovasc increased wath for responsebefore further increase in valle Subjective Cardiovascular: Denies: chest pain, lightheadedness, palpitations Respiratory: Denies: SOB with excertion Gastrointestinal/Abdominal: Denies: abdominal pain Genitourinary: Denies: burning Subjective PAST MEDICAL HISTORY: Positive for history of generalized weakness previously. No heart attack. No diabetes. She does have high blood pressure as mentioned. She has had history of stroke previously. She has had a history of peptic ulcer disease. No kidney problems, liver problems, thyroid problems, anemia, or arthritis. Her chart indicates that she has had prior admissions here and she was previously discharged with a diagnosis of generalized weakness, urinary tract infection, kidney problems, acute on chronic dehydration, and history of hypertension. She has a history of deep venous thrombosis according to the chart. The patient herself denies it and she has a history of obesity, chronic constipation, and anemia. ALLERGIES: She denies any allergies to medications. SOCIAL HISTORY: She does not smoke. Does not drink. She lives at home. Her son lives with her. Objective Last 24 Hour Vital Signs Date Time Temp Pulse Resp B/P (MAP) Pulse Ox O2 Delivery O2 Flow Rate FiO2 05/11/18 12:00 97.7 82 17 141/80 (100) 97 05/11/18 12:00 92 05/11/18 09:26 98 16 100 Room Air 21 05/11/18 09:26 98 16 100 Room Air 21 05/11/18 09:00 Room Air 05/11/18 08:46 104 142/94 05/11/18 08:46 142/94 05/11/18 08:00 93 05/11/18 08:00 97.9 88 16 133/79 (97) 96 05/11/18 04:00 98.1 104 20 142/94 (110) 97 05/11/18 03:46 95 05/11/18 00:00 99.1 97 18 138/72 (94) 97 05/10/18 23:41 97 05/10/18 23:39 98 20 99 Room Air 21 05/10/18 23:38 96 20 98 Room Air 21 05/10/18 21:00 Room Air 05/10/18 20:24 162/85 05/10/18 20:00 99.0 106 18 162/85 (110) 96 05/10/18 19:15 105 05/10/18 18:15 98 140/81 General Appearance: no apparent distress, alert Neck: supple Cardiovascular: normal rate, regular rhythm Respiratory/Chest: lungs clear, normal breath sounds Abdomen: normal bowel sounds, non tender, soft Extremities: trace edema Intake and Output 05/10/18 05/11/18 19:00 07:00 Intake Total 21.772 ml 239.442 ml Output Total 550 ml 450 ml Balance -528.228 ml -210.558 ml IV Total 21.772 ml 239.442 ml Output Urine Total 550 ml 450 ml Laboratory Tests Test 05/11/18 06:33 White Blood Count 15.1 K/UL (4.8-10.8) #H Red Blood Count 4.16 M/UL (4.20-5.40) L Hemoglobin 10.3 G/DL (12.0-16.0) L Hematocrit 33.0 % (37.0-47.0) L Mean Corpuscular Volume 79 FL (80-99) L Mean Corpuscular Hemoglobin 24.8 PG (27.0-31.0) L Mean Corpuscular Hemoglobin Concent 31.2 G/DL (32.0-36.0) L Red Cell Distribution Width 12.7 % (11.6-14.8) Platelet Count 312 K/UL (150-450) Mean Platelet Volume 6.1 FL (6.5-10.1) L Neutrophils (%) (Auto) % (45.0-75.0) Lymphocytes (%) (Auto) % (20.0-45.0) Monocytes (%) (Auto) % (1.0-10.0) Eosinophils (%) (Auto) % (0.0-3.0) Basophils (%) (Auto) % (0.0-2.0) Differential Total Cells Counted 100 Neutrophils % (Manual) 86 % (45-75) H Lymphocytes % (Manual) 7 % (20-45) L Monocytes % (Manual) 6 % (1-10) Eosinophils % (Manual) 0 % (0-3) Basophils % (Manual) 0 % (0-2) Band Neutrophils 1 % (0-8) Platelet Estimate Adequate Platelet Morphology Normal Hypochromasia 1+ Microcytosis 1+ Erythrocyte Sedimentation Rate 100 MM/HR (0-30) H Reticulocyte Count 0.5 % (0.0-2.0) Prothrombin Time 15.0 SEC (9.30-11.50) H Prothromb Time International Ratio 1.4 (0.9-1.1) H Activated Partial Thromboplast Time 79 SEC (23-33) H Sodium Level 135 MMOL/L (136-145) L Potassium Level 3.4 MMOL/L (3.5-5.1) L Chloride Level 99 MMOL/L (98-107) Carbon Dioxide Level 24 MMOL/L (21-32) Anion Gap 12 mmol/L (5-15) Blood Urea Nitrogen 15 mg/dL (7-18) Creatinine 1.6 MG/DL (0.55-1.30) H Estimat Glomerular Filtration Rate mL/min (>60) Glucose Level 110 MG/DL (74-106) H Hemoglobin A1c 5.6 % (4.3-6.0) Uric Acid 5.1 MG/DL (2.6-7.2) Calcium Level 9.7 MG/DL (8.5-10.1) Phosphorus Level 3.3 MG/DL (2.5-4.9) Magnesium Level 1.6 MG/DL (1.8-2.4) L Iron Level 12 ug/dL (50-175) L Total Iron Binding Capacity 188 ug/dL (250-450) L Percent Iron Saturation 6 % (15-50) L Unsaturated Iron Binding 176 ug/dL (112-346) Ferritin 157 NG/ML (8-388) Total Bilirubin 0.5 MG/DL (0.2-1.0) Gamma Glutamyl Transpeptidase 16 U/L (5-85) Aspartate Amino Transf (AST/SGOT) 23 U/L (15-37) Alanine Aminotransferase (ALT/SGPT) 18 U/L (12-78) Alkaline Phosphatase 73 U/L (46-116) Lactate Dehydrogenase 239 U/L (81-234) H C-Reactive Protein, Quantitative 30.5 mg/dL (0.00-0.90) H Pro-B-Type Natriuretic Peptide 2245 pg/mL (0-125) H Total Protein 7.7 G/DL (6.4-8.2) Albumin 2.6 G/DL (3.4-5.0) L Globulin 5.1 g/dL Albumin/Globulin Ratio 0.5 (1.0-2.7) L Carcinoembryonic Antigen Pending Vitamin B12 Level > 2000 PG/ML (193-986) H Folate 16.2 NG/ML (8.6-58.9) Thyroid Stimulating Hormone (TSH) 1.109 uiU/mL (0.358-3.740) Microbiology Date/Time Source Procedure Growth Status 05/10/18 00:30 Sputum Gram Stain - Final Resulted 05/10/18 00:30 Sputum Culture - Preliminary Usual Upper Respiratory Yue Resulted Objective AST MEDICAL HISTORY: Positive for history of generalized weakness PHYSICAL EXAMINATION: GENERAL: Shows to be obese female, in no respiratory distress. VITAL SIGNS: Her orthostatic vitals that were performed today blood pressure in laying position reportedly 126/54 and in standing position 91/51, and most recently her blood pressure is 94/55. HEENT: Unremarkable. NECK: Supple. No jugular venous distention. No abdominojugular reflux noted. LUNGS: Appear to be clear to auscultation and percussion. CARDIAC: Regular rate and rhythm. No heaves, thrills, gallops, or rubs are noted. ABDOMEN: Soft and nontender. Positive bowel sounds. EXTREMITIES: There is no clubbing or cyanosis nor is there any edema. NEUROLOGICAL: She is awake, alert, and responsive and does not appear to Srinivas Masterson MD May 11, 2018 16:30
[2018-05-11] MEDS ORDERED: Warfarin Sodium 5mg ORAL SCH (17:00)
--- NOTE | 2018-05-11 17:30 | Internal Med Progress Note ---
Subjective Date of Service: May 11, 2018 Physician Name Lyman,Fred Attending Physician Saran Olmos MD Current Medications Medications (Trade) Dose Ordered Sig/Lamonte Route PRN Reason Start Time Stop Time Status Last Admin Dose Admin Amlodipine Besylate (Norvasc) 5 mg BID ORAL 05/11/18 18:00 06/10/18 08:59 05/11/18 17:26 Azithromycin (Zithromax) 250 mg DAILY ORAL 05/10/18 14:00 05/12/18 23:59 05/11/18 08:46 Brimonidine Tartrate (Alphagan) 1 drop BID BOTH EYES 05/09/18 18:00 06/08/18 17:59 05/11/18 17:24 Ceftriaxone Sodium 1 gm/ Dextrose 55 ml @ 110 mls/hr Q24H IVPB 05/11/18 10:00 05/18/18 09:59 05/11/18 09:56 Clonidine HCl (Catapres Tab) 0.1 mg Q6H PRN ORAL For High Blood Pressure 05/09/18 00:30 06/08/18 00:29 05/09/18 05:34 Docusate Sodium (Colace) 100 mg THREE TIMES A DAY ORAL 05/09/18 18:00 06/08/18 17:59 05/11/18 17:23 Dorzolamide HCl (Trusopt) 1 drop BID BOTH EYES 05/09/18 18:00 06/08/18 17:59 05/11/18 17:24 Heparin Sodium/ Dextrose 500 ml @ 21.772 mls/ hr ADJUST PER PROTOCOL IV 05/09/18 07:00 06/07/18 20:44 05/11/18 08:48 Hydromorphone HCl (Dilaudid) 0.5 mg Q3H PRN IVP Severe Pain (Pain Scale 7-10) 05/10/18 09:45 05/17/18 09:44 Losartan Potassium (Cozaar) 50 mg EVERY 12 HOURS ORAL 05/09/18 21:00 06/08/18 20:59 05/11/18 08:46 Pantoprazole (Protonix) 40 mg EVERY 12 HOURS ORAL 05/09/18 21:00 06/08/18 20:59 05/11/18 08:46 Promethazine HCl/ Codeine (Phenergan with Codeine) 5 ml Q4H PRN ORAL For Cough 05/09/18 13:15 06/08/18 13:14 05/10/18 02:30 Salmeterol Xinafoate/ Fluticasone (Advair 250/50 Diskus) 1 puffs BIDRT INH 05/09/18 11:00 06/08/18 10:59 05/11/18 09:25 Sodium Chloride 1,000 ml @ 75 mls/hr [id number] ONCE IV 05/11/18 13:26 05/12/18 02:45 05/11/18 14:48 Temazepam (Restoril) 15 mg HSPRN PRN ORAL Insomnia 05/08/18 22:00 05/15/18 21:59 05/09/18 22:38 Theophylline (Jorge-Dur) 100 mg EVERY 12 HOURS ORAL 05/09/18 21:00 06/08/18 20:59 05/11/18 08:46 Tramadol HCl (Ultram) 50 mg Q6H PRN ORAL Moderate Pain (Pain Scale 4-6) 05/10/18 10:00 05/16/18 19:29 05/11/18 07:58 Warfarin Sodium (Coumadin per pharmacy) 1 ea DAILY PRN MISC Per rx protocol 05/08/18 20:45 06/07/18 20:44 Warfarin Sodium (Coumadin) 5 mg ONCE ORAL 05/11/18 17:00 05/11/18 19:00 05/11/18 17:24 Allergies: Coded Allergies: No Known Allergies (Unverified , 02/20/12) ROS Limited/Unobtainable: No Constitutional: Reports: no symptoms HEENT: Reports: no symptoms Cardiovascular: Reports: no symptoms Respiratory: Reports: no symptoms Gastrointestinal/Abdominal: Reports: no symptoms Genitourinary: Reports: no symptoms Neurologic/Psychiatric: Reports: no symptoms Subjective 87 YO F admitted with leg swelling. Now acute deep venous thrombosis left lower extremity and acute asthma exacerbation. Cover for Int [facility]-Dr Chan Objective Last Vital Signs Date Time Temp Pulse Resp B/P (MAP) Pulse Ox O2 Delivery O2 Flow Rate FiO2 05/11/18 17:26 91 137/83 05/11/18 16:00 97.0 18 96 05/11/18 09:26 Room Air 21 Laboratory Tests Test 05/11/18 06:33 White Blood Count 15.1 K/UL (4.8-10.8) #H Red Blood Count 4.16 M/UL (4.20-5.40) L Hemoglobin 10.3 G/DL (12.0-16.0) L Hematocrit 33.0 % (37.0-47.0) L Mean Corpuscular Volume 79 FL (80-99) L Mean Corpuscular Hemoglobin 24.8 PG (27.0-31.0) L Mean Corpuscular Hemoglobin Concent 31.2 G/DL (32.0-36.0) L Red Cell Distribution Width 12.7 % (11.6-14.8) Platelet Count 312 K/UL (150-450) Mean Platelet Volume 6.1 FL (6.5-10.1) L Neutrophils (%) (Auto) % (45.0-75.0) Lymphocytes (%) (Auto) % (20.0-45.0) Monocytes (%) (Auto) % (1.0-10.0) Eosinophils (%) (Auto) % (0.0-3.0) Basophils (%) (Auto) % (0.0-2.0) Differential Total Cells Counted 100 Neutrophils % (Manual) 86 % (45-75) H Lymphocytes % (Manual) 7 % (20-45) L Monocytes % (Manual) 6 % (1-10) Eosinophils % (Manual) 0 % (0-3) Basophils % (Manual) 0 % (0-2) Band Neutrophils 1 % (0-8) Platelet Estimate Adequate Platelet Morphology Normal Hypochromasia 1+ Microcytosis 1+ Erythrocyte Sedimentation Rate 100 MM/HR (0-30) H Reticulocyte Count 0.5 % (0.0-2.0) Prothrombin Time 15.0 SEC (9.30-11.50) H Prothromb Time International Ratio 1.4 (0.9-1.1) H Activated Partial Thromboplast Time 79 SEC (23-33) H Sodium Level 135 MMOL/L (136-145) L Potassium Level 3.4 MMOL/L (3.5-5.1) L Chloride Level 99 MMOL/L (98-107) Carbon Dioxide Level 24 MMOL/L (21-32) Anion Gap 12 mmol/L (5-15) Blood Urea Nitrogen 15 mg/dL (7-18) Creatinine 1.6 MG/DL (0.55-1.30) H Estimat Glomerular Filtration Rate mL/min (>60) Glucose Level 110 MG/DL (74-106) H Hemoglobin A1c 5.6 % (4.3-6.0) Uric Acid 5.1 MG/DL (2.6-7.2) Calcium Level 9.7 MG/DL (8.5-10.1) Phosphorus Level 3.3 MG/DL (2.5-4.9) Magnesium Level 1.6 MG/DL (1.8-2.4) L Iron Level 12 ug/dL (50-175) L Total Iron Binding Capacity 188 ug/dL (250-450) L Percent Iron Saturation 6 % (15-50) L Unsaturated Iron Binding 176 ug/dL (112-346) Ferritin 157 NG/ML (8-388) Total Bilirubin 0.5 MG/DL (0.2-1.0) Gamma Glutamyl Transpeptidase 16 U/L (5-85) Aspartate Amino Transf (AST/SGOT) 23 U/L (15-37) Alanine Aminotransferase (ALT/SGPT) 18 U/L (12-78) Alkaline Phosphatase 73 U/L (46-116) Lactate Dehydrogenase 239 U/L (81-234) H C-Reactive Protein, Quantitative 30.5 mg/dL (0.00-0.90) H Pro-B-Type Natriuretic Peptide 2245 pg/mL (0-125) H Total Protein 7.7 G/DL (6.4-8.2) Albumin 2.6 G/DL (3.4-5.0) L Globulin 5.1 g/dL Albumin/Globulin Ratio 0.5 (1.0-2.7) L Carcinoembryonic Antigen Pending Vitamin B12 Level > 2000 PG/ML (193-986) H Folate 16.2 NG/ML (8.6-58.9) Thyroid Stimulating Hormone (TSH) 1.109 uiU/mL (0.358-3.740) Microbiology Date/Time Source Procedure Growth Status 05/10/18 00:30 Sputum Gram Stain - Final Resulted 05/10/18 00:30 Sputum Culture - Preliminary Usual Upper Respiratory Yue Resulted Intake and Output 05/10/18 05/11/18 19:00 07:00 Intake Total 21.772 ml 239.442 ml Output Total 550 ml 450 ml Balance -528.228 ml -210.558 ml IV Total 21.772 ml 239.442 ml Output Urine Total 550 ml 450 ml Objective PHYSICAL EXAMINATION: GENERAL: The patient is well-developed and well-nourished female, in no apparent distress. HEENT: Eyes, pupils equal and responsive to light and accommodation. Extraocular movements are intact. NECK: Supple without lymphadenopathy. CHEST: Lungs are clear to auscultation bilaterally without wheezes or rales. CARDIOVASCULAR: Regular rate. S1 and S2 are normal without murmurs, rubs, or gallops. ABDOMEN: Soft, nontender, and nondistended. Positive bowel sounds. No evidence of hepatosplenomegaly. Currently, no rebound or guarding. EXTREMITIES: Trace edema on the left and trace edema on the right. Otherwise, without cyanosis or clubbing. RECTAL: Refused. GENITAL: Refused. NEUROLOGIC: Cranial nerves II through XII grossly intact without focal deficits. Motor strength is 5/5 bilaterally. Deep tendon reflexes are 2+ Assessment/Plan Assessment/Plan ASSESSMENT: This is an 87-year-old female. 1. Deep venous thrombosis of the left lower extremity, acute. 2. Edema of bilateral lower extremities. 3. Asthma. 4. Hypertension. 5. Glaucoma. TREATMENT: 1. Deep venous thrombosis of the left lower extremity. The patient was started on heparin drip in the emergency room. The patient was not started on Xarelto due to renal insufficiency. Start Coumadin. Heparin will be continued until coumadin therapeutic 2. Asthma exacerbation. A Pulmonary consultation has been obtained with Dr. Saran Olmos. We will follow recommendations of Pulmonary. Continue Azithromycin per ID 3. Congestive heart failure. Cardiology consultation has been obtained with Dr. Srinivas Masterson. 4. Hypertension. Continue losartan/hydrochlorothiazide as above. 5. Glaucoma. Continue eye drops as above. Fred Lyman MD May 11, 2018 17:30
--- NOTE | 2018-05-11 19:45 | NUR ---
NURSE NOTES: Report received from GABRIELA Recinos. Pt is lying comfortably in semi-fowlers with no sign of distress. A+Ox4, no pain, no SOB. IV sites are intact, patent, and running fluids at prescribed rate. Bed is at lowest position, brakes engaged, siderails x2, bed alarm on, and call light within reach. Pt is in stable condition; will continue to monitor.
[2018-05-11 20:00] VITALS: BP 118/66
[2018-05-12] VITALS: BP 132/71
[2018-05-12 04:00] VITALS: BP 142/77
[2018-05-12 04:43] LABS: BASOPHILS % (AUTO) 0.8 % (0.0-2.0); EOSINOPHILS % (AUTO) 0.4 % (0.0-3.0); HEMATOCRIT 29.4 % (37.0-47.0); HEMOGLOBIN 9.3 G/DL (12.0-16.0); LYMPHOCYTES % (AUTO) 12.2 % (20.0-45.0); MEAN CORPUSCULAR VOLUME 79 FL (80-99); MONOCYTES % (AUTO) 9.6 % (1.0-10.0); NEUTROPHILS % (AUTO) 77.1 % (45.0-75.0); PLATELET COUNT 289 K/UL (150-450); RED BLOOD COUNT 3.72 M/UL (4.20-5.40); RED CELL DISTRIBUTION WIDTH 12.7 % (11.6-14.8); WHITE BLOOD COUNT 11.4 K/UL (4.8-10.8)
[2018-05-12 04:46] LABS: INR 1.7 (0.9-1.1)
[2018-05-12 05:33] LABS: ALANINE AMINOTRANSFERASE 14 U/L (12-78); ALBUMIN 2.1 G/DL (3.4-5.0); ALBUMIN/GLOBULIN RATIO 0.4 (1.0-2.7); ALKALINE PHOSPHATASE 68 U/L (46-116); ANION GAP 11 mmol/L (5-15); ASPARTATE AMINO TRANSFERASE 18 U/L (15-37); BILIRUBIN,TOTAL 0.3 MG/DL (0.2-1.0); BLOOD UREA NITROGEN 20 mg/dL (7-18); CALCIUM 9.1 MG/DL (8.5-10.1); CARBON DIOXIDE 22 MMOL/L (21-32); CHLORIDE 101 MMOL/L (98-107); POTASSIUM 3.9 MMOL/L (3.5-5.1); SODIUM 133 MMOL/L (136-145)
[2018-05-12] MEDS: Heparin 25,000u/D5W 500ml 500 ML IV SCH (06:17)
--- NOTE | 2018-05-12 07:18 | NUR ---
HAND-OFF: Report given to GABRIELA Recinos. Pt is in stable condition. Plan of care endorsed.
[2018-05-12 08:00] VITALS: BP 126/76
[2018-05-12] MEDS: Brimonidine 0.2% Opth Sol BOTH EYES SCH ×2 (08:15→17:05)
[2018-05-12] MEDS: Dorzolamide 2% 10ml Btl BOTH EYES SCH ×2 (08:15→17:05)
[2018-05-12] MEDS: Docusate 100mg cap ORAL SCH ×3 (08:16→17:07)
[2018-05-12] MEDS: Losartan 50mg tab ORAL SCH (08:16)
[2018-05-12] MEDS: Theophylline ER 100mg ORAL SCH ×2 (08:16→21:29)
[2018-05-12] MEDS: Azithromycin 250mg tab ORAL SCH (08:16)
[2018-05-12] MEDS: Promethazine/Codeine 5ml UD ORAL PRN ×2 (08:16→21:34)
[2018-05-12] MEDS: traMADol 50mg tab ORAL PRN ×2 (08:17→20:18)
--- NOTE | 2018-05-12 08:22 | Pulmonology Progress Note ---
Assessment/Plan Assessment/Plan ASSESSMENT Acute DVT LLE HTN with HTN urgency (on admission) COPD/Asthma exacerbation anemia ALMA on [facility] floor Heparin drip and Coumadin to bridge to therapeutic INR / still subtherapeutic venous duplex with + LLE DVT CXR + CM, no acute cardiopulmonary pathology O2 as needed to keep pulse ox above 92%, pulmonary toilet with bronchodilator continue Advair trial of theophylline restarted on antibiotic due to leukocytosis as per ID recs antitussive prn sputum cx negative, influenza screen negative BP management with CCB and ARB lipid panel stable nephro follows off HcTz monitor renal parameters and electrolytes, correct electrolytes as needed, avoid nephrotoxics creatinine trending up , possibly acute on chronic renal insufficiency check renal US pending nephro follows hold off on steroids for now bowel regimen supportive care pain management case discussed and evaluated by supervising physician Subjective Allergies: Coded Allergies: No Known Allergies (Unverified , 02/20/12) Subjective c/o pain LLE no SOB no CP leukocytosis trending today, afebrile creat rising Objective Last 24 Hour Vital Signs Date Time Temp Pulse Resp B/P (MAP) Pulse Ox O2 Delivery O2 Flow Rate FiO2 05/12/18 08:16 107 142/77 05/12/18 08:16 142/77 05/12/18 07:58 Room Air 21 05/12/18 07:58 107 18 97 Room Air 21 05/12/18 04:00 98.6 105 17 142/77 (98) 98 05/12/18 03:43 101 05/12/18 00:00 98.6 101 17 132/71 (91) 98 05/11/18 23:47 97 05/11/18 22:59 118/66 05/11/18 22:19 104 18 96 Room Air 21 05/11/18 22:18 105 18 96 Room Air 21 05/11/18 21:00 Room Air 05/11/18 20:00 98.4 100 18 118/66 (83) 97 05/11/18 17:26 91 137/83 05/11/18 16:00 91 05/11/18 16:00 97.0 91 18 137/83 (101) 96 05/11/18 12:00 97.7 82 17 141/80 (100) 97 05/11/18 12:00 92 05/11/18 09:26 98 16 100 Room Air 21 05/11/18 09:26 98 16 100 Room Air 21 05/11/18 09:00 Room Air 05/11/18 08:46 104 142/94 05/11/18 08:46 142/94 Intake and Output 05/11/18 05/12/18 18:59 06:59 # Voids 1 Objective General Appearance: no acute distress, awake, alert, oriented elderly AA female in NAD HEENT: normocephalic, atraumatic, anicteric, mucous membranes moist Respiratory/Chest: lungs clear, no respiratory distress, no accessory muscle use Cardiovascular: normal rate - SR occas. mild tachy 100-108 Abdomen: normal bowel sounds, soft, non tender, non distended Extremities: pedal pulses normal, edema LLE, Neurologic/Psychiatric: abnormal gait, alert, oriented x 3, responsive Musculoskeletal: normal muscle bulk Microbiology Date/Time Source Procedure Growth Status 05/10/18 00:30 Sputum Gram Stain - Final Complete 05/10/18 00:30 Sputum Sputum Culture - Final NORMAL UPPER RESPIRATORY FREDERIC PRESENT Complete Laboratory Tests 05/12/18 04:00: White Blood Count 11.4H, Red Blood Count 3.72L, Hemoglobin 9.3L, Hematocrit 29.4L, Mean Corpuscular Volume 79L, Mean Corpuscular Hemoglobin 25.0L, Mean Corpuscular Hemoglobin Concent 31.5L, Red Cell Distribution Width 12.7, Platelet Count 289, Mean Platelet Volume 6.3L, Neutrophils (%) (Auto) 77.1H, Lymphocytes (%) (Auto) 12.2L, Monocytes (%) (Auto) 9.6, Eosinophils (%) (Auto) 0.4, Basophils (%) (Auto) 0.8, Prothrombin Time 17.8H, Prothromb Time International Ratio 1.7H, Activated Partial Thromboplast Time 87H, Sodium Level 133L, Potassium Level 3.9, Chloride Level 101, Carbon Dioxide Level 22, Anion Gap 11, Blood Urea Nitrogen 20H, Creatinine 2.0H, Estimat Glomerular Filtration Rate , Glucose Level 111H, Uric Acid 5.4, Calcium Level 9.1, Phosphorus Level 4.0, Magnesium Level 1.7L, Total Bilirubin 0.3, Aspartate Amino Transf (AST/SGOT ) 18, Alanine Aminotransferase (ALT/SGPT) 14, Alkaline Phosphatase 68, Pro-B- Type Natriuretic Peptide 1307H, Total Protein 6.8, Albumin 2.1L, Globulin 4.7, Albumin/Globulin Ratio 0.4L Current Medications Medications (Trade) Dose Ordered Sig/Lamonte Route PRN Reason Start Time Stop Time Status Last Admin Dose Admin Amlodipine Besylate (Norvasc) 5 mg BID ORAL 05/11/18 18:00 06/10/18 08:59 05/12/18 08:16 Azithromycin (Zithromax) 250 mg DAILY ORAL 05/10/18 14:00 05/12/18 23:59 05/12/18 08:16 Brimonidine Tartrate (Alphagan) 1 drop BID BOTH EYES 05/09/18 18:00 06/08/18 17:59 05/12/18 08:15 Ceftriaxone Sodium 1 gm/ Dextrose 55 ml @ 110 mls/hr Q24H IVPB 05/11/18 10:00 05/18/18 09:59 05/11/18 09:56 Clonidine HCl (Catapres Tab) 0.1 mg Q6H PRN ORAL For High Blood Pressure 05/09/18 00:30 06/08/18 00:29 05/09/18 05:34 Docusate Sodium (Colace) 100 mg THREE TIMES A DAY ORAL 05/09/18 18:00 06/08/18 17:59 05/12/18 08:16 Dorzolamide HCl (Trusopt) 1 drop BID BOTH EYES 05/09/18 18:00 06/08/18 17:59 05/12/18 08:15 Heparin Sodium/ Dextrose 500 ml @ 21.772 mls/ hr ADJUST PER PROTOCOL IV 05/09/18 07:00 06/07/18 20:44 05/12/18 06:17 Hydromorphone HCl (Dilaudid) 0.5 mg Q3H PRN IVP Severe Pain (Pain Scale 7-10) 05/10/18 09:45 05/17/18 09:44 05/12/18 00:42 Losartan Potassium (Cozaar) 50 mg EVERY 12 HOURS ORAL 05/09/18 21:00 06/08/18 20:59 05/12/18 08:16 Pantoprazole (Protonix) 40 mg EVERY 12 HOURS ORAL 05/09/18 21:00 06/08/18 20:59 05/12/18 08:16 Promethazine HCl/ Codeine (Phenergan with Codeine) 5 ml Q4H PRN ORAL For Cough 05/09/18 13:15 06/08/18 13:14 05/12/18 08:16 Salmeterol Xinafoate/ Fluticasone (Advair 250/50 Diskus) 1 puffs BIDRT INH 05/09/18 11:00 06/08/18 10:59 05/11/18 22:18 Temazepam (Restoril) 15 mg HSPRN PRN ORAL Insomnia 05/08/18 22:00 05/15/18 21:59 05/09/18 22:38 Theophylline (Jorge-Dur) 100 mg EVERY 12 HOURS ORAL 05/09/18 21:00 06/08/18 20:59 05/12/18 08:16 Tramadol HCl (Ultram) 50 mg Q6H PRN ORAL Moderate Pain (Pain Scale 4-6) 05/10/18 10:00 05/16/18 19:29 05/12/18 08:17 Warfarin Sodium (Coumadin per pharmacy) 1 ea DAILY PRN MISC Per rx protocol 05/08/18 20:45 06/07/18 20:44 Warfarin Sodium (Coumadin) 3 mg ONCE ORAL 05/12/18 17:00 05/12/18 19:00 Angélica Blanc NP May 12, 2018 08:21
[2018-05-12] MEDS: Wixela 250/50 Inhaler - 60 dose INH SCH ×2 (09:59→20:47)
[2018-05-12] MEDS: cefTRIAXone 1 GM in D5W 55 ML IVPB SCH (10:54)
[2018-05-12 12:00] VITALS: BP 121/65
--- NOTE | 2018-05-12 12:31 | Nephrology Progress Note ---
Assessment/Plan Problem List: (1) Renal failure (ARF), acute on chronic (2) COPD (chronic obstructive pulmonary disease) (3) DVT (deep venous thrombosis) (4) Morbid obesity (5) Anemia (6) Hypertension Assessment ATN- cr rising COPD- DVT- HTN- Obesity- Plan DC Coozar start Hydralazine and coreg Kidney CHARLES UA U Na U Eosinophils DC HCTZ Adjust BP meds anemia dao Monitor renal parameters Avoid Nephrotoxics Subjective ROS Limited/Unobtainable: No Constitutional: Reports: malaise, weakness Objective Objective Last 24 Hour Vital Signs Date Time Temp Pulse Resp B/P (MAP) Pulse Ox O2 Delivery O2 Flow Rate FiO2 05/12/18 10:14 103 18 97 Room Air 21 05/12/18 10:00 102 18 97 Room Air 21 05/12/18 08:16 107 142/77 05/12/18 08:16 142/77 05/12/18 07:58 Room Air 21 05/12/18 07:58 107 18 97 Room Air 21 05/12/18 04:00 98.6 105 17 142/77 (98) 98 05/12/18 03:43 101 05/12/18 00:00 98.6 101 17 132/71 (91) 98 05/11/18 23:47 97 05/11/18 22:59 118/66 05/11/18 22:19 104 18 96 Room Air 21 05/11/18 22:18 105 18 96 Room Air 21 05/11/18 21:00 Room Air 05/11/18 20:00 98.4 100 18 118/66 (83) 97 05/11/18 17:26 91 137/83 05/11/18 16:00 91 05/11/18 16:00 97.0 91 18 137/83 (101) 96 Intake and Output 05/11/18 05/12/18 19:00 07:00 # Voids 1 Laboratory Tests 05/12/18 04:00: White Blood Count 11.4H, Red Blood Count 3.72L, Hemoglobin 9.3L, Hematocrit 29.4L, Mean Corpuscular Volume 79L, Mean Corpuscular Hemoglobin 25.0L, Mean Corpuscular Hemoglobin Concent 31.5L, Red Cell Distribution Width 12.7, Platelet Count 289, Mean Platelet Volume 6.3L, Neutrophils (%) (Auto) 77.1H, Lymphocytes (%) (Auto) 12.2L, Monocytes (%) (Auto) 9.6, Eosinophils (%) (Auto) 0.4, Basophils (%) (Auto) 0.8, Prothrombin Time 17.8H, Prothromb Time International Ratio 1.7H, Activated Partial Thromboplast Time 87H, Sodium Level 133L, Potassium Level 3.9, Chloride Level 101, Carbon Dioxide Level 22, Anion Gap 11, Blood Urea Nitrogen 20H, Creatinine 2.0H, Estimat Glomerular Filtration Rate , Glucose Level 111H, Uric Acid 5.4, Calcium Level 9.1, Phosphorus Level 4.0, Magnesium Level 1.7L, Total Bilirubin 0.3, Aspartate Amino Transf (AST/SGOT ) 18, Alanine Aminotransferase (ALT/SGPT) 14, Alkaline Phosphatase 68, Pro-B- Type Natriuretic Peptide 1307H, Total Protein 6.8, Albumin 2.1L, Globulin 4.7, Albumin/Globulin Ratio 0.4L Height (Feet): 5 Height (Inches): 2.00 Weight (Pounds): 150 General Appearance: no apparent distress Cardiovascular: tachycardia Respiratory/Chest: decreased breath sounds Abdomen: soft Objective no change Mukul Denise MD May 12, 2018 12:31
--- NOTE | 2018-05-12 13:30 | Cardiology Progress Note ---
Assessment/Plan Assessment/Plan dvt hs of htn renal failure obesity asthma renal fuxn seems worse now off arb adn diuretics couamdin on Norvasc heparin coumadin crossover Subjective Cardiovascular: Denies: chest pain, irregular heart rate, lightheadedness Respiratory: Denies: cough, shortness of breath Gastrointestinal/Abdominal: Denies: abdominal pain Genitourinary: Denies: burning Subjective PAST MEDICAL HISTORY: Positive for history of generalized weakness previously. No heart attack. No diabetes. She does have high blood pressure as mentioned. She has had history of stroke previously. She has had a history of peptic ulcer disease. No kidney problems, liver problems, thyroid problems, anemia, or arthritis. Her chart indicates that she has had prior admissions here and she was previously discharged with a diagnosis of generalized weakness, urinary tract infection, kidney problems, acute on chronic dehydration, and history of hypertension. She has a history of deep venous thrombosis according to the chart. The patient herself denies it and she has a history of obesity, chronic constipation, and anemia. ALLERGIES: She denies any allergies to medications. SOCIAL HISTORY: She does not smoke. Does not drink. She lives at home. Her son lives with her. Objective Last 24 Hour Vital Signs Date Time Temp Pulse Resp B/P (MAP) Pulse Ox O2 Delivery O2 Flow Rate FiO2 05/12/18 12:42 103 142/77 05/12/18 12:00 98.5 103 16 121/65 (83) 97 05/12/18 12:00 103 05/12/18 10:14 103 18 97 Room Air 21 05/12/18 10:00 102 18 97 Room Air 21 05/12/18 09:00 Room Air 05/12/18 08:16 107 142/77 05/12/18 08:16 142/77 05/12/18 08:00 101 05/12/18 08:00 98.2 101 18 126/76 (93) 98 05/12/18 07:58 Room Air 21 05/12/18 07:58 107 18 97 Room Air 21 05/12/18 04:00 98.6 105 17 142/77 (98) 98 05/12/18 03:43 101 05/12/18 00:00 98.6 101 17 132/71 (91) 98 05/11/18 23:47 97 05/11/18 22:59 118/66 05/11/18 22:19 104 18 96 Room Air 21 05/11/18 22:18 105 18 96 Room Air 21 05/11/18 21:00 Room Air 05/11/18 20:00 98.4 100 18 118/66 (83) 97 05/11/18 17:26 91 137/83 05/11/18 16:00 91 05/11/18 16:00 97.0 91 18 137/83 (101) 96 General Appearance: alert Cardiovascular: normal rate Respiratory/Chest: lungs clear Abdomen: normal bowel sounds, non tender, soft Extremities: no swelling Intake and Output 05/11/18 05/12/18 19:00 07:00 # Voids 1 Laboratory Tests Test 05/12/18 04:00 White Blood Count 11.4 K/UL (4.8-10.8) H Red Blood Count 3.72 M/UL (4.20-5.40) L Hemoglobin 9.3 G/DL (12.0-16.0) L Hematocrit 29.4 % (37.0-47.0) L Mean Corpuscular Volume 79 FL (80-99) L Mean Corpuscular Hemoglobin 25.0 PG (27.0-31.0) L Mean Corpuscular Hemoglobin Concent 31.5 G/DL (32.0-36.0) L Red Cell Distribution Width 12.7 % (11.6-14.8) Platelet Count 289 K/UL (150-450) Mean Platelet Volume 6.3 FL (6.5-10.1) L Neutrophils (%) (Auto) 77.1 % (45.0-75.0) H Lymphocytes (%) (Auto) 12.2 % (20.0-45.0) L Monocytes (%) (Auto) 9.6 % (1.0-10.0) Eosinophils (%) (Auto) 0.4 % (0.0-3.0) Basophils (%) (Auto) 0.8 % (0.0-2.0) Prothrombin Time 17.8 SEC (9.30-11.50) H Prothromb Time International Ratio 1.7 (0.9-1.1) H Activated Partial Thromboplast Time 87 SEC (23-33) H Sodium Level 133 MMOL/L (136-145) L Potassium Level 3.9 MMOL/L (3.5-5.1) Chloride Level 101 MMOL/L (98-107) Carbon Dioxide Level 22 MMOL/L (21-32) Anion Gap 11 mmol/L (5-15) Blood Urea Nitrogen 20 mg/dL (7-18) H Creatinine 2.0 MG/DL (0.55-1.30) H Estimat Glomerular Filtration Rate mL/min (>60) Glucose Level 111 MG/DL (74-106) H Uric Acid 5.4 MG/DL (2.6-7.2) Calcium Level 9.1 MG/DL (8.5-10.1) Phosphorus Level 4.0 MG/DL (2.5-4.9) Magnesium Level 1.7 MG/DL (1.8-2.4) L Total Bilirubin 0.3 MG/DL (0.2-1.0) Aspartate Amino Transf (AST/SGOT) 18 U/L (15-37) Alanine Aminotransferase (ALT/SGPT) 14 U/L (12-78) Alkaline Phosphatase 68 U/L (46-116) C-Reactive Protein, Quantitative 9.2 mg/dL (0.00-0.90) H Pro-B-Type Natriuretic Peptide 1307 pg/mL (0-125) H Total Protein 6.8 G/DL (6.4-8.2) Albumin 2.1 G/DL (3.4-5.0) L Globulin 4.7 g/dL Albumin/Globulin Ratio 0.4 (1.0-2.7) L Microbiology Date/Time Source Procedure Growth Status 05/10/18 00:30 Sputum Gram Stain - Final Complete 05/10/18 00:30 Sputum Sputum Culture - Final NORMAL UPPER RESPIRATORY FREDERIC PRESENT Complete Objective AST MEDICAL HISTORY: Positive for history of generalized weakness PHYSICAL EXAMINATION: GENERAL: Shows to be obese female, in no respiratory distress. VITAL SIGNS: Her orthostatic vitals that were performed today blood pressure in laying position reportedly 126/54 and in standing position 91/51, and most recently her blood pressure is 94/55. HEENT: Unremarkable. NECK: Supple. No jugular venous distention. No abdominojugular reflux noted. LUNGS: Appear to be clear to auscultation and percussion. CARDIAC: Regular rate and rhythm. No heaves, thrills, gallops, or rubs are noted. ABDOMEN: Soft and nontender. Positive bowel sounds. EXTREMITIES: There is no clubbing or cyanosis nor is there any edema. NEUROLOGICAL: She is awake, alert, and responsive and does not appear to Srinivas Masterson MD May 12, 2018 13:30
[2018-05-12] MEDS: HydrALAZINE 50mg tab ORAL SCH ×2 (15:01→21:29)
--- NOTE | 2018-05-12 15:10 | Internal Med Progress Note ---
Subjective Date of Service: May 12, 2018 Physician Name Lyman,Fred Attending Physician Saran Olmos MD Current Medications Medications (Trade) Dose Ordered Sig/Lamonte Route PRN Reason Start Time Stop Time Status Last Admin Dose Admin Amlodipine Besylate (Norvasc) 5 mg BID ORAL 05/11/18 18:00 06/10/18 08:59 05/12/18 08:16 Azithromycin (Zithromax) 250 mg DAILY ORAL 05/10/18 14:00 05/12/18 23:59 05/12/18 08:16 Brimonidine Tartrate (Alphagan) 1 drop BID BOTH EYES 05/09/18 18:00 06/08/18 17:59 05/12/18 08:15 Carvedilol (Coreg) 3.125 mg EVERY 12 HOURS ORAL 05/12/18 21:00 06/11/18 20:59 Ceftriaxone Sodium 1 gm/ Dextrose 55 ml @ 110 mls/hr Q24H IVPB 05/11/18 10:00 05/18/18 09:59 05/12/18 10:54 Clonidine HCl (Catapres Tab) 0.1 mg Q6H PRN ORAL For High Blood Pressure 05/09/18 00:30 06/08/18 00:29 05/09/18 05:34 Docusate Sodium (Colace) 100 mg THREE TIMES A DAY ORAL 05/09/18 18:00 06/08/18 17:59 05/12/18 12:42 Dorzolamide HCl (Trusopt) 1 drop BID BOTH EYES 05/09/18 18:00 06/08/18 17:59 05/12/18 08:15 Heparin Sodium/ Dextrose 500 ml @ 21.772 mls/ hr ADJUST PER PROTOCOL IV 05/09/18 07:00 06/07/18 20:44 05/12/18 06:17 Hydralazine HCl (Apresoline) 50 mg Q8HR ORAL 05/12/18 14:00 06/11/18 13:59 05/12/18 15:01 Hydromorphone HCl (Dilaudid) 0.5 mg Q3H PRN IVP Severe Pain (Pain Scale 7-10) 05/10/18 09:45 05/17/18 09:44 05/12/18 00:42 Pantoprazole (Protonix) 40 mg EVERY 12 HOURS ORAL 05/09/18 21:00 06/08/18 20:59 05/12/18 08:16 Promethazine HCl/ Codeine (Phenergan with Codeine) 5 ml Q4H PRN ORAL For Cough 05/09/18 13:15 06/08/18 13:14 05/12/18 08:16 Salmeterol Xinafoate/ Fluticasone (Advair 250/50 Diskus) 1 puffs BIDRT INH 05/09/18 11:00 06/08/18 10:59 05/12/18 09:59 Temazepam (Restoril) 15 mg HSPRN PRN ORAL Insomnia 05/08/18 22:00 05/15/18 21:59 05/09/18 22:38 Theophylline (Jorge-Dur) 100 mg EVERY 12 HOURS ORAL 05/09/18 21:00 06/08/18 20:59 05/12/18 08:16 Tramadol HCl (Ultram) 50 mg Q6H PRN ORAL Moderate Pain (Pain Scale 4-6) 05/10/18 10:00 05/16/18 19:29 05/12/18 08:17 Warfarin Sodium (Coumadin per pharmacy) 1 ea DAILY PRN MISC Per rx protocol 05/08/18 20:45 06/07/18 20:44 Warfarin Sodium (Coumadin) 3 mg ONCE ORAL 05/12/18 17:00 05/12/18 19:00 Allergies: Coded Allergies: No Known Allergies (Unverified , 02/20/12) ROS Limited/Unobtainable: No Constitutional: Reports: no symptoms HEENT: Reports: no symptoms Cardiovascular: Reports: no symptoms Respiratory: Reports: no symptoms Gastrointestinal/Abdominal: Reports: no symptoms Genitourinary: Reports: no symptoms Neurologic/Psychiatric: Reports: no symptoms Subjective 87 YO F admitted with leg swelling. Now acute deep venous thrombosis left lower extremity and acute asthma exacerbation. Cover for Int [facility]-Dr Chan Objective Last Vital Signs Date Time Temp Pulse Resp B/P (MAP) Pulse Ox O2 Delivery O2 Flow Rate FiO2 05/12/18 15:01 142/77 05/12/18 12:42 103 05/12/18 12:00 98.5 16 97 05/12/18 10:14 Room Air 21 Laboratory Tests Test 05/12/18 04:00 White Blood Count 11.4 K/UL (4.8-10.8) H Red Blood Count 3.72 M/UL (4.20-5.40) L Hemoglobin 9.3 G/DL (12.0-16.0) L Hematocrit 29.4 % (37.0-47.0) L Mean Corpuscular Volume 79 FL (80-99) L Mean Corpuscular Hemoglobin 25.0 PG (27.0-31.0) L Mean Corpuscular Hemoglobin Concent 31.5 G/DL (32.0-36.0) L Red Cell Distribution Width 12.7 % (11.6-14.8) Platelet Count 289 K/UL (150-450) Mean Platelet Volume 6.3 FL (6.5-10.1) L Neutrophils (%) (Auto) 77.1 % (45.0-75.0) H Lymphocytes (%) (Auto) 12.2 % (20.0-45.0) L Monocytes (%) (Auto) 9.6 % (1.0-10.0) Eosinophils (%) (Auto) 0.4 % (0.0-3.0) Basophils (%) (Auto) 0.8 % (0.0-2.0) Prothrombin Time 17.8 SEC (9.30-11.50) H Prothromb Time International Ratio 1.7 (0.9-1.1) H Activated Partial Thromboplast Time 87 SEC (23-33) H Sodium Level 133 MMOL/L (136-145) L Potassium Level 3.9 MMOL/L (3.5-5.1) Chloride Level 101 MMOL/L (98-107) Carbon Dioxide Level 22 MMOL/L (21-32) Anion Gap 11 mmol/L (5-15) Blood Urea Nitrogen 20 mg/dL (7-18) H Creatinine 2.0 MG/DL (0.55-1.30) H Estimat Glomerular Filtration Rate mL/min (>60) Glucose Level 111 MG/DL (74-106) H Uric Acid 5.4 MG/DL (2.6-7.2) Calcium Level 9.1 MG/DL (8.5-10.1) Phosphorus Level 4.0 MG/DL (2.5-4.9) Magnesium Level 1.7 MG/DL (1.8-2.4) L Total Bilirubin 0.3 MG/DL (0.2-1.0) Aspartate Amino Transf (AST/SGOT) 18 U/L (15-37) Alanine Aminotransferase (ALT/SGPT) 14 U/L (12-78) Alkaline Phosphatase 68 U/L (46-116) C-Reactive Protein, Quantitative 9.2 mg/dL (0.00-0.90) H Pro-B-Type Natriuretic Peptide 1307 pg/mL (0-125) H Total Protein 6.8 G/DL (6.4-8.2) Albumin 2.1 G/DL (3.4-5.0) L Globulin 4.7 g/dL Albumin/Globulin Ratio 0.4 (1.0-2.7) L Microbiology Date/Time Source Procedure Growth Status 05/10/18 00:30 Sputum Gram Stain - Final Complete 05/10/18 00:30 Sputum Sputum Culture - Final NORMAL UPPER RESPIRATORY FREDERIC PRESENT Complete Intake and Output 05/11/18 05/12/18 19:00 07:00 # Voids 1 Objective PHYSICAL EXAMINATION: GENERAL: The patient is well-developed and well-nourished female, in no apparent distress. HEENT: Eyes, pupils equal and responsive to light and accommodation. Extraocular movements are intact. NECK: Supple without lymphadenopathy. CHEST: Lungs are clear to auscultation bilaterally without wheezes or rales. CARDIOVASCULAR: Regular rate. S1 and S2 are normal without murmurs, rubs, or gallops. ABDOMEN: Soft, nontender, and nondistended. Positive bowel sounds. No evidence of hepatosplenomegaly. Currently, no rebound or guarding. EXTREMITIES: Trace edema on the left and trace edema on the right. Otherwise, without cyanosis or clubbing. RECTAL: Refused. GENITAL: Refused. NEUROLOGIC: Cranial nerves II through XII grossly intact without focal deficits. Motor strength is 5/5 bilaterally. Deep tendon reflexes are 2+ Assessment/Plan Assessment/Plan ASSESSMENT: This is an 87-year-old female. 1. Deep venous thrombosis of the left lower extremity, acute. 2. Edema of bilateral lower extremities. 3. Asthma. 4. Hypertension. 5. Glaucoma. TREATMENT: 1. Deep venous thrombosis of the left lower extremity. The patient was started on heparin drip in the emergency room. The patient was not started on Xarelto due to renal insufficiency. Start Coumadin. Heparin will be continued until coumadin therapeutic 2. Asthma exacerbation. A Pulmonary consultation has been obtained with Dr. Saran Olmos. We will follow recommendations of Pulmonary. Continue Azithromycin per ID 3. Congestive heart failure. Cardiology consultation has been obtained with Dr. Srinivas Masterson. 4. Hypertension. Continue losartan/hydrochlorothiazide as above. 5. Glaucoma. Continue eye drops as above. Fred Lyman MD May 12, 2018 15:10
[2018-05-12 16:00] VITALS: BP 101/65
[2018-05-12] MEDS ORDERED: Warfarin Sodium 3mg ORAL SCH (17:00)
--- NOTE | 2018-05-12 20:40 | NUR ---
NURSE NOTES: Patient awake, alert and oriented. Patient on room air. no shortness of breath, vital signs stable with HR 92 Sinus rhythm on the monitor. Bed in lowest position, call light within reach. All needs met. Will continue to monitor for any acute changes.
[2018-05-12 20:53] VITALS: BP 105/52
[2018-05-13] VITALS: BP 116/63
[2018-05-13 04:00] VITALS: BP 109/69
[2018-05-13 04:48] LABS: BASOPHILS % (AUTO) 0.5 % (0.0-2.0); EOSINOPHILS % (AUTO) 2.3 % (0.0-3.0); HEMATOCRIT 29.1 % (37.0-47.0); HEMOGLOBIN 9.1 G/DL (12.0-16.0); MEAN CORPUSCULAR VOLUME 79 FL (80-99); MONOCYTES % (AUTO) 10.2 % (1.0-10.0); NEUTROPHILS % (AUTO) 74.1 % (45.0-75.0); PLATELET COUNT 350 K/UL (150-450); RED BLOOD COUNT 3.69 M/UL (4.20-5.40); RED CELL DISTRIBUTION WIDTH 12.8 % (11.6-14.8); WHITE BLOOD COUNT 10.3 K/UL (4.8-10.8)
[2018-05-13 05:10] LABS: INR 2.4 (0.9-1.1)
[2018-05-13 05:27] LABS: ALANINE AMINOTRANSFERASE 14 U/L (12-78); ALBUMIN/GLOBULIN RATIO 0.4 (1.0-2.7); ALKALINE PHOSPHATASE 63 U/L (46-116); ANION GAP 10 mmol/L (5-15); ASPARTATE AMINO TRANSFERASE 14 U/L (15-37); BILIRUBIN,TOTAL 0.2 MG/DL (0.2-1.0); BLOOD UREA NITROGEN 25 mg/dL (7-18); CALCIUM 8.9 MG/DL (8.5-10.1); CARBON DIOXIDE 23 MMOL/L (21-32); CHLORIDE 99 MMOL/L (98-107); CREATININE 2.2 MG/DL (0.55-1.30); PHOSPHORUS 4.4 MG/DL (2.5-4.9); POTASSIUM 3.9 MMOL/L (3.5-5.1); SODIUM 132 MMOL/L (136-145)
[2018-05-13] MEDS: HydrALAZINE 50mg tab ORAL SCH ×2 (05:39→14:00)
[2018-05-13] MEDS: Heparin 25,000u/D5W 500ml 500 ML IV SCH (05:42)
[2018-05-13] MEDS: traMADol 50mg tab ORAL PRN (07:21)
--- NOTE | 2018-05-13 07:22 | NUR ---
HAND-OFF: Report given to Brisa OCHOA.
--- NOTE | 2018-05-13 07:26 | NUR ---
NURSE NOTES: Received bedside report from Wendy OCHOA. Pt. in bed, awake, a/o x 4. No sign of distress. C/O generalized pain and previous shift medicate the pt. with tramadol. Pt. on heparin drip at 16u/kg/hr. Tolerating well. No s/sx of bleeding noted. IV site at right AC #20g. in placed patent/intact. Bed in low position, locked. Call light within reach. Will cont. to monitor.
[2018-05-13 08:00] VITALS: BP 111/56
[2018-05-13] MEDS: Wixela 250/50 Inhaler - 60 dose INH SCH ×2 (09:22→22:30)
[2018-05-13] MEDS: Theophylline ER 100mg ORAL SCH ×2 (09:59→20:48)
[2018-05-13] MEDS: Dorzolamide 2% 10ml Btl BOTH EYES SCH ×2 (09:59→18:14)
[2018-05-13] MEDS: Docusate 100mg cap ORAL SCH ×3 (09:59→18:14)
[2018-05-13] MEDS: Brimonidine 0.2% Opth Sol BOTH EYES SCH ×2 (09:59→18:14)
[2018-05-13] MEDS: cefTRIAXone 1 GM in D5W 55 ML IVPB SCH (10:25)
[2018-05-13 12:00] VITALS: BP 119/70
[2018-05-13] MEDS ORDERED: HYDROcodone/Acetamin 5/325 tab ORAL PRN (13:00)
[2018-05-13] MEDS: HYDROcodone/Acetamin 5/325 tab ORAL PRN ×2 (13:02→23:06)
--- NOTE | 2018-05-13 13:17 | Infectious Diseases Prog Note ---
Assessment/Plan Assessment/Plan Abx: Ceftriaxone 05/09- LEvaquin x1 05/08 Assessment: Asthma exacerbation -CXR: Cardiomegaly. No acute process -influenza sc neg -SCx - NF Low grade fever;SP Leukocytosis, S P Acute L DVT -v.duplex: Positive for left lower extremity acute deep venous thrombosis, involving the popliteal vein, calf veins, and upstream femoral vein ALMA, worsening obesity CVA/TIA PUD GERD anxiety asthma HTN hx of DVT Plan: - Restarted ceftriaxone #3/5 given increased WBCs -05/12 SP Azithromycin #4 -05/09 SP Ceftriaxone #1 -05/08 SP Levaquin x1 -Monitor CBC/CMP, temperatures Will continue to follow along with you. Subjective Allergies: Coded Allergies: No Known Allergies (Unverified , 02/20/12) Subjective afebrile >72hrs at RA leukocytosis resolved Objective Vital Signs Last 24 Hour Vital Signs Date Time Temp Pulse Resp B/P (MAP) Pulse Ox O2 Delivery O2 Flow Rate FiO2 05/13/18 12:00 97.7 80 19 119/70 (86) 99 05/13/18 09:59 87 111/56 05/13/18 09:59 87 111/56 05/13/18 09:26 87 20 96 Room Air 21 05/13/18 09:25 85 16 96 Room Air 21 05/13/18 09:00 Room Air 05/13/18 08:00 97.7 88 19 111/56 (74) 98 05/13/18 07:03 89 05/13/18 05:39 109/69 05/13/18 04:00 98.4 88 18 109/69 (82) 05/13/18 04:00 88 05/13/18 00:00 98.4 94 18 116/63 (80) 97 05/13/18 00:00 91 05/12/18 21:29 110 105/52 05/12/18 21:29 105/52 05/12/18 21:00 Room Air 05/12/18 20:53 98.8 110 18 105/52 (69) 98 05/12/18 20:48 98.8 05/12/18 20:47 90 16 94 Room Air 21 05/12/18 20:30 76 20 94 Room Air 21 05/12/18 20:00 94 05/12/18 17:07 103 142/77 05/12/18 16:00 105 05/12/18 16:00 98.5 105 18 101/65 (77) 96 05/12/18 15:01 142/77 Height (Feet): 5 Height (Inches): 2.00 Weight (Pounds): 150 Objective GENERAL: The patient is well-developed and well-nourished female, in no apparent distress. HEENT: Eyes, pupils equal and responsive to light and accommodation. Extraocular movements are intact. NECK: Supple without lymphadenopathy. CHEST: Lungs are clear to auscultation bilaterally without wheezes or rales. CARDIOVASCULAR: Regular rate. S1 and S2 are normal without murmurs, rubs, or gallops. ABDOMEN: Soft, nontender, and nondistended. Positive bowel sounds. No evidence of hepatosplenomegaly. Currently, no rebound or guarding. EXTREMITIES: Trace edema on the left and trace edema on the right. Otherwise, without cyanosis or clubbing. NEUROLOGIC: Cranial nerves II through XII grossly intact without focal deficits. Motor strength is 5/5 bilaterally. Deep tendon reflexes are 2+ plantar. Laboratory Tests Test 05/13/18 03:55 White Blood Count 10.3 K/UL (4.8-10.8) Red Blood Count 3.69 M/UL (4.20-5.40) L Hemoglobin 9.1 G/DL (12.0-16.0) L Hematocrit 29.1 % (37.0-47.0) L Mean Corpuscular Volume 79 FL (80-99) L Mean Corpuscular Hemoglobin 24.6 PG (27.0-31.0) L Mean Corpuscular Hemoglobin Concent 31.3 G/DL (32.0-36.0) L Red Cell Distribution Width 12.8 % (11.6-14.8) Platelet Count 350 K/UL (150-450) Mean Platelet Volume 6.8 FL (6.5-10.1) Neutrophils (%) (Auto) 74.1 % (45.0-75.0) Lymphocytes (%) (Auto) 13.0 % (20.0-45.0) L Monocytes (%) (Auto) 10.2 % (1.0-10.0) H Eosinophils (%) (Auto) 2.3 % (0.0-3.0) Basophils (%) (Auto) 0.5 % (0.0-2.0) Prothrombin Time 24.3 SEC (9.30-11.50) H Prothromb Time International Ratio 2.4 (0.9-1.1) H Activated Partial Thromboplast Time 77 SEC (23-33) H Sodium Level 132 MMOL/L (136-145) L Potassium Level 3.9 MMOL/L (3.5-5.1) Chloride Level 99 MMOL/L (98-107) Carbon Dioxide Level 23 MMOL/L (21-32) Anion Gap 10 mmol/L (5-15) Blood Urea Nitrogen 25 mg/dL (7-18) H Creatinine 2.2 MG/DL (0.55-1.30) H Estimat Glomerular Filtration Rate mL/min (>60) Glucose Level 103 MG/DL (74-106) Osmolality 278 mOsm/kg (297-317) L Uric Acid 6.0 MG/DL (2.6-7.2) Calcium Level 8.9 MG/DL (8.5-10.1) Phosphorus Level 4.4 MG/DL (2.5-4.9) Magnesium Level 1.9 MG/DL (1.8-2.4) Total Bilirubin 0.2 MG/DL (0.2-1.0) Aspartate Amino Transf (AST/SGOT) 14 U/L (15-37) L Alanine Aminotransferase (ALT/SGPT) 14 U/L (12-78) Alkaline Phosphatase 63 U/L (46-116) Pro-B-Type Natriuretic Peptide 675 pg/mL (0-125) H Total Protein 6.9 G/DL (6.4-8.2) Albumin 2.0 G/DL (3.4-5.0) L Globulin 4.9 g/dL Albumin/Globulin Ratio 0.4 (1.0-2.7) L Current Medications Medications (Trade) Dose Ordered Sig/Lamonte Route PRN Reason Start Time Stop Time Status Last Admin Dose Admin Acetaminophen/ Hydrocodone Bitart ([place] 5/325) 1 tab Q6H PRN ORAL SEVERE PAIN 05/13/18 13:00 05/20/18 12:59 05/13/18 13:02 Amlodipine Besylate (Norvasc) 5 mg BID ORAL 05/11/18 18:00 06/10/18 08:59 05/13/18 09:59 Brimonidine Tartrate (Alphagan) 1 drop BID BOTH EYES 05/09/18 18:00 06/08/18 17:59 05/13/18 09:59 Carvedilol (Coreg) 3.125 mg EVERY 12 HOURS ORAL 05/12/18 21:00 06/11/18 20:59 05/13/18 09:59 Ceftriaxone Sodium 1 gm/ Dextrose 55 ml @ 110 mls/hr Q24H IVPB 05/11/18 10:00 05/18/18 09:59 05/13/18 10:25 Clonidine HCl (Catapres Tab) 0.1 mg Q6H PRN ORAL For High Blood Pressure 05/09/18 00:30 06/08/18 00:29 05/09/18 05:34 Docusate Sodium (Colace) 100 mg THREE TIMES A DAY ORAL 05/09/18 18:00 06/08/18 17:59 05/13/18 13:07 Dorzolamide HCl (Trusopt) 1 drop BID BOTH EYES 05/09/18 18:00 06/08/18 17:59 05/13/18 09:59 Heparin Sodium/ Dextrose 500 ml @ 21.772 mls/ hr ADJUST PER PROTOCOL IV 05/09/18 07:00 06/07/18 20:44 05/13/18 05:42 Hydralazine HCl (Apresoline) 50 mg Q8HR ORAL 05/12/18 14:00 06/11/18 13:59 05/13/18 05:39 Hydromorphone HCl (Dilaudid) 0.5 mg Q3H PRN IVP Severe Pain (Pain Scale 7-10) 05/10/18 09:45 05/17/18 09:44 05/12/18 00:42 Pantoprazole (Protonix) 40 mg EVERY 12 HOURS ORAL 05/09/18 21:00 06/08/18 20:59 05/13/18 09:59 Promethazine HCl/ Codeine (Phenergan with Codeine) 5 ml Q4H PRN ORAL For Cough 05/09/18 13:15 06/08/18 13:14 05/12/18 21:34 Salmeterol Xinafoate/ Fluticasone (Advair 250/50 Diskus) 1 puffs BIDRT INH 05/09/18 11:00 06/08/18 10:59 05/13/18 09:22 Temazepam (Restoril) 15 mg HSPRN PRN ORAL Insomnia 05/08/18 22:00 05/15/18 21:59 05/09/18 22:38 Theophylline (Jorge-Dur) 100 mg EVERY 12 HOURS ORAL 05/09/18 21:00 06/08/18 20:59 05/13/18 09:59 Tramadol HCl (Ultram) 50 mg Q6H PRN ORAL Moderate Pain (Pain Scale 4-6) 05/10/18 10:00 05/16/18 19:29 05/13/18 07:21 Warfarin Sodium (Coumadin per pharmacy) 1 ea DAILY PRN MISC Per rx protocol 05/08/18 20:45 06/07/18 20:44 Warfarin Sodium (Coumadin) 3 mg ONCE ORAL 05/13/18 17:00 05/13/18 19:00 Dolores Laws M.D. May 13, 2018 13:16
--- NOTE | 2018-05-13 13:53 | Pulmonology Progress Note ---
Assessment/Plan Problems: (1) DVT (deep venous thrombosis) (2) COPD (chronic obstructive pulmonary disease) (3) ATN (acute tubular necrosis) (4) Hypertension (5) Morbid obesity Assessment/Plan dc iv heparin coumadin po, INR therapeutic monitor BP renal studies anemia w/u respiratory treatment symptomatic treatment for endoscopy in am med/surg Subjective ROS Limited/Unobtainable: No Constitutional: Reports: no symptoms HEENT: Repors: no symptoms Respiratory: Reports: no symptoms Cardiovascular: Reports: no symptoms Allergies: Coded Allergies: No Known Allergies (Unverified , 02/20/12) Objective Last 24 Hour Vital Signs Date Time Temp Pulse Resp B/P (MAP) Pulse Ox O2 Delivery O2 Flow Rate FiO2 05/13/18 12:00 97.7 80 19 119/70 (86) 99 05/13/18 09:59 87 111/56 05/13/18 09:59 87 111/56 05/13/18 09:26 87 20 96 Room Air 21 05/13/18 09:25 85 16 96 Room Air 21 05/13/18 09:00 Room Air 05/13/18 08:00 97.7 88 19 111/56 (74) 98 05/13/18 07:03 89 05/13/18 05:39 109/69 05/13/18 04:00 98.4 88 18 109/69 (82) 05/13/18 04:00 88 05/13/18 00:00 98.4 94 18 116/63 (80) 97 05/13/18 00:00 91 05/12/18 21:29 110 105/52 05/12/18 21:29 105/52 05/12/18 21:00 Room Air 05/12/18 20:53 98.8 110 18 105/52 (69) 98 05/12/18 20:48 98.8 05/12/18 20:47 90 16 94 Room Air 21 05/12/18 20:30 76 20 94 Room Air 21 05/12/18 20:00 94 05/12/18 17:07 103 142/77 05/12/18 16:00 105 05/12/18 16:00 98.5 105 18 101/65 (77) 96 05/12/18 15:01 142/77 Intake and Output 05/12/18 05/13/18 19:00 07:00 Intake Total 240 ml Output Total 400 ml 400 ml Balance -160 ml -400 ml Intake Oral 240 ml Output Urine Total 400 ml 400 ml General Appearance: WD/WN HEENT: normocephalic Respiratory/Chest: chest wall non-tender, lungs clear Breasts: no masses Cardiovascular: normal rate Abdomen: normal bowel sounds, soft, non tender Genitourinary: normal external genitalia 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 Laboratory Tests 05/13/18 03:55: White Blood Count 10.3, Red Blood Count 3.69L, Hemoglobin 9.1L, Hematocrit 29.1L , Mean Corpuscular Volume 79L, Mean Corpuscular Hemoglobin 24.6L, Mean Corpuscular Hemoglobin Concent 31.3L, Red Cell Distribution Width 12.8, Platelet Count 350, Mean Platelet Volume 6.8, Neutrophils (%) (Auto) 74.1, Lymphocytes (%) (Auto) 13.0L, Monocytes (%) (Auto) 10.2H, Eosinophils (%) (Auto ) 2.3, Basophils (%) (Auto) 0.5, Prothrombin Time 24.3H, Prothromb Time International Ratio 2.4H, Activated Partial Thromboplast Time 77H, Sodium Level 132L, Potassium Level 3.9, Chloride Level 99, Carbon Dioxide Level 23, Anion Gap 10, Blood Urea Nitrogen 25H, Creatinine 2.2H, Estimat Glomerular Filtration Rate , Glucose Level 103, Osmolality 278L, Uric Acid 6.0, Calcium Level 8.9, Phosphorus Level 4.4, Magnesium Level 1.9, Total Bilirubin 0.2, Aspartate Amino Transf (AST/SGOT) 14L, Alanine Aminotransferase (ALT/SGPT) 14, Alkaline Phosphatase 63, Pro-B-Type Natriuretic Peptide 675H, Total Protein 6.9, Albumin 2.0L, Globulin 4.9, Albumin/Globulin Ratio 0.4L Current Medications Medications (Trade) Dose Ordered Sig/Lamonte Route PRN Reason Start Time Stop Time Status Last Admin Dose Admin Acetaminophen/ Hydrocodone Bitart ([place] 5/325) 1 tab Q6H PRN ORAL SEVERE PAIN 05/13/18 13:00 05/20/18 12:59 05/13/18 13:02 Amlodipine Besylate (Norvasc) 5 mg BID ORAL 05/11/18 18:00 06/10/18 08:59 05/13/18 09:59 Brimonidine Tartrate (Alphagan) 1 drop BID BOTH EYES 05/09/18 18:00 06/08/18 17:59 05/13/18 09:59 Carvedilol (Coreg) 3.125 mg EVERY 12 HOURS ORAL 05/12/18 21:00 06/11/18 20:59 05/13/18 09:59 Ceftriaxone Sodium 1 gm/ Dextrose 55 ml @ 110 mls/hr Q24H IVPB 05/11/18 10:00 05/18/18 09:59 05/13/18 10:25 Clonidine HCl (Catapres Tab) 0.1 mg Q6H PRN ORAL For High Blood Pressure 05/09/18 00:30 06/08/18 00:29 05/09/18 05:34 Docusate Sodium (Colace) 100 mg THREE TIMES A DAY ORAL 05/09/18 18:00 06/08/18 17:59 05/13/18 13:07 Dorzolamide HCl (Trusopt) 1 drop BID BOTH EYES 05/09/18 18:00 06/08/18 17:59 05/13/18 09:59 Heparin Sodium/ Dextrose 500 ml @ 21.772 mls/ hr ADJUST PER PROTOCOL IV 05/09/18 07:00 06/07/18 20:44 05/13/18 05:42 Hydralazine HCl (Apresoline) 50 mg Q8HR ORAL 05/12/18 14:00 06/11/18 13:59 05/13/18 05:39 Hydromorphone HCl (Dilaudid) 0.5 mg Q3H PRN IVP Severe Pain (Pain Scale 7-10) 05/10/18 09:45 05/17/18 09:44 05/12/18 00:42 Pantoprazole (Protonix) 40 mg EVERY 12 HOURS ORAL 05/09/18 21:00 06/08/18 20:59 05/13/18 09:59 Promethazine HCl/ Codeine (Phenergan with Codeine) 5 ml Q4H PRN ORAL For Cough 05/09/18 13:15 06/08/18 13:14 05/12/18 21:34 Salmeterol Xinafoate/ Fluticasone (Advair 250/50 Diskus) 1 puffs BIDRT INH 05/09/18 11:00 06/08/18 10:59 05/13/18 09:22 Temazepam (Restoril) 15 mg HSPRN PRN ORAL Insomnia 05/08/18 22:00 05/15/18 21:59 05/09/18 22:38 Theophylline (Jorge-Dur) 100 mg EVERY 12 HOURS ORAL 05/09/18 21:00 06/08/18 20:59 05/13/18 09:59 Tramadol HCl (Ultram) 50 mg Q6H PRN ORAL Moderate Pain (Pain Scale 4-6) 05/10/18 10:00 05/16/18 19:29 05/13/18 07:21 Warfarin Sodium (Coumadin per pharmacy) 1 ea DAILY PRN MISC Per rx protocol 05/08/18 20:45 06/07/18 20:44 Warfarin Sodium (Coumadin) 3 mg ONCE ORAL 05/13/18 17:00 05/13/18 19:00 Saran Olmos MD May 13, 2018 13:53
--- NOTE | 2018-05-13 15:15 | Nephrology Progress Note ---
Assessment/Plan Problem List: (1) Renal failure (ARF), acute on chronic (2) COPD (chronic obstructive pulmonary disease) (3) DVT (deep venous thrombosis) (4) Morbid obesity (5) Anemia (6) Hypertension Assessment ATN- cr rising COPD- DVT- HTN- Obesity- Plan in view of low BP, cutting down on BP meds and trying IV bolus. DC Coozar down on Hydralazine and coreg Kidney CHARLES UA U Na U Eosinophils DC HCTZ Adjust BP meds anemia dao Monitor renal parameters Avoid Nephrotoxics Subjective ROS Limited/Unobtainable: No Constitutional: Reports: malaise, weakness Objective Objective Last 24 Hour Vital Signs Date Time Temp Pulse Resp B/P (MAP) Pulse Ox O2 Delivery O2 Flow Rate FiO2 05/13/18 14:00 98/59 05/13/18 12:00 97.7 80 19 119/70 (86) 99 05/13/18 09:59 87 111/56 05/13/18 09:59 87 111/56 05/13/18 09:26 87 20 96 Room Air 21 05/13/18 09:25 85 16 96 Room Air 21 05/13/18 09:00 Room Air 05/13/18 08:00 97.7 88 19 111/56 (74) 98 05/13/18 07:03 89 05/13/18 05:39 109/69 05/13/18 04:00 98.4 88 18 109/69 (82) 05/13/18 04:00 88 05/13/18 00:00 98.4 94 18 116/63 (80) 97 05/13/18 00:00 91 05/12/18 21:29 110 105/52 05/12/18 21:29 105/52 05/12/18 21:00 Room Air 05/12/18 20:53 98.8 110 18 105/52 (69) 98 05/12/18 20:48 98.8 05/12/18 20:47 90 16 94 Room Air 21 05/12/18 20:30 76 20 94 Room Air 21 05/12/18 20:00 94 05/12/18 17:07 103 142/77 05/12/18 16:00 105 05/12/18 16:00 98.5 105 18 101/65 (77) 96 Intake and Output 05/12/18 05/13/18 19:00 07:00 Intake Total 240 ml Output Total 400 ml 400 ml Balance -160 ml -400 ml Intake Oral 240 ml Output Urine Total 400 ml 400 ml Laboratory Tests 05/13/18 03:55: White Blood Count 10.3, Red Blood Count 3.69L, Hemoglobin 9.1L, Hematocrit 29.1L , Mean Corpuscular Volume 79L, Mean Corpuscular Hemoglobin 24.6L, Mean Corpuscular Hemoglobin Concent 31.3L, Red Cell Distribution Width 12.8, Platelet Count 350, Mean Platelet Volume 6.8, Neutrophils (%) (Auto) 74.1, Lymphocytes (%) (Auto) 13.0L, Monocytes (%) (Auto) 10.2H, Eosinophils (%) (Auto ) 2.3, Basophils (%) (Auto) 0.5, Prothrombin Time 24.3H, Prothromb Time International Ratio 2.4H, Activated Partial Thromboplast Time 77H, Sodium Level 132L, Potassium Level 3.9, Chloride Level 99, Carbon Dioxide Level 23, Anion Gap 10, Blood Urea Nitrogen 25H, Creatinine 2.2H, Estimat Glomerular Filtration Rate , Glucose Level 103, Osmolality 278L, Uric Acid 6.0, Calcium Level 8.9, Phosphorus Level 4.4, Magnesium Level 1.9, Total Bilirubin 0.2, Aspartate Amino Transf (AST/SGOT) 14L, Alanine Aminotransferase (ALT/SGPT) 14, Alkaline Phosphatase 63, Pro-B-Type Natriuretic Peptide 675H, Total Protein 6.9, Albumin 2.0L, Globulin 4.9, Albumin/Globulin Ratio 0.4L Height (Feet): 5 Height (Inches): 2.00 Weight (Pounds): 150 General Appearance: no apparent distress, lethargic Cardiovascular: normal rate Respiratory/Chest: decreased breath sounds Abdomen: soft Objective no change Mukul Denise MD May 13, 2018 15:15
[2018-05-13 16:00] VITALS: BP 108/57
[2018-05-13] MEDS ORDERED: Warfarin Sodium 3mg ORAL SCH (17:00)
--- NOTE | 2018-05-13 17:14 | Diagnostic Imaging Report ---
Indication: Acute renal failure Technique: Grayscale and duplex images of the kidneys, retroperitoneum, and bladder were obtained. Comparison: 04/11/2017 renal ultrasound Findings: Right kidney measures 8.9 cm in length. Left kidney measures 8.7 cm in length. Both kidneys demonstrate normal echogenicity. No hydronephrosis. There is a large left renal cyst demonstrated, measuring 6.9 cm long axis dimension. Multiple smaller cysts are seen on the right kidney. Normal inferior vena cava. Bladder is normal. . There is incidental finding of left lobe hepatic cysts and gallstones. These are described on previous studies Impression: Negative for hydronephrosis Bilateral renal cysts incidentally noted Incidental finding of left lobe hepatic cysts and gallstones, also previously described.
--- NOTE | 2018-05-13 19:00 | Cardiology Progress Note ---
Assessment/Plan Assessment/Plan dvt hs of htn renal failure obesity asthma renal fuxn seems worse now off arb adn diuretics couamdin on Norvasc valle decresed due to low bp heparin coumadin crossover Subjective Cardiovascular: Denies: chest pain, lightheadedness Respiratory: Denies: shortness of breath Subjective PAST MEDICAL HISTORY: Positive for history of generalized weakness previously. No heart attack. No diabetes. She does have high blood pressure as mentioned. She has had history of stroke previously. She has had a history of peptic ulcer disease. No kidney problems, liver problems, thyroid problems, anemia, or arthritis. Her chart indicates that she has had prior admissions here and she was previously discharged with a diagnosis of generalized weakness, urinary tract infection, kidney problems, acute on chronic dehydration, and history of hypertension. She has a history of deep venous thrombosis according to the chart. The patient herself denies it and she has a history of obesity, chronic constipation, and anemia. ALLERGIES: She denies any allergies to medications. SOCIAL HISTORY: She does not smoke. Does not drink. She lives at home. Her son lives with her. Objective Last 24 Hour Vital Signs Date Time Temp Pulse Resp B/P (MAP) Pulse Ox O2 Delivery O2 Flow Rate FiO2 05/13/18 16:00 97.9 86 20 108/57 (74) 97 05/13/18 15:50 84 05/13/18 14:00 98/59 05/13/18 12:02 83 05/13/18 12:00 97.7 80 19 119/70 (86) 99 05/13/18 09:59 87 111/56 05/13/18 09:59 87 111/56 05/13/18 09:26 87 20 96 Room Air 21 05/13/18 09:25 85 16 96 Room Air 21 05/13/18 09:00 Room Air 05/13/18 08:00 97.7 88 19 111/56 (74) 98 05/13/18 07:03 89 05/13/18 05:39 109/69 05/13/18 04:00 98.4 88 18 109/69 (82) 05/13/18 04:00 88 05/13/18 00:00 98.4 94 18 116/63 (80) 97 05/13/18 00:00 91 05/12/18 21:29 110 105/52 05/12/18 21:29 105/52 05/12/18 21:00 Room Air 05/12/18 20:53 98.8 110 18 105/52 (69) 98 05/12/18 20:48 98.8 05/12/18 20:47 90 16 94 Room Air 21 05/12/18 20:30 76 20 94 Room Air 21 05/12/18 20:00 94 General Appearance: alert Neck: supple Cardiovascular: normal rate Respiratory/Chest: lungs clear, normal breath sounds Abdomen: normal bowel sounds, non tender, soft Extremities: no swelling Intake and Output 05/12/18 05/13/18 19:00 07:00 Intake Total 240 ml Output Total 400 ml 400 ml Balance -160 ml -400 ml Intake Oral 240 ml Output Urine Total 400 ml 400 ml Laboratory Tests Test 05/13/18 03:55 White Blood Count 10.3 K/UL (4.8-10.8) Red Blood Count 3.69 M/UL (4.20-5.40) L Hemoglobin 9.1 G/DL (12.0-16.0) L Hematocrit 29.1 % (37.0-47.0) L Mean Corpuscular Volume 79 FL (80-99) L Mean Corpuscular Hemoglobin 24.6 PG (27.0-31.0) L Mean Corpuscular Hemoglobin Concent 31.3 G/DL (32.0-36.0) L Red Cell Distribution Width 12.8 % (11.6-14.8) Platelet Count 350 K/UL (150-450) Mean Platelet Volume 6.8 FL (6.5-10.1) Neutrophils (%) (Auto) 74.1 % (45.0-75.0) Lymphocytes (%) (Auto) 13.0 % (20.0-45.0) L Monocytes (%) (Auto) 10.2 % (1.0-10.0) H Eosinophils (%) (Auto) 2.3 % (0.0-3.0) Basophils (%) (Auto) 0.5 % (0.0-2.0) Prothrombin Time 24.3 SEC (9.30-11.50) H Prothromb Time International Ratio 2.4 (0.9-1.1) H Activated Partial Thromboplast Time 77 SEC (23-33) H Sodium Level 132 MMOL/L (136-145) L Potassium Level 3.9 MMOL/L (3.5-5.1) Chloride Level 99 MMOL/L (98-107) Carbon Dioxide Level 23 MMOL/L (21-32) Anion Gap 10 mmol/L (5-15) Blood Urea Nitrogen 25 mg/dL (7-18) H Creatinine 2.2 MG/DL (0.55-1.30) H Estimat Glomerular Filtration Rate mL/min (>60) Glucose Level 103 MG/DL (74-106) Osmolality 278 mOsm/kg (297-317) L Uric Acid 6.0 MG/DL (2.6-7.2) Calcium Level 8.9 MG/DL (8.5-10.1) Phosphorus Level 4.4 MG/DL (2.5-4.9) Magnesium Level 1.9 MG/DL (1.8-2.4) Total Bilirubin 0.2 MG/DL (0.2-1.0) Aspartate Amino Transf (AST/SGOT) 14 U/L (15-37) L Alanine Aminotransferase (ALT/SGPT) 14 U/L (12-78) Alkaline Phosphatase 63 U/L (46-116) Pro-B-Type Natriuretic Peptide 675 pg/mL (0-125) H Total Protein 6.9 G/DL (6.4-8.2) Albumin 2.0 G/DL (3.4-5.0) L Globulin 4.9 g/dL Albumin/Globulin Ratio 0.4 (1.0-2.7) L Objective AST MEDICAL HISTORY: Positive for history of generalized weakness PHYSICAL EXAMINATION: GENERAL: Shows to be obese female, in no respiratory distress. VITAL SIGNS: Her orthostatic vitals that were performed today blood pressure in laying position reportedly 126/54 and in standing position 91/51, and most recently her blood pressure is 94/55. HEENT: Unremarkable. NECK: Supple. No jugular venous distention. No abdominojugular reflux noted. LUNGS: Appear to be clear to auscultation and percussion. CARDIAC: Regular rate and rhythm. No heaves, thrills, gallops, or rubs are noted. ABDOMEN: Soft and nontender. Positive bowel sounds. EXTREMITIES: There is no clubbing or cyanosis nor is there any edema. NEUROLOGICAL: She is awake, alert, and responsive and does not appear to Srinivas Masterson MD May 13, 2018 19:00
--- NOTE | 2018-05-13 19:26 | Internal Med Progress Note ---
Subjective Date of Service: May 13, 2018 Physician Name LymanFred Attending Physician Saran Olmos MD Current Medications Medications (Trade) Dose Ordered Sig/Lamonte Route PRN Reason Start Time Stop Time Status Last Admin Dose Admin Acetaminophen/ Hydrocodone Bitart ([place] 5/325) 1 tab Q6H PRN ORAL SEVERE PAIN 05/13/18 13:00 05/20/18 12:59 05/13/18 13:02 Amlodipine Besylate (Norvasc) 2.5 mg DAILY ORAL 05/14/18 09:00 06/10/18 08:59 Brimonidine Tartrate (Alphagan) 1 drop BID BOTH EYES 05/09/18 18:00 06/08/18 17:59 05/13/18 18:14 Carvedilol (Coreg) 3.125 mg EVERY 12 HOURS ORAL 05/12/18 21:00 06/11/18 20:59 05/13/18 09:59 Ceftriaxone Sodium 1 gm/ Dextrose 55 ml @ 110 mls/hr Q24H IVPB 05/11/18 10:00 05/18/18 09:59 05/13/18 10:25 Clonidine HCl (Catapres Tab) 0.1 mg Q6H PRN ORAL For High Blood Pressure 05/09/18 00:30 06/08/18 00:29 05/09/18 05:34 Docusate Sodium (Colace) 100 mg THREE TIMES A DAY ORAL 05/09/18 18:00 06/08/18 17:59 05/13/18 18:14 Dorzolamide HCl (Trusopt) 1 drop BID BOTH EYES 05/09/18 18:00 06/08/18 17:59 05/13/18 18:14 Hydralazine HCl (Apresoline) 10 mg Q8HR ORAL 05/13/18 22:00 06/11/18 13:59 Hydromorphone HCl (Dilaudid) 0.5 mg Q3H PRN IVP Severe Pain (Pain Scale 7-10) 05/10/18 09:45 05/17/18 09:44 05/12/18 00:42 Pantoprazole (Protonix) 40 mg EVERY 12 HOURS ORAL 05/09/18 21:00 06/08/18 20:59 05/13/18 09:59 Promethazine HCl/ Codeine (Phenergan with Codeine) 5 ml Q4H PRN ORAL For Cough 05/09/18 13:15 06/08/18 13:14 05/12/18 21:34 Salmeterol Xinafoate/ Fluticasone (Advair 250/50 Diskus) 1 puffs BIDRT INH 05/09/18 11:00 06/08/18 10:59 05/13/18 09:22 Temazepam (Restoril) 15 mg HSPRN PRN ORAL Insomnia 05/08/18 22:00 05/15/18 21:59 05/09/18 22:38 Theophylline (Jorge-Dur) 100 mg EVERY 12 HOURS ORAL 05/09/18 21:00 06/08/18 20:59 05/13/18 09:59 Tramadol HCl (Ultram) 50 mg Q6H PRN ORAL Moderate Pain (Pain Scale 4-6) 05/10/18 10:00 05/16/18 19:29 05/13/18 07:21 Warfarin Sodium (Coumadin per pharmacy) 1 ea DAILY PRN MISC Per rx protocol 05/08/18 20:45 06/07/18 20:44 Allergies: Coded Allergies: No Known Allergies (Unverified , 02/20/12) ROS Limited/Unobtainable: No Constitutional: Reports: no symptoms HEENT: Reports: no symptoms Cardiovascular: Reports: no symptoms Respiratory: Reports: no symptoms Gastrointestinal/Abdominal: Reports: no symptoms Genitourinary: Reports: no symptoms Neurologic/Psychiatric: Reports: no symptoms Subjective 87 YO F admitted with leg swelling. Now acute deep venous thrombosis left lower extremity and acute asthma exacerbation. Cover for Renee Chan Objective Last Vital Signs Date Time Temp Pulse Resp B/P (MAP) Pulse Ox O2 Delivery O2 Flow Rate FiO2 05/13/18 16:00 97.9 86 20 108/57 (74) 97 05/13/18 09:26 Room Air 21 Laboratory Tests Test 05/13/18 03:55 White Blood Count 10.3 K/UL (4.8-10.8) Red Blood Count 3.69 M/UL (4.20-5.40) L Hemoglobin 9.1 G/DL (12.0-16.0) L Hematocrit 29.1 % (37.0-47.0) L Mean Corpuscular Volume 79 FL (80-99) L Mean Corpuscular Hemoglobin 24.6 PG (27.0-31.0) L Mean Corpuscular Hemoglobin Concent 31.3 G/DL (32.0-36.0) L Red Cell Distribution Width 12.8 % (11.6-14.8) Platelet Count 350 K/UL (150-450) Mean Platelet Volume 6.8 FL (6.5-10.1) Neutrophils (%) (Auto) 74.1 % (45.0-75.0) Lymphocytes (%) (Auto) 13.0 % (20.0-45.0) L Monocytes (%) (Auto) 10.2 % (1.0-10.0) H Eosinophils (%) (Auto) 2.3 % (0.0-3.0) Basophils (%) (Auto) 0.5 % (0.0-2.0) Prothrombin Time 24.3 SEC (9.30-11.50) H Prothromb Time International Ratio 2.4 (0.9-1.1) H Activated Partial Thromboplast Time 77 SEC (23-33) H Sodium Level 132 MMOL/L (136-145) L Potassium Level 3.9 MMOL/L (3.5-5.1) Chloride Level 99 MMOL/L (98-107) Carbon Dioxide Level 23 MMOL/L (21-32) Anion Gap 10 mmol/L (5-15) Blood Urea Nitrogen 25 mg/dL (7-18) H Creatinine 2.2 MG/DL (0.55-1.30) H Estimat Glomerular Filtration Rate mL/min (>60) Glucose Level 103 MG/DL (74-106) Osmolality 278 mOsm/kg (297-317) L Uric Acid 6.0 MG/DL (2.6-7.2) Calcium Level 8.9 MG/DL (8.5-10.1) Phosphorus Level 4.4 MG/DL (2.5-4.9) Magnesium Level 1.9 MG/DL (1.8-2.4) Total Bilirubin 0.2 MG/DL (0.2-1.0) Aspartate Amino Transf (AST/SGOT) 14 U/L (15-37) L Alanine Aminotransferase (ALT/SGPT) 14 U/L (12-78) Alkaline Phosphatase 63 U/L (46-116) Pro-B-Type Natriuretic Peptide 675 pg/mL (0-125) H Total Protein 6.9 G/DL (6.4-8.2) Albumin 2.0 G/DL (3.4-5.0) L Globulin 4.9 g/dL Albumin/Globulin Ratio 0.4 (1.0-2.7) L Intake and Output 05/12/18 05/13/18 19:00 07:00 Intake Total 240 ml Output Total 400 ml 400 ml Balance -160 ml -400 ml Intake Oral 240 ml Output Urine Total 400 ml 400 ml Objective PHYSICAL EXAMINATION: GENERAL: The patient is well-developed and well-nourished female, in no apparent distress. HEENT: Eyes, pupils equal and responsive to light and accommodation. Extraocular movements are intact. NECK: Supple without lymphadenopathy. CHEST: Lungs are clear to auscultation bilaterally without wheezes or rales. CARDIOVASCULAR: Regular rate. S1 and S2 are normal without murmurs, rubs, or gallops. ABDOMEN: Soft, nontender, and nondistended. Positive bowel sounds. No evidence of hepatosplenomegaly. Currently, no rebound or guarding. EXTREMITIES: Trace edema on the left and trace edema on the right. Otherwise, without cyanosis or clubbing. RECTAL: Refused. GENITAL: Refused. NEUROLOGIC: Cranial nerves II through XII grossly intact without focal deficits. Motor strength is 5/5 bilaterally. Deep tendon reflexes are 2+ Assessment/Plan Assessment/Plan ASSESSMENT: This is an 87-year-old female. 1. Deep venous thrombosis of the left lower extremity, acute. 2. Edema of bilateral lower extremities. 3. Asthma. 4. Hypertension. 5. Glaucoma. TREATMENT: 1. Deep venous thrombosis of the left lower extremity. The patient was started on heparin drip in the emergency room. The patient was not started on Xarelto due to renal insufficiency. Coumadin therapeutic; INR=2.4. D/C Heparin 2. Asthma exacerbation. A Pulmonary consultation has been obtained with Dr. Saran Olmos. We will follow recommendations of Pulmonary. Continue Azithromycin per ID 3. Congestive heart failure. Cardiology consultation has been obtained with Dr. Srinivas Masterson. 4. Hypertension. Continue losartan/hydrochlorothiazide as above. 5. Glaucoma. Continue eye drops as above. 6. Disharge planning Fred Lyman MD May 13, 2018 19:26
[2018-05-13 20:00] VITALS: BP 111/58
--- NOTE | 2018-05-13 20:00 | NUR ---
Got report from Zeinab OCHOA. Pt in stable condition. Denies any pain. No s/s of distress noted. Pt in stable condition. Bed in low and locked position, call light within reach, bedside table within reach. continue to monitor.
--- NOTE | 2018-05-13 20:04 | NUR ---
HAND-OFF: Report given to Serafin OCHOA. Pt. remain stable.
[2018-05-13] MEDS: HydrALAZINE 10mg Tab ORAL SCH (21:36)
--- NOTE | 2018-05-13 22:09 | NUR ---
HAND-OFF: Report given to Luz OCHOA. Endorsed plan of care.
--- NOTE | 2018-05-13 22:10 | NUR ---
NURSE NOTES: Received patient awake,alert,verbal,resting in bed.
[2018-05-14] VITALS (7 sets, daily range): BP systolic 124–158; BP diastolic 70–90
[2018-05-14 04:46] LABS: HEMATOCRIT 28.5 % (37.0-47.0); HEMOGLOBIN 8.9 G/DL (12.0-16.0); MEAN CORPUSCULAR VOLUME 79 FL (80-99); PLATELET COUNT 375 K/UL (150-450); RED CELL DISTRIBUTION WIDTH 12.9 % (11.6-14.8); WHITE BLOOD COUNT 8.5 K/UL (4.8-10.8)
[2018-05-14 05:21] LABS: ALANINE AMINOTRANSFERASE 14 U/L (12-78); ALBUMIN 2.5 G/DL (3.4-5.0); ALBUMIN/GLOBULIN RATIO 0.5 (1.0-2.7); ALKALINE PHOSPHATASE 64 U/L (46-116); ANION GAP 15 mmol/L (5-15); ASPARTATE AMINO TRANSFERASE 14 U/L (15-37); BILIRUBIN,TOTAL 0.3 MG/DL (0.2-1.0); BLOOD UREA NITROGEN 30 mg/dL (7-18); CALCIUM 9.4 MG/DL (8.5-10.1); CARBON DIOXIDE 19 MMOL/L (21-32); CHLORIDE 100 MMOL/L (98-107); CREATININE 2.1 MG/DL (0.55-1.30); PHOSPHORUS 4.1 MG/DL (2.5-4.9); POTASSIUM 4.3 MMOL/L (3.5-5.1); SODIUM 134 MMOL/L (136-145)
[2018-05-14] MEDS: HydrALAZINE 10mg Tab ORAL SCH ×3 (05:55→21:05)
[2018-05-14 06:00] LABS: INR 3.3 (0.9-1.1)
--- NOTE | 2018-05-14 07:38 | NUR ---
HAND-OFF: Report given to Lea Killian RN.
--- NOTE | 2018-05-14 07:49 | NUR ---
NURSE NOTES: Patient is alert and oriented,respirations are unlabored,patient eating breakfast at this time,left leg elevated on pillow pedal pulse strong,call light within reach.
[2018-05-14] MEDS: Wixela 250/50 Inhaler - 60 dose INH SCH ×2 (09:15→22:08)
[2018-05-14] MEDS: Brimonidine 0.2% Opth Sol BOTH EYES SCH ×2 (10:16→18:34)
[2018-05-14] MEDS: Docusate 100mg cap ORAL SCH ×3 (10:19→18:35)
[2018-05-14] MEDS: Theophylline ER 100mg ORAL SCH ×2 (10:20→21:06)
[2018-05-14] MEDS: Dorzolamide 2% 10ml Btl BOTH EYES SCH ×2 (10:25→18:39)
[2018-05-14] MEDS: cefTRIAXone 1 GM in D5W 55 ML IVPB SCH (11:18)
--- NOTE | 2018-05-14 11:46 | Infectious Diseases Prog Note ---
Assessment/Plan Assessment/Plan Assessment: Asthma exacerbation -CXR: Cardiomegaly. No acute process -influenza sc neg -SCx - NF Low grade fever;SP Leukocytosis, S P Acute L DVT -v.duplex: Positive for left lower extremity acute deep venous thrombosis, involving the popliteal vein, calf veins, and upstream femoral vein ALMA, worsened obesity CVA/TIA PUD GERD anxiety asthma HTN hx of DVT Plan: - Restarted ceftriaxone #4/5 given increased WBCs -/ SP Azithromycin #4 -05/09 SP Ceftriaxone #1 -05/08 SP Levaquin x1 -Monitor CBC/CMP, temperatures Will continue to follow along with you. Subjective Allergies: Coded Allergies: No Known Allergies (Unverified , 02/20/12) Subjective afebrile at RA no leukocytosis Objective Vital Signs Last 24 Hour Vital Signs Date Time Temp Pulse Resp B/P (MAP) Pulse Ox O2 Delivery O2 Flow Rate FiO2 05/14/18 10:20 94 153/79 05/14/18 10:19 94 153/79 05/14/18 10:10 94 153/79 (103) 05/14/18 09:17 Room Air 21 05/14/18 09:17 Room Air 21 05/14/18 09:00 Room Air 05/14/18 08:00 99.0 94 22 158/88 (111) 98 05/14/18 05:55 147/77 05/14/18 04:00 98.6 95 17 147/77 (100) 95 05/14/18 00:18 98.1 90 19 124/70 (88) 96 05/13/18 23:36 98.0 05/13/18 22:36 93 16 95 Room Air 21 05/13/18 22:31 93 16 96 Room Air 21 05/13/18 21:36 111/58 05/13/18 21:30 Room Air 05/13/18 20:47 90 111/58 05/13/18 20:00 93 05/13/18 20:00 98.0 91 20 111/58 (75) 98 05/13/18 16:00 97.9 86 20 108/57 (74) 97 05/13/18 15:50 84 05/13/18 14:00 98/59 05/13/18 12:02 83 05/13/18 12:00 97.7 80 19 119/70 (86) 99 Height (Feet): 5 Height (Inches): 2.00 Weight (Pounds): 150 Objective GENERAL: The patient is well-developed and well-nourished female, in no apparent distress. HEENT: Eyes, pupils equal and responsive to light and accommodation. Extraocular movements are intact. NECK: Supple without lymphadenopathy. CHEST: Lungs are clear to auscultation bilaterally without wheezes or rales. CARDIOVASCULAR: Regular rate. S1 and S2 are normal without murmurs, rubs, or gallops. ABDOMEN: Soft, nontender, and nondistended. Positive bowel sounds. No evidence of hepatosplenomegaly. Currently, no rebound or guarding. EXTREMITIES: Trace edema on the left and trace edema on the right. Otherwise, without cyanosis or clubbing. NEUROLOGIC: Cranial nerves II through XII grossly intact without focal deficits. Motor strength is 5/5 bilaterally. Deep tendon reflexes are 2+ plantar. Laboratory Tests Test 05/14/18 04:05 White Blood Count 8.5 K/UL (4.8-10.8) Red Blood Count 3.60 M/UL (4.20-5.40) L Hemoglobin 8.9 G/DL (12.0-16.0) L Hematocrit 28.5 % (37.0-47.0) L Mean Corpuscular Volume 79 FL (80-99) L Mean Corpuscular Hemoglobin 24.8 PG (27.0-31.0) L Mean Corpuscular Hemoglobin Concent 31.4 G/DL (32.0-36.0) L Red Cell Distribution Width 12.9 % (11.6-14.8) Platelet Count 375 K/UL (150-450) Mean Platelet Volume 6.0 FL (6.5-10.1) L Neutrophils (%) (Auto) % (45.0-75.0) Lymphocytes (%) (Auto) % (20.0-45.0) Monocytes (%) (Auto) % (1.0-10.0) Eosinophils (%) (Auto) % (0.0-3.0) Basophils (%) (Auto) % (0.0-2.0) Prothrombin Time 32.8 SEC (9.30-11.50) H Prothromb Time International Ratio 3.3 (0.9-1.1) H Activated Partial Thromboplast Time 67 SEC (23-33) H Sodium Level 134 MMOL/L (136-145) L Potassium Level 4.3 MMOL/L (3.5-5.1) Chloride Level 100 MMOL/L (98-107) Carbon Dioxide Level 19 MMOL/L (21-32) L Anion Gap 15 mmol/L (5-15) Blood Urea Nitrogen 30 mg/dL (7-18) H Creatinine 2.1 MG/DL (0.55-1.30) H Estimat Glomerular Filtration Rate mL/min (>60) Glucose Level 101 MG/DL (74-106) Uric Acid 6.8 MG/DL (2.6-7.2) Calcium Level 9.4 MG/DL (8.5-10.1) Phosphorus Level 4.1 MG/DL (2.5-4.9) Magnesium Level 2.0 MG/DL (1.8-2.4) Total Bilirubin 0.3 MG/DL (0.2-1.0) Aspartate Amino Transf (AST/SGOT) 14 U/L (15-37) L Alanine Aminotransferase (ALT/SGPT) 14 U/L (12-78) Alkaline Phosphatase 64 U/L (46-116) C-Reactive Protein, Quantitative 26.6 mg/dL (0.00-0.90) H Pro-B-Type Natriuretic Peptide 752 pg/mL (0-125) H Total Protein 7.5 G/DL (6.4-8.2) Albumin 2.5 G/DL (3.4-5.0) L Globulin 5.0 g/dL Albumin/Globulin Ratio 0.5 (1.0-2.7) L Current Medications Medications (Trade) Dose Ordered Sig/Lamonte Route PRN Reason Start Time Stop Time Status Last Admin Dose Admin Acetaminophen/ Hydrocodone Bitart ([place] 5/325) 1 tab Q6H PRN ORAL SEVERE PAIN 05/13/18 13:00 05/20/18 12:59 05/13/18 23:06 Amlodipine Besylate (Norvasc) 2.5 mg DAILY ORAL 05/14/18 09:00 06/10/18 08:59 05/14/18 10:20 Brimonidine Tartrate (Alphagan) 1 drop BID BOTH EYES 05/09/18 18:00 06/08/18 17:59 05/14/18 10:16 Carvedilol (Coreg) 3.125 mg EVERY 12 HOURS ORAL 05/12/18 21:00 06/11/18 20:59 05/14/18 10:19 Ceftriaxone Sodium 1 gm/ Dextrose 55 ml @ 110 mls/hr Q24H IVPB 05/11/18 10:00 05/18/18 09:59 05/14/18 11:18 Clonidine HCl (Catapres Tab) 0.1 mg Q6H PRN ORAL For High Blood Pressure 05/09/18 00:30 06/08/18 00:29 05/09/18 05:34 Docusate Sodium (Colace) 100 mg THREE TIMES A DAY ORAL 05/09/18 18:00 06/08/18 17:59 05/14/18 10:19 Dorzolamide HCl (Trusopt) 1 drop BID BOTH EYES 05/09/18 18:00 06/08/18 17:59 05/14/18 10:25 Hydralazine HCl (Apresoline) 10 mg Q8HR ORAL 05/13/18 22:00 06/11/18 13:59 05/14/18 05:55 Hydromorphone HCl (Dilaudid) 0.5 mg Q3H PRN IVP Severe Pain (Pain Scale 7-10) 05/10/18 09:45 05/17/18 09:44 05/12/18 00:42 Pantoprazole (Protonix) 40 mg EVERY 12 HOURS ORAL 05/09/18 21:00 06/08/18 20:59 05/14/18 10:20 Promethazine HCl/ Codeine (Phenergan with Codeine) 5 ml Q4H PRN ORAL For Cough 05/09/18 13:15 06/08/18 13:14 05/12/18 21:34 Salmeterol Xinafoate/ Fluticasone (Advair 250/50 Diskus) 1 puffs BIDRT INH 05/09/18 11:00 06/08/18 10:59 05/13/18 22:30 Temazepam (Restoril) 15 mg HSPRN PRN ORAL Insomnia 05/08/18 22:00 05/15/18 21:59 05/09/18 22:38 Theophylline (Jorge-Dur) 100 mg EVERY 12 HOURS ORAL 05/09/18 21:00 06/08/18 20:59 05/14/18 10:20 Tramadol HCl (Ultram) 50 mg Q6H PRN ORAL Moderate Pain (Pain Scale 4-6) 05/10/18 10:00 05/16/18 19:29 05/13/18 07:21 Warfarin Sodium (Coumadin per pharmacy) 1 ea DAILY PRN MISC Per rx protocol 05/08/18 20:45 06/07/18 20:44 Dolores Laws M.D. May 14, 2018 11:46
--- NOTE | 2018-05-14 14:43 | Nephrology Progress Note ---
Assessment/Plan Problem List: (1) Renal failure (ARF), acute on chronic (2) COPD (chronic obstructive pulmonary disease) (3) DVT (deep venous thrombosis) (4) Morbid obesity (5) Anemia (6) Hypertension Assessment ATN- cr stablizing COPD- DVT- HTN- Obesity- Plan in view of low BP, cutting down on BP meds and trying IV bolus. DC Coozar down on Hydralazine and coreg Kidney CHARLES Neg for hydro UA U Na U Eosinophils DC HCTZ Adjust BP meds anemia dao Monitor renal parameters Avoid Nephrotoxics Subjective ROS Limited/Unobtainable: No Constitutional: Reports: malaise Objective Objective Last 24 Hour Vital Signs Date Time Temp Pulse Resp B/P (MAP) Pulse Ox O2 Delivery O2 Flow Rate FiO2 05/14/18 13:58 132/75 05/14/18 12:00 98.4 89 18 132/75 (94) 96 05/14/18 10:20 94 153/79 05/14/18 10:19 94 153/79 05/14/18 10:10 94 153/79 (103) 05/14/18 09:17 Room Air 21 05/14/18 09:17 Room Air 21 05/14/18 09:00 Room Air 05/14/18 08:00 99.0 94 22 158/88 (111) 98 05/14/18 05:55 147/77 05/14/18 04:00 98.6 95 17 147/77 (100) 95 05/14/18 00:18 98.1 90 19 124/70 (88) 96 05/13/18 23:36 98.0 05/13/18 22:36 93 16 95 Room Air 21 05/13/18 22:31 93 16 96 Room Air 21 05/13/18 21:36 111/58 05/13/18 21:30 Room Air 05/13/18 20:47 90 111/58 05/13/18 20:00 93 05/13/18 20:00 98.0 91 20 111/58 (75) 98 05/13/18 16:00 97.9 86 20 108/57 (74) 97 05/13/18 15:50 84 Intake and Output 05/13/18 05/14/18 18:59 06:59 Intake Total 440 ml Output Total 400 ml 1000 ml Balance 40 ml -1000 ml Intake Oral 440 ml Output Urine Total 400 ml 1000 ml Laboratory Tests 05/14/18 04:05: White Blood Count 8.5, Red Blood Count 3.60L, Hemoglobin 8.9L, Hematocrit 28.5L , Mean Corpuscular Volume 79L, Mean Corpuscular Hemoglobin 24.8L, Mean Corpuscular Hemoglobin Concent 31.4L, Red Cell Distribution Width 12.9, Platelet Count 375, Mean Platelet Volume 6.0L, Neutrophils (%) (Auto) , Lymphocytes (%) (Auto) , Monocytes (%) (Auto) , Eosinophils (%) (Auto) , Basophils (%) (Auto) , Prothrombin Time 32.8H, Prothromb Time International Ratio 3.3H, Activated Partial Thromboplast Time 67H, Sodium Level 134L, Potassium Level 4.3, Chloride Level 100, Carbon Dioxide Level 19L, Anion Gap 15 , Blood Urea Nitrogen 30H, Creatinine 2.1H, Estimat Glomerular Filtration Rate , Glucose Level 101, Uric Acid 6.8, Calcium Level 9.4, Phosphorus Level 4.1, Magnesium Level 2.0, Total Bilirubin 0.3, Aspartate Amino Transf (AST/SGOT) 14L , Alanine Aminotransferase (ALT/SGPT) 14, Alkaline Phosphatase 64, C-Reactive Protein, Quantitative 26.6H, Pro-B-Type Natriuretic Peptide 752H, Total Protein 7.5, Albumin 2.5L, Globulin 5.0, Albumin/Globulin Ratio 0.5L Height (Feet): 5 Height (Inches): 2.00 Weight (Pounds): 150 General Appearance: no apparent distress Cardiovascular: tachycardia Respiratory/Chest: decreased breath sounds Abdomen: soft Objective no change Mukul Denise MD May 14, 2018 14:43
--- NOTE | 2018-05-14 15:57 | Pulmonology Progress Note ---
Assessment/Plan Problems: (1) DVT (deep venous thrombosis) (2) COPD (chronic obstructive pulmonary disease) (3) ATN (acute tubular necrosis) (4) Hypertension (5) Morbid obesity Assessment/Plan coumadin po, INR therapeutic monitor BP renal studies anemia w/u respiratory treatment symptomatic treatment endoscopy done med/surg Subjective ROS Limited/Unobtainable: No Constitutional: Reports: no symptoms HEENT: Repors: no symptoms Respiratory: Reports: no symptoms Allergies: Coded Allergies: No Known Allergies (Unverified , 02/20/12) Objective Last 24 Hour Vital Signs Date Time Temp Pulse Resp B/P (MAP) Pulse Ox O2 Delivery O2 Flow Rate FiO2 05/14/18 13:58 132/75 05/14/18 12:00 98.4 89 18 132/75 (94) 96 05/14/18 10:20 94 153/79 05/14/18 10:19 94 153/79 05/14/18 10:10 94 153/79 (103) 05/14/18 09:17 Room Air 21 05/14/18 09:17 Room Air 21 05/14/18 09:00 Room Air 05/14/18 08:00 99.0 94 22 158/88 (111) 98 05/14/18 05:55 147/77 05/14/18 04:00 98.6 95 17 147/77 (100) 95 05/14/18 00:18 98.1 90 19 124/70 (88) 96 05/13/18 23:36 98.0 05/13/18 22:36 93 16 95 Room Air 21 05/13/18 22:31 93 16 96 Room Air 21 05/13/18 21:36 111/58 05/13/18 21:30 Room Air 05/13/18 20:47 90 111/58 05/13/18 20:00 93 05/13/18 20:00 98.0 91 20 111/58 (75) 98 05/13/18 16:00 97.9 86 20 108/57 (74) 97 Intake and Output 05/13/18 05/14/18 19:00 07:00 Intake Total 440 ml Output Total 400 ml 1000 ml Balance 40 ml -1000 ml Intake Oral 440 ml Output Urine Total 400 ml 1000 ml General Appearance: WD/WN Respiratory/Chest: chest wall non-tender, lungs clear Breasts: no masses Cardiovascular: normal peripheral pulses Abdomen: normal bowel sounds, soft, non tender Genitourinary: normal external genitalia Extremities: no clubbing Neurologic/Psychiatric: circuit manager II-XII grossly normal Laboratory Tests 05/14/18 04:05: White Blood Count 8.5, Red Blood Count 3.60L, Hemoglobin 8.9L, Hematocrit 28.5L , Mean Corpuscular Volume 79L, Mean Corpuscular Hemoglobin 24.8L, Mean Corpuscular Hemoglobin Concent 31.4L, Red Cell Distribution Width 12.9, Platelet Count 375, Mean Platelet Volume 6.0L, Neutrophils (%) (Auto) , Lymphocytes (%) (Auto) , Monocytes (%) (Auto) , Eosinophils (%) (Auto) , Basophils (%) (Auto) , Prothrombin Time 32.8H, Prothromb Time International Ratio 3.3H, Activated Partial Thromboplast Time 67H, Sodium Level 134L, Potassium Level 4.3, Chloride Level 100, Carbon Dioxide Level 19L, Anion Gap 15 , Blood Urea Nitrogen 30H, Creatinine 2.1H, Estimat Glomerular Filtration Rate , Glucose Level 101, Uric Acid 6.8, Calcium Level 9.4, Phosphorus Level 4.1, Magnesium Level 2.0, Total Bilirubin 0.3, Aspartate Amino Transf (AST/SGOT) 14L , Alanine Aminotransferase (ALT/SGPT) 14, Alkaline Phosphatase 64, C-Reactive Protein, Quantitative 26.6H, Pro-B-Type Natriuretic Peptide 752H, Total Protein 7.5, Albumin 2.5L, Globulin 5.0, Albumin/Globulin Ratio 0.5L Current Medications Medications (Trade) Dose Ordered Sig/Lamonte Route PRN Reason Start Time Stop Time Status Last Admin Dose Admin Acetaminophen/ Hydrocodone Bitart ([place] 5/325) 1 tab Q6H PRN ORAL SEVERE PAIN 05/13/18 13:00 05/20/18 12:59 05/13/18 23:06 Amlodipine Besylate (Norvasc) 2.5 mg DAILY ORAL 05/14/18 09:00 06/10/18 08:59 05/14/18 10:20 Brimonidine Tartrate (Alphagan) 1 drop BID BOTH EYES 05/09/18 18:00 06/08/18 17:59 05/14/18 10:16 Carvedilol (Coreg) 3.125 mg EVERY 12 HOURS ORAL 05/12/18 21:00 06/11/18 20:59 05/14/18 10:19 Ceftriaxone Sodium 1 gm/ Dextrose 55 ml @ 110 mls/hr Q24H IVPB 05/11/18 10:00 05/18/18 09:59 05/14/18 11:18 Clonidine HCl (Catapres Tab) 0.1 mg Q6H PRN ORAL For High Blood Pressure 05/09/18 00:30 06/08/18 00:29 05/09/18 05:34 Docusate Sodium (Colace) 100 mg THREE TIMES A DAY ORAL 05/09/18 18:00 06/08/18 17:59 05/14/18 13:57 Dorzolamide HCl (Trusopt) 1 drop BID BOTH EYES 05/09/18 18:00 06/08/18 17:59 05/14/18 10:25 Hydralazine HCl (Apresoline) 10 mg Q8HR ORAL 05/13/18 22:00 06/11/18 13:59 05/14/18 13:58 Hydromorphone HCl (Dilaudid) 0.5 mg Q3H PRN IVP Severe Pain (Pain Scale 7-10) 05/10/18 09:45 05/17/18 09:44 05/12/18 00:42 Pantoprazole (Protonix) 40 mg EVERY 12 HOURS ORAL 05/09/18 21:00 06/08/18 20:59 05/14/18 10:20 Promethazine HCl/ Codeine (Phenergan with Codeine) 5 ml Q4H PRN ORAL For Cough 05/09/18 13:15 06/08/18 13:14 05/12/18 21:34 Salmeterol Xinafoate/ Fluticasone (Advair 250/50 Diskus) 1 puffs BIDRT INH 05/09/18 11:00 06/08/18 10:59 05/13/18 22:30 Temazepam (Restoril) 15 mg HSPRN PRN ORAL Insomnia 05/08/18 22:00 05/15/18 21:59 05/09/18 22:38 Theophylline (Jorge-Dur) 100 mg EVERY 12 HOURS ORAL 05/09/18 21:00 06/08/18 20:59 05/14/18 10:20 Tramadol HCl (Ultram) 50 mg Q6H PRN ORAL Moderate Pain (Pain Scale 4-6) 05/10/18 10:00 05/16/18 19:29 05/13/18 07:21 Warfarin Sodium (Coumadin per pharmacy) 1 ea DAILY PRN MISC Per rx protocol 05/08/18 20:45 06/07/18 20:44 Saran Olmos MD May 14, 2018 15:57
[2018-05-14] MEDS ORDERED: NORCO 5-325 TA1 EACH ORAL (16:02)
[2018-05-14] MEDS ORDERED: COUMADIN2.5 MG ORAL (16:02)
--- NOTE | 2018-05-14 16:48 | Internal Med Progress Note ---
Subjective Date of Service: May 14, 2018 Physician Name Fred Lyman Attending Physician Saran Olmos MD Current Medications Medications (Trade) Dose Ordered Sig/Lamonte Route PRN Reason Start Time Stop Time Status Last Admin Dose Admin Acetaminophen/ Hydrocodone Bitart ([place] 5/325) 1 tab Q6H PRN ORAL SEVERE PAIN 05/13/18 13:00 05/20/18 12:59 05/13/18 23:06 Amlodipine Besylate (Norvasc) 2.5 mg DAILY ORAL 05/14/18 09:00 06/10/18 08:59 05/14/18 10:20 Brimonidine Tartrate (Alphagan) 1 drop BID BOTH EYES 05/09/18 18:00 06/08/18 17:59 05/14/18 10:16 Carvedilol (Coreg) 3.125 mg EVERY 12 HOURS ORAL 05/12/18 21:00 06/11/18 20:59 05/14/18 10:19 Ceftriaxone Sodium 1 gm/ Dextrose 55 ml @ 110 mls/hr Q24H IVPB 05/11/18 10:00 05/18/18 09:59 05/14/18 11:18 Clonidine HCl (Catapres Tab) 0.1 mg Q6H PRN ORAL For High Blood Pressure 05/09/18 00:30 06/08/18 00:29 05/09/18 05:34 Docusate Sodium (Colace) 100 mg THREE TIMES A DAY ORAL 05/09/18 18:00 06/08/18 17:59 05/14/18 13:57 Dorzolamide HCl (Trusopt) 1 drop BID BOTH EYES 05/09/18 18:00 06/08/18 17:59 05/14/18 10:25 Hydralazine HCl (Apresoline) 10 mg Q8HR ORAL 05/13/18 22:00 06/11/18 13:59 05/14/18 13:58 Hydromorphone HCl (Dilaudid) 0.5 mg Q3H PRN IVP Severe Pain (Pain Scale 7-10) 05/10/18 09:45 05/17/18 09:44 05/12/18 00:42 Pantoprazole (Protonix) 40 mg EVERY 12 HOURS ORAL 05/09/18 21:00 06/08/18 20:59 05/14/18 10:20 Promethazine HCl/ Codeine (Phenergan with Codeine) 5 ml Q4H PRN ORAL For Cough 05/09/18 13:15 06/08/18 13:14 05/12/18 21:34 Salmeterol Xinafoate/ Fluticasone (Advair 250/50 Diskus) 1 puffs BIDRT INH 05/09/18 11:00 06/08/18 10:59 05/13/18 22:30 Temazepam (Restoril) 15 mg HSPRN PRN ORAL Insomnia 05/08/18 22:00 05/15/18 21:59 05/09/18 22:38 Theophylline (Jorge-Dur) 100 mg EVERY 12 HOURS ORAL 05/09/18 21:00 06/08/18 20:59 05/14/18 10:20 Tramadol HCl (Ultram) 50 mg Q6H PRN ORAL Moderate Pain (Pain Scale 4-6) 05/10/18 10:00 05/16/18 19:29 05/13/18 07:21 Warfarin Sodium (Coumadin per pharmacy) 1 ea DAILY PRN MISC Per rx protocol 05/08/18 20:45 06/07/18 20:44 Allergies: Coded Allergies: No Known Allergies (Unverified , 02/20/12) ROS Limited/Unobtainable: No Constitutional: Reports: no symptoms HEENT: Reports: no symptoms Cardiovascular: Reports: no symptoms Respiratory: Reports: no symptoms Gastrointestinal/Abdominal: Reports: no symptoms Genitourinary: Reports: no symptoms Neurologic/Psychiatric: Reports: no symptoms Subjective 87 YO F admitted with leg swelling. Now acute deep venous thrombosis left lower extremity and acute asthma exacerbation. Cover for Renee Coburn-Dr Chan Objective Last Vital Signs Date Time Temp Pulse Resp B/P (MAP) Pulse Ox O2 Delivery O2 Flow Rate FiO2 05/14/18 13:58 132/75 05/14/18 12:00 98.4 89 18 96 05/14/18 09:17 Room Air 21 Laboratory Tests Test 05/14/18 04:05 White Blood Count 8.5 K/UL (4.8-10.8) Red Blood Count 3.60 M/UL (4.20-5.40) L Hemoglobin 8.9 G/DL (12.0-16.0) L Hematocrit 28.5 % (37.0-47.0) L Mean Corpuscular Volume 79 FL (80-99) L Mean Corpuscular Hemoglobin 24.8 PG (27.0-31.0) L Mean Corpuscular Hemoglobin Concent 31.4 G/DL (32.0-36.0) L Red Cell Distribution Width 12.9 % (11.6-14.8) Platelet Count 375 K/UL (150-450) Mean Platelet Volume 6.0 FL (6.5-10.1) L Neutrophils (%) (Auto) % (45.0-75.0) Lymphocytes (%) (Auto) % (20.0-45.0) Monocytes (%) (Auto) % (1.0-10.0) Eosinophils (%) (Auto) % (0.0-3.0) Basophils (%) (Auto) % (0.0-2.0) Prothrombin Time 32.8 SEC (9.30-11.50) H Prothromb Time International Ratio 3.3 (0.9-1.1) H Activated Partial Thromboplast Time 67 SEC (23-33) H Sodium Level 134 MMOL/L (136-145) L Potassium Level 4.3 MMOL/L (3.5-5.1) Chloride Level 100 MMOL/L (98-107) Carbon Dioxide Level 19 MMOL/L (21-32) L Anion Gap 15 mmol/L (5-15) Blood Urea Nitrogen 30 mg/dL (7-18) H Creatinine 2.1 MG/DL (0.55-1.30) H Estimat Glomerular Filtration Rate mL/min (>60) Glucose Level 101 MG/DL (74-106) Uric Acid 6.8 MG/DL (2.6-7.2) Calcium Level 9.4 MG/DL (8.5-10.1) Phosphorus Level 4.1 MG/DL (2.5-4.9) Magnesium Level 2.0 MG/DL (1.8-2.4) Total Bilirubin 0.3 MG/DL (0.2-1.0) Aspartate Amino Transf (AST/SGOT) 14 U/L (15-37) L Alanine Aminotransferase (ALT/SGPT) 14 U/L (12-78) Alkaline Phosphatase 64 U/L (46-116) C-Reactive Protein, Quantitative 26.6 mg/dL (0.00-0.90) H Pro-B-Type Natriuretic Peptide 752 pg/mL (0-125) H Total Protein 7.5 G/DL (6.4-8.2) Albumin 2.5 G/DL (3.4-5.0) L Globulin 5.0 g/dL Albumin/Globulin Ratio 0.5 (1.0-2.7) L Intake and Output 05/13/18 05/14/18 19:00 07:00 Intake Total 440 ml Output Total 400 ml 1000 ml Balance 40 ml -1000 ml Intake Oral 440 ml Output Urine Total 400 ml 1000 ml Objective PHYSICAL EXAMINATION: GENERAL: The patient is well-developed and well-nourished female, in no apparent distress. HEENT: Eyes, pupils equal and responsive to light and accommodation. Extraocular movements are intact. NECK: Supple without lymphadenopathy. CHEST: Lungs are clear to auscultation bilaterally without wheezes or rales. CARDIOVASCULAR: Regular rate. S1 and S2 are normal without murmurs, rubs, or gallops. ABDOMEN: Soft, nontender, and nondistended. Positive bowel sounds. No evidence of hepatosplenomegaly. Currently, no rebound or guarding. EXTREMITIES: Trace edema on the left and trace edema on the right. Otherwise, without cyanosis or clubbing. RECTAL: Refused. GENITAL: Refused. NEUROLOGIC: Cranial nerves II through XII grossly intact without focal deficits. Motor strength is 5/5 bilaterally. Deep tendon reflexes are 2+ Assessment/Plan Assessment/Plan ASSESSMENT: This is an 87-year-old female. 1. Deep venous thrombosis of the left lower extremity, acute. 2. Edema of bilateral lower extremities. 3. Asthma. 4. Hypertension. 5. Glaucoma. TREATMENT: 1. Deep venous thrombosis of the left lower extremity. The patient was started on heparin drip in the emergency room. The patient was not started on Xarelto due to renal insufficiency. Coumadin therapeutic; INR=3.3 D/C Heparin 2. Asthma exacerbation. A Pulmonary consultation has been obtained with Dr. Saran Olmos. We will follow recommendations of Pulmonary. Continue Azithromycin per ID 3. Congestive heart failure. Cardiology consultation has been obtained with Dr. Srinivas Masterson. 4. Hypertension. Continue losartan/hydrochlorothiazide as above. 5. Glaucoma. Continue eye drops as above. 6. Disharge planning Fred Lyman MD May 14, 2018 16:48
--- NOTE | 2018-05-14 18:40 | NUR ---
NURSE NOTES: Patient wants to stay one more day,patient son as well as patient state she is not able to walk,patient son state patient will need physical therapy before being discharge ,DR Olmos notified and order patient to have physical therapy.Discharge cancelled physical therapy,ordered.Call light within reach.
--- NOTE | 2018-05-14 19:33 | NUR ---
NURSE NOTES: Received patient awake in bed, no s/s of acute distress, no c/o pain at this time. IV site asymptomatic, dressing dry and intact, reinforced. Room board updated. Bed on lowest position, 2 side rails up, call light and belongings within reach.
--- NOTE | 2018-05-14 20:00 | NUR ---
HAND-OFF: Report given to Farrah OCHOA.
[2018-05-15] VITALS: BP 135/76
[2018-05-15 04:06] VITALS: BP 147/79
[2018-05-15] MEDS: HydrALAZINE 10mg Tab ORAL SCH ×2 (06:03→15:27)
--- NOTE | 2018-05-15 07:12 | NUR ---
HAND-OFF: Report given to GABRIELA Tate. Patient awake eating breakfast.
--- NOTE | 2018-05-15 07:36 | NUR ---
NURSE NOTES:Patient is awake and alert,sitting up in bed and eating breakfast,pedal pulse to the left foot strong,patient state pain in the left leg,will give pain medication as ordered.
[2018-05-15 08:00] VITALS: BP 149/75
[2018-05-15 08:27] LABS: BASOPHILS % (AUTO) 0.9 % (0.0-2.0); EOSINOPHILS % (AUTO) 0.1 % (0.0-3.0); HEMATOCRIT 27.1 % (37.0-47.0); HEMOGLOBIN 8.6 G/DL (12.0-16.0); LYMPHOCYTES % (AUTO) 14.8 % (20.0-45.0); MEAN CORPUSCULAR VOLUME 79 FL (80-99); MONOCYTES % (AUTO) 7.7 % (1.0-10.0); NEUTROPHILS % (AUTO) 76.5 % (45.0-75.0); PLATELET COUNT 376 K/UL (150-450); RED BLOOD COUNT 3.44 M/UL (4.20-5.40); RED CELL DISTRIBUTION WIDTH 13.1 % (11.6-14.8); WHITE BLOOD COUNT 9.5 K/UL (4.8-10.8)
[2018-05-15] MEDS: Wixela 250/50 Inhaler - 60 dose INH SCH (08:28)
[2018-05-15 08:34] LABS: INR 3.2 (0.9-1.1)
[2018-05-15 08:59] LABS: ALANINE AMINOTRANSFERASE 65 U/L (12-78); ALBUMIN 2.4 G/DL (3.4-5.0); ALBUMIN/GLOBULIN RATIO 0.5 (1.0-2.7); ALKALINE PHOSPHATASE 154 U/L (46-116); ANION GAP 11 mmol/L (5-15); ASPARTATE AMINO TRANSFERASE 75 U/L (15-37); BILIRUBIN,TOTAL 0.3 MG/DL (0.2-1.0); BLOOD UREA NITROGEN 33 mg/dL (7-18); CALCIUM 9.9 MG/DL (8.5-10.1); CARBON DIOXIDE 22 MMOL/L (21-32); CHLORIDE 104 MMOL/L (98-107); CREATININE 1.9 MG/DL (0.55-1.30); SODIUM 137 MMOL/L (136-145)
[2018-05-15] MEDS: Brimonidine 0.2% Opth Sol BOTH EYES SCH (09:51)
[2018-05-15] MEDS: Docusate 100mg cap ORAL SCH ×2 (09:53→15:27)
[2018-05-15] MEDS: Theophylline ER 100mg ORAL SCH (09:54)
[2018-05-15] MEDS: cefTRIAXone 1 GM in D5W 55 ML IVPB SCH (09:54)
[2018-05-15] MEDS: HYDROcodone/Acetamin 5/325 tab ORAL PRN (09:58)
[2018-05-15] MEDS: Dorzolamide 2% 10ml Btl BOTH EYES SCH (09:58)
--- NOTE | 2018-05-15 11:26 | NUR ---
RD ASSESSMENT & RECOMMENDATIONS SEE CARE ACTIVITY FOR COMPLETE ASSESSMENT DAILY ESTIMATED NEEDS: Needs based on Cardiac, advanced age 59kg adj 25-30 kcals/kg 4237-8012 total kcals 1-1.2 g protein/kg 61-73 g total protein 20-25 mL/kg 8267-1756 total fluid mLs NUTRITION DIAGNOSIS: Decreased sodium needs r/t cardiac history as evidenced by pt w/ HTN (BP 171/82), adm w/ DVT, BL LE edema and elev BNP. PO DIET RECOMMENDATIONS: LOW NA/ texture as tolerated ADDITIONAL RECOMMENDATIONS: 1) Txr pt to bed w/ scale for weekly weights 2) Add snacks BID in b/w meals w/ continued variable po intake 3) Add Ensure 1 bottle daily (350 kcal, 20g pro each)
[2018-05-15] MEDS ORDERED: HydrALAZINE 25mg tab ORAL PRN (11:45)
--- NOTE | 2018-05-15 11:47 | Nephrology Progress Note ---
Assessment/Plan Problem List: (1) Renal failure (ARF), acute on chronic (2) COPD (chronic obstructive pulmonary disease) (3) DVT (deep venous thrombosis) (4) Morbid obesity (5) Anemia (6) Hypertension Assessment ATN- cr stablizing and lowering COPD- DVT- HTN- Obesity- Plan BP stablized, will adjust BP meds DC Coozar down on Hydralazine and coreg Kidney CHARLES Neg for hydro UA U Na U Eosinophils DC HCTZ Adjust BP meds anemia dao Monitor renal parameters Avoid Nephrotoxics Subjective ROS Limited/Unobtainable: No Constitutional: Reports: malaise, weakness Objective Objective Last 24 Hour Vital Signs Date Time Temp Pulse Resp B/P (MAP) Pulse Ox O2 Delivery O2 Flow Rate FiO2 05/15/18 09:53 83 171/82 05/15/18 09:53 83 171/82 05/15/18 09:00 Room Air 05/15/18 08:33 89 18 96 Room Air 21 05/15/18 08:28 88 18 96 Room Air 21 05/15/18 08:00 97.7 85 20 149/75 (99) 96 05/15/18 06:03 147/79 05/15/18 04:06 98.0 76 20 147/79 (101) 97 05/15/18 00:00 97.5 80 17 135/76 (95) 96 05/14/18 22:08 Room Air 21 05/14/18 22:08 Room Air 21 05/14/18 21:05 137/82 05/14/18 21:05 83 137/82 05/14/18 21:04 83 18 Room Air 21 05/14/18 21:00 Room Air 05/14/18 20:00 98.7 84 18 137/82 (100) 96 05/14/18 16:00 99.7 84 19 148/90 (109) 96 05/14/18 13:58 132/75 05/14/18 12:00 98.4 89 18 132/75 (94) 96 Intake and Output 05/14/18 05/15/18 18:59 06:59 Intake Total 480 ml 200 ml Output Total 300 ml 300 ml Balance 180 ml -100 ml Intake Oral 480 ml 200 ml Output Urine Total 300 ml 300 ml Laboratory Tests 05/15/18 07:02: White Blood Count 9.5, Red Blood Count 3.44L, Hemoglobin 8.6L, Hematocrit 27.1L , Mean Corpuscular Volume 79L, Mean Corpuscular Hemoglobin 24.9L, Mean Corpuscular Hemoglobin Concent 31.6L, Red Cell Distribution Width 13.1, Platelet Count 376, Mean Platelet Volume 5.3L, Neutrophils (%) (Auto) 76.5H, Lymphocytes (%) (Auto) 14.8L, Monocytes (%) (Auto) 7.7, Eosinophils (%) (Auto) 0.1, Basophils (%) (Auto) 0.9, Prothrombin Time 31.8H, Prothromb Time International Ratio 3.2H, Sodium Level 137, Potassium Level 4.0, Chloride Level 104, Carbon Dioxide Level 22, Anion Gap 11, Blood Urea Nitrogen 33H, Creatinine 1.9H, Estimat Glomerular Filtration Rate , Glucose Level 83, Calcium Level 9.9, Phosphorus Level 3.0, Magnesium Level 2.1, Total Bilirubin 0.3, Aspartate Amino Transf (AST/SGOT) 75H, Alanine Aminotransferase (ALT/SGPT) 65, Alkaline Phosphatase 154H, Total Protein 7.3, Albumin 2.4L, Globulin 4.9, Albumin/ Globulin Ratio 0.5L Height (Feet): 5 Height (Inches): 2.00 Weight (Pounds): 151 General Appearance: no apparent distress Cardiovascular: normal rate Respiratory/Chest: decreased breath sounds Abdomen: soft Objective no change Mukul Denise MD May 15, 2018 11:47
[2018-05-15 12:00] VITALS: BP 130/71
--- NOTE | 2018-05-15 12:33 | Internal Med Progress Note ---
Subjective Date of Service: May 15, 2018 Physician Name Fred Lyman Attending Physician Saran Olmos MD Current Medications Medications (Trade) Dose Ordered Sig/Lamonte Route PRN Reason Start Time Stop Time Status Last Admin Dose Admin Acetaminophen/ Hydrocodone Bitart ([place] 5/325) 1 tab Q6H PRN ORAL SEVERE PAIN 05/13/18 13:00 05/20/18 12:59 05/15/18 09:58 Amlodipine Besylate (Norvasc) 5 mg Q12HR ORAL 05/15/18 21:00 06/14/18 20:59 Brimonidine Tartrate (Alphagan) 1 drop BID BOTH EYES 05/09/18 18:00 06/08/18 17:59 05/15/18 09:51 Carvedilol (Coreg) 6.25 mg EVERY 12 HOURS ORAL 05/15/18 21:00 06/11/18 20:59 Ceftriaxone Sodium 1 gm/ Dextrose 55 ml @ 110 mls/hr Q24H IVPB 05/11/18 10:00 05/18/18 09:59 05/15/18 09:54 Clonidine HCl (Catapres Tab) 0.1 mg Q6H PRN ORAL For High Blood Pressure 05/09/18 00:30 06/08/18 00:29 05/09/18 05:34 Docusate Sodium (Colace) 100 mg THREE TIMES A DAY ORAL 05/09/18 18:00 06/08/18 17:59 05/15/18 09:53 Dorzolamide HCl (Trusopt) 1 drop BID BOTH EYES 05/09/18 18:00 06/08/18 17:59 05/15/18 09:58 Hydralazine HCl (Apresoline) 10 mg Q8HR ORAL 05/13/18 22:00 06/11/18 13:59 05/15/18 06:03 Hydralazine HCl (Apresoline) 25 mg Q4H PRN ORAL bp over 160 syst 05/15/18 11:45 06/14/18 11:44 Hydromorphone HCl (Dilaudid) 0.5 mg Q3H PRN IVP Severe Pain (Pain Scale 7-10) 05/10/18 09:45 05/17/18 09:44 05/12/18 00:42 Pantoprazole (Protonix) 40 mg EVERY 12 HOURS ORAL 05/09/18 21:00 06/08/18 20:59 05/15/18 09:54 Promethazine HCl/ Codeine (Phenergan with Codeine) 5 ml Q4H PRN ORAL For Cough 05/09/18 13:15 06/08/18 13:14 05/12/18 21:34 Salmeterol Xinafoate/ Fluticasone (Advair 250/50 Diskus) 1 puffs BIDRT INH 05/09/18 11:00 06/08/18 10:59 05/15/18 08:28 Temazepam (Restoril) 15 mg HSPRN PRN ORAL Insomnia 05/08/18 22:00 05/15/18 21:59 05/09/18 22:38 Theophylline (Jorge-Dur) 100 mg EVERY 12 HOURS ORAL 05/09/18 21:00 06/08/18 20:59 05/15/18 09:54 Tramadol HCl (Ultram) 50 mg Q6H PRN ORAL Moderate Pain (Pain Scale 4-6) 05/10/18 10:00 05/16/18 19:29 05/13/18 07:21 Warfarin Sodium (Coumadin per pharmacy) 1 ea DAILY PRN MISC Per rx protocol 05/08/18 20:45 06/07/18 20:44 Allergies: Coded Allergies: No Known Allergies (Unverified , 02/20/12) ROS Limited/Unobtainable: No Constitutional: Reports: no symptoms HEENT: Reports: no symptoms Cardiovascular: Reports: no symptoms Respiratory: Reports: no symptoms Gastrointestinal/Abdominal: Reports: no symptoms Genitourinary: Reports: no symptoms Neurologic/Psychiatric: Reports: no symptoms Subjective 87 YO F admitted with leg swelling. Now acute deep venous thrombosis left lower extremity and acute asthma exacerbation. Cover for [facility]-Dr Chan Objective Last Vital Signs Date Time Temp Pulse Resp B/P (MAP) Pulse Ox O2 Delivery O2 Flow Rate FiO2 05/15/18 09:53 83 171/82 05/15/18 09:00 Room Air 05/15/18 08:33 18 96 21 05/15/18 08:00 97.7 Laboratory Tests Test 05/15/18 07:02 White Blood Count 9.5 K/UL (4.8-10.8) Red Blood Count 3.44 M/UL (4.20-5.40) L Hemoglobin 8.6 G/DL (12.0-16.0) L Hematocrit 27.1 % (37.0-47.0) L Mean Corpuscular Volume 79 FL (80-99) L Mean Corpuscular Hemoglobin 24.9 PG (27.0-31.0) L Mean Corpuscular Hemoglobin Concent 31.6 G/DL (32.0-36.0) L Red Cell Distribution Width 13.1 % (11.6-14.8) Platelet Count 376 K/UL (150-450) Mean Platelet Volume 5.3 FL (6.5-10.1) L Neutrophils (%) (Auto) 76.5 % (45.0-75.0) H Lymphocytes (%) (Auto) 14.8 % (20.0-45.0) L Monocytes (%) (Auto) 7.7 % (1.0-10.0) Eosinophils (%) (Auto) 0.1 % (0.0-3.0) Basophils (%) (Auto) 0.9 % (0.0-2.0) Prothrombin Time 31.8 SEC (9.30-11.50) H Prothromb Time International Ratio 3.2 (0.9-1.1) H Sodium Level 137 MMOL/L (136-145) Potassium Level 4.0 MMOL/L (3.5-5.1) Chloride Level 104 MMOL/L (98-107) Carbon Dioxide Level 22 MMOL/L (21-32) Anion Gap 11 mmol/L (5-15) Blood Urea Nitrogen 33 mg/dL (7-18) H Creatinine 1.9 MG/DL (0.55-1.30) H Estimat Glomerular Filtration Rate mL/min (>60) Glucose Level 83 MG/DL (74-106) Calcium Level 9.9 MG/DL (8.5-10.1) Phosphorus Level 3.0 MG/DL (2.5-4.9) Magnesium Level 2.1 MG/DL (1.8-2.4) Total Bilirubin 0.3 MG/DL (0.2-1.0) Aspartate Amino Transf (AST/SGOT) 75 U/L (15-37) H Alanine Aminotransferase (ALT/SGPT) 65 U/L (12-78) Alkaline Phosphatase 154 U/L (46-116) H Total Protein 7.3 G/DL (6.4-8.2) Albumin 2.4 G/DL (3.4-5.0) L Globulin 4.9 g/dL Albumin/Globulin Ratio 0.5 (1.0-2.7) L Intake and Output 05/14/18 05/15/18 19:00 07:00 Intake Total 480 ml 200 ml Output Total 300 ml 300 ml Balance 180 ml -100 ml Intake Oral 480 ml 200 ml Output Urine Total 300 ml 300 ml Objective PHYSICAL EXAMINATION: GENERAL: The patient is well-developed and well-nourished female, in no apparent distress. HEENT: Eyes, pupils equal and responsive to light and accommodation. Extraocular movements are intact. NECK: Supple without lymphadenopathy. CHEST: Lungs are clear to auscultation bilaterally without wheezes or rales. CARDIOVASCULAR: Regular rate. S1 and S2 are normal without murmurs, rubs, or gallops. ABDOMEN: Soft, nontender, and nondistended. Positive bowel sounds. No evidence of hepatosplenomegaly. Currently, no rebound or guarding. EXTREMITIES: Trace edema on the left and trace edema on the right. Otherwise, without cyanosis or clubbing. RECTAL: Refused. GENITAL: Refused. NEUROLOGIC: Cranial nerves II through XII grossly intact without focal deficits. Motor strength is 5/5 bilaterally. Deep tendon reflexes are 2+ Assessment/Plan Assessment/Plan ASSESSMENT: This is an 87-year-old female. 1. Deep venous thrombosis of the left lower extremity, acute. 2. Edema of bilateral lower extremities. 3. Asthma. 4. Hypertension. 5. Glaucoma. TREATMENT: 1. Deep venous thrombosis of the left lower extremity. The patient was started on heparin drip in the emergency room. The patient was not started on Xarelto due to renal insufficiency. Coumadin therapeutic; INR=3.2 D/C Heparin 2. Asthma exacerbation. A Pulmonary consultation has been obtained with Dr. Saran Olmos. We will follow recommendations of Pulmonary. Continue Azithromycin per ID 3. Congestive heart failure. Cardiology consultation has been obtained with Dr. Srinivas Masterson. 4. Hypertension. Continue losartan/hydrochlorothiazide as above. 5. Glaucoma. Continue eye drops as above. 6. Disharge planning Fred Lyman MD May 15, 2018 12:33
--- NOTE | 2018-05-15 13:16 | Pulmonology Progress Note ---
Assessment/Plan Problems: (1) DVT (deep venous thrombosis) (2) COPD (chronic obstructive pulmonary disease) (3) ATN (acute tubular necrosis) (4) Hypertension (5) Morbid obesity Assessment/Plan dc home coumadin po, INR therapeutic monitor BP renal studies anemia w/u respiratory treatment symptomatic treatment endoscopy done med/surg Subjective ROS Limited/Unobtainable: No Constitutional: Reports: no symptoms HEENT: Repors: no symptoms Respiratory: Reports: no symptoms Allergies: Coded Allergies: No Known Allergies (Unverified , 02/20/12) Objective Last 24 Hour Vital Signs Date Time Temp Pulse Resp B/P (MAP) Pulse Ox O2 Delivery O2 Flow Rate FiO2 05/15/18 09:53 83 171/82 05/15/18 09:53 83 171/82 05/15/18 09:00 Room Air 05/15/18 08:33 89 18 96 Room Air 21 05/15/18 08:28 88 18 96 Room Air 21 05/15/18 08:00 97.7 85 20 149/75 (99) 96 05/15/18 06:03 147/79 05/15/18 04:06 98.0 76 20 147/79 (101) 97 05/15/18 00:00 97.5 80 17 135/76 (95) 96 05/14/18 22:08 Room Air 21 05/14/18 22:08 Room Air 21 05/14/18 21:05 137/82 05/14/18 21:05 83 137/82 05/14/18 21:04 83 18 Room Air 21 05/14/18 21:00 Room Air 05/14/18 20:00 98.7 84 18 137/82 (100) 96 05/14/18 16:00 99.7 84 19 148/90 (109) 96 05/14/18 13:58 132/75 Intake and Output 05/14/18 05/15/18 18:59 06:59 Intake Total 480 ml 200 ml Output Total 300 ml 300 ml Balance 180 ml -100 ml Intake Oral 480 ml 200 ml Output Urine Total 300 ml 300 ml General Appearance: WD/WN HEENT: normocephalic, atraumatic Respiratory/Chest: chest wall non-tender, normal breath sounds Cardiovascular: normal peripheral pulses, regular rhythm Abdomen: normal bowel sounds, no organomegaly Genitourinary: normal external genitalia Extremities: no cyanosis Skin: no rash Laboratory Tests 05/15/18 07:02: White Blood Count 9.5, Red Blood Count 3.44L, Hemoglobin 8.6L, Hematocrit 27.1L , Mean Corpuscular Volume 79L, Mean Corpuscular Hemoglobin 24.9L, Mean Corpuscular Hemoglobin Concent 31.6L, Red Cell Distribution Width 13.1, Platelet Count 376, Mean Platelet Volume 5.3L, Neutrophils (%) (Auto) 76.5H, Lymphocytes (%) (Auto) 14.8L, Monocytes (%) (Auto) 7.7, Eosinophils (%) (Auto) 0.1, Basophils (%) (Auto) 0.9, Prothrombin Time 31.8H, Prothromb Time International Ratio 3.2H, Sodium Level 137, Potassium Level 4.0, Chloride Level 104, Carbon Dioxide Level 22, Anion Gap 11, Blood Urea Nitrogen 33H, Creatinine 1.9H, Estimat Glomerular Filtration Rate , Glucose Level 83, Calcium Level 9.9, Phosphorus Level 3.0, Magnesium Level 2.1, Total Bilirubin 0.3, Aspartate Amino Transf (AST/SGOT) 75H, Alanine Aminotransferase (ALT/SGPT) 65, Alkaline Phosphatase 154H, Total Protein 7.3, Albumin 2.4L, Globulin 4.9, Albumin/ Globulin Ratio 0.5L Current Medications Medications (Trade) Dose Ordered Sig/Lamonte Route PRN Reason Start Time Stop Time Status Last Admin Dose Admin Acetaminophen/ Hydrocodone Bitart ([place] 5/325) 1 tab Q6H PRN ORAL SEVERE PAIN 05/13/18 13:00 05/20/18 12:59 05/15/18 09:58 Amlodipine Besylate (Norvasc) 5 mg Q12HR ORAL 05/15/18 21:00 06/14/18 20:59 Brimonidine Tartrate (Alphagan) 1 drop BID BOTH EYES 05/09/18 18:00 06/08/18 17:59 05/15/18 09:51 Carvedilol (Coreg) 6.25 mg EVERY 12 HOURS ORAL 05/15/18 21:00 06/11/18 20:59 Ceftriaxone Sodium 1 gm/ Dextrose 55 ml @ 110 mls/hr Q24H IVPB 05/11/18 10:00 3/16/19 09:59 05/15/18 09:54 Clonidine HCl (Catapres Tab) 0.1 mg Q6H PRN ORAL For High Blood Pressure 05/09/18 00:30 06/08/18 00:29 05/09/18 05:34 Docusate Sodium (Colace) 100 mg THREE TIMES A DAY ORAL 05/09/18 18:00 06/08/18 17:59 05/15/18 09:53 Dorzolamide HCl (Trusopt) 1 drop BID BOTH EYES 05/09/18 18:00 06/08/18 17:59 05/15/18 09:58 Hydralazine HCl (Apresoline) 10 mg Q8HR ORAL 05/13/18 22:00 06/11/18 13:59 05/15/18 06:03 Hydralazine HCl (Apresoline) 25 mg Q4H PRN ORAL bp over 160 syst 05/15/18 11:45 06/14/18 11:44 Hydromorphone HCl (Dilaudid) 0.5 mg Q3H PRN IVP Severe Pain (Pain Scale 7-10) 05/10/18 09:45 05/17/18 09:44 05/12/18 00:42 Pantoprazole (Protonix) 40 mg EVERY 12 HOURS ORAL 05/09/18 21:00 06/08/18 20:59 05/15/18 09:54 Promethazine HCl/ Codeine (Phenergan with Codeine) 5 ml Q4H PRN ORAL For Cough 05/09/18 13:15 06/08/18 13:14 05/12/18 21:34 Salmeterol Xinafoate/ Fluticasone (Advair 250/50 Diskus) 1 puffs BIDRT INH 05/09/18 11:00 06/08/18 10:59 05/15/18 08:28 Temazepam (Restoril) 15 mg HSPRN PRN ORAL Insomnia 05/08/18 22:00 05/15/18 21:59 05/09/18 22:38 Theophylline (Jorge-Dur) 100 mg EVERY 12 HOURS ORAL 05/09/18 21:00 06/08/18 20:59 05/15/18 09:54 Tramadol HCl (Ultram) 50 mg Q6H PRN ORAL Moderate Pain (Pain Scale 4-6) 05/10/18 10:00 05/16/18 19:29 05/13/18 07:21 Warfarin Sodium (Coumadin per pharmacy) 1 ea DAILY PRN MISC Per rx protocol 05/08/18 20:45 06/07/18 20:44 Saran Olmos MD May 15, 2018 13:16
[2018-05-15] MEDS ORDERED: ROBITUSSIN COU118 M1 PO (13:19)
--- NOTE | 2018-05-15 14:00 | NUR ---
P. T Note: P.T evaluation completed and treatment initiated. Please refer to P.T evaluation for current functional status. Pt is alert, oriented x4 , pleasant and cooperative. Daughter and granddaughter present during P.T evaluation. Pt reports c/o generalized weakness and B knee/thigh pain aggravated by movement movement affecting overall functional mobilities. Pt currently require extended time and MOD A X 1 for rise from supine to/from sit and MAX A X 1 to rise from sitting to/from standing. Pt able to stand using the FWW and was only able to ambulate 3-4 tiny steps with MOD A X 1. Pt appeared exhausted post P.T evaluation with mild SOB. Vitals however were stable. Spoke to patient and family member and discussed current level of function and safety as well as recommendation for short term SNF for further rehab VS home P.T however pt and family insisted that patient will not go to SNF and will go home with home P.T follow up when medically stable. Pt will be seen for P.T 5x/wk , QD for strengthening , conditioning and functional mobility training during stay until DC. Thank you for this referral.
[2018-05-15 14:48] VITALS: BP 149/82
[2018-05-15 15:27] VITALS: BP 149/82
--- NOTE | 2018-05-15 15:30 | NUR ---
NURSE NOTES: patient was discharge to home,patient will have home health services,ID hospital band removed and Iv saline lock x2 removed,patient has personal l belongings,discharge instructions given.Patient accompany down to private vehicle,family will take patient home.
[2018-05-15] MEDS ORDERED: NS 275ml ONE (15:37)
--- NOTE | 2018-05-15 15:42 | Infectious Diseases Prog Note ---
Assessment/Plan Assessment/Plan Assessment: Asthma exacerbation -CXR: Cardiomegaly. No acute process -influenza sc neg -SCx - NF Low grade fever;SP Leukocytosis, S P Acute L DVT -v.duplex: Positive for left lower extremity acute deep venous thrombosis, involving the popliteal vein, calf veins, and upstream femoral vein ALMA, worsened obesity CVA/TIA PUD GERD anxiety asthma HTN hx of DVT Plan: - Restarted ceftriaxone #5/5 given increased WBCs -/ SP Azithromycin #4 -05/09 SP Ceftriaxone #1 -/ SP Levaquin x1 -Monitor CBC/CMP, temperatures Will continue to follow along with you. Subjective Allergies: Coded Allergies: No Known Allergies (Unverified , 02/20/12) Subjective afebrile at RA no leukocytosis Objective Vital Signs Last 24 Hour Vital Signs Date Time Temp Pulse Resp B/P (MAP) Pulse Ox O2 Delivery O2 Flow Rate FiO2 05/15/18 15:27 149/82 05/15/18 14:48 78 149/82 (104) 05/15/18 12:00 98.1 22 130/71 (90) 98 05/15/18 09:53 83 171/82 05/15/18 09:53 83 171/82 05/15/18 09:00 Room Air 05/15/18 08:33 89 18 96 Room Air 21 05/15/18 08:28 88 18 96 Room Air 21 05/15/18 08:00 97.7 85 20 149/75 (99) 96 05/15/18 06:03 147/79 05/15/18 04:06 98.0 76 20 147/79 (101) 97 05/15/18 00:00 97.5 80 17 135/76 (95) 96 05/14/18 22:08 Room Air 21 05/14/18 22:08 Room Air 21 05/14/18 21:05 137/82 05/14/18 21:05 83 137/82 05/14/18 21:04 83 18 Room Air 21 05/14/18 21:00 Room Air 05/14/18 20:00 98.7 84 18 137/82 (100) 96 05/14/18 16:00 99.7 84 19 148/90 (109) 96 Height (Feet): 5 Height (Inches): 2.00 Weight (Pounds): 151 Objective GENERAL: The patient is well-developed and well-nourished female, in no apparent distress. HEENT: Eyes, pupils equal and responsive to light and accommodation. Extraocular movements are intact. NECK: Supple without lymphadenopathy. CHEST: Lungs are clear to auscultation bilaterally without wheezes or rales. CARDIOVASCULAR: Regular rate. S1 and S2 are normal without murmurs, rubs, or gallops. ABDOMEN: Soft, nontender, and nondistended. Positive bowel sounds. No evidence of hepatosplenomegaly. Currently, no rebound or guarding. EXTREMITIES: Trace edema on the left and trace edema on the right. Otherwise, without cyanosis or clubbing. NEUROLOGIC: Cranial nerves II through XII grossly intact without focal deficits. Motor strength is 5/5 bilaterally. Deep tendon reflexes are 2+ plantar. Laboratory Tests Test 05/15/18 07:02 White Blood Count 9.5 K/UL (4.8-10.8) Red Blood Count 3.44 M/UL (4.20-5.40) L Hemoglobin 8.6 G/DL (12.0-16.0) L Hematocrit 27.1 % (37.0-47.0) L Mean Corpuscular Volume 79 FL (80-99) L Mean Corpuscular Hemoglobin 24.9 PG (27.0-31.0) L Mean Corpuscular Hemoglobin Concent 31.6 G/DL (32.0-36.0) L Red Cell Distribution Width 13.1 % (11.6-14.8) Platelet Count 376 K/UL (150-450) Mean Platelet Volume 5.3 FL (6.5-10.1) L Neutrophils (%) (Auto) 76.5 % (45.0-75.0) H Lymphocytes (%) (Auto) 14.8 % (20.0-45.0) L Monocytes (%) (Auto) 7.7 % (1.0-10.0) Eosinophils (%) (Auto) 0.1 % (0.0-3.0) Basophils (%) (Auto) 0.9 % (0.0-2.0) Prothrombin Time 31.8 SEC (9.30-11.50) H Prothromb Time International Ratio 3.2 (0.9-1.1) H Sodium Level 137 MMOL/L (136-145) Potassium Level 4.0 MMOL/L (3.5-5.1) Chloride Level 104 MMOL/L (98-107) Carbon Dioxide Level 22 MMOL/L (21-32) Anion Gap 11 mmol/L (5-15) Blood Urea Nitrogen 33 mg/dL (7-18) H Creatinine 1.9 MG/DL (0.55-1.30) H Estimat Glomerular Filtration Rate mL/min (>60) Glucose Level 83 MG/DL (74-106) Calcium Level 9.9 MG/DL (8.5-10.1) Phosphorus Level 3.0 MG/DL (2.5-4.9) Magnesium Level 2.1 MG/DL (1.8-2.4) Total Bilirubin 0.3 MG/DL (0.2-1.0) Aspartate Amino Transf (AST/SGOT) 75 U/L (15-37) H Alanine Aminotransferase (ALT/SGPT) 65 U/L (12-78) Alkaline Phosphatase 154 U/L (46-116) H Total Protein 7.3 G/DL (6.4-8.2) Albumin 2.4 G/DL (3.4-5.0) L Globulin 4.9 g/dL Albumin/Globulin Ratio 0.5 (1.0-2.7) L Current Medications Medications (Trade) Dose Ordered Sig/Lamonte Route PRN Reason Start Time Stop Time Status Last Admin Dose Admin Acetaminophen/ Hydrocodone Bitart ([place] 5/325) 1 tab Q6H PRN ORAL SEVERE PAIN 05/13/18 13:00 05/20/18 12:59 05/15/18 09:58 Amlodipine Besylate (Norvasc) 5 mg Q12HR ORAL 05/15/18 21:00 06/14/18 20:59 Brimonidine Tartrate (Alphagan) 1 drop BID BOTH EYES 05/09/18 18:00 06/08/18 17:59 05/15/18 09:51 Carvedilol (Coreg) 6.25 mg EVERY 12 HOURS ORAL 05/15/18 21:00 06/11/18 20:59 Ceftriaxone Sodium 1 gm/ Dextrose 55 ml @ 110 mls/hr Q24H IVPB 05/11/18 10:00 05/18/18 09:59 05/15/18 09:54 Clonidine HCl (Catapres Tab) 0.1 mg Q6H PRN ORAL For High Blood Pressure 05/09/18 00:30 06/08/18 00:29 05/09/18 05:34 Docusate Sodium (Colace) 100 mg THREE TIMES A DAY ORAL 05/09/18 18:00 06/08/18 17:59 05/15/18 15:27 Dorzolamide HCl (Trusopt) 1 drop BID BOTH EYES 05/09/18 18:00 06/08/18 17:59 05/15/18 09:58 Hydralazine HCl (Apresoline) 10 mg Q8HR ORAL 05/13/18 22:00 06/11/18 13:59 05/15/18 15:27 Hydralazine HCl (Apresoline) 25 mg Q4H PRN ORAL bp over 160 syst 05/15/18 11:45 06/14/18 11:44 Hydromorphone HCl (Dilaudid) 0.5 mg Q3H PRN IVP Severe Pain (Pain Scale 7-10) 05/10/18 09:45 05/17/18 09:44 05/12/18 00:42 Pantoprazole (Protonix) 40 mg EVERY 12 HOURS ORAL 05/09/18 21:00 06/08/18 20:59 05/15/18 09:54 Promethazine HCl/ Codeine (Phenergan with Codeine) 5 ml Q4H PRN ORAL For Cough 05/09/18 13:15 06/08/18 13:14 05/12/18 21:34 Salmeterol Xinafoate/ Fluticasone (Advair 250/50 Diskus) 1 puffs BIDRT INH 05/09/18 11:00 06/08/18 10:59 05/15/18 08:28 Temazepam (Restoril) 15 mg HSPRN PRN ORAL Insomnia 05/08/18 22:00 05/15/18 21:59 05/09/18 22:38 Theophylline (Jorge-Dur) 100 mg EVERY 12 HOURS ORAL 05/09/18 21:00 06/08/18 20:59 05/15/18 09:54 Tramadol HCl (Ultram) 50 mg Q6H PRN ORAL Moderate Pain (Pain Scale 4-6) 05/10/18 10:00 05/16/18 19:29 05/13/18 07:21 Warfarin Sodium (Coumadin per pharmacy) 1 ea DAILY PRN MISC Per rx protocol 05/08/18 20:45 06/07/18 20:44 Dolores Laws M.D. May 15, 2018 15:42
[2018-05-15] MEDS ORDERED: Carvedilol 6.25mg Tab ORAL SCH (21:00)
--- NOTE | 2018-05-16 15:24 | Discharge Summary ---
Discharge Summary Discharge Summary _ DATE OF ADMISSION: 05/08/2018 DATE OF DISCHARGE: 05/15/2018 DISCHARGED BY: Dr. Saran Olmos CONSULTANTS: Dr. Deshawn Masterson [facility] HOSPITAL COURSE: Patient is an 87-year-old -[place] female, who presented with chief complaint of leg swelling. Symptoms started a week prior to admission. The patient began to experience bilateral lower extremity swelling. The left leg seemed to be more swollen than the right. The patient also had cough. Patient has medical history significant for asthma, hypertension, cardiomyopathy, anxiety disorder and GERD. On evaluation at ED, blood pressure was elevated. At work did not show any leukocytosis, hemoglobin and hematocrit were stable. Creatinine was elevated to 1.7, BUN 17. EKG showed normal sinus rhythm with no acute ischemic changes. Chest x-ray did not show any acute consolidation. Venous duplex of the lower extremity showed an acute left lower popliteal and femoral vein thrombosis. She was was started on heparin drip. Patient was admitted for acute DVT. Patient had elevated creatinine. [employer] was consulted. Hydrochlorothiazide was discontinued. ID was consulted. Influenza screen was negative. She was given ceftriaxone and azithromycin for asthma exacerbation. She was eventually started on Coumadin. Unable to give Xarelto due to renal insufficiency. Kidney function worsened. She was taken off ARB and diuretics. She was given Norvasc for blood pressure control. Renal ultrasound was negative for hydronephrosis. She had episodes of low BP 98/59. Antihypertensives were titrated. She was given IV bolus. Blood pressure eventually stabilized. Sputum culture showed growth of normal remigio. Leukocytosis eventually resolved. INR was therapeutic. Heparin was discontinued. She was discharged home. FINAL DIAGNOSES: Acute DVT of the left leg COPD Acute tubular necrosis Hypertension Morbid obesity Asthma exacerbation CVA/TIA GERD PUD Anxiety Hypertension Glaucoma DISPOSITION: Home with home health. DISCHARGE MEDICATIONS: Refer to Discharge Medication List. DISCHARGE INSTRUCTIONS: Follow-up in a week. I have been assigned to complete a discharge summary on this account, I was not involved with the patient's management. Leyda Houston NP May 16, 2018 15:24
--- NOTE | 2018-05-16 21:05 | Cardiology Report ---
APPROVED REPORT EKG Measurement Heart [id number] Normal sinus rhythm Left axis deviation Right bundle branch block Abnormal ECG
== END 2018-05-15 15:38 | disposition home health service (06) | DRG 299 ==
LOC: EMR 13:43 → 2E 15:03 → EDBEDREQ 15:14 → 2E 05-09 06:17 → 4E 05-13 22:27
DX: I82.432 Acute embolism and thrombosis of left popliteal vein (principal); N17.0 Acute kidney failure with tubular necrosis; I42.9 Cardiomyopathy, unspecified; J45.901 Unspecified asthma with (acute) exacerbation; I82.412 Acute embolism and thrombosis of left femoral vein; K21.9 Gastro-esophageal reflux disease without esophagitis; F41.9 Anxiety disorder, unspecified; H40.9 Unspecified glaucoma; E66.01 Morbid (severe) obesity due to excess calories; J44.9 Chronic obstructive pulmonary disease, unspecified; K27.9 Peptic ulcer, site unspecified, unspecified as acute or chronic, without hemorrhage or perforation; I16.0 Hypertensive urgency; I12.9 Hypertensive chronic kidney disease with stage 1 through stage 4 chronic kidney disease, or unspecified chronic kidney disease; N18.9 Chronic kidney disease, unspecified; Z68.27 Body mass index [BMI] 27.0-27.9, adult; Z86.73 Personal history of transient ischemic attack (TIA), and cerebral infarction without residual deficits
CPT/HCPCS: 36415; 71045; 76770; 80048; 80053; 80061; 81001; 82043; 82378; 82550; 82553; 82607; 82728; 82746; 82977; 83036; 83540; 83550; 83615; 83735; 83880; 83930; 84100; 84300; 84443; 84484; 84550; 85007; 85025; 85044; 85060; 85610; 85651; 85730; 86140; 86710; 87070; 87205; 89050; 93005; 93970; 94640; 94664; 96365; 96368; 99285; J8499